=== PATIENT | female | born 1930 | race Caucasian/White ===

== ENCOUNTER → 2016-08-07 | Outpatient (CLI) | payer MEDICARE ==
[~2016-08-07] MED LIST: ACET-2267 PO; ACHD5005 PO; AMLO5TAB2 PO; ASCO500T20 PO; ASCO500T5 PO; ASP325TEC PO; ASPI-624 PO; ATEN50TA PO; CA C1TAB26 PO; CALC-80 PO; CALC-97 PO; CALC600T PO; CHOL10003 PO; CLOP75TA PO; CLOP75TA69 PO; CYCL10TA9 PO; DOCU100T7 PO; ERGO2000 PO; EST30C VG; EZET10TA5 PO; FENO48TA PO; FENO54TA PO; FISH OIL 1,2001 EAC1 PO; LD5PT TOP; LSNP20T PO; MULT1CAP27 PO; NEBI5TAB8 PO; OMEG1CAP51 PO; OMG1KC PO; PNT40TEC PO; RANEXA ER PO; RANEXA PO; ROSU10TA12 PO; Rivaroxaban PO; TRAM50TA2 PO; VITA C; [UNRECOGNIZED DRUG - OTHER]; [UNRECOGNIZED DRUG - OTHER] PO
--- NOTE | 2016-08-07 13:27 | Diagnostic Imaging Report ---
3 views of the lumbar spine. INDICATION: Back pain. Osteoporosis. FINDINGS: There is suggestion of osteopenia. There is evidence of a kyphoplasty at T12 and old compression fracture also at T11. There is suggestion of a mild depression of the superior endplate at L2 level which is not seen on 03/30/15. The alignment of the posterior spinal line is satisfactory. The SI joints appear unremarkable. IMPRESSION: Osteopenia and old compression fractures of the lower thoracic spine. There is a mild depression of superior endplate of L2 vertebral body with no significant vertebral body height loss seen. If this matches the area of pain, then further evaluation with MRI is recommended for better evaluation. Dictated by: Dictated on workstation # [id number]
--- NOTE | 2016-08-07 13:33 | Diagnostic Imaging Report ---
3 views of the thoracic spine. INDICATION: Back pain, osteoporosis. COMPARISON: 03/30/2015. FINDINGS: Old compression fractures of T12 and T11 are seen similar to 2015 exam. Post kyphoplasty changes at T12 are noted. There are prominent degenerative changes with multilevel anterior osteophytes seen. The alignment of the posterior spinal line appears satisfactory. Post CABG changes and cardiomegaly seen. IMPRESSION: Old compression fractures of the lower thoracic spine. Osteopenia. Cardiomegaly. Dictated by: Dictated on workstation # [id number]
== END ==
LOC: RAD 12:46
PROVIDERS: ATTEND Nurse Practitioner Family
DX: M85.89 Other specified disorders of bone density and structure, multiple sites (principal); M48.54XD Collapsed vertebra, not elsewhere classified, thoracic region, subsequent encounter for fracture with routine healing
CPT/HCPCS: 72072; 72100

== ENCOUNTER → 2016-08-16 | Outpatient (CLI) | payer MEDICARE ==
--- NOTE | 2016-08-16 11:49 | Diagnostic Imaging Report ---
PROCEDURE: MRI lumbar spine. TECHNIQUE: Multiplanar, multisequence MRI of the lumbar spine was performed without contrast. INDICATION: Back pain. Previous history of kyphoplasty. Comparison with 07/24/2012. FINDINGS: There is kyphoplasty cement at T12 vertebral body. Body height is well maintained. There is wedge type compression fracture of T11 vertebral body with 50% loss of body height. This is chronic in nature. There is edema in the vertebral body of L2 on today's study with superior endplate compression fracture present. There is mild loss of body height. Fracture edema does not extend into the posterior elements. The remaining lumbar vertebral bodies appear normal. No evidence of focal disc herniation. No spinal stenosis. There is mild posterior facet and ligamentous hypertrophy at L4-L5 which is causing mild encroachment upon the foramen bilaterally. IMPRESSION: 1. There is a new superior endplate compression fracture of L2 with mild loss of body height. 2. Old compression fracture of T11 and T12 with kyphoplasty cement within T12. 3. Mild degenerative facet and ligamentous disease L4-L5 causing mild encroachment upon the neural foramen bilaterally. Dictated by: Dictated on workstation # [id number]
== END ==
LOC: RAD 10:53
PROVIDERS: ATTEND Nurse Practitioner Family
DX: M48.56XA Collapsed vertebra, not elsewhere classified, lumbar region, initial encounter for fracture (principal); R29.890 Loss of height
CPT/HCPCS: 72148

== ENCOUNTER 2016-09-17 11:51 | Outpatient (CLI) | payer MEDICARE ==
[~2016-09-17] VITALS: Ht 152.4 cm; Wt 55.5 kg
[2016-09-17] MEDS ORDERED: RANO500T3 PO (14:54)
== END 2016-09-17 15:02 ==
LOC: PREOP 11:51
PROVIDERS: ATTEND Orthopaedic Surgery Orthopaedic Surgery of the Spine
DX: Z01.818 Encounter for other preprocedural examination (principal); M80.08XA Age-related osteoporosis with current pathological fracture, vertebra(e), initial encounter for fracture

== ENCOUNTER 2016-09-19 06:05 | Day surgery (SDC) | payer MEDICARE ==
[~2016-09-19] VITALS: Ht 152.4 cm; Wt 55.5 kg
[~2016-09-19 06:05] MED LIST changes: +RANO500T3 PO
[2016-09-19] MEDS ORDERED: LACTATED RINGERS 1,000 ML IV PRN (06:47)
[2016-09-19 06:50] VITALS: BP 153/64
[2016-09-19] MEDS ORDERED: SEVOFLURANE (ULTANE) 15 ML INHAL SOLN ONE (06:51)
[2016-09-19] MEDS ORDERED: proPOfol 200 MG/20 ML (DIPRIVAN) VIAL IV ONE (06:51)
[2016-09-19] MEDS ORDERED: ONDANSETRON 4 MG/2 ML (SDV) Z0FRAN ONE (06:51)
[2016-09-19] MEDS ORDERED: LIDOCAINE PF 2% 5 ML (XYLOCAINE) VIAL ONE (06:51)
[2016-09-19] MEDS ORDERED: LACTATED RINGERS 1,000 ML IV ONE (06:51)
[2016-09-19] MEDS ORDERED: ROCURONIUM 50 MG/5 ML (ZEMURON) VIAL IV ONE (06:51)
[2016-09-19] MEDS ORDERED: fentaNYL INJECTION 100 MCG/2 ML AMP ONE (06:51)
[2016-09-19] MEDS ORDERED: ceFAZolin 1 GM/NS 50 ML IVPB IV ONE ×2 (07:00)
[2016-09-19] MEDS ORDERED: BUP/EPI 0.25% 1:200,000 (MARCAINE) 30 ML VIAL ONE (07:36)
--- NOTE | 2016-09-19 07:46 | History & Physical-Surgical ---
HPO-Surgical History of Present Illness Chief Complaint: Back Pain Diagnosis/Surgical Indication: LUMBAR FX, osteoporosis Procedure: LUMBAR 1&2 KYPHOPLASTY Date of Surgery: Sep 19, 2016 Weight (Pounds): 122 Weight (Ounces): 6.0 Height (Feet): 5 Height (Inches): 0.00 Allergies and Home Medications Allergies Coded Allergies: niacin (Verified Allergy, Unknown, HIVES, 09/17/16) simvastatin (Verified Allergy, Unknown, HIVES, 09/17/16) Home Medications Acetaminophen 500 Mg Tablet, 500 MG PO HS, (Reported) Ascorbic Acid 500 Mg Tab.chew, 500 MG PO DAILY, (Reported) Aspirin 81 Mg Tablet, 81 MG PO DAILY, (Reported) Clopidogrel Bisulfate 75 Mg Tablet, 75 MG PO DAILY, (Reported) Docusate Sodium 100 Mg Tablet, 100 MG PO PRN PRN for CONSTIPATION, (Reported) Ergocalciferol (Vitamin D2) 2,000 Unit Tablet, 1,000 UNIT PO DAILY, (Reported) Nebivolol Hcl 5 Mg Tablet, 5 MG PO HS, (Reported) Pantoprazole Sodium 40 Mg Tablet.dr, 40 MG PO DAILY, (Reported) Ranolazine 500 Mg Tab.er.12h, 500 MG PO Q12H, (Reported) Rosuvastatin Calcium 10 Mg Tablet, 10 MG PO HS, (Reported) Tramadol HCl 50 Mg Tablet, 50 MG PO Q12H PRN for PAIN, #20 Prescribed by: YOUSIF SCOTT on 08/24/15 1611 Past Lduezxc-Vxzlrx-Lcpots Hx Patient Social History Alcohol Use: Denies Use Recreational Drug Use: No Smoking Status: Former Smoker Recent Foreign Travel: No Contact w/other who traveled: No Recent Hopitalizations: No Recent Infectious Disease Expo: No Immunizations Up To Date Date of Pneumonia Vaccine: Jan 18, 2010 Date of Influenza Vaccine: Jan 28, 2016 Seasonal Allergies Seasonal Allergies: Yes Surgeries HX Surgeries: Yes (CORONARY BYPASS GRAFT, LAP LIZETH, BACK SX, 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) Respiratory Hx Respiratory Disorders: No Cardiovascular Hx Cardiovascular Disorders: Yes (BYPASS SURGERY) Cardiac Disorders: Coronary Artery Disease, High Cholesterol, Hypertension Neurological Hx Neurological Disorders: Yes Neurological Disorders: TIA 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 System Hx 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 Disorders: No Sexually Transmitted Disease: No HIV/AIDS: No Genitourinary Hx Genitourinary Disorders: Yes (INCONT AT TIMES ) Gastrointestinal Hx Gastrointestinal Disorders: Yes (CONSTIPATION OCCASIONALLY) Gastrointestinal Disorders: Gastroesophageal Reflux, Diverticulosis Musculoskeletal Hx Musculoskeletal Disorders: Yes (FRACTURE LEFT ARM) Musculoskeletal Disorders: Degenerate Disk Disease, Osteoporosis, Fractures Endocrine Hx Endocrine Disorders: No HEENT HX ENT Disorders: Yes (HAD CATARACTS REMOVED BILAT, READING GLASSES) HEENT Disorders: Cataract Loss of Vision: Bilateral Hearing Impairment: Denies Cancer 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 Psychosocial Hx Psychiatric Problems: No Integumentary HX Skin/Integumentary Disorder: Yes (skin cancer on face/body) Blood Transfusions Hx Blood Disorders: No Adverse Reaction to a Blood Tr: No Family Medical History Family Hx: Abdominal aortic aneurysm G8 SISTER Congestive heart failure 19 FATHER Family history: Arthritis 19 MOTHER G8 SISTER Family history: Cardiovascular disease G8 SISTER Family history: Hypertension G8 SISTER Family history: Osteoporosis 19 MOTHER Heart disease 19 FATHER 19 MOTHER G8 SISTER Hypercholesterolemia G8 SISTER Kidney disease G8 SISTER Myocardial infarction 19 FATHER 19 MOTHER G8 SISTER Exam Vital Signs Vital Signs 09/19/16 06:50 Temp 98.1 Pulse 53 Resp 18 B/P (MAP) 153/64 Pulse Ox 97 Capillary Refill : Labs MRI shows acute L1 and L2 compression fractures General Appearance: Alert, Oriented X3, Cooperative HEENT: Atraumatic Respiratory: Normal Air Movement Cardiovascular: Regular Rate Abdominal: Soft, No Tenderness Extremities: No Clubbing Skin: No Rashes Neuro: Normal Gait, Normal Speech, Strength at 5/5 X4 Ext Psych/Mental Status: Mental Status NL Assessment/Plan Assessment and Plan L1 and L2 Osteoporotic Compression Fractures Plan L1 and L2 kyphoplasty Problems: DAKOTA REGAN MD Sep 19, 2016 7:46 am
--- NOTE | 2016-09-19 08:38 | Progress Note-Post Operative ---
Post-Operative Progess Note Surgeon (s)/Cider Maker (s) Surgeon DAKOTA REGAN MD Cider Maker: Heriberto Lozano Pre-Operative Diagnosis LUMBAR FX, osteoporosis Post-Operative Diagnosis Same, pathology pending Procedure & Operative Findings Date of Procedure 09/19/16 Procedure Performed/Findings L1, L2 and L3 kyphoplasty Anesthesia Type GETA Estimated Blood Loss Estimated blood loss (mL): minimal Specimens/Packing Specimens Removed L2 biopsy Packing: none DAKOTA REGAN MD Sep 19, 2016 8:38 am
[2016-09-19] MEDS ORDERED: ONDANSETRON 4 MG/2 ML (SDV) Z0FRAN IVP PRN (09:00)
[2016-09-19] MEDS: fentaNYL INJECTION 100 MCG/2 ML AMP IVP PRN ×2 (09:24→09:32)
[2016-09-19 10:05] VITALS: BP 185/71
[2016-09-19] MEDS ORDERED: ONDANSETRON 4 MG/2 ML (SDV) Z0FRAN IVP ONE ×2 (10:30→11:00)
[2016-09-19 10:35] VITALS: BP 203/83
[2016-09-19 11:05] VITALS: BP 178/71
[2016-09-19 11:30] VITALS: BP 178/71
[2016-09-19 12:45] VITALS: BP 178/71
--- NOTE | 2016-09-19 13:15 | OPERATIVE REPORT ---
DATE OF SERVICE: 09/19/2016 PREOPERATIVE DIAGNOSIS: L1 and L2 osteoporotic pathologic compression fractures. POSTOPERATIVE DIAGNOSES: L1 and L2 osteoporotic pathologic compression fractures as well as L3 osteoporotic pathologic compression fracture and pathology pending. PROCEDURES PERFORMED: 1. L1 kyphoplasty. 2. L2 kyphoplasty and biopsy with fluoroscopy. 3. L3 kyphoplasty with fluoroscopy. DATE AND TIME OF SURGERY: Please see anesthesia record. SURGEON: Michael Copeland MD LECTURER IN MARKETING: ALEX Zapata ROLE OF TIRE SORTER: Aid in bilateral balloon insufflation with methylmethacrylate insertion. ANESTHESIA: General endotracheal. ESTIMATED BLOOD LOSS: Minimal. INTRAVENOUS FLUIDS: Please see anesthesia record. ANTIBIOTICS: Ancef. COMPLICATIONS: None. INDICATION FOR PROCEDURE: The patient is an 86-year-old female with progressively intolerable back pain. MRI from about a month and half ago, which showed an acute L2 compression fracture due to nutcracker/pincer phenomenon, L1 was recommended to be treated as well. During imaging today during setup, it was noted that she had a new superior endplate compression deformity of the L3 as well. Therefore, all 3 levels were treated. DESCRIPTION OF PROCEDURE: The patient was taken to preoperative holding area and brought back to operative suite after adequate induction of general anesthetic. Preoperative antibiotics were given, turned prone on the Alex table, care with padding to all extremities, sterilely prepped and draped posterior thoracolumbar spine. Biplanar fluoroscopy was brought in with localization of the appropriate levels and then stab incision was made. Working cannula was placed. Vertebral body was biopsied of the L2. Cavity creation was performed with balloon tamp and then methylmethacrylate was inserted with great fill achieved. Great fill of L1-L2 with a small amount of extrusion of L3 which was inconsequential was noted. Cement was allowed to harden and cannula was removed. Wounds were closed in layers. The patient transferred to recovery room in stable condition having tolerated the procedure well. Job ID: [id number] DocumentID: [id number] Dictated Date: 09/19/2016 08:43:04 Moisture Machine Tender Date: 09/19/2016 12:35:59 Dictated By: MICHAEL COPELAND MD [facility]
--- NOTE | 2016-09-19 16:49 | Diagnostic Imaging Report ---
EXAM: Intraoperative views of the lumbar spine. INDICATION: Kyphoplasty of L1 to L3 levels performed by Dr. Copeland. One minute and 59 seconds of fluoroscopy time was utilized. IMPRESSION: Images demonstrate kyphoplasty changes involving the L1 through L3 levels. There is minimal cement extension posteriorly along the posterior spinal line at L3 seen. Dictated by: Dictated on workstation # [id number]
== END 2016-09-19 12:45 | disposition home or self-care (01) ==
LOC: SDC 06:05
PROVIDERS: ATTEND Orthopaedic Surgery Orthopaedic Surgery of the Spine
DX: M80.08XA Age-related osteoporosis with current pathological fracture, vertebra(e), initial encounter for fracture (principal); I25.10 Atherosclerotic heart disease of native coronary artery without angina pectoris; I10 Essential (primary) hypertension; E78.00 Pure hypercholesterolemia, unspecified; Z95.1 Presence of aortocoronary bypass graft; Z79.899 Other long term (current) drug therapy
CPT/HCPCS: 87081

== ENCOUNTER 2016-10-08 11:27 | Inpatient (IN) | payer MEDICARE ==
[~2016-10-08] VITALS: Ht 152.4 cm; Wt 50.3 kg
[~2016-10-08 11:27] MED LIST changes: +ASCO-262 PO; +CLOP75TA28 PO; +LISI-552 PO; +PANT40TA3 PO; +ROSU10TA24 PO
[2016-10-08 12:30] VITALS: BP 94/53
[2016-10-08] MEDS ORDERED: DOCUSATE SODIUM 100 MG (COLACE) CAP PO PRN (12:45)
--- NOTE | 2016-10-08 14:23 | Occupational Therapy Eval ---
OT Evaluation-General/PLF Medical Diagnosis Admission Date Oct 08, 2016 at 12:35 Medical Diagnosis: L5 compression fracture Onset Date: Oct 07, 2016 Therapy Diagnosis Therapy Diagnosis: decreased self care skills Height/Weight Height (Feet): 5 Height (Inches): 0.00 Weight (Pounds): 108 Weight (Ounces): 0.6 Precautions Precautions/Isolations: Fall Prevention, Standard Precautions Weight Bear Status Location Restriction: LE Bilateral Referral Physician: Brian Medical History Pertinent Medical History: CABG, CAD, GERD, HTN Additional Medical History vertebroplasty/kyphoplasty 09/19/16, high cholesterol, TIA, chronic constipation, diverticulosis, left arm fracture, compression fracture, DDD, osteoporosis, cataracts, skin cancer Current History Pt had L4-5 kyphoplasty Reviewed History: Yes Social History Home: Single Level Current Living Status: Alone Entry Into Home: Stairs With Railing Steps Into Home: 2 ADL-Prior Level of Function ADL PLOF Comments Pt states she is normally independent with self care and mobility. Pt has been experiencing some difficulty with ADLs recently secondary to pain. Has been using walker for last few weeks. Family lives nearby and often brings meals to pt. Pt states she can drive, but hasn't been recently. DME/Equipment: Bath Chair, Grab Bars, Shower, Tall Toilet OT Current Status Subjective Pt agreeable to therapy. Pt reports 5/10 back pain. Mental Status/Objective Patient Orientation: Person, Place, Situation Current Glasses/Contacts: Yes Hearing Aids: No Dentures/Partials: No Hand Dominance: Right Upper Extremity ROM Grossly WFL Upper Extremity Coordination Fair ADL-Treatment ADL-Current Pt supine to sit with minimal assistance and cues for technique. Sit to stand with minimal assistance. Gait to restroom with FWW. Pt transferred to toilet with minimal assistance. Pt requires assist for thorough hygiene after BM. Stood at sink to wash hands with supervision. Pt declined bathing today secondary to fatigue, states she would like to try tomorrow. Pt required assist to thread bilateral LE into pant legs. Stood with CGA for balance during pant hike. Pt requires occasional rest breaks during ADL tasks secondary to decreased activity tolerance. Pt requires max assist for socks. Meal tray arrives. Pt able to feed self after set up. Pt sitting in chair with needs met and son present after session. Functional [place] Measure 0=Not Assessed/NA 4=Minimal Assistance 1=Total Assistance 5=Supervision or Setup 2=Maximal Assistance 6=Modified [place] 3=Moderate Assistance 7=Complete IndependenceIRFPAI Quality Coding Scale 6 Independent with activity with or without an assistive device 5 Patient requires set up or clean up by helper. Patient completes activity by themselves 4 Supervision or touching assist (CGA). Prospect provide cues , steadying assist 3 The helper provides less than half the effort to complete the activity 2 The helper provides more than half the effort to complete the activity 1 Dependent. The helper does all the effort to complete an activity 7 Patient refused to complete or attempt activity 9 The patient did not perform the activity before the current illness or injury 88 Not attempted due to Medical conditions or safety concerns Eating (FIM): 5 (set up) Eating (QC): 5 Lower Body Dressing (FIM): 3 Lower Body Dressing (QC): 3 On/Off Footwear (QC): 2 Toileting (FIM): 3 Toileting Hygiene (QC): 3 Toilet/Commode Transfer (FIM): 4 Toilet Transfer (QC): 4 Education OT Patient Education: Rehab process Teaching Recipient: Patient Teaching Methods: Discussion Response to Teaching: Verbalize Understanding OT Short Term Goals Short Term Goals Time Frame: Oct 15, 2016 Bathing(FIM): 4 Lower Body Dressing(FIM): 5 Toilet/Commode Transfer(FIM): 5 Additional Short Term Goals: 1-Demonstrate ADL Tasks, 2-Verbalize Understanding , 3-ImproveStrength/Windy 1=Demonstrate adherence to instructed precautions during ADL tasks. 2=Patient will verbalize/demonstrate understanding of assistive devices/ modifications for ADL. 3=Patient will improve strength/tolerance for activity to enable patient to perform ADL's. OT Chcf Goals Chcf Goals Time Frame: Oct 29, 2016 Eating (FIM): 6 Eating (QC): 6 Groomin Oral Hygiene (QC): 6 Bathing(FIM): 5 Shower/Bathe Self (QC): 5 Upper Body Dressing(FIM): 6 Upper Body Dressing (QC): 6 Lower Body Dressing(FIM): 5 Lower Body Dressing (QC): 5 On/Off Footwear (QC): 6 Toileting(FIM): 6 Toileting Hygiene (QC): 6 Toilet/Commode Transfer(FIM): 6 Toilet/Commode Transfer (QC): 6 Shower Transfer(FIM): 5 Additional Goals: 1-Demonstrate ADL Tasks, 2-Verbalize Understanding, 3- ImproveStrength/Windy 1=Demonstrate adherence to instructed precautions during ADL tasks. 2=Patient will verbalize/demonstrate understanding of assistive devices/ modifications for ADL. 3=Patient will improve strength/tolerance for activity to enable patient to perform ADL's. goals established to promote increased functional performance and allow safe discharge plan. OT Education/Plan Problem List/Assessment Assessment: Decreased Activ Tolerance, Decreased UE Strength, Dependent Transfers, Impaired Funct Balance, Impaired I ADL's, Impaired Self-Care Skills Pt s/p kyphoplasty. Pt demonstrates decreased ADL performance, mobility, strength, and activity tolerance. Pt to benefit from skilled OT intervention for ADL training, transfers, strengthening, and home safety education to maximize level of function and allow safe discharge plan. Discharge Recommendations Plan/Recommendations: Continue POC Treatment Plan/Plan of Care Treatment,Training & Education: Yes Patient would benefit from OT for education, treatment and training to promote independence in ADL's, mobility, safety and/or upper extremity function for ADL' s. Plan of Care: ADL Retraining, Functional Mobility, Group Exercise/Act as Ind, UE Funct Exercise/Act Treatment Duration: Oct 29, 2016 # of days/week 5-6 Visits Per Week: 10-12 Minutes/Day (M-F): 60-90 Minutes/Day (Sat/Paredes): PRN Agreement: Yes Rehab Potential: Good Time/GCodes Start Time: 11:40 Stop Time: 12:35 Total Time Billed (hr/min): 55 Billed Treatment Time 1 visit, EVL(15minutes), ADLx3(40minutes) AUTUMN SILVA OT Oct 08, 2016 14:23
--- NOTE | 2016-10-08 14:27 | ST Cognitive Linguistic Eval ---
Speech Evaluation-General Medical Diagnosis L5 Osteoporotic Compression Fracture s/p L4/L5 Kyphoplasty Onset Date: Oct 06, 2016 Therapy Diagnosis Therapy Diagnosis: Mild Cognitive Impairment Precautions Precautions/Isolations: Fall Prevention, Standard Precautions Referral Referring Physician: Dr. Vitor Torres Reason for Referral: Evaluation/Treatment Cognitive Evaluation Medical History Pertinent Medical History: CAD, GERD, HTN TIA, Osteoporosis Reviewed History: Yes Social History Home: Single Level (Two steps to enter house.) Current Living Status: Alone Speech PLF-Current Status Prior Level of Function Per patient, she is able to communicate easily with family and friends, however, has noticed a slight decline in her memory functioning. The patient reports the decline has occurred for several months, however, "may" be increasing in the past month. Subjective The patient was recently admitted to [facility] following an L5 compression fracture repaired with a Kyphoplasty. The patient greeted the clinician appropriately and was agreeable to participation in the cognitive evaluation on this date. Language Eval: Auditory Comprehends Simple Yes/No Ques: Functional Indent/Objects Multiple Bernstein: Functional Ident/Pics in Multiple Bernstein: Functional Follows 1-Step Commands: Functional Follows Complex Directions: Mild (Intermittent repetition required for increased accuracy.) Follows General Conversations: Functional Language Eval: Verbal Language Completes Spontaneous Greeting: Functional Produces Auto, Serial Info: Functional Imitates Simple Words/Phrases: Functional Word Finding: Mild Requests Basic Needs: Functional States Basic Personal Info: Functional Cognitive Patient Orientation The patient is oriented to month, day of week, and year (independently). Objective Cognitive Domain Attention: WNL Memory: Mild Problem Solving: Functional Objective Impression The patient demonstrated a mild cognitive impairment in the area of functional memory. Communication/Social Cognition Comprehension: 4 Expression: 5 Social Interaction: 6 Problem Solvin Memory: 4 Speech Patient Assess Expression of Ideas/Wants: Exhibits (3) Understanding [place] Content: Usually Understands (3) Brief Interview-Mental Status: Yes Repetition of Three Words: Three (3) Temporal Orientation: Year: Correct (3) Temporal Orientation: Month: Accurate within 5 days(2) Temporal Orientation: Day: Correct (1) Recall : Wear to say "Sock": No, could not recall (0) Recall : Color: Yes, no cue required (2) Recall : Bed: Yes, no cue required (2) Speech Short Term Goals Short Term Goals Short Term Goals 1. The patient will recall and demonstrate two functional memory strategies for use at home, independently. 2. The patient will demonstrate 90% accuracy with safety problem solving, independently. 3. The patient will recall three to five items immediately and following a five minute delay with mild clinician verbal prompting. Time Frame-STG: Five Days Speech Penitentiary Goals Penitentiary Goals 1. The patient will demonstrate improved cognitive skills for increased function and safety with ADL's in the least restrictive setting. Time Frame: 10 days Comprehension: 5 Expression: 6 Social Interaction: 6 Problem Solvin Memory: 5 Speech-Plan Treatment Plan Speech Therapy Treatment Plan: Continue Plan of Care Continue skilled speech pathology to target functional memory strategies. Treatment Duration: Oct 17, 2016 # of days/week Five. Visits Per Week: Five. Minutes/Day (M-F): 30 Rehab Potential: Good Safety Risks/Education Teaching Recipient: Patient Teaching Methods: Discussion Response to Teaching: Verbalize Understanding Education Topics Provided: Results, Recommendations, Plan of Care Time Speech Therapy Time In: 14:04 Speech Therapy Time Out: 14:19 Total Billed Time: 15 Billed Treatment Time 1, LESTER MITCHELL Oct 08, 2016 14:27
--- NOTE | 2016-10-08 14:45 | Occupational Ther Daily Note ---
OT Current Status-Daily Note Subjective Pt sitting in chair, agrees to treatment. Mental Status/Objective Functional [place] Measure 0=Not Assessed/NA 4=Minimal Assistance 1=Total Assistance 5=Supervision or Setup 2=Maximal Assistance 6=Modified [place] 3=Moderate Assistance 7=Complete [place] Attachments: Telemetry ADL-Treatment Pt doffed hospital gown without assistance. Donned button up shirt with set up and increased time. Sit to stand with CGA. Gait to restroom with FWW and occasional cues for safe walker use. Pt stood at sink for grooming tasks. Pt brushed teeth, washed face, and combed hair with supervision for standing balance. Transfer back to chair with CGA. Pt instructed in use of adaptive equipment for LE dressing tasks. Pt doffed socks with SBA using dressing stick, verbal cues for task completion. Pt donned bilateral socks with minimal assistance using sock aid. Pt sitting in chair with needs met after session. Functional [place] Measure 0=Not Assessed/NA 4=Minimal Assistance 1=Total Assistance 5=Supervision or Setup 2=Maximal Assistance 6=Modified [place] 3=Moderate Assistance 7=Complete IndependenceIRFPAI Quality Coding Scale 6 Independent with activity with or without an assistive device 5 Patient requires set up or clean up by helper. Patient completes activity by themselves 4 Supervision or touching assist (CGA). [place] provide cues , steadying assist 3 The helper provides less than half the effort to complete the activity 2 The helper provides more than half the effort to complete the activity 1 Dependent. The helper does all the effort to complete an activity 7 Patient refused to complete or attempt activity 9 The patient did not perform the activity before the current illness or injury 88 Not attempted due to Medical conditions or safety concerns Grooming (FIM): 5 Oral Hygiene (QC): 4 (supervision) Upper Body (FIM): 5 Upper Body Dressing (QC): 5 Education OT Patient Education: Modified ADL techniques Teaching Recipient: Patient Teaching Methods: Demonstration, Discussion Response to Teaching: Verbalize Understanding, Reinforcement Needed OT Short Term Goals Short Term Goals Time Frame: Oct 15, 2016 Bathing(FIM): 4 Lower Body Dressing(FIM): 5 Toilet/Commode Transfer(FIM): 5 Additional Short Term Goals: 1-Demonstrate ADL Tasks, 2-Verbalize Understanding , 3-ImproveStrength/Windy 1=Demonstrate adherence to instructed precautions during ADL tasks. 2=Patient will verbalize/demonstrate understanding of assistive devices/ modifications for ADL. 3=Patient will improve strength/tolerance for activity to enable patient to perform ADL's. OT Nursing Home Goals Print Color Operator Goals Time Frame: Oct 29, 2016 Eating (FIM): 6 Eating (QC): 6 Groomin Oral Hygiene (QC): 6 Bathing(FIM): 5 Shower/Bathe Self (QC): 5 Upper Body Dressing(FIM): 6 Upper Body Dressing (QC): 6 Lower Body Dressing(FIM): 5 Lower Body Dressing (QC): 5 On/Off Footwear (QC): 6 Toileting(FIM): 6 Toileting Hygiene (QC): 6 Toilet/Commode Transfer(FIM): 6 Toilet/Commode Transfer (QC): 6 Shower Transfer(FIM): 5 Comprehension(FIM): 5 Expression (FIM): 6 Social Interaction(FIM): 6 Problem Solving(FIM): 5 Memory(FIM): 5 Additional Goals: 1-Demonstrate ADL Tasks, 2-Verbalize Understanding, 3- ImproveStrength/Windy 1=Demonstrate adherence to instructed precautions during ADL tasks. 2=Patient will verbalize/demonstrate understanding of assistive devices/ modifications for ADL. 3=Patient will improve strength/tolerance for activity to enable patient to perform ADL's. OT Education/Plan Problem List/Assessment Pt s/p kyphoplasty. Pt demonstrates decreased ADL performance, mobility, strength, and activity tolerance. Pt to benefit from skilled OT intervention for ADL training, transfers, strengthening, and home safety education to maximize level of function and allow safe discharge plan. Discharge Recommendations Plan/Recommendations: Continue POC Treatment Plan/Plan of Care Patient would benefit from OT for education, treatment and training to promote independence in ADL's, mobility, safety and/or upper extremity function for ADL' s. Plan of Care: ADL Retraining, Functional Mobility, Group Exercise/Act as Ind, UE Funct Exercise/Act Treatment Duration: Oct 29, 2016 Visits Per Week: 10-12 Minutes/Day (M-F): 60-90 Minutes/Day (Sat/Paredes): PRN Agreement: Yes Rehab Potential: Good Time/GCodes Start Time: 13:20 Stop Time: 13:55 Total Time Billed (hr/min): 35 Billed Treatment Time 1 visit, ADLx2(35minutes) AUTUMN SILVA OT Oct 08, 2016 14:45
--- NOTE | 2016-10-08 16:12 | Physical Therapy Evaluation ---
PT Evaluation-General Medical Diagnosis Admission Date Oct 08, 2016 at 12:35 Medical Diagnosis: L5 compression fracture Onset Date: Oct 07, 2016 Therapy Diagnosis Therapy Diagnosis: weakness and abnormal gait Height/Weight Height (Feet): 5 Height (Inches): 0.00 Weight (Pounds): 99 Weight (Ounces): 0.0 Precautions Precautions/Isolations: Fall Prevention, Standard Precautions Weight Bear Status Location Restriction: LE Bilateral Referral Physician: Brian Medical History Pertinent Medical History: CABG, CAD, GERD, HTN Additional Medical History vertebroplasty/kyphoplasty 09/19/16, high cholesterol, TIA, chronic constipation, diverticulosis, left arm fracture, compression fracture, DDD, osteoporosis, cataracts, skin cancer Current History Kyphoplasty L4-5 on 10/07/16. Reviewed History: Yes Social History Home: Single Level Current Living Status: Alone Entry Into Home: Stairs With Railing PT Steps Into Home: 2 Prior/Core FIM Prior Level of Function Functional [place] Measure 0=Not Assessed/NA 4=Minimal Assistance 1=Total Assistance 5=Supervision or Setup 2=Maximal Assistance 6=Modified [place] 3=Moderate Assistance 7=Complete [place] Bed Mobility: 7 Transfers (B,C,W/C) (FIM): 7 Gait: 7 (only occas use of FWW for ambulation. ) Prior to september 2016, pt was still driving, doing her own shopping. Has recently decreased doing these things due to recent back pain. PT Evaluation-Current Subjective Agreeable to PT. Reports she just doesnt feel strong enough to manage at home. Pain Numeric Pain Scale: 6 Location: Posterior Location Body Site: Back (lower and central) Pain Description: Ache Pt/Family Goals This patient reports her goal is to return home alone as before. Objective Patient Orientation: Person, Place, Time, Situation Problem Solving: Good Telemetry ROM/Strength ROM Lower Extremities WNL Strenght Lower Extremities Grossly 4-/5 throughout. Integumentary/Posture Integumentary Intact; refer to nursing documentation. Bowel Incontinence: No Bladder Incontinence: No Posture normal and symmetrical; slight thoracic kyphosis, normal for age. Neuromuscular (Tone, Coordination, Reflexes) Intact and functional Sensory Vision: Wears Glasses Hearing: Functional Hand Dominance: Right Sensation Right Lower Extremit: Intact Sensation Left Lower Extremity: Intact Transfers Functional [place] Measure 0=Not Assessed/NA 4=Minimal Assistance 1=Total Assistance 5=Supervision or Setup 2=Maximal Assistance 6=Modified [place] 3=Moderate Assistance 7=Complete IndependenceIRFPAI Quality Coding Scale 6 Independent with activity with or without an assistive device 5 Patient requires set up or clean up by helper. Patient completes activity by themselves 4 Supervision or touching assist (CGA). [place] provide cues , steadying assist 3 The helper provides less than half the effort to complete the activity 2 The helper provides more than half the effort to complete the activity 1 Dependent. The helper does all the effort to complete an activity 7 Patient refused to complete or attempt activity 9 The patient did not perform the activity before the current illness or injury 88 Not attempted due to Medical conditions or safety concerns Transfers (B, C, W/C) (FIM): 3 Roll Left to Right (QC): 4 (min assist) Supine to/from Sit: 3 (asssit with both legs into bed; mod assist to lift torso out of bed) Sit to/from Stand: 3 (lifting assist. ) Sit to Lying (QC): 3 Lying to Sitting/Side of Bed(Q: 3 Sit to Stand (QC): 3 Chair/Dre-lu-Arnin Xfer(QC): 4 Car Transfer (QC): 88 (unable and unsafe to attempt) Pt is slow with transfers and needs cuing. Worked on log roll technique with good ability to complete. Pt expressed less discomfort with transfer when doing the log roll. Gait Does the Patient Walk?: Yes Mode of Locomotion: Walk Anticipated Mode of Locomotion: Walk Gait (FIM): 2 Distance (FIM): 1=641-96 ft Walk 10 feet (QC): 4 Walk 50 ft with 2 Turns(QC): 4 (in and outside of room) Walk 150 ft (QC): 88 (unable to amb 150 ft) Walking 10ft/uneven surface-QC: 4 (very clsoe CGA) Gait Level of Assist: 4 Gait Assistive Device: FWW Comments/Gait Description CGA and skilled cues for safety. Wheelchair Training Does the Pt Use a Wheelchair?: No Stairs Stairs (FIM): 0 (unable /unsafe to attempt) 1 Step (curb) (QC): 4 4 Steps (QC): 88 12 Steps (QC): 88 Balance Sitting Static: Good Sitting Dynamic: Good Standing Static: Fair Standing Dynamic: Fair Picking up an Object (QC): 88 (should not perform with recent kyphoplasty) Treatment Functional bed mobility training/log roll tech; sit to stand transfer training; Education on ARU expectation and goals. Seated LE ther ex x 10 each to promote leg strength for sit to stand and bed mobility to include: AP, LAQ, hip flexion, hip abd/add x 10 each. Assessment/Needs Pt presents post kyphoplasty with LE weakness and decreased self care ability. She needs assist with transfers, gait and is unsteady with ambulation. She is an excellent candidate for skilleed PT intervention as she is unsafe to care for herself at home alone. Rehab Potential: Good PT Short Term Goals Short Term Goals Time Frame: Oct 16, 2016 Transfers (B,C,W/C) (FIM): 4 Gait (FIM): 4 PT Care Home Goals Feedmobile Driver Goals PT Care Home Goals Time Frame: Oct 30, 2016 Transfers (B,C,W/C) (FIM): 7 Sit to Lying (QC): 6 Lying-Sitting on Side/Bed(QC): 6 Sit to Stand (QC): 6 Roll Left to Right (QC): 6 Chair/Zwn-po-Wmwrd Xfer(QC): 6 Car Transfer (QC): 5 Does the Patient Walk: Yes Gait (FIM): 6 Gait distance (FIM): 3=150 ft Walk 10 feet (QC): 6 Walk 10ft-Uneven Surface(QC): 6 Walk 50ft with 2 Turns (QC): 6 Walk 150 ft (QC): 6 Gait Assistive Device: FWW Does the Pt use WC or Scooter?: No Stairs (FIM): 5 # of Steps: 8 1 Step (curb) (QC): 6 4 Steps (QC): 5 12 Steps (QC): 88 Picking up an Object (QC): 88 All goals are set to see that the patient is mod indep and able to mobilize without assist in her home. PT Plan Problem List Problem List: Activity Tolerance, Functional Strength, Safety, Balance, Gait, Transfer, Bed Mobility Treatment/Plan Treatment Plan: Continue Plan of Care Treatment Plan: Bed Mobility, Education, Functional Activity Windy, Functional Strength, Group Therapy, Gait, Safety, Therapeutic Exercise, Transfers Treatment Duration: Oct 30, 2016 # of days/week 5-6 Visits Per Week: 10-15 Minutes/Day (M-F): 60-90 Pt/Family Agrees w/Plan: Yes Safety Risks/Education Patient Education: Transfer Techniques, Safety Issues Teaching Recipient: Patient Teaching Methods: Demonstration, Discussion Response to Teaching: Verbalize Understanding, Reinforcement Needed Discharge Recommendations Therapy D/C Recommendations: Physical Therapy Home Care Time/GCodes Time In: 1240 (1500) Time Out: 1300 (1555) Total Billed Treatment Time: 75 Total Billed Treatment visit x 2 EVM 15 GT 15 FA 30 EX 15 MORENA PATTERSON PT Oct 08, 2016 16:11
[2016-10-08 18:40] VITALS: BP 98/60
[2016-10-08] MEDS: RANOLAZINE ER 500 MG TAB (RANEXA) PO SCH (20:27)
[2016-10-08] MEDS: NEBIVOLOL 5 MG TAB (BYSTOLIC) PO SCH (20:27)
[2016-10-08] MEDS: PANTOPRAZOLE 40 MG (PROTONIX) TAB PO SCH (20:27)
[2016-10-08] MEDS: ROSUVASTATIN 5 MG (CRESTOR) TABLET PO SCH (20:28)
[2016-10-09 05:15] VITALS: BP 103/63
[2016-10-09] MEDS: VITAMIN D3 1,000 UNITS (CHOLECALCIFEROL) TABLET PO SCH (08:30)
[2016-10-09] MEDS: lisINopril 20 MG (ZESTRIL) TAB PO SCH (08:30)
[2016-10-09] MEDS: RANOLAZINE ER 500 MG TAB (RANEXA) PO SCH ×2 (08:30→20:22)
[2016-10-09] MEDS: CLOPIDOGREL 75 MG (PLAVIX) TABLET PO SCH (08:30)
[2016-10-09] MEDS: ASCORBIC ACID (VIT C) 500 MG TABLET PO SCH (08:30)
--- NOTE | 2016-10-09 09:06 | PM&R Post Admission Assessment ---
Post Admission Physician Asses The preadmission screen agrees with the post admission assessment that the patient is a good candidate for inpatient rehabilitation. The patient will have a comprehensive program of inpatient rehabilitation with a goal of maximizing level of functional independence prior to discharge home with [facility]. The patient will have PT/OT ninety minutes per day, each discipline , five days a week for gait, strengthening, conditioning, balance, ADLs, any patient/family/caregiver training necessary. Speech therapy to do cognitive assessment and treat as indicted. Rehabilitation nursing to assist with bowel, bladder, skin, wound care, medication administration, pain management. Veneer Patcher to assist with discharge planning, community reentry. SCD's for DVT prophylaxis. She appears to be well motivated to participate in three hours of therapy a day. She should be able to tolerate three hours of therapy a day from a medical standpoint. She should benefit from the three hours of therapy a day. She has a reasonable discharge plan, reasonable discharge rehabilitation goals and a supportive family. She has various comorbidities that need to be closely monitored with medications and treatments adjusted on a daily basis as needed. These include: Gerd HTN Chronic back pain Barriers to discharge for this patient who had been independent prior to this are for her to be modified independent to supervision for ADLs and mobility skills prior to discharge home with [facility], so as to lessen the burden of the caregivers. Risks for this patient include: 1. Fall 2. Fracture 3. DVT 4. Pulmonary embolism 5. Wound infection 6. Skin breakdown 7. Contractures 8. Poorly controlled pain 9. Urinary retention 10. UTI 11. Respiratory infection 12. Aspiration 13. Recuurent Compression frx 14. Poorly controlled HTN Estimated Length of Stay: 14 days Prognosis: Rehab prognosis appears good for goal of discharge home with [facility] modified independent to supervision for ADLs and mobility skills. RIZWANA KISER MD Oct 09, 2016 09:06
--- NOTE | 2016-10-09 09:51 | Physical Therapy Daily Note ---
PT Daily Note-Current Subjective Patient in recliner pre tx, agrees to PT, has pain of 4-5/10 in her back. Appearance Patient in recliner post tx with nurse call, phone, tray, all needs met. Mental Status Patient Orientation: Person, Place, Situation Transfers Functional [place] Measure 0=Not Assessed/NA 4=Minimal Assistance 1=Total Assistance 5=Supervision or Setup 2=Maximal Assistance 6=Modified [place] 3=Moderate Assistance 7=Complete IndependenceIRFPAI Quality Coding Scale 6 Independent with activity with or without an assistive device 5 Patient requires set up or clean up by helper. Patient completes activity by themselves 4 Supervision or touching assist (CGA). [place] provide cues , steadying assist 3 The helper provides less than half the effort to complete the activity 2 The helper provides more than half the effort to complete the activity 1 Dependent. The helper does all the effort to complete an activity 7 Patient refused to complete or attempt activity 9 The patient did not perform the activity before the current illness or injury 88 Not attempted due to Medical conditions or safety concerns Transfers (B, C, W/C) (FIM): 4 Sit to/from Stand: 4 CGA to stand, cues for safety and hand placement Gait Training Gait (FIM): 2 Distance: 100'x2 Gait Level of Assist: 4 Gait Persons Needed: 1 Gait Assistive Device: FWW slow, uncoordinated walking Exercises Standing: Hip Abduction, Heel/toe raises, Mini squats Standing Reps: 15 LAQ alternating for 2 min NuStep Minutes: 10 NuStep Workload: 5 Treatments transfers, ambulation, functional strengthening Assessment Current Status: Fair Progress improving mobility but fatigues quickly and needs frequent rest breaks PT Plan Problem List Problem List: Activity Tolerance, Functional Strength, Safety, Balance, Gait, Transfer, Bed Mobility Treatment/Plan Treatment Plan: Continue Plan of Care Treatment Duration: Oct 30, 2016 # of days/week 5-6 Visits Per Week: 10-11 Minutes/Day (M-F): 60-90 Minutes/Day (Sat/Paredes): 15-30 Pt/Family Agrees w/Plan: Yes Safety Risks/Education Patient Education: Gait Training, Transfer Techniques, Safety Issues Teaching Recipient: Patient Teaching Methods: Demonstration, Discussion Response to Teaching: Reinforcement Needed Time/GCodes Time In: 900 Time Out: 945 Total Billed Treatment Time: 45 Total Billed Treatment 1 visit GT 20' EX 25' CHELY ANGELO PT Oct 09, 2016 09:51
--- NOTE | 2016-10-09 10:17 | Occupational Ther Daily Note ---
OT Current Status-Daily Note Subjective Pt alert, sitting in recliner finishing up breakfast. Pt agreed to therapy. No c/o pain. Mental Status/Objective Patient Orientation: Person, Place, Time, Situation Functional [place] Measure 0=Not Assessed/NA 4=Minimal Assistance 1=Total Assistance 5=Supervision or Setup 2=Maximal Assistance 6=Modified [place] 3=Moderate Assistance 7=Complete [place] Attachments: IV ADL-Treatment Functional [place] Measure 0=Not Assessed/NA 4=Minimal Assistance 1=Total Assistance 5=Supervision or Setup 2=Maximal Assistance 6=Modified [place] 3=Moderate Assistance 7=Complete IndependenceIRFPAI Quality Coding Scale 6 Independent with activity with or without an assistive device 5 Patient requires set up or clean up by helper. Patient completes activity by themselves 4 Supervision or touching assist (CGA). [place] provide cues , steadying assist 3 The helper provides less than half the effort to complete the activity 2 The helper provides more than half the effort to complete the activity 1 Dependent. The helper does all the effort to complete an activity 7 Patient refused to complete or attempt activity 9 The patient did not perform the activity before the current illness or injury 88 Not attempted due to Medical conditions or safety concerns Eating (FIM): 6 (Dentures. Pt completes own setup and uses utensils to cut and feed self.) Eating (QC): 6 ([place]. Pt completes own setup and uses utensils to cut and feed self.) Grooming (FIM): 5 (Supervision. Standing at sink ) Oral Hygiene (QC): 5 (Pt standing at sink is able to complete with supervision. ) Bathing (FIM): 5 (Using shower bench, grabbars, hand held shower and long handle sponge pt is able to complete all bathing by self with SBA for standing when cleansing maday area/buttocks.) Bathing Location: L Arm, R Arm, L Upper Leg, R Upper Leg, L Lower Leg ( including foot), R Lower Leg (including foot), Chest, Abdomen, Buttocks, Perineal Area Shower/Bathe Self (QC): 4 Upper Body (FIM): 5 (After set up, pt is able to complete on own.) Upper Body Dressing (QC): 5 Lower Body Dressing (FIM): 4 (After set up and education on AE for lower body dressing, pt was able to use AE to don/doff lower body clothing with SBA.) Lower Body Dressing (QC): 4 (After set up and education on AE for lower body dressing, pt was able to use AE to don/doff lower body clothing with SBA.) On/Off Footwear (QC): 5 (Pt uses slip on shoes without socks today.) Transfers (B, C, W/C) (FIM): 5 (Using FWW pt is able to complete with SBA.) Shower Transfer(FIM): 4 (Using FWW, grabbar and shower bench pt is able to complete with CGA.) OT Short Term Goals Short Term Goals Time Frame: Oct 15, 2016 Bathing(FIM): 4 Lower Body Dressing(FIM): 5 Transfers (B,C,W/C) (FIM): 4 Toilet/Commode Transfer(FIM): 5 Additional Short Term Goals: 1-Demonstrate ADL Tasks, 2-Verbalize Understanding , 3-ImproveStrength/Windy 1=Demonstrate adherence to instructed precautions during ADL tasks. 2=Patient will verbalize/demonstrate understanding of assistive devices/ modifications for ADL. 3=Patient will improve strength/tolerance for activity to enable patient to perform ADL's. OT Senior Living Goals Post Office Manager Goals Time Frame: Oct 29, 2016 Eating (FIM): 6 Eating (QC): 6 Groomin Oral Hygiene (QC): 6 Bathing(FIM): 5 Shower/Bathe Self (QC): 5 Upper Body Dressing(FIM): 6 Upper Body Dressing (QC): 6 Lower Body Dressing(FIM): 5 Lower Body Dressing (QC): 5 On/Off Footwear (QC): 6 Toileting(FIM): 6 Toileting Hygiene (QC): 6 Toilet/Commode Transfer(FIM): 6 Toilet/Commode Transfer (QC): 6 Shower Transfer(FIM): 5 Comprehension(FIM): 5 Expression (FIM): 6 Social Interaction(FIM): 6 Problem Solving(FIM): 5 Memory(FIM): 5 Additional Goals: 1-Demonstrate ADL Tasks, 2-Verbalize Understanding, 3- ImproveStrength/Windy 1=Demonstrate adherence to instructed precautions during ADL tasks. 2=Patient will verbalize/demonstrate understanding of assistive devices/ modifications for ADL. 3=Patient will improve strength/tolerance for activity to enable patient to perform ADL's. OT Education/Plan Problem List/Assessment Pt s/p kyphoplasty. Pt demonstrates decreased ADL performance, mobility, strength, and activity tolerance. Pt to benefit from skilled OT intervention for ADL training, transfers, strengthening, and home safety education to maximize level of function and allow safe discharge plan. Discharge Recommendations Plan/Recommendations: Continue POC Treatment Plan/Plan of Care Patient would benefit from OT for education, treatment and training to promote independence in ADL's, mobility, safety and/or upper extremity function for ADL' s. Plan of Care: ADL Retraining, Functional Mobility, Group Exercise/Act as Ind, UE Funct Exercise/Act Treatment Duration: Oct 29, 2016 Visits Per Week: 10-12 Minutes/Day (M-F): 60-90 Minutes/Day (Sat/Paredes): PRN Agreement: Yes Rehab Potential: Good Time/GCodes Start Time: 08:00 Stop Time: 09:00 Total Time Billed (hr/min): 60 Billed Treatment Time 1 visit-ADL 4 (60 min) MORENA VILLEGAS Oct 09, 2016 10:17
--- NOTE | 2016-10-09 10:34 | PM & R (SOAP) Progress Note ---
Subjective Time Seen by Provider: 08:05 Subjective/Events-last exam Patient was seen in her room this AM.Adjusting well to unit.Patient mod assist for transfers Objective Exam Last Set of Vital Signs Vital Signs Date Time Temp Pulse Resp B/P (MAP) Pulse Ox O2 Delivery O2 Flow Rate FiO2 10/09/16 09:00 Room Air 10/09/16 07:00 70 10/09/16 05:15 98.2 18 103/63 94 Capillary Refill : I&O Bad tableGeneral: Alert, Oriented X3, Cooperative, No Acute Distress HEENT: Atraumatic, PERRLA, EOMI, Mucous Memb Moist/[place] Neck: Supple, No JVD Lungs: Clear to Auscultation Heart: Regular Rate Abdomen: Normal Bowel Sounds, Soft, No Tenderness Extremities: No Edema Neuro: Other (generalized weakness) Other physical findings mild tenderness over Lumbar spine Assessment/Plan Assessment S/P L5 kyphoplasty for compression frx DR [place] Osteoporosis Prior Kyphoplasty/Vertebroplasty Lumbar spine HTN controlled Plan Continue PT/OT/Pain management F/U with RIZWANA Lau MD Oct 09, 2016 10:34
--- NOTE | 2016-10-09 13:58 | Physical Therapy Daily Note ---
PT Daily Note-Current Subjective Reports she feels stronger today compared to yesterday. Although, notes she is tired this afternoon after a busy morning. Mental Status Patient Orientation: Person, Place, Time, Situation Transfers Functional [place] Measure 0=Not Assessed/NA 4=Minimal Assistance 1=Total Assistance 5=Supervision or Setup 2=Maximal Assistance 6=Modified [place] 3=Moderate Assistance 7=Complete IndependenceIRFPAI Quality Coding Scale 6 Independent with activity with or without an assistive device 5 Patient requires set up or clean up by helper. Patient completes activity by themselves 4 Supervision or touching assist (CGA). [place] provide cues , steadying assist 3 The helper provides less than half the effort to complete the activity 2 The helper provides more than half the effort to complete the activity 1 Dependent. The helper does all the effort to complete an activity 7 Patient refused to complete or attempt activity 9 The patient did not perform the activity before the current illness or injury 88 Not attempted due to Medical conditions or safety concerns Transfers (B, C, W/C) (FIM): 4 Supine to/from Sit: 4 (skilled cues for log roll technique to decrease discomfort with transfer. ) Sit to/from Stand: 4 (CGA and skilled cues for hand placement 50% of the time) Gait Training Does the Patient Walk?: Yes Gait (FIM): 4 Distance (FIM): 3=150 ft Distance: 150 ft, 200 ft x 2 100 ft Gait Assistive Device: FWW Worked on posture and step length with gait training as well as stepping through with each step. Stair Training Stairs (FIM): 2 4 Steps (QC): 4 12 Steps (QC): 88 Stairs: Pattern: Step to Worked on up/down 4 steps using B handrail. CGa and skilled cues to sequence safely. Assessment Current Status: Good Progress Pt appears stronger today and progressing well. Unsteady with initial standing and a bit retropulsive but no noted LOB. PT Short Term Goals Short Term Goals Time Frame: Oct 16, 2016 Transfers (B,C,W/C) (FIM): 4 Gait (FIM): 4 PT Bow Making Machine Operator Goals Bow Making Machine Operator Goals PT Prison Goals Time Frame: Oct 30, 2016 Transfers (B,C,W/C) (FIM): 7 Sit to Lying (QC): 6 Lying-Sitting on Side/Bed(QC): 6 Sit to Stand (QC): 6 Roll Left to Right (QC): 6 Chair/Gwf-re-Lfhmw Xfer(QC): 6 Car Transfer (QC): 5 Does the Patient Walk: Yes Gait (FIM): 6 Gait distance (FIM): 3=150 ft Walk 10 feet (QC): 6 Walk 10ft-Uneven Surface(QC): 6 Walk 50ft with 2 Turns (QC): 6 Walk 150 ft (QC): 6 Gait Assistive Device: FWW Does the Pt use WC or Scooter?: No Stairs (FIM): 5 # of Steps: 8 1 Step (curb) (QC): 6 4 Steps (QC): 5 12 Steps (QC): 88 Picking up an Object (QC): 88 PT Plan Problem List Problem List: Activity Tolerance, Functional Strength, Safety, Balance, Gait, Transfer, Bed Mobility Treatment/Plan Treatment Plan: Continue Plan of Care Treatment Plan: Bed Mobility, Education, Functional Activity Windy, Functional Strength, Group Therapy, Gait, Safety, Therapeutic Exercise, Transfers Treatment Duration: Oct 30, 2016 Visits Per Week: 10-11 Minutes/Day (M-F): 60-90 Minutes/Day (Sat/Paredes): 15-30 Safety Risks/Education Patient Education: Transfer Techniques, Safety Issues Teaching Recipient: Patient Teaching Methods: Demonstration, Discussion Response to Teaching: Verbalize Understanding, Reinforcement Needed Time/GCodes Time In: 1300 Time Out: 1330 Total Billed Treatment Time: 30 Total Billed Treatment visit GT 30 MORENA PATTERSON PT Oct 09, 2016 13:58
--- NOTE | 2016-10-09 14:05 | Occupational Ther Daily Note ---
OT Current Status-Daily Note Subjective Pt alert, lying in bed. Pt finishing up lunch. Pt agreed to therapy. No c/o pain. Mental Status/Objective Functional [place] Measure 0=Not Assessed/NA 4=Minimal Assistance 1=Total Assistance 5=Supervision or Setup 2=Maximal Assistance 6=Modified [place] 3=Moderate Assistance 7=Complete [place] ADL-Treatment Functional [place] Measure 0=Not Assessed/NA 4=Minimal Assistance 1=Total Assistance 5=Supervision or Setup 2=Maximal Assistance 6=Modified [place] 3=Moderate Assistance 7=Complete IndependenceIRFPAI Quality Coding Scale 6 Independent with activity with or without an assistive device 5 Patient requires set up or clean up by helper. Patient completes activity by themselves 4 Supervision or touching assist (CGA). [place] provide cues , steadying assist 3 The helper provides less than half the effort to complete the activity 2 The helper provides more than half the effort to complete the activity 1 Dependent. The helper does all the effort to complete an activity 7 Patient refused to complete or attempt activity 9 The patient did not perform the activity before the current illness or injury 88 Not attempted due to Medical conditions or safety concerns Other Treatment JAMES discussed home safety with pt. Pt stated that she has a walk-in shower with approximately 2" lip to step over with grabbars and shower bench. Pt then stated that her family will bring food into her so she will not have to cook very much. JAMES recommended placing items on lower shelf of overhead cabinets or placing items on countertop. Use of paper plates to decrease amount of clean up or using a chair to sit in to reach lower cabinets. Pt verbalized understanding. After therapy, pt lying in bed with call light/phone in reach. All needs met in room. Education OT Patient Education: Other (home safety) Teaching Recipient: Patient Teaching Methods: Discussion Response to Teaching: Verbalize Understanding OT Short Term Goals Short Term Goals Time Frame: Oct 15, 2016 Bathing(FIM): 4 Lower Body Dressing(FIM): 5 Transfers (B,C,W/C) (FIM): 4 Toilet/Commode Transfer(FIM): 5 Additional Short Term Goals: 1-Demonstrate ADL Tasks, 2-Verbalize Understanding , 3-ImproveStrength/Windy 1=Demonstrate adherence to instructed precautions during ADL tasks. 2=Patient will verbalize/demonstrate understanding of assistive devices/ modifications for ADL. 3=Patient will improve strength/tolerance for activity to enable patient to perform ADL's. OT Bakery Demonstrator Goals Fdc Goals Time Frame: Oct 29, 2016 Eating (FIM): 6 Eating (QC): 6 Groomin Oral Hygiene (QC): 6 Bathing(FIM): 5 Shower/Bathe Self (QC): 5 Upper Body Dressing(FIM): 6 Upper Body Dressing (QC): 6 Lower Body Dressing(FIM): 5 Lower Body Dressing (QC): 5 On/Off Footwear (QC): 6 Toileting(FIM): 6 Toileting Hygiene (QC): 6 Toilet/Commode Transfer(FIM): 6 Toilet/Commode Transfer (QC): 6 Shower Transfer(FIM): 5 Comprehension(FIM): 5 Expression (FIM): 6 Social Interaction(FIM): 6 Problem Solving(FIM): 5 Memory(FIM): 5 Additional Goals: 1-Demonstrate ADL Tasks, 2-Verbalize Understanding, 3- ImproveStrength/Windy 1=Demonstrate adherence to instructed precautions during ADL tasks. 2=Patient will verbalize/demonstrate understanding of assistive devices/ modifications for ADL. 3=Patient will improve strength/tolerance for activity to enable patient to perform ADL's. OT Education/Plan Problem List/Assessment Pt s/p kyphoplasty. Pt demonstrates decreased ADL performance, mobility, strength, and activity tolerance. Pt to benefit from skilled OT intervention for ADL training, transfers, strengthening, and home safety education to maximize level of function and allow safe discharge plan. Discharge Recommendations Plan/Recommendations: Continue POC Treatment Plan/Plan of Care Patient would benefit from OT for education, treatment and training to promote independence in ADL's, mobility, safety and/or upper extremity function for ADL' s. Plan of Care: ADL Retraining, Functional Mobility, Group Exercise/Act as Ind, UE Funct Exercise/Act Treatment Duration: Oct 29, 2016 Visits Per Week: 10-12 Minutes/Day (M-F): 60-90 Minutes/Day (Sat/Paredes): PRN Agreement: Yes Rehab Potential: Good Time/GCodes Start Time: 11:45 Stop Time: 12:00 Total Time Billed (hr/min): 15 Billed Treatment Time 1 visit-FA 1 (15 min) MORENA VILLEGAS Oct 09, 2016 14:05
--- NOTE | 2016-10-09 15:14 | Speech Therapy Daily Note ---
Speech Daily Progress Note Subjective Date Seen by Provider: Oct 09, 2016 Time Seen by Provider: 10:00 The patient was seated upright in recliner upon entrance. The patient greeted the clinician appropriately and was agreeable to participation in the cognitive treatment session. The patient remained pleasant and cooperative throughout therapy. Objective The clinician required additional documentation to set additional treatment goals based on the patient's cognitive function, therefore, a standardized screening tool was provided. The patient completed the Ismael Cognitive Assessment (MoCA) with the below results. - Visuospatial/Executive Functioning: The patient was able to complete trail- making tasks and clock drawing without difficulty or verbal prompting. - Naming/Language: The patient was able to name three black and white photographs, as well as, repeat single phrases and provide similarities between two items. - Attention: The patient was able to repeat five digits forward, three digits in reverse, and identify a specific letter in a string of letters. The patient demonstrated one error with serial seven subtraction. - Memory: The patient was able to recall four of five single words immediately and two of five following a five minute delay. The patient could identify five of five providing a category cue by the clinician. - Orientation: The patient was oriented to month, year, place, and city. The patient was able to identify the day and date with a verbal prompt from the clinician. The patient displayed a result of +22/30 correlating to a mild cognitive impairment. Assessment Assessment Current Status: Good Progress Treatment Plan Continue Plan of Care Communication Comprehension: 5 Expression: 5 Social Cognition Social Interaction: 6 Problem Solvin Memory: 4 Speech Short Term Goals Short Term Goals Short Term Goals 1. The patient will recall and demonstrate two functional memory strategies for use at home, independently. 2. The patient will demonstrate 90% accuracy with safety problem solving, independently. 3. The patient will recall three to five items immediately and following a five minute delay with mild clinician verbal prompting. Time Frame-STG: Five Days Speech Disability Coordinator Goals [facility]ci Goals 1. The patient will demonstrate improved cognitive skills for increased function and safety with ADL's in the least restrictive setting. Time Frame: 10 days Comprehension: 5 Expression: 6 Social Interaction: 6 Problem Solvin Memory: 5 Speech-Plan Treatment Plan Speech Therapy Treatment Plan: Continue Plan of Care Continue skilled speech pathology to target functional memory strategies for use at home. Treatment Duration: Oct 17, 2016 # of days/week Five. Visits Per Week: Five. Minutes/Day (M-F): 30 Rehab Potential: Good Safety Risks/Education Teaching Recipient: Patient Teaching Methods: Discussion Response to Teaching: Verbalize Understanding Education Topics Provided: Memory Strategies, Plan of Care Time Speech Therapy Time In: 10:00 Speech Therapy Time Out: 10:30 Total Billed Time: 30 Billed Treatment Time [facility]TJ [facility] Oct 09, 2016 15:14
[2016-10-09 18:00] VITALS: BP 108/61
[2016-10-09] MEDS: NEBIVOLOL 5 MG TAB (BYSTOLIC) PO SCH (20:22)
[2016-10-09] MEDS: PANTOPRAZOLE 40 MG (PROTONIX) TAB PO SCH (20:22)
[2016-10-09] MEDS: ROSUVASTATIN 5 MG (CRESTOR) TABLET PO SCH (20:22)
[2016-10-10 05:05] VITALS: BP 114/63
[2016-10-10] MEDS: VITAMIN D3 1,000 UNITS (CHOLECALCIFEROL) TABLET PO SCH (06:20)
--- NOTE | 2016-10-10 08:21 | PM & R (SOAP) Progress Note ---
Subjective Time Seen by Provider: 08:19 Subjective/Events-last exam Patient was seen in her room this AM Pain decreasing Patient Min assist for transfers and Gait ST working with patient on compensatory techniques for memory loss Review of Systems Musculoskeletal: back pain Objective Exam Last Set of Vital Signs Vital Signs Date Time Temp Pulse Resp B/P (MAP) Pulse Ox O2 Delivery O2 Flow Rate FiO2 10/10/16 05:05 97.6 68 18 114/63 93 Room Air Capillary Refill : I&O Intake and Output 10/10/16 00:00 Intake Total 1050 ml Balance 1050 ml Intake Oral 1050 ml # Voids 7 General: Alert, Oriented X3, Cooperative, No Acute Distress HEENT: Atraumatic, PERRLA, EOMI, Mucous Memb Moist/[place] Neck: Supple, No JVD Lungs: Clear to Auscultation Heart: Regular Rate Abdomen: Normal Bowel Sounds, Soft, No Tenderness Extremities: No Edema Neuro: Other (generalized weakness) Assessment/Plan Assessment S/P L5 kyphoplasty for compression frx DR Copeland Osteoporosis Prior Kyphoplasty/Vertebroplasty Lumbar spine HTN controlled mild memory loss Plan Continue PT/OT/ ST/Pain management F/U with DR Mcdermott and Min PRN Team Conference next week RIZWANA KISER MD Oct 10, 2016 08:21
--- NOTE | 2016-10-10 08:38 | Individualized Plan of Care ---
Individualized Plan of Care Rehab Nursing IPOC Order Admission Date Oct 08, 2016 at 12:35 Current Orders Orders Patient Visit (10/08/16 ) Pt Eval Moderate Complexity (10/08/16 ) Gait Training, Ea 15 Min (10/08/16 ) Functional Activities, Ea 15 (10/08/16 ) Exercise Therap, Ea 15 Min (10/08/16 ) Patient Visit (10/08/16 ) Patient Visit (10/09/16 ) Treat. Speech/Lang/Voice (10/09/16 ) Patient Visit (10/09/16 ) Exercise Therap, Ea 15 Min (10/09/16 ) Gait Training, Ea 15 Min (10/09/16 ) Patient Visit (10/09/16 ) Gait Training, Ea 15 Min (10/09/16 ) Toilet every (bladder): (hrs): 2 hours while awake prn PT IPOC Problem List: Activity Tolerance, Functional Strength, Safety, Balance, Gait, Transfer, Bed Mobility Treatment Plan: Continue Plan of Care Bed Mobility, Education, Functional Activity Windy, Functional Strength, Group Therapy, Gait, Safety, Therapeutic Exercise, Transfers Treatment Duration: Oct 30, 2016 Visits Per Week: 10-11 Minutes/Day (M-F): 60-90 Minutes/Day (Sat/Paredes): 15-30 OT IPOC Problems: Decreased Activ Tolerance, Decreased UE Strength, Dependent Transfers , Impaired Funct Balance, Impaired I ADL's, Impaired Self-Care Skills OT Problems Pt s/p kyphoplasty. Pt demonstrates decreased ADL performance, mobility, strength, and activity tolerance. Pt to benefit from skilled OT intervention for ADL training, transfers, strengthening, and home safety education to maximize level of function and allow safe discharge plan. Plan of Care: ADL Retraining, Functional Mobility, Group Exercise/Act as Ind, UE Funct Exercise/Act Treatment Duration: Oct 29, 2016 Visits Per Week: 10-12 Minutes/Day (M-F): 60-90 Minutes/Day (Sat/Paredes): PRN ST IPOC Speech Therapy Treatment Plan: Continue Plan of Care Treatment Duration: Oct 17, 2016 Visits Per Week: Five. Minutes/Day (M-F): 30 Physician IPOC Medical Issues being managed closely and that require the 24 hour availability of a physician: pain management HTN osteoporosis Mild memory loss Medical Issues: Bowel/Bladder Function, DVT Prophylaxis, Falls Precautions, Fluid/Electrolyte/Nutrition Balance, Infection Protection, Pain Management, Other (List) (as per above) Brief Synthesis of Preadmission Screen, Post-Admission Evaluation, and Therapy Evaluations: 86 yo female who had been fairly independent prior to l5 compression frx Had Vertebroplasty with DR Copeland and then referred to IRU for ongoing care and pain management and therapies DR Mcdermott PCP Medical Prognosis: good Anticipated Length of Stay: 7-12-17 Rehab Goals Modified Independent to supervision for adls and mobility skills with decreased pain Anticipated discharge destinat: Home with family and [facility] RIZWANA KISER MD Oct 10, 2016 08:38
[2016-10-10] MEDS: ASCORBIC ACID (VIT C) 500 MG TABLET PO SCH (08:39)
[2016-10-10] MEDS: CLOPIDOGREL 75 MG (PLAVIX) TABLET PO SCH (08:39)
[2016-10-10] MEDS: RANOLAZINE ER 500 MG TAB (RANEXA) PO SCH ×2 (08:39→20:39)
[2016-10-10] MEDS: lisINopril 20 MG (ZESTRIL) TAB PO SCH (08:39)
--- NOTE | 2016-10-10 08:45 | Physical Therapy Daily Note ---
PT Daily Note-Current Subjective Patient in bed pre tx, agrees to PT, has pain of 3/10 in her back. Patient needs toileted and dressed. Appearance Patient in recliner post tx with nurse call, phone, tray, all needs met. Mental Status Patient Orientation: Normal For Age Transfers Functional [place] Measure 0=Not Assessed/NA 4=Minimal Assistance 1=Total Assistance 5=Supervision or Setup 2=Maximal Assistance 6=Modified [place] 3=Moderate Assistance 7=Complete IndependenceIRFPAI Quality Coding Scale 6 Independent with activity with or without an assistive device 5 Patient requires set up or clean up by helper. Patient completes activity by themselves 4 Supervision or touching assist (CGA). [place] provide cues , steadying assist 3 The helper provides less than half the effort to complete the activity 2 The helper provides more than half the effort to complete the activity 1 Dependent. The helper does all the effort to complete an activity 7 Patient refused to complete or attempt activity 9 The patient did not perform the activity before the current illness or injury 88 Not attempted due to Medical conditions or safety concerns Transfers (B, C, W/C) (FIM): 4 Scootin Rollin Supine to/from Sit: 6 Sit to/from Stand: 4 (CGA) Gait Training Gait (FIM): 4 Distance: 200', 100' Gait Level of Assist: 4 Gait Persons Needed: 1 Gait Assistive Device: FWW slow ambulation, but much more steady this morning Exercises NuStep Minutes: 15 (to strengthen lower extremities and improve functional mobility) NuStep Workload: 5 Treatments bed mobility and transfers, ambulation, functional strengthening, patient was dressed with min/modA and toileted with CGA Assessment Current Status: Fair Progress much more steady with ambulation today. PT Short Term Goals Short Term Goals Time Frame: Oct 16, 2016 Transfers (B,C,W/C) (FIM): 4 Gait (FIM): 4 PT Assisted Goals Salesforce Administrator Goals PT Assisted Goals Time Frame: Oct 30, 2016 Transfers (B,C,W/C) (FIM): 7 Sit to Lying (QC): 6 Lying-Sitting on Side/Bed(QC): 6 Sit to Stand (QC): 6 Roll Left to Right (QC): 6 Chair/Xvv-br-Ocwxg Xfer(QC): 6 Car Transfer (QC): 5 Does the Patient Walk: Yes Gait (FIM): 6 Gait distance (FIM): 3=150 ft Walk 10 feet (QC): 6 Walk 10ft-Uneven Surface(QC): 6 Walk 50ft with 2 Turns (QC): 6 Walk 150 ft (QC): 6 Gait Assistive Device: FWW Does the Pt use WC or Scooter?: No Stairs (FIM): 5 # of Steps: 8 1 Step (curb) (QC): 6 4 Steps (QC): 5 12 Steps (QC): 88 Picking up an Object (QC): 88 PT Plan Problem List Problem List: Activity Tolerance, Functional Strength, Safety, Balance, Gait, Transfer, Bed Mobility Treatment/Plan Treatment Plan: Continue Plan of Care Treatment Plan: Bed Mobility, Education, Functional Activity Windy, Functional Strength, Group Therapy, Gait, Safety, Therapeutic Exercise, Transfers Treatment Duration: Oct 30, 2016 Visits Per Week: 10-11 Minutes/Day (M-F): 60-90 Minutes/Day (Sat/Paredes): 15-30 Safety Risks/Education Patient Education: Gait Training, Transfer Techniques, Correct Positioning, Safety Issues Teaching Recipient: Patient Teaching Methods: Demonstration, Discussion Response to Teaching: Reinforcement Needed Time/GCodes Time In: 800 Time Out: 845 Total Billed Treatment Time: 45 Total Billed Treatment 1 visit GT 15' EX 15' FA 15' CHELY ANGELO PT Oct 10, 2016 08:45
--- NOTE | 2016-10-10 11:23 | Speech Therapy Daily Note ---
Speech Daily Progress Note Subjective Date Seen by Provider: Oct 10, 2016 Time Seen by Provider: 10:00 The patient was seated upright in recliner upon entrance. The patient greeted the clinician and was agreeable to participation in the cognitive treatment session. The patient remained pleasant and cooperative throughout the therapy. Objective External Memory Strategies: External memory strategies were discussed, reviewed , and demonstrated on this date. The patient reported she currently keeps a calendar next to her phone, which she passes by frequently throughout the day. Additionally, the patient uses a pill box which she fills weekly. The patient follows a daily routine, which helps her to recall meal times. The patient records appointments onto her calendar and keeps the appointment cards filed in a auto refinisher case she needs the phone number for rescheduling. The patient appears to have a good understanding and demonstrated adequate use of external memory strategies. Orientation: With the aid of the white board, the patient was able to state the month, day of week, date, and year. Assessment Assessment Current Status: Good Progress Treatment Plan Continue Plan of Care Communication Comprehension: 5 Expression: 5 Social Cognition Social Interaction: 6 Problem Solvin Memory: 4 Speech Short Term Goals Short Term Goals Short Term Goals 1. The patient will recall and demonstrate two functional memory strategies for use at home, independently. 2. The patient will demonstrate 90% accuracy with safety problem solving, independently. 3. The patient will recall three to five items immediately and following a five minute delay with mild clinician verbal prompting. Time Frame-STG: Five Days Speech Correction Goals Chainstitch Tunnel Elastic Operator Goals 1. The patient will demonstrate improved cognitive skills for increased function and safety with ADL's in the least restrictive setting. Time Frame: 10 days Comprehension: 5 Expression: 6 Social Interaction: 6 Problem Solvin Memory: 5 Speech-Plan Treatment Plan Speech Therapy Treatment Plan: Continue Plan of Care Continue skilled speech pathology to target functional memory strategies for use at home. Treatment Duration: Oct 17, 2016 # of days/week Five. Visits Per Week: Five. Minutes/Day (M-F): 30 Rehab Potential: Good Safety Risks/Education Teaching Recipient: Patient Teaching Methods: Demonstration, Handout, Discussion Response to Teaching: Verbalize Understanding, Return Demonstration Education Topics Provided: External Memory Strategies Time Speech Therapy Time In: 10:00 Speech Therapy Time Out: 10:30 Total Billed Time: 30 Billed Treatment Time TJ Moon [facility] Oct 10, 2016 11:23
--- NOTE | 2016-10-10 11:48 | Occupational Ther Daily Note ---
OT Current Status-Daily Note Subjective Pt sitting in chair, agrees to treatment. Reports 4/10 back pain. Mental Status/Objective Functional [place] Measure 0=Not Assessed/NA 4=Minimal Assistance 1=Total Assistance 5=Supervision or Setup 2=Maximal Assistance 6=Modified [place] 3=Moderate Assistance 7=Complete [place] ADL-Treatment Pt declined bathing today, states she would like to shower tomorrow. Pt has already dressed. Requests to brush teeth. Sit to stand with supervision. Gait to restroom with FWW. Grooming tasks completed standing at sink. Pt brushed teeth and combed hair with SBA. Functional [place] Measure 0=Not Assessed/NA 4=Minimal Assistance 1=Total Assistance 5=Supervision or Setup 2=Maximal Assistance 6=Modified [place] 3=Moderate Assistance 7=Complete IndependenceIRFPAI Quality Coding Scale 6 Independent with activity with or without an assistive device 5 Patient requires set up or clean up by helper. Patient completes activity by themselves 4 Supervision or touching assist (CGA). Martin provide cues , steadying assist 3 The helper provides less than half the effort to complete the activity 2 The helper provides more than half the effort to complete the activity 1 Dependent. The helper does all the effort to complete an activity 7 Patient refused to complete or attempt activity 9 The patient did not perform the activity before the current illness or injury 88 Not attempted due to Medical conditions or safety concerns Grooming (FIM): 5 Oral Hygiene (QC): 4 Other Treatment Gait to therapy gym with FWW, slow pace. Arm bike x10 minutes to increase overall strength and activity tolerance. Pt completed activity with minimal resistance and slow pace. No rest breaks needed. Pt performed bilateral UE exercises to increase ROM and strength. Pt performed shoulder flexion, forward press, biceps curls, and wrist flex/ext x10 reps with dowel dayne. Rest breaks between exercises. Graded clothespins activity with bilateral hands to increase book jacket cover machine operator/pinch strength. Sit to stand x5 reps to increase strength and safety for transfers. Pt performs sit to stand with supervision. Pt returned to room, sitting in chair with needs met after session. OT Short Term Goals Short Term Goals Time Frame: Oct 15, 2016 Bathing(FIM): 4 Lower Body Dressing(FIM): 5 Transfers (B,C,W/C) (FIM): 4 Toilet/Commode Transfer(FIM): 5 Additional Short Term Goals: 1-Demonstrate ADL Tasks, 2-Verbalize Understanding , 3-ImproveStrength/Windy 1=Demonstrate adherence to instructed precautions during ADL tasks. 2=Patient will verbalize/demonstrate understanding of assistive devices/ modifications for ADL. 3=Patient will improve strength/tolerance for activity to enable patient to perform ADL's. OT Broadcast Operations Director Goals Half-Way Goals Time Frame: Oct 29, 2016 Eating (FIM): 6 Eating (QC): 6 Groomin Oral Hygiene (QC): 6 Bathing(FIM): 5 Shower/Bathe Self (QC): 5 Upper Body Dressing(FIM): 6 Upper Body Dressing (QC): 6 Lower Body Dressing(FIM): 5 Lower Body Dressing (QC): 5 On/Off Footwear (QC): 6 Toileting(FIM): 6 Toileting Hygiene (QC): 6 Toilet/Commode Transfer(FIM): 6 Toilet/Commode Transfer (QC): 6 Shower Transfer(FIM): 5 Comprehension(FIM): 5 Expression (FIM): 6 Social Interaction(FIM): 6 Problem Solving(FIM): 5 Memory(FIM): 5 Additional Goals: 1-Demonstrate ADL Tasks, 2-Verbalize Understanding, 3- ImproveStrength/Windy 1=Demonstrate adherence to instructed precautions during ADL tasks. 2=Patient will verbalize/demonstrate understanding of assistive devices/ modifications for ADL. 3=Patient will improve strength/tolerance for activity to enable patient to perform ADL's. OT Education/Plan Problem List/Assessment Pt s/p kyphoplasty. Pt demonstrates decreased ADL performance, mobility, strength, and activity tolerance. Pt to benefit from skilled OT intervention for ADL training, transfers, strengthening, and home safety education to maximize level of function and allow safe discharge plan. Discharge Recommendations Plan/Recommendations: Continue POC Treatment Plan/Plan of Care Patient would benefit from OT for education, treatment and training to promote independence in ADL's, mobility, safety and/or upper extremity function for ADL' s. Plan of Care: ADL Retraining, Functional Mobility, Group Exercise/Act as Ind, UE Funct Exercise/Act Treatment Duration: Oct 29, 2016 Visits Per Week: 10-12 Minutes/Day (M-F): 60-90 Minutes/Day (Sat/Paredes): PRN Agreement: Yes Rehab Potential: Good Time/GCodes Start Time: 09:00 Stop Time: 10:00 Total Time Billed (hr/min): 60 Billed Treatment Time 1 visit, ADL(15minutes), FA(10minutes), EXx2(35minutes) AUTUMN SILVA OT Oct 10, 2016 11:48
--- NOTE | 2016-10-10 14:18 | Therapy Group Daily Note ---
Therapy Daily Group Note Patient Education Topic Home Safety Exercises LE Seated Exercise, UE Exercise Other/Notes Patient participated in group therapy in the common area of rehab. Each patient ambulated or was transported to the common area of rehab and patients sat in a qagan [place]. Each patient then had to introduce themselves, state where they were from and recall a specific memory from the past. Patient's had active participation in a discussion about home safety. Each patient participated and interjected ideas and answers. Interspersed throughout the discussion were upper and lower extremity exercises. Afterward, patients ambulated or were transported back to their rooms and placed in bed or chair with nurse call, phone, tray, all needs met. Start Time: 13:00 Stop Time: 14:00 Total Billed Treatment Time: 60 Total Billed Treatment 1 visit GRP 60CHELY MINER PT Oct 10, 2016 14:18
[2016-10-10 17:30] VITALS: BP 158/54
[2016-10-10] MEDS: PANTOPRAZOLE 40 MG (PROTONIX) TAB PO SCH (20:40)
[2016-10-10] MEDS: ROSUVASTATIN 5 MG (CRESTOR) TABLET PO SCH (20:40)
[2016-10-10] MEDS: NEBIVOLOL 5 MG TAB (BYSTOLIC) PO SCH (20:40)
[2016-10-11] MEDS: VITAMIN D3 1,000 UNITS (CHOLECALCIFEROL) TABLET PO SCH (06:04)
[2016-10-11 06:31] VITALS: BP 107/60
[2016-10-11] MEDS: ASCORBIC ACID (VIT C) 500 MG TABLET PO SCH (08:03)
--- NOTE | 2016-10-11 08:57 | Physical Therapy Daily Note ---
PT Daily Note-Current Subjective Pt says "It is certainly tender" when asked if she has any pain in her back. Pt agreeable. Mental Status Patient Orientation: Person, Place, Situation Transfers Functional [place] Measure 0=Not Assessed/NA 4=Minimal Assistance 1=Total Assistance 5=Supervision or Setup 2=Maximal Assistance 6=Modified [place] 3=Moderate Assistance 7=Complete IndependenceIRFPAI Quality Coding Scale 6 Independent with activity with or without an assistive device 5 Patient requires set up or clean up by helper. Patient completes activity by themselves 4 Supervision or touching assist (CGA). [place]alt provide cues , steadying assist 3 The helper provides less than half the effort to complete the activity 2 The helper provides more than half the effort to complete the activity 1 Dependent. The helper does all the effort to complete an activity 7 Patient refused to complete or attempt activity 9 The patient did not perform the activity before the current illness or injury 88 Not attempted due to Medical conditions or safety concerns Gait Training Gait Assistive Device: FWW Pt amb 2 x 100ft with CGA-SBA at steady speed. No unsteadiness. Stair Training Practiced steps of 4, up/down x 2 trails (8 steps) using one handrail to simulate home steps. CGA throughout. Exercises Seated Therapy Exercises: Ankle pumps, Long arc quads, Hip flexion Seated Reps: [address] Ex=Flex, Abd, Ext, Marching Standing Reps: 10 Treatments Practiced sit to stand from chair x 10 reps with vc's for "nose over toes". Pt SBA Assessment Current Status: Good Progress Pt progressing steadily. Some unsteadiness due to weakness in LE, otherwise good performance with rest breaks as needed. Pt in chair with call light and all needs met post therapy. PT Short Term Goals Short Term Goals Time Frame: Oct 16, 2016 Transfers (B,C,W/C) (FIM): 4 Gait (FIM): 4 PT Safety Equipment Testing Specialist Goals Half-Way Goals PT Safety Equipment Testing Specialist Goals Time Frame: Oct 30, 2016 Transfers (B,C,W/C) (FIM): 7 Sit to Lying (QC): 6 Lying-Sitting on Side/Bed(QC): 6 Sit to Stand (QC): 6 Rollin Roll Left to Right (QC): 6 Chair/[id number]-[id number] Xfer(QC): 6 Car Transfer (QC): 5 Does the Patient Walk: Yes Gait (FIM): 6 Gait distance (FIM): 3=150 ft Walk 10 feet (QC): 6 Walk 10ft-Uneven Surface(QC): 6 Walk 50ft with 2 Turns (QC): 6 Walk 150 ft (QC): 6 Gait Assistive Device: FWW Does the Pt use WC or Scooter?: No Stairs (FIM): 5 # of Steps: 8 1 Step (curb) (QC): 6 4 Steps (QC): 5 12 Steps (QC): 88 Picking up an Object (QC): 88 PT Plan Treatment/Plan Treatment Plan: Continue Plan of Care Treatment Plan: Bed Mobility, Education, Functional Activity Windy, Functional Strength, Group Therapy, Gait, Safety, Therapeutic Exercise, Transfers Treatment Duration: Oct 30, 2016 Visits Per Week: 10-11 Minutes/Day (M-F): 60-90 Minutes/Day (Sat/Paredes): 15-30 Time/GCodes Time In: 810 Time Out: 835 Total Billed Treatment Time: 25 Total Billed Treatment 1, ther ex 15min, gait 10min JOHN MARTINI CPTMaxi Oct 11, 2016 08:57
[2016-10-11] MEDS: lisINopril 20 MG (ZESTRIL) TAB PO SCH (10:00)
[2016-10-11] MEDS: RANOLAZINE ER 500 MG TAB (RANEXA) PO SCH ×2 (10:00→20:51)
[2016-10-11] MEDS: CLOPIDOGREL 75 MG (PLAVIX) TABLET PO SCH (10:00)
--- NOTE | 2016-10-11 11:16 | Consultation ---
History of Present Illness History of Present Illness Patient Consulted On(lc/time) 10/11/16 11:16 Date of Admission 10/10/16 Reason for Visit: COMPRESSION FRACTURE OF BACK History of Present Illness PT IS AN 86 Y/O FEMALE WHO IS KNOWN TO ME FROM CLINIC. SHE PRESENTED TO THE HOSPITAL WITH LUMBAR COMPRESSION FRACTURE. SHE UNDERWENT KYPHOPLASTY AND IS FEELING BETTER. SHE REPORTS THAT SHE IS FEELING SO MUCH BETTER TODAY, HER PAIN HAS IMPROVED SIGNIFICANTLY. Allergies and Home Medications Allergies Coded Allergies: niacin (Verified Allergy, Unknown, HIVES, 09/17/16) simvastatin (Verified Allergy, Unknown, HIVES, 09/17/16) Home Medications Ascorbate Calcium 500 Mg Tablet, 500 MG PO DAILY, (Reported) Clopidogrel Bisulfate 75 Mg Tablet, 75 MG PO DAILY, (Reported) Docusate Sodium 100 Mg Tablet, 100 MG PO DAILY PRN for CONSTIPATION-1ST LINE, ( Reported) Ergocalciferol (Vitamin D2) 2,000 Unit Tablet, 1,000 UNIT PO DAILY, (Reported) Lisinopril 20 Mg Tablet, 20 MG PO DAILY, (Reported) Nebivolol HCl 5 Mg Tablet, 5 MG PO HS, (Reported) Pantoprazole Sodium 40 Mg Tablet.dr, 40 MG PO HS, (Reported) Ranolazine 500 Mg Tab.er.12h, 500 MG PO Q12H, (Reported) Rosuvastatin Calcium 10 Mg Tablet, 10 MG PO HS, (Reported) Tramadol HCl 50 Mg Tablet, 50 MG PO QID PRN for PAIN-MODERATE, (Reported) Past Crfjmwa-[id number]-Dxdxaa Hx Patient Social History Alcohol Use: Occasionally Uses Recreational Drug Use: No Smoking Status: Former Smoker 2nd Hand Smoke Exposure: No Recent Foreign Travel: No Contact w/Someone Who Travel: No Recent Infectious Disease Expo: No Recent Hopitalizations: Yes Physical Abuse Screen: No Sexual Abuse: No Immunizations Up To Date Date of Pneumonia Vaccine: Jan 18, 2010 Date of Influenza Vaccine: Jan 28, 2016 Seasonal Allergies Seasonal Allergies: No Surgeries HX Surgeries: Yes Surgeries: Abdominal, Cardiac, CABG, Eye Surgery, Orthopedic Respiratory Hx Respiratory Disorders: No Respiratory Disorders: Sleep Apnea Cardiovascular Hx Cardiac Disorders: Yes (BYPASS SURGERY) Cardiac Disorders: Coronary Artery Disease, High Cholesterol, Hypertension Neurological Hx Neurological Disorders: Yes Neurological Disorders: TIA 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 System Hx 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 Disorders: No Sexually Transmitted Disease: No HIV/AIDS: No Female 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 Disorders: Denies Genitourinary Hx Genitourinary Disorders: Yes (INCONTINENCE AT TIMES ) Gastrointestinal Hx Gastrointestinal Disorders: Yes (CONSTIPATION OCCASIONALLY) Gastrointestinal Disorders: Gastroesophageal Reflux, Chronic Constipation Musculoskeletal Hx Musculoskeletal Disorders: Yes (FRACTURE LEFT ARM; COMPRESSION FRACTURES) Musculoskeletal Disorders: Degenerate Disk Disease, Osteoporosis, Arthritis, Fractures Endocrine Hx Endocrine Disorders: No HEENT HX ENT Disorders: Yes (HAD CATARACTS REMOVED BILAT, READING GLASSES) HEENT Disorders: Cataract Loss of Vision: Bilateral Hearing Impairment: Denies Cancer 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 Psychosocial Hx Psychiatric Problems: No Integumentary HX Skin/Integumentary Disorder: Yes (skin cancer on face/body) Blood Transfusions Hx Blood Disorders: No Adverse Reaction to a Blood Tr: No Reviewed Nursing Assessment Reviewed/Agree w Nursing PMH: Yes Family Medical History Significant Family History: Heart Disease, Hypertension Family Medial History: Abdominal aortic aneurysm G8 SISTER Congestive heart failure 19 FATHER Family history: Arthritis 19 MOTHER G8 SISTER Family history: Cardiovascular disease G8 SISTER Family history: Hypertension G8 SISTER Family history: Osteoporosis 19 MOTHER Heart disease 19 FATHER 19 MOTHER G8 SISTER Hypercholesterolemia G8 SISTER Kidney disease G8 SISTER Myocardial infarction 19 FATHER 19 MOTHER G8 SISTER Review of Systems-General Date Seen by Provider: Oct 11, 2016 Time Seen by Provider: 10:05 Constitutional: No chills, No diaphoresis, No fever, No malaise, No weakness EENTM: No hoarseness, No throat pain Respiratory: No cough, No dyspnea on exertion, No short of breath Cardiovascular: No edema, No palpitations Gastrointestinal: No abdominal pain, No constipation, No diarrhea, No nausea, No vomiting Genitourinary: No dysuria, No pain : No Musculoskeletal: back pain, muscle weakness Psychiatric/Neurological: Denies Anxiety, Denies Depressed All Other Systems Reviewed Negative Unless Noted: Yes Physical Exam-General Problems Physical Exam Vital Signs Vital Sign - Last 12Hours 10/08/16 12:30 Temp 98.6 Pulse 89 Resp 20 B/P (MAP) 94/53 Pulse Ox 96 O2 Delivery Room Air Capillary Refill : General Appearance: WD/WN, no apparent distress Eyes: Bilateral Eye EOMI, Bilateral Eye Normal Inspection, Bilateral Eye PERRL HEENT: PERRL/EOMI, pharynx normal Neck: non-tender, supple Respiratory: chest non-tender, lungs clear, normal breath sounds, no respiratory distress Cardiovascular: regular rate, rhythm Gastrointestinal: normal bowel sounds, non tender, soft, no organomegaly, no pulsatile mass Back: normal inspection Extremities: normal range of motion, non-tender, normal inspection, no pedal edema Neurologic/Psychiatric: maintenance of way supervisor II-XII nml as tested, no motor/sensory deficits, alert, normal mood/affect, oriented x 3 Skin: normal color, warm/dry Lymphatic: no adenopathy Assessment/Plan Assessment/Plan Admission Diagnosis/Plan LUMBAR COMPRESSION FRACTURE - STATUS POST KYPHOPLASTY HYPERTENSION HYPERLIPIDEMIA LUMBAR COMPRESSION FRACTURE - STATUS POST KYPHOPLASTY - PT IS IMPROVING SIGNIFICANTLY OVER THE PAST FEW DAYS. SHE REPORTS THAT HER PAIN HAS IMPROVED A LOT SINCE THE KYPHOPLASTY. HYPERTENSION - PT IS ON ANTIHYPERTENSIVE THERAPY - CONTINUE WITH CURRENT TREATMENT. HYPERLIPIDEMIA - CONTINUE STATIN. PT IS TO CONTINUE WITH PHYSICAL THERAPY, STRENGTHENING, OCCUPATIONAL THERAPY. Clinical Quality Measures DVT/VTE Risk/Contraindication: Risk Factor Score Per Nursin RFS Level Per Nursing on Admit: 4+=Very High ZARI VASQUEZ MD Oct 11, 2016 11:16
[2016-10-11 18:16] VITALS: BP 138/62
[2016-10-11 20:50] VITALS: BP 160/73
[2016-10-11] MEDS: NEBIVOLOL 5 MG TAB (BYSTOLIC) PO SCH (20:51)
[2016-10-11] MEDS: PANTOPRAZOLE 40 MG (PROTONIX) TAB PO SCH (20:52)
[2016-10-11] MEDS: ROSUVASTATIN 5 MG (CRESTOR) TABLET PO SCH (20:52)
[2016-10-11 22:11] VITALS: BP 146/68
[2016-10-12 05:00] VITALS: BP 135/70
[2016-10-12] MEDS: VITAMIN D3 1,000 UNITS (CHOLECALCIFEROL) TABLET PO SCH (06:32)
[2016-10-12] MEDS: RANOLAZINE ER 500 MG TAB (RANEXA) PO SCH ×2 (08:03→21:05)
[2016-10-12] MEDS: CLOPIDOGREL 75 MG (PLAVIX) TABLET PO SCH (08:03)
[2016-10-12] MEDS: lisINopril 20 MG (ZESTRIL) TAB PO SCH (08:04)
[2016-10-12] MEDS: ASCORBIC ACID (VIT C) 500 MG TABLET PO SCH (08:04)
--- NOTE | 2016-10-12 11:35 | Progress Note (SOAP) ---
Subjective Date Seen by Provider: Oct 12, 2016 Time Seen by Provider: 10:35 Subjective/Events-last exam PT REPORTS THAT SHE IS FEELING GOOD TODAY - HER BACK IS STILL HURTING, BUT SHE IS NOT FEELING QUITE BACK TO HER PREVIOUS LEVEL OF FUNCTIONING. Review of Systems General: Fatigue HEENT: No Head Aches Pulmonary: No Dyspnea Cardiovascular: No: Chest Pain, Palpitations Gastrointestinal: No: Abdominal Pain, Constipation, Nausea Genitourinary: No Dysuria Musculoskeletal: back pain Neurological: Weakness, No: Confusion Objective Exam Vital Signs Date Time Temp Pulse Resp B/P (MAP) Pulse Ox O2 Delivery O2 Flow Rate FiO2 10/12/16 09:00 96 Room Air 10/12/16 05:00 98.2 65 20 135/70 95 Room Air 10/11/16 22:11 68 146/68 10/11/16 20:50 72 160/73 95 10/11/16 18:16 99.0 72 20 138/62 95 Room Air I & O 10/12/16 07:00 Intake Total 1180 ml Balance 1180 ml Capillary Refill : General Appearance: No Apparent Distress, WD/WN HEENT: PERRL/EOMI Neck: Full Range of Motion, Supple Respiratory: Chest Non Tender, Lungs Clear, Normal Breath Sounds Cardiovascular: Regular Rate, Rhythm Gastrointestinal: normal bowel sounds, non tender, soft, no organomegaly, no pulsatile mass Neurologic/Psychiatric: Alert, Oriented x3, No Motor/Sensory Deficits, Normal Mood/Affect Lymphatic: No Adenopathy Assessment/Plan Assessment/Plan Assess & Plan/Chief Complaint LUMBAR COMPRESSION FRACTURE - STATUS POST KYPHOPLASTY HYPERTENSION HYPERLIPIDEMIA LUMBAR COMPRESSION FRACTURE - STATUS POST KYPHOPLASTY - PT IS IMPROVING SIGNIFICANTLY OVER THE PAST FEW DAYS. SHE REPORTS THAT HER PAIN HAS IMPROVED A LOT SINCE THE KYPHOPLASTY. HYPERTENSION - PT IS ON ANTIHYPERTENSIVE THERAPY - CONTINUE WITH CURRENT TREATMENT. HYPERLIPIDEMIA - CONTINUE STATIN. PT IS TO CONTINUE WITH PHYSICAL THERAPY, STRENGTHENING, OCCUPATIONAL THERAPY. Clinical Quality Measures DVT/VTE Risk/Contraindication: Risk Factor Score Per Nursin RFS Level Per Nursing on Admit: 4+=Very High ZARI VASQUEZ MD Oct 12, 2016 11:35
[2016-10-12 20:36] VITALS: BP 164/65
[2016-10-12] MEDS: ROSUVASTATIN 5 MG (CRESTOR) TABLET PO SCH (21:05)
[2016-10-12] MEDS: PANTOPRAZOLE 40 MG (PROTONIX) TAB PO SCH (21:05)
[2016-10-12] MEDS: NEBIVOLOL 5 MG TAB (BYSTOLIC) PO SCH (21:05)
[2016-10-13 05:01] VITALS: BP 158/71
[2016-10-13] MEDS: VITAMIN D3 1,000 UNITS (CHOLECALCIFEROL) TABLET PO SCH (06:25)
[2016-10-13] MEDS: CLOPIDOGREL 75 MG (PLAVIX) TABLET PO SCH (08:03)
[2016-10-13] MEDS: ASCORBIC ACID (VIT C) 500 MG TABLET PO SCH (08:03)
[2016-10-13] MEDS: RANOLAZINE ER 500 MG TAB (RANEXA) PO SCH ×2 (08:03→21:37)
[2016-10-13] MEDS: lisINopril 20 MG (ZESTRIL) TAB PO SCH (08:03)
--- OUTSIDE RECORDS SUMMARY | 2016-10-13 08:40 | XMS REPORT | Continuity of Care Document ---
Author Author [facility] Organization [facility] Address Unknown Phone Unavailable Allergies Active Description Code Type Severity Reaction Onset Reported/Identified Relationship to Patient Clinical Status Yes niacin [id number] Drug Allergy Unknown HIVES 09/17/2016 Yes simvastatin [id number] Drug Allergy Unknown HIVES 09/17/2016 Medications Problems Date Dx Coded Attending Type Code Diagnosis Diagnosed By 10/03/2013 ADONAY WARD MD Ot 272.4 HYPERLIPIDEMIA NEC/NOS 10/03/2013 ADONAY WARD MD Ot 276.1 HYPOSMOLALITY 10/03/2013 ADONAY WARD MD Ot 414.00 CORON ATHEROSCLER NOS TYPE VESSEL, NATIV 10/03/2013 ADONAY WARD MD Ot 435.9 TRANS CEREB ISCHEMIA NOS 10/03/2013 ADONAY WARD MD Ot V45.81 AORTOCORONARY BYPASS 02/28/2015 BLANQUITA LUCIOP Ot R09.89 02/28/2015 BLANQUITA LUCIOP Ot R09.89 03/21/2015 BLANQUITA LUCIOP Ot R09.89 03/22/2015 BLANQUITA LUCIOP Ot R09.89 03/30/2015 BLANQUITA LUCIO PRINCIPAL SECRETARY Ot R09.89 04/24/2015 BLANQUITA LUCIO PRINCIPAL SECRETARY Ot M54.9 04/25/2015 BLANQUITA LUCIOP Ot M54.9 06/01/2015 BLANQUITA LUCIO PRINCIPAL SECRETARY Ot I71.4 06/15/2015 BLANQUITA LUCIOP Ot I71.4 06/21/2015 BLANQUITA LUCIOP Ot I71.4 08/22/2015 TYLER AUSTIN, YOUSIF Moseley Ot L98.9 DISORDER OF THE SKIN AND SUBCUTANEOUS TI 08/22/2015 TYLER AUSTIN, YOUSIF Moseley Ot Z01.818 ENCOUNTER FOR OTHER PREPROCEDURAL EXAMIN 08/22/2015 YOUSIF SCOTT MD Ot Z11.2 ENCOUNTER FOR SCREENING FOR OTHER BACTER 08/23/2015 YOUSIF SCOTT MD Ot L98.9 DISORDER OF THE SKIN AND SUBCUTANEOUS TI 08/23/2015 YOUSIF SCOTT MD Ot Z01.818 ENCOUNTER FOR OTHER PREPROCEDURAL EXAMIN 08/23/2015 YOUSIF SCOTT MD Ot Z11.2 ENCOUNTER FOR SCREENING FOR OTHER BACTER 08/24/2015 BLANQUITA LUCIOP Ot R09.89 OTH SYMPTOMS AND SIGNS INVOLVING THE CIR 08/24/2015 BLANQUITA LUCIO Ot M54.9 DORSALGIA, UNSPECIFIED 08/24/2015 BLANQUITA LUCIOP Ot I71.4 ABDOMINAL AORTIC ANEURYSM, WITHOUT RUPTU 08/24/2015 YOUSIF SCOTT MD Ot 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 08/24/2015 YOUSIF SCOTT MD Ot 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 08/24/2015 YOUSIF SCOTT MD Ot 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 09/04/2015 YOUSIF SCOTT MD Ot 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 09/04/2015 YOUSIF SCOTT MD Ot 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 09/04/2015 YOUSIF SCOTT MD Ot 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 08/08/2016 RICHY CRENSHAW APRN Ot M48.54XD COLLAPSED VERT, NEC, THOR REGION, SUBS F 08/08/2016 RICHY CRENSHAW APRN Ot M85.89 OTH DISRD OF BONE DENSITY AND STRUCTURE , 08/18/2016 RICHY CRENSHAW APRN Ot 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, NEC, LUMBAR REGION , 08/18/2016 RICHY CRENSHAW APRN Ot R29.890 LOSS OF HEIGHT 08/19/2016 RICHY CRENSHAW APRN Ot 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, NEC, LUMBAR REGION , 08/19/2016 RICHY CRENSHAW APRN Ot R29.890 LOSS OF HEIGHT 08/19/2016 RICHY CRENSHAW APRN Ot 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, NEC, LUMBAR REGION , 08/19/2016 RICHY CRENSHAW STATOR CONNECTOR Ot R29.890 LOSS OF HEIGHT 09/01/2016 RICHY CRENSHAW APRN Ot M48.54XD COLLAPSED VERT, NEC, THOR REGION, SUBS F 09/01/2016 RICHY CRENSHAW STATOR CONNECTOR Ot M85.89 OTH DISRD OF BONE DENSITY AND STRUCTURE , 09/04/2016 RICHY CRENSHAW STATOR CONNECTOR Ot M48.54XD COLLAPSED VERT, NEC, THOR REGION, SUBS F 09/04/2016 RICHY CRENSHAW APRN Ot M85.89 OTH DISRD OF BONE DENSITY AND STRUCTURE , 09/09/2016 RICHY CRENSHAW APRN Ot 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, NEC, LUMBAR REGION , 09/09/2016 RICHY CRENSHAW STATOR CONNECTOR Ot R29.890 LOSS OF HEIGHT 09/16/2016 RICHY CRENSHAW STATOR CONNECTOR Ot 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, NEC, LUMBAR REGION , 09/16/2016 RICHY CRENSHAW STATOR CONNECTOR Ot R29.890 LOSS OF HEIGHT 09/19/2016 DAKOTA REGAN MD Ot E78.00 PURE HYPERCHOLESTEROLEMIA, UNSPECIFIED 09/19/2016 DAKOTA REGAN MD, Ot I10 ESSENTIAL (PRIMARY) HYPERTENSION 09/19/2016 DAKOTA REGAN MD, Ot I25.10 ATHSCL HEART DISEASE OF [place] CORONARY 09/19/2016 DAKOTA REGAN MD Ot 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 09/19/2016 DAKOTA REGAN MD, Ot Z79.899 OTHER [facility] (CURRENT) DRUG THERAPY 09/19/2016 DAKOTA REGAN MD Ot Z95.1 PRESENCE OF AORTOCORONARY BYPASS GRAFT 09/23/2016 DAKOTA REGAN MD, Ot E78.00 PURE HYPERCHOLESTEROLEMIA, UNSPECIFIED 09/23/2016 DAKOTA REGAN MD Ot I10 ESSENTIAL (PRIMARY) HYPERTENSION 09/23/2016 DAKOTA REGAN MD Ot I25.10 ATHSCL HEART DISEASE OF [place] CORONARY 09/23/2016 DAKOTA REGAN MD, Ot 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 09/23/2016 DAKOTA REGAN MD, Ot Z79.899 OTHER [facility] (CURRENT) DRUG THERAPY 09/23/2016 DAKOTA REGAN MD, Ot Z95.1 PRESENCE OF AORTOCORONARY BYPASS GRAFT 09/25/2016 DAKOTA REGAN MD, Ot E78.00 PURE HYPERCHOLESTEROLEMIA, UNSPECIFIED 09/25/2016 DAKOTA REGAN MD Ot I10 ESSENTIAL (PRIMARY) HYPERTENSION 09/25/2016 DAKOTA REGAN MD Ot I25.10 ATHSCL HEART DISEASE OF [place] CORONARY 09/25/2016 DAKOTA REGAN MD Ot 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 09/25/2016 DAKOTA REGAN MD, Ot Z79.899 OTHER DAY CARE HOME PROVIDER (CURRENT) DRUG THERAPY 09/25/2016 DAKOTA REGAN MD, Ot Z95.1 PRESENCE OF AORTOCORONARY BYPASS GRAFT 10/06/2016 BLANQUITA LUCIOP Ot I71.4 ABDOMINAL AORTIC ANEURYSM, WITHOUT RUPTU 10/06/2016 BLANQUITA LUCIOP Ot M81.0 AGE-RELATED OSTEOPOROSIS W/O CURRENT PAT 10/08/2016 DAKOTA REGAN MD, Ot E78.00 PURE HYPERCHOLESTEROLEMIA, UNSPECIFIED 10/08/2016 DAKOTA REGAN MD, Ot I10 ESSENTIAL (PRIMARY) HYPERTENSION 10/08/2016 DAKOTA REGAN MD, Ot I25.10 ATHSCL HEART DISEASE OF [place] CORONARY 10/08/2016 DAOKTA REGAN MD Ot K21.9 GASTRO-ESOPHAGEAL REFLUX DISEASE WITHOUT 10/08/2016 DAKOTA REGAN MD, Ot M85.89 OTH DISRD OF BONE DENSITY AND STRUCTURE, 10/08/2016 DAKOTA REGAN MD Ot S32.050A WEDGE COMPRESSION FRACTURE OF FIFTH LUMB 10/08/2016 DAKOTA REGAN MD, Ot X58.XXXA EXPOSURE TO OTHER SPECIFIED FACTORS, INI 10/08/2016 DAKOTA REGAN MD, Ot Y92.[address] [facility] NON-INSTITUT (PRIVATE 10/08/2016 DAKOTA REGAN MD, Ot Y99.8 OTHER EXTERNAL CAUSE STATUS 10/08/2016 DAKOTA REGAN MD Ot Z79.02 [facility] (CURRENT) USE OF 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 10/08/2016 DAKOTA REGAN MD, Ot Z79.899 OTHER [facility] (CURRENT) DRUG THERAPY 10/08/2016 DAKOTA REGAN MD Ot Z95.1 PRESENCE OF AORTOCORONARY BYPASS GRAFT 10/09/2016 DAKOTA REGAN MD, Ot E78.00 PURE HYPERCHOLESTEROLEMIA, UNSPECIFIED 10/09/2016 DAKOTA REGAN MD, Ot I10 ESSENTIAL (PRIMARY) HYPERTENSION 10/09/2016 DAKOTA REGAN MD, Ot I25.10 ATHSCL HEART DISEASE OF [place] CORONARY 10/09/2016 DAKOTA REGAN MD, Ot K21.9 GASTRO-ESOPHAGEAL REFLUX DISEASE WITHOUT 10/09/2016 DAKOTA REGAN MD, Ot M85.89 OTH DISRD OF BONE DENSITY AND STRUCTURE, 10/09/2016 DAKOTA REGAN MD, Ot S32.050A WEDGE COMPRESSION FRACTURE OF FIFTH LUMB 10/09/2016 DAKOTA REGAN MD, Ot X58.XXXA EXPOSURE TO OTHER SPECIFIED FACTORS, INI 10/09/2016 DAKOTA REGAN MD, Ot Y92.[address] IN [facility] NON-INSTITUT (PRIVATE 10/09/2016 DAKOTA REGAN MD, Ot Y99.8 OTHER EXTERNAL CAUSE STATUS 10/09/2016 DAKOTA REGAN MD, Ot Z79.02 [facility] (CURRENT) USE OF 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 10/09/2016 DAKOTA REGAN MD, Ot Z79.899 OTHER DAY CARE HOME PROVIDER (CURRENT) DRUG THERAPY 10/09/2016 DAKOTA REGAN MD, Ot Z95.1 PRESENCE OF AORTOCORONARY BYPASS GRAFT Procedures Results Test Result Range Methicillin resistant Staphylococcus aureus (MRSA) screening culture - 06:50 Methicillin resistant Staphylococcus aureus (MRSA) screening culture NEG NRG Complete blood count (CBC) with automated white blood cell (WBC) differential - 10/07/16 06:16 Blood leukocytes automated count (number/volume) 6.5 10*3/ uL 4.3-11.0 Blood erythrocytes automated count (number/volume) 3.41 10*6 /uL 4.35-5.85 Venous blood hemoglobin measurement (mass/volume) 11.2 g/dL 11.5-16.0 Blood hematocrit (volume fraction) 34 % 35-52 Automated erythrocyte mean corpuscular volume 99 [foz_us] 80-99 Automated erythrocyte mean corpuscular hemoglobin (mass per erythrocyte) 33 pg 25-34 Automated erythrocyte mean corpuscular hemoglobin concentration measurement ( mass/volume) 33 g/dL 32-36 Automated erythrocyte distribution width ratio 12.3 % 10.0-14.5 Automated blood platelet count (count/volume) 206 10*3/uL 130-400 Automated blood platelet mean volume measurement 8.5 [foz_us ] 7.4-10.4 Automated blood neutrophils/100 leukocytes 45 % 42-75 Automated blood lymphocytes/100 leukocytes 42 % 12-44 Blood monocytes/100 leukocytes 12 % 0-12 Automated blood eosinophils/100 leukocytes 1 % 0-10 Automated blood basophils/100 leukocytes 0 % 0-10 Blood neutrophils automated count (number/volume) 2.9 10*3 1.8-7.8 Blood lymphocytes automated count (number/volume) 2.7 10*3 1.0-4.0 Blood monocytes automated count (number/volume) 0.8 10*3 0.0-1.0 Automated eosinophil count 0.1 10*3/uL 0.0-0.3 Automated blood basophil count (count/volume) 0.0 10*3/uL 0.0-0.1 PT panel in platelet poor plasma by coagulation assay - 10/07/16 06:16 Prothrombin time (PT) in platelet poor plasma by coagulation assay 12.9 s 12.2-14.7 INR in platelet poor plasma or blood by coagulation assay 1.0 0.8-1.4 Comprehensive metabolic panel - 10/07/16 06:16 Serum or plasma sodium measurement (moles/volume) 137 mmol/ L 135-145 Serum or plasma potassium measurement (moles/volume) 4.3 mmol/L 3.6-5.0 Serum or plasma chloride measurement (moles/volume) 102 mmol /L 98-107 Carbon dioxide 25 mmol/L 21-32 Serum or plasma anion gap determination (moles/volume) 10 mmol/L 5-14 Serum or plasma urea nitrogen measurement (mass/volume) 19 mg/dL 7-18 Serum or plasma creatinine measurement (mass/volume) 0.96 mg /dL 0.60-1.30 Serum or plasma urea nitrogen/creatinine mass ratio 20 0-20 Serum or plasma creatinine measurement with calculation of estimated glomerular filtration rate 55 NRG Serum or plasma glucose measurement (mass/volume) 94 mg/dL 70-105 Serum or plasma calcium measurement (mass/volume) 9.7 mg/dL 8.5-10.1 Serum or plasma total bilirubin measurement (mass/volume) 0.5 mg/dL 0.1-1.0 Serum or plasma alkaline phosphatase measurement (enzymatic activity/volume) 104 U/L 40-136 Serum or plasma aspartate aminotransferase measurement (enzymatic activity/ volume) 24 U/L 5-34 Serum or plasma alanine aminotransferase measurement (enzymatic activity/volume ) 13 U/L 0-55 Serum or plasma protein measurement (mass/volume) 7.0 g/dL 6.4-8.2 Serum or plasma albumin measurement (mass/volume) 3.6 g/dL 3.2-4.5 Methicillin resistant Staphylococcus aureus (MRSA) screening culture - 13:50 Methicillin resistant Staphylococcus aureus (MRSA) screening culture NEG NRG Encounters ACCT No. Visit Date/Time Discharge Status Pt. Type Provider Facility Loc./Unit Complaint [id number] 10/06/2016 23:15:00 2016 12:00:00 DIS Outpatient DAKOTA REGAN MD [facility] ACUTE L5 COMPRESSION FRACTURE [id number] 09/19/2016 06:05:00 2016 12:45:00 DIS Outpatient DAKOTA REGAN MD [facility] FRACTURE [id number] 09/17/2016 11:51:00 2016 15:02:00 DIS Outpatient DAKOTA REGAN MD [facility] PREOP KYPHOPLASTY L-1,L-2 [id number] 08/24/2015 11:41:00 2015 18:46:00 DIS Outpatient YOUSIF SCOTT MD [facility] [id number] 08/22/2015 08:50:00 2015 09:26:00 DIS Outpatient YOUSIF SCOTT MD [facility] PREOP [id number] 02/26/2015 12:43:00 2014 23:59:59 CLS Outpatient BLANQUITA LUCIO [facility] RAD [id number] 10/01/2013 14:35:00 2013 15:55:00 DIS Inpatient ADONAY WARD MD [facility] 4TH [id number] 07/18/2013 08:21:00 2013 23:59:59 CLS Outpatient [id number] 08/13/2012 10:45:00 2012 23:59:59 CLS Outpatient [id number] 10/09/2016 09:00:00 PEN Preadmit BLANQUITA LUCIO [facility] RAD ABDOMINAL AORTIC ANEURYSM, OSTEOPOROSIS M81.0 [id number] 10/08/2016 12:35:00 ACT Inpatient RASHEL AUSTIN, RIZWANA Cheatham [facility] IRF L5 COMPRESSION FRACTURE [id number] 08/16/2016 10:53:00 ACT Outpatient RICHY CRENSHAW APRN [facility] RAD ONGOING BACK PAIN [id number] 08/07/2016 12:46:00 ACT Outpatient RICHY CRENSHAW APRN [facility] RAD BACK PAIN, OSTEOPOROSIS [id number] 05/22/2015 09:59:00 ACT Outpatient BLANQUITA LUCIO [facility] RAD [id number] 03/30/2015 10:13:00 ACT Outpatient BLANQUITA LUCIO [facility] RAD
--- NOTE | 2016-10-13 10:38 | Occupational Ther Daily Note ---
OT Current Status-Daily Note Subjective Pt sitting in chair, agrees to treatment. Pt reports 3/10 back pain. Mental Status/Objective Functional [place] Measure 0=Not Assessed/NA 4=Minimal Assistance 1=Total Assistance 5=Supervision or Setup 2=Maximal Assistance 6=Modified [place] 3=Moderate Assistance 7=Complete [place] ADL-Treatment Pt requests shower this morning. Sit to stand with supervision. Pt retrieved clothing from closet with FWW for balance. Gait to restroom with FWW. Shower transfer completed with SBA and skilled cues for safety. Bathing completed using hand held shower and long handled sponge. Upper body bathing completed with SBA. Pt stood with close supervision to wash buttocks and maday area. Used long handled sponge to wash lower legs and feet. Pt able to dry all areas. Don bra and pullover shirt with SBA. Reviewed use of adaptive equipment for LE dressing. Pt used fitting room operator to start underwear and pants over feet. Stood with supervision for pant hike. Pt donned slip on shoes with set up. Functional [place] Measure 0=Not Assessed/NA 4=Minimal Assistance 1=Total Assistance 5=Supervision or Setup 2=Maximal Assistance 6=Modified [place] 3=Moderate Assistance 7=Complete IndependenceIRFPAI Quality Coding Scale 6 Independent with activity with or without an assistive device 5 Patient requires set up or clean up by helper. Patient completes activity by themselves 4 Supervision or touching assist (CGA). [place] provide cues , steadying assist 3 The helper provides less than half the effort to complete the activity 2 The helper provides more than half the effort to complete the activity 1 Dependent. The helper does all the effort to complete an activity 7 Patient refused to complete or attempt activity 9 The patient did not perform the activity before the current illness or injury 88 Not attempted due to Medical conditions or safety concerns Bathing (FIM): 5 Lower Body Dressing (FIM): 5 Shower Transfer(FIM): 5 Other Treatment Pt performed gait to therapy gym with FWW. No LOB noted. Arm bike x10 minutes to increase overall strength and activity tolerance. Pt completed task with minimal resistance and slow pace. No rest breaks needed. Pt returned to room, sitting in chair with needs met after session. OT Short Term Goals Short Term Goals Time Frame: Oct 15, 2016 Bathing(FIM): 4 Lower Body Dressing(FIM): 5 Transfers (B,C,W/C) (FIM): 4 Toilet/Commode Transfer(FIM): 5 Additional Short Term Goals: 1-Demonstrate ADL Tasks, 2-Verbalize Understanding , 3-ImproveStrength/Windy 1=Demonstrate adherence to instructed precautions during ADL tasks. 2=Patient will verbalize/demonstrate understanding of assistive devices/ modifications for ADL. 3=Patient will improve strength/tolerance for activity to enable patient to perform ADL's. OT Group Home Goals Group Home Goals Time Frame: Oct 29, 2016 Eating (FIM): 6 Eating (QC): 6 Groomin Oral Hygiene (QC): 6 Bathing(FIM): 5 Shower/Bathe Self (QC): 5 Upper Body Dressing(FIM): 6 Upper Body Dressing (QC): 6 Lower Body Dressing(FIM): 5 Lower Body Dressing (QC): 5 On/Off Footwear (QC): 6 Toileting(FIM): 6 Toileting Hygiene (QC): 6 Toilet/Commode Transfer(FIM): 6 Toilet/Commode Transfer (QC): 6 Shower Transfer(FIM): 5 Comprehension(FIM): 5 Expression (FIM): 6 Social Interaction(FIM): 6 Problem Solving(FIM): 5 Memory(FIM): 5 Additional Goals: 1-Demonstrate ADL Tasks, 2-Verbalize Understanding, 3- ImproveStrength/Windy 1=Demonstrate adherence to instructed precautions during ADL tasks. 2=Patient will verbalize/demonstrate understanding of assistive devices/ modifications for ADL. 3=Patient will improve strength/tolerance for activity to enable patient to perform ADL's. OT Education/Plan Problem List/Assessment Pt s/p kyphoplasty. Pt demonstrates decreased ADL performance, mobility, strength, and activity tolerance. Pt to benefit from skilled OT intervention for ADL training, transfers, strengthening, and home safety education to maximize level of function and allow safe discharge plan. Discharge Recommendations Plan/Recommendations: Continue POC Treatment Plan/Plan of Care Patient would benefit from OT for education, treatment and training to promote independence in ADL's, mobility, safety and/or upper extremity function for ADL' s. Plan of Care: ADL Retraining, Functional Mobility, Group Exercise/Act as Ind, UE Funct Exercise/Act Treatment Duration: Oct 29, 2016 Visits Per Week: 10-12 Minutes/Day (M-F): 60-90 Minutes/Day (Sat/Paredes): PRN Agreement: Yes Rehab Potential: Good Time/GCodes Start Time: 09:15 Stop Time: 10:10 Total Time Billed (hr/min): 55 Billed Treatment Time 1 visit, ADLx3(40minutes), EX(15minutes) AUTUMN SILVA OT Oct 13, 2016 10:38
--- NOTE | 2016-10-13 11:24 | Physical Therapy Daily Note ---
PT Daily Note-Current Subjective Pt using restroom independently with staff. Pt agrees to PT. Pain Location: No Pain Reported Mental Status Patient Orientation: Person, Place, Situation Transfers Functional [place] Measure 0=Not Assessed/NA 4=Minimal Assistance 1=Total Assistance 5=Supervision or Setup 2=Maximal Assistance 6=Modified [place] 3=Moderate Assistance 7=Complete IndependenceIRFPAI Quality Coding Scale 6 Independent with activity with or without an assistive device 5 Patient requires set up or clean up by helper. Patient completes activity by themselves 4 Supervision or touching assist (CGA). [place] provide cues , steadying assist 3 The helper provides less than half the effort to complete the activity 2 The helper provides more than half the effort to complete the activity 1 Dependent. The helper does all the effort to complete an activity 7 Patient refused to complete or attempt activity 9 The patient did not perform the activity before the current illness or injury 88 Not attempted due to Medical conditions or safety concerns Scootin Sit to/from Stand: 6 Sit to Stand (QC): 6 Weight Bearing Weight Bearing Restriction: Full Weight Bearing Location Restriction: LE Bilateral Gait Training Does the Patient Walk?: Yes Distance (FIM): 3=150 ft Distance: 175' Walk 10 feet (QC): 6 Walk 50 ft with 2 Turns(QC): 6 Walk 150 ft (QC): 5 Gait Level of Assist: 5 Gait Persons Needed: 1 Gait Assistive Device: FWW Pt fatigues but is safe with ambulation and transfers. Pt walks with slow but steady jaydon, no LOB. Wheelchair Training Does the Pt Use a Wheelchair?: No Stair Training Stair Training: Handrails/: 2 handrails #of Steps: 4 1 Step (curb) (QC): 5 4 Steps (QC): 5 Stairs: Pattern: Reciprocal Exercises Seated Therapy Exercises: Ankle pumps, Long arc quads, Hip flexion, Kicking activity Seated Reps: 10 Standing: Hip Abduction, Heel/toe raises, Mini squats, Sit to Stand Standing Reps: 10 Treatments Pt was ambulating in restroom w/o staff upon arrival. Pt ambulated to Therapy Gym using FWW at Mod I. Pt completed 1 set of stairs followed by rest at chair. Pt completed Seated Ex followed by Standing Ex in //bars. Pt then ambulated back to room to rest. Pt brushed teeth before sitting in recliner to rest. Pt resting in recliner at end of tx with all needs met. Assessment Current Status: Good Progress Pt is making progress with independence and safety of tasks. Pt is getting stronger and has better activity tolerance & balance than previous visits. PT Short Term Goals Short Term Goals Time Frame: Oct 16, 2016 Transfers (B,C,W/C) (FIM): 4 Gait (FIM): 4 PT Custodial Goals Watch Parts Grinder Goals PT Watch Parts Grinder Goals Time Frame: Oct 30, 2016 Transfers (B,C,W/C) (FIM): 7 Sit to Lying (QC): 6 Lying-Sitting on Side/Bed(QC): 6 Sit to Stand (QC): 6 Rollin Roll Left to Right (QC): 6 Chair/Geq-am-Kvbnq Xfer(QC): 6 Car Transfer (QC): 5 Does the Patient Walk: Yes Gait (FIM): 6 Gait distance (FIM): 3=150 ft Walk 10 feet (QC): 6 Walk 10ft-Uneven Surface(QC): 6 Walk 50ft with 2 Turns (QC): 6 Walk 150 ft (QC): 6 Gait Assistive Device: FWW Does the Pt use WC or Scooter?: No Stairs (FIM): 5 # of Steps: 8 1 Step (curb) (QC): 6 4 Steps (QC): 5 12 Steps (QC): 88 Picking up an Object (QC): 88 PT Plan Problem List Problem List: Activity Tolerance, Functional Strength, Gait Treatment/Plan Treatment Plan: Continue Plan of Care Treatment Plan: Bed Mobility, Education, Functional Activity Windy, Functional Strength, Group Therapy, Gait, Safety, Therapeutic Exercise, Transfers Treatment Duration: Oct 30, 2016 Visits Per Week: 10-11 Minutes/Day (M-F): 60-90 Minutes/Day (Sat/Paredes): 15-30 Safety Risks/Education Patient Education: Gait Training, Transfer Techniques, Correct Positioning, Safety Issues Teaching Recipient: Patient Teaching Methods: Discussion Response to Teaching: Verbalize Understanding Time/GCodes Time In: 800 Time Out: 845 Total Billed Treatment Time: 45 Total Billed Treatment visit, GT (15m), EX (15m) & FA (15m) LEONILA SIMMONS PTA Oct 13, 2016 11:24
--- NOTE | 2016-10-13 13:38 | Speech Therapy Daily Note ---
Speech Daily Progress Note Subjective Date Seen by Provider: Oct 13, 2016 Time Seen by Provider: 10:15 The patient was seated upright in recliner upon entrance. The patient greeted the clinician appropriately and was agreeable to participation in the cognitive treatment session on this date. Objective - Internal Memory Strategies: Internal memory strategies were discussed, demonstrated and reviewed on this date. Internal memory strategies included visual imagery, repetition, mnemonics, and associations. The patient stated she frequently uses repetition to recall items such as a grocery list or someone 's name. External memory strategies were reviewed, as well. The patient was able to independently recall three external memory strategies for use at home. - Word List Retention: The patient demonstrated 90% accuracy with three word list retention and 70% accuracy with four word retention with mild clinician verbal cueing. Assessment Assessment Current Status: Excellent Progress Treatment Plan Discontinue ST, Goals Met Communication Comprehension: 5 Expression: 6 Social Cognition Social Interaction: 5 Problem Solvin Memory: 5 Speech Short Term Goals Short Term Goals Short Term Goals 1. The patient will recall and demonstrate two functional memory strategies for use at home, independently. 2. The patient will demonstrate 90% accuracy with safety problem solving, independently. 3. The patient will recall three to five items immediately and following a five minute delay with mild clinician verbal prompting. Time Frame-STG: Five Days Speech Senior Living Goals Senior Living Goals 1. The patient will demonstrate improved cognitive skills for increased function and safety with ADL's in the least restrictive setting. Time Frame: 10 days Comprehension: 5 (MET) Expression: 6 (MET) Social Interaction: 6 (MET) Problem Solvin (MET) Memory: 5 (MET) Speech-Plan Treatment Plan Speech Therapy Treatment Plan: Discontinue ST, Goals Met The patient has met speech pathology goals initially set by the clinician and will be discharged from skilled services at this time. Treatment Duration: Oct 17, 2016 # of days/week Five. Visits Per Week: Five. Minutes/Day (M-F): 30 Rehab Potential: Good Safety Risks/Education Teaching Recipient: Patient Teaching Methods: Discussion Response to Teaching: Verbalize Understanding Education Topics Provided: Plan of Care, Recommendations Time Speech Therapy Time In: 10:15 Speech Therapy Time Out: 10:45 Total Billed Time: 30 Billed Treatment Time 1TJLESTER ST Oct 13, 2016 13:38
--- NOTE | 2016-10-13 13:41 | Therapy Team Discharge Summary ---
Therapy Discharge Summary Discharge Recommendations Date of Discharge Therapy D/C Recommendations: Physical Therapy Home Care Speech-Language Pathology The patient was admitted to [facility] [facility] following a lumbar kyphoplasty. Upon admission, the patient demonstrated mild functional memory deficits. Skilled speech pathology focused on external and internal functional memory strategies. The patient was able to independently recall the memory strategies discussed and their appropriate use. At this time, the patient has met all speech pathology goals set and will be discharged from therapy. Further speech services are not warranted. PT Halfway Goals Halfway Goals PT Halfway Goals Time Frame: Oct 30, 2016 Transfers (B,C,W/C) (FIM): 7 Roll Left to Right (QC): 6 Sit to Lying (QC): 6 Lying-Sitting on Side/Bed(QC): 6 Sit to Stand (QC): 6 Chair/Wbm-su-Kshvf Xfer(QC): 6 Car Transfer (QC): 5 Does the Patient Walk: Yes Gait (FIM): 6 Gait distance (FIM): 3=150 ft Walk 10 feet (QC): 6 Walk 10ft-Uneven Surface(QC): 6 Walk 50ft with 2 Turns (QC): 6 Walk 150 ft (QC): 6 Gait Assistive Device: FWW Does the Pt use WC or Scooter?: No Stairs (FIM): 5 # of Steps: 8 1 Step (curb) (QC): 6 4 Steps (QC): 5 12 Steps (QC): 88 Picking up an Object (QC): 88 OT Halfway Goals Mine Car Dispatcher Goals Time Frame: Oct 29, 2016 Eating (FIM): 6 Eating (QC): 6 Oral Hygiene (QC): 6 Grooming(FIM): 6 Bathing(FIM): 5 Shower/Bathe Self (QC): 5 Upper Body Dressing(FIM): 6 Upper Body Dressing (QC): 6 Lower Body Dressing(FIM): 5 Lower Body Dressing (QC): 5 On/Off Footwear (QC): 6 Toileting(FIM): 6 Toileting Hygiene (QC): 6 Toilet/Commode Transfer(FIM): 6 Toilet/Commode Transfer (QC): 6 Shower Transfer(FIM): 5 Comprehension(FIM): 5 (MET) Expression (FIM): 6 (MET) Social Interaction(FIM): 6 (MET) Problem Solving(FIM): 5 (MET) Memory(FIM): 5 (MET) Additional Goals: 1-Demonstrate ADL Tasks, 2-Verbalize Understanding, 3- ImproveStrength/Windy 1=Demonstrate adherence to instructed precautions during ADL tasks. 2=Patient will verbalize/demonstrate understanding of assistive devices/ modifications for ADL. 3=Patient will improve strength/tolerance for activity to enable patient to perform ADL's. Speech Halfway Goals Mine Car Dispatcher Goals 1. The patient will demonstrate improved cognitive skills for increased function and safety with ADL's in the least restrictive setting. Time Frame: 10 days Comprehension: 5 (MET) Expression: 6 (MET) Social Interaction: 6 (MET) Problem Solvin (MET) Memory: 5 (MET) LESTER WINTER Oct 13, 2016 13:41
--- NOTE | 2016-10-13 14:56 | Therapy Group Daily Note ---
Therapy Daily Group Note Patient Education Topic Home Safety Exercises LE Seated Exercise, UE Exercise Other/Notes Pt ambulated to OT/PT group with SBA using FWW. OT/PT group consisted of introductions (name, place living, first $ earned), socialization, UE/LE seated exercises, home safety, adaptive equipment, and problem solving photos of unsafe situations around the home. Pt was able to introduce self appropriately. Pt contributed to each discussion and verbalized understanding of home safety and the use of adaptive equipment. Pt was able to participate fulling in UE/LE seated exercises. Pt ambulated with FWW back to room. After group, pt lying in bed with call light/phone in reach. All needs met in room. Start Time: 13:00 Stop Time: 14:15 Total Billed Treatment Time: 75 Total Billed Treatment 1-GRP MORENA VILLEGAS Oct 13, 2016 14:56
[2016-10-13 18:23] VITALS: BP 136/61
--- NOTE | 2016-10-13 20:16 | PM & R (SOAP) Progress Note ---
Subjective Time Seen by Provider: 19:30 Subjective/Events-last exam Patient was seen in her room this evening Progressing well with therapies Appreciate Dr Davenport note Patient Modified Independent for transfers and pain decreased. Objective Exam Last Set of Vital Signs Vital Signs Date Time Temp Pulse Resp B/P (MAP) Pulse Ox O2 Delivery O2 Flow Rate FiO2 10/13/16 18:23 98.7 58 16 136/61 97 Room Air Capillary Refill : I&O Intake and Output 10/13/16 00:00 Intake Total 750 ml Output Total 450 ml Balance 300 ml Intake Oral 750 ml Output Urine Total 450 ml # Voids 5 General: Alert, Oriented X3, Cooperative, No Acute Distress HEENT: Atraumatic, PERRLA, EOMI, Mucous Memb Moist/[place] Neck: Supple, No JVD Lungs: Clear to Auscultation Heart: Regular Rate Abdomen: Normal Bowel Sounds, Soft, No Tenderness Extremities: No Edema Neuro: Other (generalized weakness) Assessment/Plan Assessment S/P L5 kyphoplasty for compression frx DR Copeland Osteoporosis Prior Kyphoplasty/Vertebroplasty Lumbar spine HTN controlled mild memory loss Plan Continue PT/OT/ ST/Pain management F/U with DR Mcdermott and Min PRN Team Conference next week Patient indicates that her daughter from [place] will be coming to stay with her for a while upon discharge from RIZWANA GOMEZ MD Oct 13, 2016 20:16
[2016-10-13] MEDS: ROSUVASTATIN 5 MG (CRESTOR) TABLET PO SCH (21:37)
[2016-10-13] MEDS: PANTOPRAZOLE 40 MG (PROTONIX) TAB PO SCH (21:37)
[2016-10-13] MEDS: NEBIVOLOL 5 MG TAB (BYSTOLIC) PO SCH (21:37)
[2016-10-14 05:37] VITALS: BP 135/62
[2016-10-14] MEDS: VITAMIN D3 1,000 UNITS (CHOLECALCIFEROL) TABLET PO SCH (06:26)
[2016-10-14] MEDS: RANOLAZINE ER 500 MG TAB (RANEXA) PO SCH ×2 (08:50→20:09)
[2016-10-14] MEDS: lisINopril 20 MG (ZESTRIL) TAB PO SCH (08:50)
[2016-10-14] MEDS: CLOPIDOGREL 75 MG (PLAVIX) TABLET PO SCH (08:50)
[2016-10-14] MEDS: ASCORBIC ACID (VIT C) 500 MG TABLET PO SCH (08:50)
--- NOTE | 2016-10-14 09:52 | Occupational Ther Daily Note ---
OT Current Status-Daily Note Subjective Pt alert, sitting in recliner. Pt agreed to therapy. No c/o pain at this time. Discussed with NETWORK SYSTEMS INTEGRATOR, pt is allowed up ad claire in room. Mental Status/Objective Patient Orientation: Person, Place, Time, Situation Functional [place] Measure 0=Not Assessed/NA 4=Minimal Assistance 1=Total Assistance 5=Supervision or Setup 2=Maximal Assistance 6=Modified [place] 3=Moderate Assistance 7=Complete [place] ADL-Treatment Pt declined bathing and dressing today. Pt demonstrated ability to complete daily functional tasks in room by self using FWW. Pt able to make her own bed, using bed to stabilize self. Pt then ambulated to bathroom and transferred onto toilet using FWW and grabbars by self, completed toileting hygiene by self. Then ambulated using FWW to sink and stood at sink to complete oral care and grooming by self. Pt then ambulated to closet and was able to open door and drawers. No LOB during these tasks. Functional [place] Measure 0=Not Assessed/NA 4=Minimal Assistance 1=Total Assistance 5=Supervision or Setup 2=Maximal Assistance 6=Modified [place] 3=Moderate Assistance 7=Complete IndependenceIRFPAI Quality Coding Scale 6 Independent with activity with or without an assistive device 5 Patient requires set up or clean up by helper. Patient completes activity by themselves 4 Supervision or touching assist (CGA). [place] provide cues , steadying assist 3 The helper provides less than half the effort to complete the activity 2 The helper provides more than half the effort to complete the activity 1 Dependent. The helper does all the effort to complete an activity 7 Patient refused to complete or attempt activity 9 The patient did not perform the activity before the current illness or injury 88 Not attempted due to Medical conditions or safety concerns Toileting (FIM): 6 Toileting Hygiene (QC): 6 Transfers (B, C, W/C) (FIM): 6 Toilet/Commode Transfer (FIM): 6 Toilet Transfer (QC): 6 Other Treatment Pt ambulated with FWW to therapy gym. Pt completed arm bike 15 min duration at 15 vaughn resistance to increase strength and activity tolerance for daily functional tasks, no breaks required. Pt ambulated back to room. After therapy , pt sitting in recliner with call light/phone in reach. All needs met in room. Education OT Patient Education: Energy conservation, Safety issues Teaching Recipient: Patient Teaching Methods: Demonstration, Discussion Response to Teaching: Verbalize Understanding, Return Demonstration OT Short Term Goals Short Term Goals Time Frame: Oct 15, 2016 Bathing(FIM): 4 Lower Body Dressing(FIM): 5 Transfers (B,C,W/C) (FIM): 4 Toilet/Commode Transfer(FIM): 5 Additional Short Term Goals: 1-Demonstrate ADL Tasks, 2-Verbalize Understanding , 3-ImproveStrength/Windy 1=Demonstrate adherence to instructed precautions during ADL tasks. 2=Patient will verbalize/demonstrate understanding of assistive devices/ modifications for ADL. 3=Patient will improve strength/tolerance for activity to enable patient to perform ADL's. OT Automation Qa Lead Goals Automation Qa Lead Goals Time Frame: Oct 29, 2016 Eating (FIM): 6 Eating (QC): 6 Groomin Oral Hygiene (QC): 6 Bathing(FIM): 5 Shower/Bathe Self (QC): 5 Upper Body Dressing(FIM): 6 Upper Body Dressing (QC): 6 Lower Body Dressing(FIM): 5 Lower Body Dressing (QC): 5 On/Off Footwear (QC): 6 Toileting(FIM): 6 Toileting Hygiene (QC): 6 Toilet/Commode Transfer(FIM): 6 Toilet/Commode Transfer (QC): 6 Shower Transfer(FIM): 5 Comprehension(FIM): 5 (MET) Expression (FIM): 6 (MET) Social Interaction(FIM): 6 (MET) Problem Solving(FIM): 5 (MET) Memory(FIM): 5 (MET) Additional Goals: 1-Demonstrate ADL Tasks, 2-Verbalize Understanding, 3- ImproveStrength/Windy 1=Demonstrate adherence to instructed precautions during ADL tasks. 2=Patient will verbalize/demonstrate understanding of assistive devices/ modifications for ADL. 3=Patient will improve strength/tolerance for activity to enable patient to perform ADL's. OT Education/Plan Problem List/Assessment Pt s/p kyphoplasty. Pt demonstrates decreased ADL performance, mobility, strength, and activity tolerance. Pt to benefit from skilled OT intervention for ADL training, transfers, strengthening, and home safety education to maximize level of function and allow safe discharge plan. Discharge Recommendations Plan/Recommendations: Continue POC Treatment Plan/Plan of Care Patient would benefit from OT for education, treatment and training to promote independence in ADL's, mobility, safety and/or upper extremity function for ADL' s. Plan of Care: ADL Retraining, Functional Mobility, Group Exercise/Act as Ind, UE Funct Exercise/Act Treatment Duration: Oct 29, 2016 Visits Per Week: 10-12 Minutes/Day (M-F): 60-90 Minutes/Day (Sat/Paredes): PRN Agreement: Yes Rehab Potential: Good Time/GCodes Start Time: 09:00 Stop Time: 10:00 Total Time Billed (hr/min): 60 Billed Treatment Time 1 visit-FA 3 (45 min) EX 1 (15 min) MORENA VILLEGAS Oct 14, 2016 09:52
--- NOTE | 2016-10-14 10:21 | Physical Therapy Daily Note ---
PT Daily Note-Current Subjective Pt sitting in recliner upon arrival. Pt reports having showered and got dressed already. Pt agrees to PT. Pain Location: No Pain Reported Mental Status Patient Orientation: Person, Place, Time, Situation Transfers Functional [place] Measure 0=Not Assessed/NA 4=Minimal Assistance 1=Total Assistance 5=Supervision or Setup 2=Maximal Assistance 6=Modified [place] 3=Moderate Assistance 7=Complete IndependenceIRFPAI Quality Coding Scale 6 Independent with activity with or without an assistive device 5 Patient requires set up or clean up by helper. Patient completes activity by themselves 4 Supervision or touching assist (CGA). [place] provide cues , steadying assist 3 The helper provides less than half the effort to complete the activity 2 The helper provides more than half the effort to complete the activity 1 Dependent. The helper does all the effort to complete an activity 7 Patient refused to complete or attempt activity 9 The patient did not perform the activity before the current illness or injury 88 Not attempted due to Medical conditions or safety concerns Scootin Sit to/from Stand: 6 Sit to Stand (QC): 6 Weight Bearing Weight Bearing Restriction: Full Weight Bearing Location Restriction: LE Bilateral Gait Training Does the Patient Walk?: Yes Distance (FIM): 3=150 ft Distance: 200' Walk 10 feet (QC): 6 Walk 50 ft with 2 Turns(QC): 6 Walk 150 ft (QC): 6 Gait Level of Assist: 6 Gait Persons Needed: 1 Gait Assistive Device: FWW Pt walks with normalized gait pattern & no LOB. Wheelchair Training Does the Pt Use a Wheelchair?: No Stair Training Stair Training: Handrails/: 1 handrail #of Steps: 8 1 Step (curb) (QC): 5 4 Steps (QC): 5 Stairs: Pattern: Step to Level of Assist: 5 Pt able to ambulate 2 sets of stairs using only R hand rail ascending & L hand rail descending at close SBA. Pt is making improvements with independence of stairs. Exercises NuStep Minutes: 15 NuStep Workload: 3 Treatments Pt transfers from recliner to standing using FWW at Mod I. Pt ambulates in hallway using FWW at Mod I. Pt completes 2 sets of stairs at SBA. Pt uses NuStep to increase strength & activity tolerance which will increase balance and independence with upright activities. Pt ambulated and returned to room to rest at end of tx with all needs met. Assessment Current Status: Good Progress Pt is improving with strength, activity tolerance and balance as well as independence with tasks or activities. Pt will be tested during OT tx for making pt Ad claire in room. PT Short Term Goals Short Term Goals Time Frame: Oct 16, 2016 Transfers (B,C,W/C) (FIM): 4 Gait (FIM): 4 PT Alf Goals Alf Goals PT Strategic Solutions Consultant Goals Time Frame: Oct 30, 2016 Transfers (B,C,W/C) (FIM): 7 Sit to Lying (QC): 6 Lying-Sitting on Side/Bed(QC): 6 Sit to Stand (QC): 6 Rollin Roll Left to Right (QC): 6 Chair/Fwt-xj-Xytfq Xfer(QC): 6 Car Transfer (QC): 5 Does the Patient Walk: Yes Gait (FIM): 6 Gait distance (FIM): 3=150 ft Walk 10 feet (QC): 6 Walk 10ft-Uneven Surface(QC): 6 Walk 50ft with 2 Turns (QC): 6 Walk 150 ft (QC): 6 Gait Assistive Device: FWW Does the Pt use WC or Scooter?: No Stairs (FIM): 5 # of Steps: 8 1 Step (curb) (QC): 6 4 Steps (QC): 5 12 Steps (QC): 88 Picking up an Object (QC): 88 PT Plan Problem List Problem List: Activity Tolerance Treatment/Plan Treatment Plan: Continue Plan of Care Treatment Plan: Bed Mobility, Education, Functional Activity Windy, Functional Strength, Group Therapy, Gait, Safety, Therapeutic Exercise, Transfers Treatment Duration: Oct 30, 2016 Visits Per Week: 10-11 Minutes/Day (M-F): 60-90 Minutes/Day (Sat/Paredes): 15-30 Safety Risks/Education Patient Education: Gait Training, Transfer Techniques, Correct Positioning, Safety Issues Teaching Recipient: Patient Teaching Methods: Discussion Response to Teaching: Verbalize Understanding Time/GCodes Time In: 800 Time Out: 845 Total Billed Treatment Time: 45 Total Billed Treatment visit, GT (15m), EX (15m) & FA (15m) LEONILA SIMMONS PTA Oct 14, 2016 10:21
--- NOTE | 2016-10-14 15:42 | Occupational Ther Daily Note ---
OT Current Status-Daily Note Subjective Pt finishing up with PT. JAMES took over care of pt. No c/o pain. Mental Status/Objective Patient Orientation: Person, Place, Time, Situation Functional [place] Measure 0=Not Assessed/NA 4=Minimal Assistance 1=Total Assistance 5=Supervision or Setup 2=Maximal Assistance 6=Modified [place] 3=Moderate Assistance 7=Complete [place] ADL-Treatment Functional [place] Measure 0=Not Assessed/NA 4=Minimal Assistance 1=Total Assistance 5=Supervision or Setup 2=Maximal Assistance 6=Modified [place] 3=Moderate Assistance 7=Complete IndependenceIRFPAI Quality Coding Scale 6 Independent with activity with or without an assistive device 5 Patient requires set up or clean up by helper. Patient completes activity by themselves 4 Supervision or touching assist (CGA). [place] provide cues , steadying assist 3 The helper provides less than half the effort to complete the activity 2 The helper provides more than half the effort to complete the activity 1 Dependent. The helper does all the effort to complete an activity 7 Patient refused to complete or attempt activity 9 The patient did not perform the activity before the current illness or injury 88 Not attempted due to Medical conditions or safety concerns Other Treatment Pt demonstrated ability to use FWW in and around obstacles with no LOB, close SBA for safety. Pt was able to reach, grasp and retrieve while standing with SBA using FWW, no LOB noted. Pt demonstrates good understanding of safety with FWW and is mindful of obstacles in path. After therapy, pt lying in bed with call light/phone in reach. All needs met in room. OT Short Term Goals Short Term Goals Time Frame: Oct 15, 2016 Bathing(FIM): 4 Lower Body Dressing(FIM): 5 Transfers (B,C,W/C) (FIM): 4 Toilet/Commode Transfer(FIM): 5 Additional Short Term Goals: 1-Demonstrate ADL Tasks, 2-Verbalize Understanding , 3-ImproveStrength/Windy 1=Demonstrate adherence to instructed precautions during ADL tasks. 2=Patient will verbalize/demonstrate understanding of assistive devices/ modifications for ADL. 3=Patient will improve strength/tolerance for activity to enable patient to perform ADL's. OT Analytical Consultant Goals Analytical Consultant Goals Time Frame: Oct 29, 2016 Eating (FIM): 6 Eating (QC): 6 Groomin Oral Hygiene (QC): 6 Bathing(FIM): 5 Shower/Bathe Self (QC): 5 Upper Body Dressing(FIM): 6 Upper Body Dressing (QC): 6 Lower Body Dressing(FIM): 5 Lower Body Dressing (QC): 5 On/Off Footwear (QC): 6 Toileting(FIM): 6 Toileting Hygiene (QC): 6 Toilet/Commode Transfer(FIM): 6 Toilet/Commode Transfer (QC): 6 Shower Transfer(FIM): 5 Comprehension(FIM): 5 (MET) Expression (FIM): 6 (MET) Social Interaction(FIM): 6 (MET) Problem Solving(FIM): 5 (MET) Memory(FIM): 5 (MET) Additional Goals: 1-Demonstrate ADL Tasks, 2-Verbalize Understanding, 3- ImproveStrength/Windy 1=Demonstrate adherence to instructed precautions during ADL tasks. 2=Patient will verbalize/demonstrate understanding of assistive devices/ modifications for ADL. 3=Patient will improve strength/tolerance for activity to enable patient to perform ADL's. OT Education/Plan Problem List/Assessment Pt s/p kyphoplasty. Pt demonstrates decreased ADL performance, mobility, strength, and activity tolerance. Pt to benefit from skilled OT intervention for ADL training, transfers, strengthening, and home safety education to maximize level of function and allow safe discharge plan. Discharge Recommendations Plan/Recommendations: Continue POC Treatment Plan/Plan of Care Patient would benefit from OT for education, treatment and training to promote independence in ADL's, mobility, safety and/or upper extremity function for ADL' s. Plan of Care: ADL Retraining, Functional Mobility, Group Exercise/Act as Ind, UE Funct Exercise/Act Treatment Duration: Oct 29, 2016 Visits Per Week: 10-12 Minutes/Day (M-F): 60-90 Minutes/Day (Sat/Paredes): PRN Agreement: Yes Rehab Potential: Good Time/GCodes Start Time: 14:00 Stop Time: 14:30 Total Time Billed (hr/min): 30 Billed Treatment Time 1 visit-FA 2 (30 min) MORENA VILLEGAS Oct 14, 2016 15:42
--- NOTE | 2016-10-14 15:49 | Physical Therapy Daily Note ---
PT Daily Note-Current Subjective Pt is sitting in recliner upon arrival. OT made pt Ad claire in room after talking to PT & ST this morning. Pt agrees to PT this afternoon. Pain Location: No Pain Reported Mental Status Patient Orientation: Person, Place, Time, Situation Transfers Functional [place] Measure 0=Not Assessed/NA 4=Minimal Assistance 1=Total Assistance 5=Supervision or Setup 2=Maximal Assistance 6=Modified [place] 3=Moderate Assistance 7=Complete IndependenceIRFPAI Quality Coding Scale 6 Independent with activity with or without an assistive device 5 Patient requires set up or clean up by helper. Patient completes activity by themselves 4 Supervision or touching assist (CGA). [place] provide cues , steadying assist 3 The helper provides less than half the effort to complete the activity 2 The helper provides more than half the effort to complete the activity 1 Dependent. The helper does all the effort to complete an activity 7 Patient refused to complete or attempt activity 9 The patient did not perform the activity before the current illness or injury 88 Not attempted due to Medical conditions or safety concerns Scootin Sit to/from Stand: 6 Sit to Stand (QC): 6 Weight Bearing Weight Bearing Restriction: Full Weight Bearing Location Restriction: LE Bilateral Gait Training Does the Patient Walk?: Yes Distance (FIM): 3=150 ft Distance: 750' Walk 10 feet (QC): 6 Walk 50 ft with 2 Turns(QC): 6 Walk 150 ft (QC): 6 Gait Level of Assist: 6 Gait Persons Needed: 1 Gait Assistive Device: FWW Pt walks with normalized gait. Pt has better activity tolerance and is able to walk farther distance before fatiguing. Wheelchair Training Does the Pt Use a Wheelchair?: No Treatments Pt transfers from recliner to standing using FWW at [facility] [place]. Pt ambulates on Therapy Unit as well as to elevator and around [facility] on main floor of hospital. Pt returns to Therapy Unit and then Therapy Commons and rest before OT comes to scrap picker pt for OT tx. Pt is left with OT with all needs met. Assessment Current Status: Good Progress Pt has improved with strength, activity tolerance and balance since starting tx. Pt is now Ad claire in room. PT Short Term Goals Short Term Goals Time Frame: Oct 16, 2016 Transfers (B,C,W/C) (FIM): 4 Gait (FIM): 4 PT Light Out Examiner Goals Light Out Examiner Goals PT Intermediate Goals Time Frame: Oct 30, 2016 Transfers (B,C,W/C) (FIM): 7 Sit to Lying (QC): 6 Lying-Sitting on Side/Bed(QC): 6 Sit to Stand (QC): 6 Rollin Roll Left to Right (QC): 6 Chair/Fvx-dy-Scphi Xfer(QC): 6 Car Transfer (QC): 5 Does the Patient Walk: Yes Gait (FIM): 6 Gait distance (FIM): 3=150 ft Walk 10 feet (QC): 6 Walk 10ft-Uneven Surface(QC): 6 Walk 50ft with 2 Turns (QC): 6 Walk 150 ft (QC): 6 Gait Assistive Device: FWW Does the Pt use WC or Scooter?: No Stairs (FIM): 5 # of Steps: 8 1 Step (curb) (QC): 6 4 Steps (QC): 5 12 Steps (QC): 88 Picking up an Object (QC): 88 PT Plan Treatment/Plan Treatment Plan: Continue Plan of Care Treatment Plan: Bed Mobility, Education, Functional Activity Windy, Functional Strength, Group Therapy, Gait, Safety, Therapeutic Exercise, Transfers Treatment Duration: Oct 30, 2016 Visits Per Week: 10-11 Minutes/Day (M-F): 60-90 Minutes/Day (Sat/Paredes): 15-30 Safety Risks/Education Patient Education: Gait Training, Correct Positioning, Safety Issues Teaching Recipient: Patient Teaching Methods: Discussion Response to Teaching: Verbalize Understanding Time/GCodes Time In: 1330 Time Out: 1400 Total Billed Treatment Time: 30 Total Billed Treatment visit, GT x2 (30m) LEONILA SIMMONS PTA Oct 14, 2016 15:49
--- NOTE | 2016-10-14 19:29 | PM & R (SOAP) Progress Note ---
Subjective Time Seen by Provider: 07:55 Subjective/Events-last exam Patient was seen in her room this AM Progressing well with therapies. Patient Modified Independent for transfers,Patients D-I-L asking for excuse note for patient to miss Jury duty Will f/u tomorrow re this. Objective Exam Last Set of Vital Signs Vital Signs Date Time Temp Pulse Resp B/P (MAP) Pulse Ox O2 Delivery O2 Flow Rate FiO2 10/14/16 09:00 Room Air 10/14/16 05:37 98.3 67 20 135/62 93 Capillary Refill : I&O Intake and Output 10/14/16 00:00 Intake Total 1080 ml Balance 1080 ml Intake Oral 1080 ml # Voids 8 # Bowel Movements 1 General: Alert, Oriented X3, Cooperative, No Acute Distress HEENT: Atraumatic, PERRLA, EOMI, Mucous Memb Moist/[place] Neck: Supple, No JVD Lungs: Clear to Auscultation Heart: Regular Rate Abdomen: Normal Bowel Sounds, Soft, No Tenderness Extremities: No Edema Neuro: Other (generalized weakness) Assessment/Plan Assessment S/P L5 kyphoplasty for compression frx DR Copeland Osteoporosis Prior Kyphoplasty/Vertebroplasty Lumbar spine HTN controlled mild memory loss Plan Continue PT/OT/ ST/Pain management F/U with DR Mcdermott and Min PRN Team Conference tomorrow 10/15/16 Patient indicates that her daughter from [place] will be coming to stay with her for a while upon discharge from [facility] F/U in AM re Jury duty excuse note RIZWANA KISER MD Oct 14, 2016 19:29
[2016-10-14 19:44] VITALS: BP 120/56
[2016-10-14] MEDS: ROSUVASTATIN 5 MG (CRESTOR) TABLET PO SCH (20:09)
[2016-10-14] MEDS: PANTOPRAZOLE 40 MG (PROTONIX) TAB PO SCH (20:09)
[2016-10-14] MEDS: NEBIVOLOL 5 MG TAB (BYSTOLIC) PO SCH (20:09)
[2016-10-15] MEDS: VITAMIN D3 1,000 UNITS (CHOLECALCIFEROL) TABLET PO SCH (06:32)
[2016-10-15] MEDS: ASCORBIC ACID (VIT C) 500 MG TABLET PO SCH (08:25)
[2016-10-15] MEDS: CLOPIDOGREL 75 MG (PLAVIX) TABLET PO SCH (08:25)
[2016-10-15] MEDS: lisINopril 20 MG (ZESTRIL) TAB PO SCH (08:25)
[2016-10-15] MEDS: RANOLAZINE ER 500 MG TAB (RANEXA) PO SCH ×2 (08:25→20:36)
--- NOTE | 2016-10-15 08:28 | PM & R (SOAP) Progress Note ---
Subjective Time Seen by Provider: 07:50 Subjective/Events-last exam Patient was seen in her room this AM Progressing well with therapies Pain much decreased Patient request excuse note to miss jury duty-will f/u Objective Exam Last Set of Vital Signs Vital Signs Date Time Temp Pulse Resp B/P (MAP) Pulse Ox O2 Delivery O2 Flow Rate FiO2 10/14/16 19:44 99.0 59 16 120/56 99 Room Air Capillary Refill : I&O Intake and Output 10/15/16 00:00 Intake Total 1170 ml Balance 1170 ml Intake Oral 1170 ml # Voids 6 # Bowel Movements 1 General: Alert, Oriented X3, Cooperative, No Acute Distress HEENT: Atraumatic, PERRLA, EOMI, Mucous Memb Moist/[place] Neck: Supple, No JVD Lungs: Clear to Auscultation Heart: Regular Rate Abdomen: Normal Bowel Sounds, Soft, No Tenderness Extremities: No Edema Neuro: Other (generalized weakness) Assessment/Plan Assessment S/P L5 kyphoplasty for compression frx DR Copeland Osteoporosis Prior Kyphoplasty/Vertebroplasty Lumbar spine HTN controlled mild memory loss Plan Continue PT/OT/ ST/Pain management F/U with DR Mcdermott and Min PRN Patient indicates that her daughter from [place] will be coming to stay with her for a while upon discharge from IRU F/U re Jury duty excuse note Team Conference to be held later today See report for full functional update and POC and RIZWANA GOODRICH MD Oct 15, 2016 08:28
--- NOTE | 2016-10-15 08:56 | Physical Therapy Daily Note ---
PT Daily Note-Current Subjective Pt sitting in recliner talking to son on phone upon arrival. Pt agrees to PT. Pain Location: No Pain Reported Mental Status Patient Orientation: Person, Place, Time, Situation Transfers Functional [place] Measure 0=Not Assessed/NA 4=Minimal Assistance 1=Total Assistance 5=Supervision or Setup 2=Maximal Assistance 6=Modified [place] 3=Moderate Assistance 7=Complete IndependenceIRFPAI Quality Coding Scale 6 Independent with activity with or without an assistive device 5 Patient requires set up or clean up by helper. Patient completes activity by themselves 4 Supervision or touching assist (CGA). [place] provide cues , steadying assist 3 The helper provides less than half the effort to complete the activity 2 The helper provides more than half the effort to complete the activity 1 Dependent. The helper does all the effort to complete an activity 7 Patient refused to complete or attempt activity 9 The patient did not perform the activity before the current illness or injury 88 Not attempted due to Medical conditions or safety concerns Scootin Sit to/from Stand: 6 Sit to Stand (QC): 6 Weight Bearing Weight Bearing Restriction: Full Weight Bearing Location Restriction: LE Bilateral Gait Training Does the Patient Walk?: Yes Distance (FIM): 3=150 ft Distance: 175' Walk 10 feet (QC): 6 Walk 50 ft with 2 Turns(QC): 6 Walk 150 ft (QC): 6 Gait Level of Assist: 6 Gait Persons Needed: 1 Gait Assistive Device: FWW Pt walks with normalized gait and is steady, no LOB. Pt is still a little nervous of falling if not using FWW although PT reassured pt that she is ambulating well but will continue to use FWW. Wheelchair Training Does the Pt Use a Wheelchair?: No Exercises Seated Therapy Exercises: Ankle pumps, Long arc quads, Hip flexion, Kicking activity Seated Reps: 15 Standing: Hip Abduction, Heel/toe raises, Mini squats Standing Reps: 15 Pt's balance has improved with upright activity. Pt also stretched tight hamstrings from seated position. Treatments Pt transferred from sitting in recliner to standing using FWW at [facility]. Pt used restroom before leaving room for PT. Pt ambulated in hallway using FWW at [facility]. Pt completed both Seated & Standing Ex in //bars to increase strength and balance. Pt ambulated back to room to rest in recliner at end of tx with all needs met. Assessment Current Status: Good Progress Pt continues to make progress with increase in strength, activity tolerance and balance as well as more independence with activities. PT Short Term Goals Short Term Goals Time Frame: Oct 16, 2016 Transfers (B,C,W/C) (FIM): 4 Gait (FIM): 4 PT Manager Book Goals Manager Book Goals PT Manager Book Goals Time Frame: Oct 30, 2016 Transfers (B,C,W/C) (FIM): 7 Sit to Lying (QC): 6 Lying-Sitting on Side/Bed(QC): 6 Sit to Stand (QC): 6 Rollin Roll Left to Right (QC): 6 Chair/Hgp-hj-Urobv Xfer(QC): 6 Car Transfer (QC): 5 Does the Patient Walk: Yes Gait (FIM): 6 Gait distance (FIM): 3=150 ft Walk 10 feet (QC): 6 Walk 10ft-Uneven Surface(QC): 6 Walk 50ft with 2 Turns (QC): 6 Walk 150 ft (QC): 6 Gait Assistive Device: FWW Does the Pt use WC or Scooter?: No Stairs (FIM): 5 # of Steps: 8 1 Step (curb) (QC): 6 4 Steps (QC): 5 12 Steps (QC): 88 Picking up an Object (QC): 88 PT Plan Problem List Problem List: Activity Tolerance Treatment/Plan Treatment Plan: Continue Plan of Care Treatment Plan: Bed Mobility, Education, Functional Activity Windy, Functional Strength, Group Therapy, Gait, Safety, Therapeutic Exercise, Transfers Treatment Duration: Oct 30, 2016 Visits Per Week: 10-11 Minutes/Day (M-F): 60-90 Minutes/Day (Sat/Paredes): 15-30 Safety Risks/Education Patient Education: Gait Training, Transfer Techniques, Correct Positioning, Safety Issues Teaching Recipient: Patient Teaching Methods: Discussion Response to Teaching: Verbalize Understanding Time/GCodes Time In: 815 Time Out: 900 Total Billed Treatment Time: 45 Total Billed Treatment visit, GT (15m) & Ex X2 (30m) LEONILA SIMMONS STRIKE OFF MACHINE OPERATOR Oct 15, 2016 08:56
--- NOTE | 2016-10-15 10:12 | Occupational Ther Daily Note ---
OT Current Status-Daily Note Subjective Pt sitting in chair, agrees to treatment. Pt reports 2/10 back pain. Mental Status/Objective Functional [place] Measure 0=Not Assessed/NA 4=Minimal Assistance 1=Total Assistance 5=Supervision or Setup 2=Maximal Assistance 6=Modified [place] 3=Moderate Assistance 7=Complete [place] ADL-Treatment Sit to stand from chair with modified independence. Pt retrieved clothing from closet with FWW for balance. Gait to restroom with FWW, no LOB noted. Transfer to walk in shower with modified independence. Doff clothing without assistance. Pt completed bathing with hand held shower and long handled sponge. Pt able to wash/dry all areas with modified independence. Don bra and pullover shirt with modified independence. Pt used fertilizer processing supervisor to start underwear and pants over feet, skilled cues for technique. Stood with good balance for pant hike. Pt donned slip on shoes with modified independence, states she will not be wearing socks much at home. Stood at sink to comb hair with modified independence. Functional [place] Measure 0=Not Assessed/NA 4=Minimal Assistance 1=Total Assistance 5=Supervision or Setup 2=Maximal Assistance 6=Modified [place] 3=Moderate Assistance 7=Complete IndependenceIRFPAI Quality Coding Scale 6 Independent with activity with or without an assistive device 5 Patient requires set up or clean up by helper. Patient completes activity by themselves 4 Supervision or touching assist (CGA). [place] provide cues , steadying assist 3 The helper provides less than half the effort to complete the activity 2 The helper provides more than half the effort to complete the activity 1 Dependent. The helper does all the effort to complete an activity 7 Patient refused to complete or attempt activity 9 The patient did not perform the activity before the current illness or injury 88 Not attempted due to Medical conditions or safety concerns Bathing (FIM): 6 Shower/Bathe Self (QC): 6 Upper Body (FIM): 6 Upper Body Dressing (QC): 6 Lower Body Dressing (FIM): 5 Lower Body Dressing (QC): 5 On/Off Footwear (QC): 6 Shower Transfer(FIM): 6 Other Treatment Gait to therapy gym with FWW, no LOB noted. Arm bike x12 minutes to increase overall strength and activity tolerance needed for functional tasks. Pt completed task with minimal resistance and slow pace, no rest breaks needed. Graded clothespin activity with bilateral hands to increase river boat captain/pinch strength. Pt returned to room, sitting in chair with needs met after session. OT Short Term Goals Short Term Goals Time Frame: Oct 15, 2016 Bathing(FIM): 4 Lower Body Dressing(FIM): 5 Transfers (B,C,W/C) (FIM): 4 Toilet/Commode Transfer(FIM): 5 Additional Short Term Goals: 1-Demonstrate ADL Tasks, 2-Verbalize Understanding , 3-ImproveStrength/Windy 1=Demonstrate adherence to instructed precautions during ADL tasks. 2=Patient will verbalize/demonstrate understanding of assistive devices/ modifications for ADL. 3=Patient will improve strength/tolerance for activity to enable patient to perform ADL's. OT On Awake Counselor Goals Senior Living Goals Time Frame: Oct 29, 2016 Eating (FIM): 6 Eating (QC): 6 Groomin Oral Hygiene (QC): 6 Bathing(FIM): 5 Shower/Bathe Self (QC): 5 Upper Body Dressing(FIM): 6 Upper Body Dressing (QC): 6 Lower Body Dressing(FIM): 5 Lower Body Dressing (QC): 5 On/Off Footwear (QC): 6 Toileting(FIM): 6 Toileting Hygiene (QC): 6 Toilet/Commode Transfer(FIM): 6 Toilet/Commode Transfer (QC): 6 Shower Transfer(FIM): 5 Comprehension(FIM): 5 (MET) Expression (FIM): 6 (MET) Social Interaction(FIM): 6 (MET) Problem Solving(FIM): 5 (MET) Memory(FIM): 5 (MET) Additional Goals: 1-Demonstrate ADL Tasks, 2-Verbalize Understanding, 3- ImproveStrength/Windy 1=Demonstrate adherence to instructed precautions during ADL tasks. 2=Patient will verbalize/demonstrate understanding of assistive devices/ modifications for ADL. 3=Patient will improve strength/tolerance for activity to enable patient to perform ADL's. OT Education/Plan Problem List/Assessment Pt s/p kyphoplasty. Pt demonstrates decreased ADL performance, mobility, strength, and activity tolerance. Pt to benefit from skilled OT intervention for ADL training, transfers, strengthening, and home safety education to maximize level of function and allow safe discharge plan. Discharge Recommendations Plan/Recommendations: Continue POC Treatment Plan/Plan of Care Patient would benefit from OT for education, treatment and training to promote independence in ADL's, mobility, safety and/or upper extremity function for ADL' s. Plan of Care: ADL Retraining, Functional Mobility, Group Exercise/Act as Ind, UE Funct Exercise/Act Treatment Duration: Oct 29, 2016 Visits Per Week: 10-12 Minutes/Day (M-F): 60-90 Minutes/Day (Sat/Paredes): PRN Agreement: Yes Rehab Potential: Good Time/GCodes Start Time: 09:00 Stop Time: 10:00 Total Time Billed (hr/min): 60 Billed Treatment Time 1 visit, ADLx2(35minutes), EXx2(25minutes) AUTUMN SILVA OT Oct 15, 2016 10:12
--- NOTE | 2016-10-15 15:00 | Therapy Group Daily Note ---
Therapy Daily Group Note Patient Education Topic Other List Below (Memory Strategies) Exercises LE Seated Exercise, UE Exercise Other/Notes Pt transferred to Standing from Sitting in recliner using FWWand walked to Group. Pt participated in PT/OT Group held in Therapy [facility]. Group consisted of Introductions (Name, Where you are from and Favorite Summertime Activity), What ARU is and how it works as well as Memory Strategies and which one they use individually, UE/LE Exercises and Memory Activity. Pt actively participated in Group by completing UE/LE Exercises sometimes with assistance and giving an Individual Memory Strategy the pt uses day to day as well as using Memory Strategies to complete Memory Activity at the end of Group. Pt returned to room by walking using FWW and transferred back to recliner to rest. Pt rests in recliner with all needs met at end of Group. Start Time: 13:00 Stop Time: 14:15 Total Billed Treatment Time: 75 Total Billed Treatment 1, GRP JAIDENLEONILA ALANIZ ADVERTISING STATISTICAL CLERK Oct 15, 2016 15:00
[2016-10-15 18:00] VITALS: BP 155/72
[2016-10-15] MEDS: ROSUVASTATIN 5 MG (CRESTOR) TABLET PO SCH (20:35)
[2016-10-15] MEDS: PANTOPRAZOLE 40 MG (PROTONIX) TAB PO SCH (20:36)
[2016-10-15] MEDS: NEBIVOLOL 5 MG TAB (BYSTOLIC) PO SCH (20:36)
[2016-10-16 06:13] VITALS: BP 155/71
[2016-10-16] MEDS: VITAMIN D3 1,000 UNITS (CHOLECALCIFEROL) TABLET PO SCH (06:17)
--- NOTE | 2016-10-16 07:53 | Occupational Ther Daily Note ---
OT Current Status-Daily Note Subjective Pt alert, lying in bed. Pt agreed to therapy. No c/o pain. Mental Status/Objective Patient Orientation: Person, Place, Time, Situation Functional [place] Measure 0=Not Assessed/NA 4=Minimal Assistance 1=Total Assistance 5=Supervision or Setup 2=Maximal Assistance 6=Modified [place] 3=Moderate Assistance 7=Complete [place] ADL-Treatment Functional [place] Measure 0=Not Assessed/NA 4=Minimal Assistance 1=Total Assistance 5=Supervision or Setup 2=Maximal Assistance 6=Modified [place] 3=Moderate Assistance 7=Complete IndependenceIRFPAI Quality Coding Scale 6 Independent with activity with or without an assistive device 5 Patient requires set up or clean up by helper. Patient completes activity by themselves 4 Supervision or touching assist (CGA). [place] provide cues , steadying assist 3 The helper provides less than half the effort to complete the activity 2 The helper provides more than half the effort to complete the activity 1 Dependent. The helper does all the effort to complete an activity 7 Patient refused to complete or attempt activity 9 The patient did not perform the activity before the current illness or injury 88 Not attempted due to Medical conditions or safety concerns Eating (FIM): 6 (Dentures. Pt able to set self up, open packages/containers and use utensils to cut food and feed self.) Eating (QC): 6 ([place]. Pt able to set self up, open packages/containers and use utensils to cut food and feed self.) Grooming (FIM): 6 (Using FWW, pt standing at sink to complete grooming.) Oral Hygiene (QC): 6 (Using FWW, pt standing at sink to complete oral hygiene.) Bathing (FIM): 6 (Using grabbar, shower bench, long handle sponge and hand held shower pt is able to complete by self.) Bathing Location: L Arm, R Arm, L Upper Leg, R Upper Leg, L Lower Leg ( including foot), R Lower Leg (including foot), Chest, Abdomen, Buttocks, Perineal Area Shower/Bathe Self (QC): 6 (Using grabbar, shower bench, long handle sponge and hand held shower pt is able to complete by self.) Upper Body (FIM): 6 (Using FWW, pt retrieves clothing from closet then is able to don/doff by self.) Upper Body Dressing (QC): 6 (Using FWW, pt retrieves clothing from closet then is able to don/doff by self.) Lower Body Dressing (FIM): 6 (Using FWW, pt retrieves clothing from closet then is able to don/doff by self. Does not wear socks only slip on shoes. Pt has demonstrated on previous therapy session understanding and proficiency in using sock aide if necessary.) Lower Body Dressing (QC): 6 (Using FWW, pt retrieves clothing from closet then is able to don/doff by self. Does not wear socks only slip on shoes. Pt has demonstrated on previous therapy session understanding and proficiency in using sock aide if necessary.) On/Off Footwear (QC): 6 (Pt able to retrieve and don/doff shoes. Does not wear socks. Does know how to use and has demonstrated ability to don socks with sock aide.) Toileting (FIM): 6 (Using grabbars and FWW, pt is able to manipulate clothing and cleanse self.) Toileting Hygiene (QC): 6 (Using grabbars and FWW, pt is able to manipulate clothing and cleanse self.) Transfers (B, C, W/C) (FIM): 6 (Using FWW, pt is able to complete transfers.) Toilet/Commode Transfer (FIM): 6 (Using FWW and grabbars, pt is able to complete transfers.) Toilet Transfer (QC): 6 (Using FWW and grabbars, pt is able to complete transfers.) Shower Transfer(FIM): 6 (Using FWW, grabbars and shower bench pt is able to complete transfers.) Other Treatment After therapy, pt sitting in recliner with call light/phone in reach. All needs met in room. OT Short Term Goals Short Term Goals Time Frame: Oct 15, 2016 Bathing(FIM): 4 Lower Body Dressing(FIM): 5 Transfers (B,C,W/C) (FIM): 4 Toilet/Commode Transfer(FIM): 5 Additional Short Term Goals: 1-Demonstrate ADL Tasks, 2-Verbalize Understanding , 3-ImproveStrength/Windy 1=Demonstrate adherence to instructed precautions during ADL tasks. 2=Patient will verbalize/demonstrate understanding of assistive devices/ modifications for ADL. 3=Patient will improve strength/tolerance for activity to enable patient to perform ADL's. OT Fdc Goals Licensed Loan Officer Goals Time Frame: Oct 29, 2016 Eating (FIM): 6 (met-10/16/2016) Eating (QC): 6 (met-10/16/2016) Groomin (met-10/16/2016) Oral Hygiene (QC): 6 (met-10/16/2016) Bathing(FIM): 5 (met-10/16/2016) Shower/Bathe Self (QC): 5 (met-10/16/2016) Upper Body Dressing(FIM): 6 (met-10/16/2016) Upper Body Dressing (QC): 6 (met-10/16/2016) Lower Body D[facility](F[facility]): 5 ([facility] Lower Body Dressing (QC): 5 ([facility]-10/16/2016) On/Off Footwear (QC): 6 (met-10/16/2016) Toileting(FIM): 6 (met-10/16/2016) Toileting Hygiene (QC): 6 (met-10/16/2016) Toilet/Commode Transfer(FIM): 6 (met-10/16/2016met-10/16/2016) Toilet/Commode Transfer (QC): 6 (met-10/16/2016) Shower Transfer(FIM): 5 (met-10/16/2016) Comprehension(FIM): 5 (MET) Expression (FIM): 6 (MET) Social Interaction(FIM): 6 (MET) Problem Solving(FIM): 5 (MET) Memory(FIM): 5 (MET) Additional Goals: 1-Demonstrate ADL Tasks, 2-Verbalize Understanding, 3- ImproveStrength/Windy 1=Demonstrate adherence to instructed precautions during ADL tasks. 2=Patient will verbalize/demonstrate understanding of assistive devices/ modifications for ADL. 3=Patient will improve strength/tolerance for activity to enable patient to perform ADL's. OT Education/Plan Problem List/Assessment Pt s/p kyphoplasty. Pt demonstrates decreased ADL performance, mobility, strength, and activity tolerance. Pt to benefit from skilled OT intervention for ADL training, transfers, strengthening, and home safety education to maximize level of function and allow safe discharge plan. Discharge Recommendations Plan/Recommendations: Continue POC Treatment Plan/Plan of Care Patient would benefit from OT for education, treatment and training to promote independence in ADL's, mobility, safety and/or upper extremity function for ADL' s. Plan of Care: ADL Retraining, Functional Mobility, Group Exercise/Act as Ind, UE Funct Exercise/Act Treatment Duration: Oct 29, 2016 Visits Per Week: 10-12 Minutes/Day (M-F): 60-90 Minutes/Day (Sat/Paredes): PRN Agreement: Yes Rehab Potential: Good Time/GCodes Start Time: 07:00 Stop Time: 08:00 Total Time Billed (hr/min): 60 Billed Treatment Time 1 visit-ADL 4 (60 min) MORENA VILLEGAS Oct 16, 2016 07:52
--- NOTE | 2016-10-16 08:33 | PM & R (SOAP) Progress Note ---
Subjective Time Seen by Provider: 07:55 Subjective/Events-last exam Patient was seen in her room this AM Patient Modified Independent for transfers and gait Pain much decreased Objective Exam Last Set of Vital Signs Vital Signs Date Time Temp Pulse Resp B/P (MAP) Pulse Ox O2 Delivery O2 Flow Rate FiO2 10/16/16 06:13 99.1 56 18 155/71 96 Room Air Capillary Refill : I&O Intake and Output 10/16/16 00:00 Intake Total 1110 ml Balance 1110 ml Intake Oral 1110 ml # Voids 7 General: Alert, Oriented X3, Cooperative, No Acute Distress HEENT: Atraumatic, PERRLA, EOMI, Mucous Memb Moist/[place] Neck: Supple, No JVD Lungs: Clear to Auscultation Heart: Regular Rate Abdomen: Normal Bowel Sounds, Soft, No Tenderness Extremities: No Edema Neuro: Other (generalized weakness) Assessment/Plan Assessment S/P L5 kyphoplasty for compression frx DR Copeland Osteoporosis Prior Kyphoplasty/Vertebroplasty Lumbar spine HTN controlled mild memory loss Plan Continue PT/OT/ ST/Pain management F/U with DR Mcdermott and Min PRN Patient indicates that her daughter from [place] will be coming to stay with her for a while upon discharge from IRU F/U re Jury duty excuse note-done provided Team Conference held yesterday See report for full functional update and POC and ELOS Discharge remains set for tomorrow to home with [facility] RIZWANA KISER MD Oct 16, 2016 08:33
[2016-10-16] MEDS ORDERED: TRAM50TA2 PO (08:37)
[2016-10-16] MEDS: CLOPIDOGREL 75 MG (PLAVIX) TABLET PO SCH (08:40)
[2016-10-16] MEDS: lisINopril 20 MG (ZESTRIL) TAB PO SCH (08:40)
[2016-10-16] MEDS: RANOLAZINE ER 500 MG TAB (RANEXA) PO SCH ×2 (08:40→21:37)
[2016-10-16] MEDS: ASCORBIC ACID (VIT C) 500 MG TABLET PO SCH (08:40)
--- NOTE | 2016-10-16 08:52 | Physical Therapy Daily Note ---
PT Daily Note-Current Subjective Patient in recliner pre tx, agrees to PT, has pain of 2/10. Appearance Patient in recliner post tx with nurse call, phone, tray, all needs met. Mental Status Patient Orientation: Normal For Age Transfers Functional [place] Measure 0=Not Assessed/NA 4=Minimal Assistance 1=Total Assistance 5=Supervision or Setup 2=Maximal Assistance 6=Modified [place] 3=Moderate Assistance 7=Complete IndependenceIRFPAI Quality Coding Scale 6 Independent with activity with or without an assistive device 5 Patient requires set up or clean up by helper. Patient completes activity by themselves 4 Supervision or touching assist (CGA). [place] provide cues , steadying assist 3 The helper provides less than half the effort to complete the activity 2 The helper provides more than half the effort to complete the activity 1 Dependent. The helper does all the effort to complete an activity 7 Patient refused to complete or attempt activity 9 The patient did not perform the activity before the current illness or injury 88 Not attempted due to Medical conditions or safety concerns Transfers (B, C, W/C) (FIM): 6 Scootin Rollin Roll Left to Right (QC): 6 Supine to/from Sit: 6 Sit to/from Stand: 6 Sit to Lying (QC): 6 Sit to Stand (QC): 6 Patient performs bed mobility and transfers with mod I. Gait Training Gait (FIM): 5 Distance: 200', 150' Walk 10 feet (QC): 4 Walk 50 ft with 2 Turns(QC): 4 Walk 150 ft (QC): 4 Walking 10ft/uneven surface-QC: 4 Gait Level of Assist: 5 Gait Persons Needed: 1 Gait Assistive Device: FWW Patient has some unsteadiness with ambulation, will occasionally jerk slightly her walker up or sideways, slightly uncoordinated. Patient can ambulate 200' with a rolling walker with SBA (including 50' with at least 2 turns of 90 degrees and 10' over an uneven surface). Wheelchair Training Does the Pt Use a Wheelchair?: No Stair Training Stair Training: Handrails/: 1 handrail Stairs (FIM): 5 #of Steps: 12 1 Step (curb) (QC): 4 4 Steps (QC): 4 12 Steps (QC): 4 Stairs: Pattern: Step to Level of Assist: 5 cues for step placement. Patient can go up and down 12 steps using 1 handrail with SBA. Exercises Supine Ex: Ankle pumps, Quad Set, Glut sets, Heel Slides, Straight leg raise, Hip abd/add Supine Reps: 20 LAQ left side with 2# ankle weight for 5 min, sit to stand 3 sets of 5 NuStep Minutes: 15 NuStep Workload: 4 Treatments bed mobility and transfers, ambulation, stair training, functional strengthening Assessment Current Status: Fair Progress improving mobility and endurance PT Short Term Goals Short Term Goals Time Frame: Oct 16, 2016 Transfers (B,C,W/C) (FIM): 4 Gait (FIM): 4 PT Cavalry Officer Goals Cavalry Officer Goals PT Skilled Nursing Goals Time Frame: Oct 30, 2016 Transfers (B,C,W/C) (FIM): 7 Sit to Lying (QC): 6 Lying-Sitting on Side/Bed(QC): 6 Sit to Stand (QC): 6 Rollin Roll Left to Right (QC): 6 Chair/Dkq-uy-Lznoi Xfer(QC): 6 Car Transfer (QC): 5 Does the Patient Walk: Yes Gait (FIM): 6 Gait distance (FIM): 3=150 ft Walk 10 feet (QC): 6 Walk 10ft-Uneven Surface(QC): 6 Walk 50ft with 2 Turns (QC): 6 Walk 150 ft (QC): 6 Gait Assistive Device: FWW Does the Pt use WC or Scooter?: No Stairs (FIM): 5 # of Steps: 8 1 Step (curb) (QC): 6 4 Steps (QC): 5 12 Steps (QC): 88 Picking up an Object (QC): 88 PT Plan Problem List Problem List: Activity Tolerance, Functional Strength, Safety, Balance, Gait, Transfer Treatment/Plan Treatment Plan: Continue Plan of Care Treatment Plan: Bed Mobility, Education, Functional Activity Windy, Functional Strength, Group Therapy, Gait, Safety, Therapeutic Exercise, Transfers Treatment Duration: Oct 30, 2016 Visits Per Week: 10-11 Minutes/Day (M-F): 60-90 Minutes/Day (Sat/Paredes): 15-30 Safety Risks/Education Patient Education: Gait Training, Transfer Techniques, Steps, Correct Positioning, Safety Issues Teaching Recipient: Patient Teaching Methods: Demonstration, Discussion Response to Teaching: Reinforcement Needed Time/GCodes Time In: 800 Time Out: 900 Total Billed Treatment Time: 60 Total Billed Treatment 1 visit EX 30' GT 30' CHELY ANGELO PT Oct 16, 2016 08:52
[2016-10-16 09:09] VITALS: BP 120/57
--- NOTE | 2016-10-16 14:29 | Physical Therapy Daily Note ---
PT Daily Note-Current Subjective Patient in recliner pre tx, agrees to PT, she states she has little to no pain. Appearance Patient in chair in common area post tx visiting with family. Mental Status Patient Orientation: Normal For Age Transfers Functional [place] Measure 0=Not Assessed/NA 4=Minimal Assistance 1=Total Assistance 5=Supervision or Setup 2=Maximal Assistance 6=Modified [place] 3=Moderate Assistance 7=Complete IndependenceIRFPAI Quality Coding Scale 6 Independent with activity with or without an assistive device 5 Patient requires set up or clean up by helper. Patient completes activity by themselves 4 Supervision or touching assist (CGA). [place] provide cues , steadying assist 3 The helper provides less than half the effort to complete the activity 2 The helper provides more than half the effort to complete the activity 1 Dependent. The helper does all the effort to complete an activity 7 Patient refused to complete or attempt activity 9 The patient did not perform the activity before the current illness or injury 88 Not attempted due to Medical conditions or safety concerns Transfers (B, C, W/C) (FIM): 5 Sit to/from Stand: 5 Gait Training Gait (FIM): 5 Distance: 1000', 150' Gait Level of Assist: 5 Gait Persons Needed: 1 Gait Assistive Device: FWW No LOB, more steady this afternoon. Treatments transfers, ambulation Assessment Current Status: Fair Progress improved endurance and ambulation PT Short Term Goals Short Term Goals Time Frame: Oct 16, 2016 Transfers (B,C,W/C) (FIM): 4 Gait (FIM): 4 PT Adjunct History Instructor Goals Prison Goals PT Prison Goals Time Frame: Oct 30, 2016 Transfers (B,C,W/C) (FIM): 7 Sit to Lying (QC): 6 Lying-Sitting on Side/Bed(QC): 6 Sit to Stand (QC): 6 Rollin Roll Left to Right (QC): 6 Chair/Xyu-al-Emcsr Xfer(QC): 6 Car Transfer (QC): 5 Does the Patient Walk: Yes Gait (FIM): 6 Gait distance (FIM): 3=150 ft Walk 10 feet (QC): 6 Walk 10ft-Uneven Surface(QC): 6 Walk 50ft with 2 Turns (QC): 6 Walk 150 ft (QC): 6 Gait Assistive Device: FWW Does the Pt use WC or Scooter?: No Stairs (FIM): 5 # of Steps: 8 1 Step (curb) (QC): 6 4 Steps (QC): 5 12 Steps (QC): 88 Picking up an Object (QC): 88 PT Plan Problem List Problem List: Activity Tolerance, Functional Strength, Safety, Balance, Gait, Transfer Treatment/Plan Treatment Plan: Continue Plan of Care Treatment Plan: Bed Mobility, Education, Functional Activity Windy, Functional Strength, Group Therapy, Gait, Safety, Therapeutic Exercise, Transfers Treatment Duration: Oct 30, 2016 Visits Per Week: 10-11 Minutes/Day (M-F): 60-90 Minutes/Day (Sat/Paredes): 15-30 Safety Risks/Education Patient Education: Gait Training, Transfer Techniques, Correct Positioning, Safety Issues Teaching Recipient: Patient Teaching Methods: Demonstration, Discussion Response to Teaching: Reinforcement Needed Time/GCodes Time In: 1400 Time Out: 1430 Total Billed Treatment Time: 30 Total Billed Treatment 1 visit GT 30' CHELY ANGELO PT Oct 16, 2016 14:29
--- NOTE | 2016-10-16 15:23 | Occupational Ther Daily Note ---
OT Current Status-Daily Note Subjective Pt seen in room, up in recliner, agreeable to OT. No pain mentioned Appearance Alert, cooperative Mental Status/Objective Functional [place] Measure 0=Not Assessed/NA 4=Minimal Assistance 1=Total Assistance 5=Supervision or Setup 2=Maximal Assistance 6=Modified [place] 3=Moderate Assistance 7=Complete [place] ADL-Treatment Pt is planning on discharging to home tomorrow. Demonstrated and discussed types of walker trays and walker bags, with patient verbalized understanding. She also had questions regarding FWW and this was passed on to geriatric social worker. Functional [place] Measure 0=Not Assessed/NA 4=Minimal Assistance 1=Total Assistance 5=Supervision or Setup 2=Maximal Assistance 6=Modified [place] 3=Moderate Assistance 7=Complete IndependenceIRFPAI Quality Coding Scale 6 Independent with activity with or without an assistive device 5 Patient requires set up or clean up by helper. Patient completes activity by themselves 4 Supervision or touching assist (CGA). [place] provide cues , steadying assist 3 The helper provides less than half the effort to complete the activity 2 The helper provides more than half the effort to complete the activity 1 Dependent. The helper does all the effort to complete an activity 7 Patient refused to complete or attempt activity 9 The patient did not perform the activity before the current illness or injury 88 Not attempted due to Medical conditions or safety concerns Toileting (FIM): 6 (Mod I, tall toilet, grab bar, FWW. manages clothing and hygiene) Toileting Hygiene (QC): 6 Toilet/Commode Transfer (FIM): 6 (Mod I. Tall toilet, grab bar, FWW) Toilet Transfer (QC): 6 Other Treatment Pt walked to gym with FWW and no assistance (about 60 feet). In gym, pt did 10 min bilat UE exercise on arm bike set at 20W resistance, to strengthen arms to get up and down from surfaces without arm rests. Pt worked at steady pace and did not take any breaks. Pt walked back to her room with FWW and has all needs met. Education OT Patient Education: Modified ADL techniques, Purpose of tx/functional activities, Use of adapted equipment Teaching Recipient: Patient Teaching Methods: Discussion Response to Teaching: Verbalize Understanding OT Short Term Goals Short Term Goals Time Frame: Oct 15, 2016 Bathing(FIM): 4 Lower Body Dressing(FIM): 5 Transfers (B,C,W/C) (FIM): 4 Toilet/Commode Transfer(FIM): 5 Additional Short Term Goals: 1-Demonstrate ADL Tasks, 2-Verbalize Understanding , 3-ImproveStrength/Windy 1=Demonstrate adherence to instructed precautions during ADL tasks. 2=Patient will verbalize/demonstrate understanding of assistive devices/ modifications for ADL. 3=Patient will improve strength/tolerance for activity to enable patient to perform ADL's. OT Putty Mixer Goals Putty Mixer Goals Time Frame: Oct 29, 2016 Eating (FIM): 6 Eating (QC): 6 Groomin Oral Hygiene (QC): 6 Bathing(FIM): 5 Shower/Bathe Self (QC): 5 Upper Body Dressing(FIM): 6 Upper Body Dressing (QC): 6 Lower Body Dressing(FIM): 5 Lower Body Dressing (QC): 5 On/Off Footwear (QC): 6 Toileting(FIM): 6 Toileting Hygiene (QC): 6 Toilet/Commode Transfer(FIM): 6 Toilet/Commode Transfer (QC): 6 Shower Transfer(FIM): 5 Comprehension(FIM): 5 (MET) Expression (FIM): 6 (MET) Social Interaction(FIM): 6 (MET) Problem Solving(FIM): 5 (MET) Memory(FIM): 5 (MET) Additional Goals: 1-Demonstrate ADL Tasks, 2-Verbalize Understanding, 3- ImproveStrength/Windy 1=Demonstrate adherence to instructed precautions during ADL tasks. 2=Patient will verbalize/demonstrate understanding of assistive devices/ modifications for ADL. 3=Patient will improve strength/tolerance for activity to enable patient to perform ADL's. OT Education/Plan Problem List/Assessment Pt s/p kyphoplasty. Pt demonstrates decreased ADL performance, mobility, strength, and activity tolerance. Pt to benefit from skilled OT intervention for ADL training, transfers, strengthening, and home safety education to maximize level of function and allow safe discharge plan. Discharge Recommendations Plan/Recommendations: Continue POC Treatment Plan/Plan of Care Patient would benefit from OT for education, treatment and training to promote independence in ADL's, mobility, safety and/or upper extremity function for ADL' s. Plan of Care: ADL Retraining, Functional Mobility, Group Exercise/Act as Ind, UE Funct Exercise/Act Treatment Duration: Oct 29, 2016 Visits Per Week: 10-12 Minutes/Day (M-F): 60-90 Minutes/Day (Sat/Paredes): PRN Agreement: Yes Rehab Potential: Good Time/GCodes Start Time: 14:30 Stop Time: 15:00 Total Time Billed (hr/min): 30 Billed Treatment Time visit, 15 minutes ADL, 15 minutes exercise SERG WONG OT Oct 16, 2016 15:23
[2016-10-16 16:18] VITALS: BP 147/66
[2016-10-16] MEDS: NEBIVOLOL 5 MG TAB (BYSTOLIC) PO SCH (21:36)
[2016-10-16] MEDS: PANTOPRAZOLE 40 MG (PROTONIX) TAB PO SCH (21:36)
[2016-10-16] MEDS: ROSUVASTATIN 5 MG (CRESTOR) TABLET PO SCH (21:37)
[2016-10-17 05:04] VITALS: BP 161/71
[2016-10-17] MEDS: VITAMIN D3 1,000 UNITS (CHOLECALCIFEROL) TABLET PO SCH (06:21)
[2016-10-17 07:59] VITALS: BP 111/51
--- NOTE | 2016-10-17 08:00 | PM & R (SOAP) Progress Note ---
Subjective Time Seen by Provider: 07:45 Subjective/Events-last exam Patient was seen in her room this AM Has progressed well Patients daughter and D-I-L to care for patient upon discharge as needed Objective Exam Last Set of Vital Signs Vital Signs Date Time Temp Pulse Resp B/P (MAP) Pulse Ox O2 Delivery O2 Flow Rate FiO2 10/17/16 05:04 97.8 63 18 161/71 97 Room Air Capillary Refill : I&O Intake and Output 10/17/16 00:00 Intake Total 920 ml Balance 920 ml Intake Oral 920 ml # Voids 6 General: Alert, Oriented X3, Cooperative, No Acute Distress HEENT: Atraumatic, PERRLA, EOMI, Mucous Memb Moist/[place]: Supple, No JVD Lungs: Clear to Auscultation Heart: Regular Rate Abdomen: Normal Bowel Sounds, Soft, No Tenderness Extremities: No Edema Neuro: Other (generalized weakness) Assessment/Plan Assessment S/P L5 kyphoplasty for compression frx DR Copeland Osteoporosis Prior Kyphoplasty/Vertebroplasty Lumbar spine HTN controlled mild memory loss Plan Discharge today to home with family and HHC F/U with DR Mcdermott See orders RX for Tramodol provided RIZWANA KISER MD Oct 17, 2016 08:00
[2016-10-17] MEDS: lisINopril 20 MG (ZESTRIL) TAB PO SCH (08:04)
[2016-10-17] MEDS: RANOLAZINE ER 500 MG TAB (RANEXA) PO SCH (08:04)
[2016-10-17] MEDS: CLOPIDOGREL 75 MG (PLAVIX) TABLET PO SCH (08:05)
[2016-10-17] MEDS: ASCORBIC ACID (VIT C) 500 MG TABLET PO SCH (08:05)
[2016-10-17 10:45] VITALS: BP 111/51
--- NOTE | 2016-10-17 11:50 | Therapy Team Discharge Summary ---
Therapy Discharge Summary Discharge Recommendations Date of Discharge Therapy D/C Recommendations: Physical Therapy Home Care Physical Therapy Patient came to rehab following an L5 compression fracture. Upon evaluation patient performed bed mobility and transfers with min/mod assist, ambulated 50' with a rolling walker with CGA, and was not able to attempt stairs. Patient has been performing bed mobility and transfer training, balance and endurance training, functional strengthening, stair training, and gait training. Patient has made good progress and has met all of her alf goals except for her ambulation goal. Now, patient performs bed mobility and transfers with mod I, ambulates 200' with a rolling walker with SBA (including 50' with at least 2 turns of 90 degrees and 10' over an uneven surface), and can go up and down 12 steps using 1 handrail with SBA. Patient is discharging from this facility today and will discharge from PT at this time. PT Correction Goals Correction Goals PT Correction Goals Time Frame: Oct 30, 2016 Transfers (B,C,W/C) (FIM): 7 Roll Left to Right (QC): 6 Sit to Lying (QC): 6 Lying-Sitting on Side/Bed(QC): 6 Sit to Stand (QC): 6 Chair/Pio-wj-[place] Xfer(QC): 6 Car Transfer (QC): 5 Does the Patient Walk: Yes Gait (FIM): 6 Gait distance (FIM): 3=150 ft Walk 10 feet (QC): 6 Walk 10ft-Uneven Surface(QC): 6 Walk 50ft with 2 Turns (QC): 6 Walk 150 ft (QC): 6 Gait Assistive Device: FWW Does the Pt use WC or Scooter?: No Stairs (FIM): 5 # of Steps: 8 1 Step (curb) (QC): 6 4 Steps (QC): 5 12 Steps (QC): 88 Picking up an Object (QC): 88 OT [employer] Specialist Goals Correction Goals Time Frame: Oct 29, 2016 Eating (FIM): 6 (met-10/16/2016) Eating (QC): 6 (met-10/16/2016) Oral Hygiene (QC): 6 (met-10/16/2016) Grooming(FIM): 6 (met-10/16/2016) Bathing(FIM): 5 (met-10/16/2016) Shower/Bathe Self (QC): 5 (met-10/16/2016) Upper Body Dressing(FIM): 6 (met-10/16/2016) Upper Body Dressing (QC): 6 (met-10/16/2016) Lower Body Dressing(FIM): 5 (-10/16/2016) Lower Body Dressing (QC): 5 (met-10/16/2016) On/Off Footwear (QC): 6 (met-10/16/2016) Toileting(FIM): 6 (met-10/16/2016) Toileting Hygiene (QC): 6 (met-10/16/2016) Toilet/Commode Transfer(FIM): 6 (met-10/16/2016met-10/16/2016) Toilet/Commode Transfer (QC): 6 ([facility]-10/16/2016) Shower Transfer(FIM): 5 (met-10/16/2016) Comprehension(FIM): 5 (MET) Expression (FIM): 6 (MET) Social Interaction(FIM): 6 (MET) Problem Solving(FIM): 5 (MET) Memory(FIM): 5 (MET) Additional Goals: 1-Demonstrate ADL Tasks, 2-Verbalize Understanding, 3- ImproveStrength/Windy 1=Demonstrate adherence to instructed precautions during ADL tasks. 2=Patient will verbalize/demonstrate understanding of assistive devices/ modifications for ADL. 3=Patient will improve strength/tolerance for activity to enable patient to perform ADL's. Speech Correction Goals Correction Goals 1. The patient will demonstrate improved cognitive skills for increased function and safety with ADL's in the least restrictive setting. Time Frame: 10 days Comprehension: 5 (MET) Expression: 6 (MET) Social Interaction: 6 (MET) Problem Solvin (MET) Memory: 5 (MET) CHELY ANGELO PT Oct 17, 2016 11:50
--- NOTE | 2016-10-17 12:03 | Therapy Team Discharge Summary ---
Therapy Discharge Summary Discharge Recommendations Date of Discharge Therapy D/C Recommendations: Physical Therapy Home Care Occupational Therapy Pt admitted to ARU secondary to L5 compression fracture. On admission pt required moderate assistance with LE dressing and toileting and minimal assistance with toilet transfers. Skilled OT intervention focused on ADL training, transfers, strengthening, home safety education, and adaptive equipment training. Pt made good progress with therapy and by discharge is completing basic ADLs and transfers with modified independence. Pt is discharging home this date with family support. D/C ARU OT at this time. PT Nursing Home Goals Nursing Home Goals PT Nursing Home Goals Time Frame: Oct 30, 2016 Transfers (B,C,W/C) (FIM): 7 Roll Left to Right (QC): 6 Sit to Lying (QC): 6 Lying-Sitting on Side/Bed(QC): 6 Sit to Stand (QC): 6 Chair/Mbo-fr-Qrtzv Xfer(QC): 6 Car Transfer (QC): 5 Does the Patient Walk: Yes Gait (FIM): 6 Gait distance (FIM): 3=150 ft Walk 10 feet (QC): 6 Walk 10ft-Uneven Surface(QC): 6 Walk 50ft with 2 Turns (QC): 6 Walk 150 ft (QC): 6 Gait Assistive Device: FWW Does the Pt use WC or Scooter?: No Stairs (FIM): 5 # of Steps: 8 1 Step (curb) (QC): 6 4 Steps (QC): 5 12 Steps (QC): 88 Picking up an Object (QC): 88 OT Nursing Home Goals School Transportation Supervisor Goals Time Frame: Oct 29, 2016 Eating (FIM): 6 (met-10/16/2016) Eating (QC): 6 (met-10/16/2016) Oral Hygiene (QC): 6 (met-10/16/2016) Grooming(FIM): 6 (met-10/16/2016) Bathing(FIM): 5 (met-10/16/2016) Shower/Bathe Self (QC): 5 (met-10/16/2016) Upper Body Dressing(FIM): 6 (met-10/16/2016) Upper Body Dressing (QC): 6 (met-10/16/2016) Lower Body Dressing(FIM): 5 (met-10/16/2016) Lower Body Dressing (QC): 5 (met-10/16/2016) On/Off Footwear (QC): 6 (met-10/16/2016) Toileting(FIM): 6 (met-10/16/2016) Toileting Hygiene (QC): 6 (met-10/16/2016) Toilet/Commode Transfer(FIM): 6 (met-10/16/2016met-10/16/2016) Toilet/Commode Transfer (QC): 6 (met-10/16/2016) Shower Transfer(FIM): 5 (met-10/16/2016) Comprehension(FIM): 5 (MET) Expression (FIM): 6 (MET) Social Interaction(FIM): 6 (MET) Problem Solving(FIM): 5 (MET) Memory(FIM): 5 (MET) Additional Goals: 1-Demonstrate ADL Tasks, 2-Verbalize Understanding, 3- ImproveStrength/Windy 1=Demonstrate adherence to instructed precautions during ADL tasks. 2=Patient will verbalize/demonstrate understanding of assistive devices/ modifications for ADL. 3=Patient will improve strength/tolerance for activity to enable patient to perform ADL's. Speech Nursing Home Goals Nursing Home Goals 1. The patient will demonstrate improved cognitive skills for increased function and safety with ADL's in the least restrictive setting. Time Frame: 10 days Comprehension: 5 (MET) Expression: 6 (MET) Social Interaction: 6 (MET) Problem Solvin (MET) Memory: 5 (MET) AUTUMN SILVA OT Oct 17, 2016 12:03
== END 2016-10-17 10:45 | disposition home health service (06) | DRG 561 ==
LOC: ENPENDDIS 10-17 12:00
PROVIDERS: ADMIT Physical Medicine & Rehabilitation; ATTEND Physical Medicine & Rehabilitation
DX: M80.08XD Age-related osteoporosis with current pathological fracture, vertebra(e), subsequent encounter for fracture with routine healing (principal); I10 Essential (primary) hypertension; K21.9 Gastro-esophageal reflux disease without esophagitis; F06.8 Other specified mental disorders due to known physiological condition; I25.10 Atherosclerotic heart disease of native coronary artery without angina pectoris; E78.5 Hyperlipidemia, unspecified; Z95.1 Presence of aortocoronary bypass graft

== ENCOUNTER → 2016-10-22 | Outpatient (CLI) | payer MEDICARE ==
[~2016-10-22] VITALS: Ht 152.4 cm; Wt 50.3 kg
[~2016-10-22] MED LIST changes: +DENOSUMAB 60 MG/1 ML (PROLIA) SQ ONE
[2016-10-22 13:51] VITALS: BP 139/61
== END ==
LOC: SDC 13:10
PROVIDERS: ATTEND Nurse Practitioner Family
DX: M81.0 Age-related osteoporosis without current pathological fracture (principal)
CPT/HCPCS: 96372

== ENCOUNTER → 2016-10-23 | Outpatient (CLI) | payer MEDICARE ==
[~2016-10-23] MED LIST changes: -DENOSUMAB 60 MG/1 ML (PROLIA) SQ ONE
--- NOTE | 2016-10-23 19:53 | Diagnostic Imaging Report ---
EXAMINATION: DEXA scan. INDICATION: Osteopenia. TECHNIQUE: Bone mineral density estimated based on dual energy radiography over the lumbar spine and femoral necks, was performed. FINDINGS: The lumbar spine T-score is not performed due to cement in the lumbar spine due to kyphoplasty. T-score over the left femoral neck is -2.8 and on the right side is -3.3 for a mean of -3.1. This is 16% decreased density measurement compared to 2013 exam. IMPRESSION: Osteoporosis. Dictated by: Dictated on workstation # [id number]
== END ==
LOC: RAD 09:24
PROVIDERS: ATTEND Nurse Practitioner Family
DX: M81.0 Age-related osteoporosis without current pathological fracture (principal); I71.4 Abdominal aortic aneurysm, without rupture
CPT/HCPCS: 77080

== ENCOUNTER → 2016-10-24 | Outpatient (CLI) | payer MEDICARE ==
--- NOTE | 2016-10-24 11:08 | Diagnostic Imaging Report ---
INDICATION: Followup of abdominal aortic ectasia. COMPARISON: 05/22/2015. DISCUSSION: Transabdominal sonographic evaluation of the abdominal aorta was performed. Images were assessed for grayscale appearance, color and spectral Doppler blood flow. Borderline focal ectasia of the distal aorta measuring up to 2.6 cm is unchanged. The mid aorta measures 1.8 cm. The proximal area is obscured by bowel gas. The iliac arteries are normal in caliber measuring 1.0 cm. Mild atherosclerotic plaque is noted. IMPRESSION: 1. 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 Dictated by: Dictated on workstation # [id number]
== END ==
LOC: RAD 09:19
PROVIDERS: ATTEND Nurse Practitioner Family
DX: I77.811 Abdominal aortic ectasia (principal); M81.0 Age-related osteoporosis without current pathological fracture
CPT/HCPCS: 76775

== ENCOUNTER 2017-01-15 10:30 | Outpatient (RCR) | payer MEDICARE | END 2017-01-15 13:51 | disposition home or self-care (01) | PROVIDERS: ATTEND Nurse Practitioner Family | DX: M54.9 Dorsalgia, unspecified (principal); R53.1 Weakness ==

== ENCOUNTER → 2017-05-15 | Outpatient (CLI) | payer MEDICARE ==
[~2017-05-15] VITALS: Ht 152.4 cm; Wt 50.3 kg
[~2017-05-15] MED LIST changes: +DENOSUMAB 60 MG/1 ML (PROLIA) SQ SCH; -ROSU10TA24 PO; +ROSU10TA26 PO
[2017-05-15 11:42] VITALS: BP 170/70
== END ==
LOC: SDC 10:57
PROVIDERS: ATTEND Family Medicine
DX: M81.0 Age-related osteoporosis without current pathological fracture (principal)
CPT/HCPCS: 96372

== ENCOUNTER 2017-07-05 14:59 | Inpatient (IN) | payer MEDICARE ==
[~2017-07-05] VITALS: Ht 152.4 cm; Wt 50.0 kg
[~2017-07-05 14:59] MED LIST changes: -DENOSUMAB 60 MG/1 ML (PROLIA) SQ SCH
--- OUTSIDE RECORDS SUMMARY | 2017-07-05 15:07 | XMS REPORT | CCD ---
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 Name Role Phone PP Unavailable CCM Unavailable Summary Purpose Interface Exchange Insurance Providers Payer name Policy type / Coverage type Covered green party ID Effective Begin Date Effective End Date WPS Medicare Part B Medicare Part B [id number] Unknown Unknown [facility] Medicare Part B [id number] Unknown Unknown Family history Mother Diagnosis Age At Onset Heart Attack Unknown Social History Social History Element Codes Description Effective Dates Marital status Unknown 09/15/2014 Number of children Unknown 3 09/15/2014 Employment Unknown Retired 09/15/[address]: 9691829 Former smoker quit 1981 09/15/[address]: 054751480 Never drinks alcohol 09/15/2014 Allergies, Adverse Reactions, Alerts Allergies, Adverse Reactions, Alerts data not found Past Medical History Illness Codes Condition Status Onset Date Resolved Date Age-related osteoporosis without current pathological fracture ICD-9: 733.00 ICD-10: M81.0 Active 05/13/2017 Unknown Dysuria ICD-9: 788.1 ICD-10: R30.0 Active 05/13/2017 Unknown Essential (primary) hypertension ICD-9: 401.9 ICD-10: I10 Active 09/14/2014 Unknown Encounter for immunization ICD-9: V04.81 ICD-10: Z23 Active 02/25/2015 Unknown Other osteoporosis with current pathological fracture, vertebra(e), subsequent encounter for fracture with routine healing ICD-9: V54.27 ICD-10: M80.88XD Active 10/29/2016 Unknown Other seasonal allergic rhinitis ICD-9: 477.9 ICD-10: J30.2 Active 01/06/2017 Unknown Muscle spasm of back ICD-9: 724.8 ICD-10: M62.830 Active 11/18/2016 Unknown Encounter for screening for osteoporosis ICD-9: V82.81 ICD-10: Z13.820 Active 09/18/2016 Unknown Low back pain ICD-9: 724.2 ICD-10: M54.5 Active 08/07/2016 Unknown Mixed hyperlipidemia ICD-9: 272.4 ICD-10: E78.2 Active 09/14/2014 Unknown Pneumonia due to other specified infectious organisms ICD-9: 483.8 ICD-10: J16.8 Active 04/16/2016 Unknown 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 ICD-10: K59.1 Active 11/26/2015 Unknown Gastro-esophageal reflux disease without esophagitis ICD-9: 530.81 ICD-10: K21.9 Active 11/26/2015 Unknown Actinic keratosis ICD- 9: 702.0 ICD-10: L57.0 Active 09/14/2014 Unknown Unspecified malignant 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 ICD-9: 173.40 ICD-10: C44.40 Active 08/06/2015 Unknown Abdominal aortic aneurysm, without rupture ICD-9: 441.4 ICD-10: I71.4 Active 05/06/2015 Unknown Constipation, unspecified ICD-9: 564.00 ICD-10: K59.00 Active 04/01/2015 Unknown Mixed incontinence ICD -9: 788.33 ICD-10: N39.46 Active 04/01/2015 Unknown Hypo-osmolality and hyponatremia ICD-9: 276.1 ICD-10: E87.1 Active 02/25/2015 Unknown Myalgia ICD-9: 729.1 ICD-10: M79.1 Active 02/25/2015 Unknown Pain in leg, unspecified ICD-9: 729.5 ICD-10: M79.606 Active 02/25/2015 Unknown ESSENTIAL HYPERTENSION ICD-9: 401.9 Active 09/14/2014 Unknown Community acquired pneumonia ICD-9: 486 Active 10/18/2014 Unknown Hyperlipidemia Unknown Active 09/15/2014 Unknown Hypertension Unknown Active 09/15/2014 Unknown Actinic keratosis ICD- 9: 702.0 Active 09/14/2014 Unknown Hyperlipidemia ICD-9: 272.4 Active 09/14/2014 Unknown Tick bite ICD-9: 919.4 Active 09/14/2014 Unknown Problems Condition Codes Effective Dates Condition Status Age-related osteoporosis without current pathological fracture ICD-9: 733.00 ICD-10: M81.0 05/13/2017 Active Dysuria ICD-9: 788.1 ICD-10: R30.0 05/13/2017 Active Essential (primary) hypertension ICD-9: 401.9 ICD-10: I10 09/14/2014 Active Encounter for immunization ICD-9: V04.81 ICD-10: Z23 02/25/2015 Active Other osteoporosis with current pathological fracture, vertebra(e), subsequent encounter for fracture with routine healing ICD-9: V54.27 ICD-10: M80.88XD 10/29/2016 Active Other seasonal allergic rhinitis ICD-9: 477.9 ICD-10: J30.2 01/06/2017 Active Muscle spasm of back ICD-9: 724.8 ICD-10: M62.830 11/18/2016 Active Encounter for screening for osteoporosis ICD-9: V82.81 ICD-10: Z13.820 09/18/2016 Active Low back pain ICD-9: 724.2 ICD-10: M54.5 08/07/2016 Active Mixed hyperlipidemia ICD-9: 272.4 ICD-10: E78.2 09/14/2014 Active Pneumonia due to other specified infectious organisms ICD-9: 483.8 ICD-10: J16.8 04/16/2016 Active 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 ICD-10: K59.1 11/26/2015 Active Gastro-esophageal reflux disease without esophagitis ICD-9: 530.81 ICD-10: K21.9 11/26/2015 Active Actinic keratosis ICD- 9: 702.0 ICD-10: L57.0 09/14/2014 Active Unspecified malignant 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 ICD-9: 173.40 ICD-10: C44.40 08/06/2015 Active Abdominal aortic aneurysm, without rupture ICD-9: 441.4 ICD-10: I71.4 05/06/2015 Active Constipation, unspecified ICD-9: 564.00 ICD-10: K59.00 04/01/2015 Active Mixed incontinence ICD -9: 788.33 ICD-10: N39.46 04/01/2015 Active Hypo-osmolality and hyponatremia ICD-9: 276.1 ICD-10: E87.1 02/25/2015 Active Myalgia ICD-9: 729.1 ICD-10: M79.1 02/25/2015 Active Pain in leg, unspecified ICD-9: 729.5 ICD-10: M79.606 02/25/2015 Active ESSENTIAL HYPERTENSION ICD-9: 401.9 09/14/2014 Active Community acquired pneumonia ICD-9: 486 10/18/2014 Active Hyperlipidemia Unknown 09/15/2014 Active Hypertension Unknown 09/15/2014 Active Actinic keratosis ICD- 9: 702.0 09/14/2014 Active Hyperlipidemia ICD-9: 272.4 09/14/2014 Active Tick bite ICD-9: 919.4 09/14/2014 Active Medications Medication Codes Instructions Start Date Stop Date Status Fill Instructions Bystolic 5 mg tablet RxNorm: 853142 1 Tablet(s) PO daily 201612/31/2017 Active Plavix 75 mg tablet RxNorm: 311025 1 Tablet(s) PO daily 201612/31/2017 Active pantoprazole 40 mg tablet,delayed release RxNorm: 735683 1 Tablet(s) PO daily 01/06/2017 12/31/2017 Active Ranexa 500 mg tablet,extended release RxNorm: 084537 1 Tablet(s) PO BID 01/06/2017 12/31/2017 Active lisinopril 20 mg tablet RxNorm: 582538 1 Tablet(s) PO daily 12/31/2017 Active rosuvastatin 10 mg tablet RxNorm: 392120 1 Tablet(s) PO QHS 12/31/2017 Active Valium 2 mg tablet RxNorm: 544296 /4 to 1/2 Tablet(s) PO BID as needed muscle spasms 11/18/2016 11/18/2016 Inactive calcitonin (salmon) 200 unit/actuation nasal spray RxNorm: 142805 1 [place] NASAL One spray in 1 nostril once daily 08/20/2016 01/05/2017 Inactive lisinopril 20 mg tablet RxNorm: 004686 TAKE ONE TABLET BY MOUTH DAILY 08/14/2016 01/05/2017 Inactive tramadol 50 mg tablet RxNorm: 195264 1/2-1 Tablet(s) PO Q6 as needed if tylenol doesn't work 08/13/2016 08/26/2016 Inactive tramadol 50 mg tablet RxNorm: 036625 1/2 Tablet(s) PO BID as needed for pain not controlled by tylenol 08/07/2016 No Stop Date Active tramadol 50 mg tablet RxNorm: 921605 1/2-1 Tablet(s) PO Q6 as needed if tylenol doesn't work 08/07/2016 08/12/2016 Inactive cyclobenzaprine 5 mg tablet RxNorm: 874952 1/2 Tablet(s) PO QHS as needed muscle spasms 08/07/2016 08/08/2016 Inactive Zithromax Z-Mark 250 mg tablet RxNorm: 697902 1 Tablet(s) PO UD 04/17/2016 08/13/2016 Inactive cefdinir 300 mg capsule RxNorm: 510432 1 Capsule(s) PO BID 04/25/2016 Inactive cefdinir 300 mg capsule RxNorm: 173233 1 Capsule(s) PO BID 04/15/2016 Inactive lisinopril 20 mg tablet RxNorm: 994336 TAKE ONE TABLET BY MOUTH DAILY 01/09/2016 08/13/2016 Inactive Premarin 0.625 mg/gram vaginal cream RxNorm: 049120 1 Gram(s) VAG BIW 04/02/2015 08/06/2015 Inactive Crestor 10 mg tablet RxNorm: 078820 1/2 Tablet(s) PO daily 12/201405/06/2015 Inactive lisinopril 20 mg tablet RxNorm: 003264 1 Tablet(s) PO daily 12/09/2015 Inactive lisinopril 20 mg tablet RxNorm: 535226 1 Tablet(s) PO daily 10/201412/14/2014 Inactive prednisone 20 mg tablet RxNorm: 693320 1 Tablet(s) PO BID 10/2310/27/2014 Inactive doxycycline hyclate 100 mg tablet RxNorm: 747684 1 Tablet(s) PO BID 10/19/2014 10/28/2014 Inactive PATIENT ALREADY HAS 9 DOXYCYCLINE PILLS AT HOME. FINISH THE BOTTLE AT HOME BEFORE STARTING THIS BOTTLE. THEN START THIS BOTTLE AND CONTINUE TO TAKE TWO TIMES PER DAY UNTIL GONE doxycycline hyclate 100 mg tablet RxNorm: 106049 1 Tablet(s) PO BID 09/25/2014 09/24/2014 Inactive doxycycline hyclate 100 mg tablet RxNorm: 923192 1 Tablet(s) PO BID 09/25/2014 10/01/2014 Inactive Protonix 40 mg tablet,delayed release RxNorm: 548974 Tablet(s) PO daily 09/15/2014 10/14/2014 Inactive Stool Softener 100 mg tablet RxNorm: 0860553 Tablet(s) PO as needed No Start Date Active Baby Aspirin 81 mg chewable tablet RxNorm: 812945 1 Tablet(s) PO daily No Start Date Active Vitamin C 500 mg chewable tablet RxNorm: 540444 1 Tablet(s) PO daily No Start Date Active Tylenol Extra Strength 500 mg capsule RxNorm: 002344 1 Capsule(s) PO QHS No Start Date Active Vitamin D2 1,000 unit capsule RxNorm: 532794 2 Capsule(s) PO daily No Start Date Active Crestor 10 mg tablet RxNorm: 527762 1 Tablet(s) PO daily No Start Date 02/25/2015 Inactive Plavix 75 mg tablet RxNorm: 982243 1 Tablet(s) PO daily No Start Date 01/05/2017 Inactive Ranexa 500 mg tablet,extended release RxNorm: 437369 Tablet(s) PO BID No Start Date 01/05/2017 Inactive calcitonin (salmon) 200 unit/actuation nasal spray RxNorm: 616715 1 [place] NASAL One spray in 1 nostril once daily No Start Date 08/19/2016 Inactive Bystolic 5 mg tablet RxNorm: 304104 1 Tablet(s) PO daily No Start Date 01/05/2017 Inactive tramadol 50 mg tablet RxNorm: 526472 1/2-1 Tablet(s) PO Q6 as needed No Start Date 05/06/2015 Inactive pantoprazole 40 mg tablet,delayed release RxNorm: 407537 1 Tablet(s) PO daily No Start Date 01/05/2017 Inactive rosuvastatin 10 mg tablet RxNorm: 188306 1 Tablet(s) PO QHS No Start Date 01/05/2017 Inactive lisinopril 20 mg tablet RxNorm: 362803 1 Tablet(s) PO daily No Start Date 11/23/2014 Inactive calcitonin (salmon) 200 unit/actuation nasal spray RxNorm: 446560 1 [place] NASAL daily No Start Date 01/05/2017 Inactive Fish Oil 1,000 mg capsule RxNorm: 2 Capsule(s) PO daily No Start Date 2016 Inactive Medication Administered No Medication Administered data Immunizations Vaccine Codes Date Status Influenza CVX: 141 01/06/2017 completed Pneumococcal (Adult) CVX: 133 01/06/2017 completed Influenza CVX: 141 03/28/2016 completed Zoster CVX: 121 03/28/2016 completed Influenza CVX: 141 02/26/2015 completed PPD Unknown 10/24/2014 completed Diphtheria, Tetanus, Pertussis CVX: 20 completed Assessments Condition Codes Effective Dates Dysuria ICD-10: R30.0 ICD-9: 788.1 05/13/2017 Age-related osteoporosis without current pathological fracture ICD-10: M81.0 ICD-9: 733.00 05/13/2017 Essential (primary) hypertension ICD-10: I10 ICD-9: 401.9 05/13/2017 Other osteoporosis with current pathological fracture, vertebra(e), subsequent encounter for fracture with routine healing ICD-10: M80.88XD ICD-9: V54.27 01/06/2017 Other seasonal allergic rhinitis ICD-10: J30.2 ICD-9: 477.9 01/06/2017 Encounter for immunization ICD-10: Z23 ICD-9: V04.81 01/06/2017 Muscle spasm of back ICD-10: M62.830 ICD-9: 724.8 12/02/2016 Mixed hyperlipidemia ICD-10: E78.2 ICD-9: 272.4 09/18/2016 Low back pain ICD-10: M54.5 ICD-9: 724.2 09/18/2016 Encounter for screening for osteoporosis ICD-10: Z13.820 ICD-9: V82.81 09/18/2016 Pneumonia due to other specified infectious organisms ICD-10 : J16.8 ICD-9: 483.8 04/18/2016 Functional diarrhea ICD-10: K59.1 ICD-9: 564.5 11/27/2015 Gastro-esophageal reflux disease without esophagitis ICD-10 : K21.9 ICD-9: 530.81 11/27/2015 Unspecified malignant 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 ICD -10: C44.40 ICD-9: 173.40 08/07/2015 Actinic keratosis ICD-10: L57.0 ICD-9: 702.0 08/07/2015 Abdominal aortic aneurysm, without rupture ICD-10: I71.4 ICD-9: 441.4 05/07/2015 Mixed incontinence ICD-10: N39.46 ICD-9: 788.33 04/02/2015 Constipation, unspecified ICD-10: K59.00 ICD-9: 564.00 04/02/2015 Myalgia ICD-10: M79.1 ICD-9: 729.1 02/26/2015 Hypo-osmolality and hyponatremia ICD-10: E87.1 ICD-9: 276.1 02/26/2015 Pain in leg, unspecified ICD-10: M79.606 ICD-9: 729.5 02/26/2015 ESSENTIAL HYPERTENSION ICD-9: 401.9 11/06 Community acquired pneumonia ICD-9: 486 10/24/2014 Actinic keratosis ICD-9: 702.0 2014 Hyperlipidemia ICD-9: 272.4 09/15/2014 Tick bite ICD-9: 919.4 09/15/2014 Reason For Visit Reason For Visit Effective Dates Notes hypertension 05/13/2017 back pain 01/06/2017 back pain 12/02/2016 improving back pain 11/18/2016 Hospital Follow Up 10/29/2016 improving back pain 09/18/2016 back pain 08/11/2016 back pain 08/07/2016 sinus congestion 04/17/2016 urinary incontinence 03/26/2016 urinary incontinence 11/27/2015 back pain 08/07/2015 back pain 05/07/2015 back pain 04/02/2015 myalgias 02/26/2015 myalgias 02/15/2015 cough 11/06/2014 cough 10/24/2014 --Improved fatigue 10/19/2014 earache 09/15/2014 rt Results Observation Observation Code Item Item Code Result Date Lipid Ord30 CHOL 147 mg/dL 01/30/2016 Lipid Ord30 HDL 51.0 mg/dl 01/30/2016 Lipid Ord30 TRIG 142 mg/dL 01/30/2016 Lipid Ord30 LDL 68 mg/dL 01/30/2016 Lipid Ord30 C/HDL 2.9 Ratio 01/30/2016 Comp Metabolic Ivl489 NA 139 mEq/L 01/30/2016 Comp Metabolic Lwc745 K 4.1 mEq/L 01/30/2016 Comp Metabolic Rbf857 CL 103 mEq/L 01/30/2016 Comp Metabolic Tte606 CO2 30.0 mEq/L 01/30/2016 Comp Metabolic Oxl020 ANION GAP 10 01/30/2016 Comp Metabolic Kpw234 GLUCOSE 92 mg/dL 01/30/2016 Comp Metabolic Sdy035 Creat 0.7 mg/dL 01/30/2016 Comp Metabolic Zuw456 eGFR 86 ml/min/1.73m2 01/30/2016 Comp Metabolic Ouc477 BUN 12 mg/dL 01/30/2016 Comp Metabolic Ero635 B/C Ratio 17.4 Ratio 01/30/2016 Comp Metabolic Lkr549 CALCIUM 8.9 mg/dL 01/30/2016 Comp Metabolic Hnd257 ALK PHOS 58 U/L 01/30/2016 Comp Metabolic Svh997 AST(SGOT) 22 U/L 01/30/2016 Comp Metabolic Ixn593 ALT(SGPT) 17 U/L 01/30/2016 Comp Metabolic Uch522 BILI T 0.5 mg/dL 01/30/2016 Comp Metabolic Kbx353 ALBUMIN 3.9 g/dL 01/30/2016 Comp Metabolic Cna067 TPRO 6.5 g/dL 01/30/2016 Comp Metabolic Zve185 GLOB 2.6 g/dL 01/30/2016 Comp Metabolic Fad999 A/G Ratio 1.5 Ratio 01/30/2016 Comp Metabolic Wde678 Osmo 277 mOsmo 01/30/2016 Manual Differential Ord52 D-Neutr 25 % 03/27/2015 Manual Differential Ord52 D-Lymph 73 % 03/27/2015 Manual Differential Ord52 D-Eos 2 % 03/27/2015 Manual Differential Ord52 D-1 RBC, PLT NORMAL 03/27/2015 Manual Differential Ord52 D-2 FEW BASKET CELLS PRESENT 2014 Cbc With Differential Ord2 WBC 4.7 K/uL 03/27/2015 Cbc With Differential Ord2 LYM 2.8 K/uL 03/27/2015 Cbc With Differential Ord2 LYM% 59.4 % 03/27/2015 Cbc With Differential Ord2 NEUT/GRAN 1.5 K/uL 03/27/2015 Cbc With Differential Ord2 NEUT/GRAN % 32.8 % 03/27/2015 Cbc With Differential Ord2 MID 0.4 K/uL 03/27/2015 Cbc With Differential Ord2 MID% 7.8 % 03/27/2015 Cbc With Differential Ord2 RBC 3.58 M/uL 03/27/2015 Cbc With Differential Ord2 HGB 11.8 g/dL 03/27/2015 Cbc With Differential Ord2 HCT 36.6 % 03/27/2015 Cbc With Differential Ord2 MCV 102 fL 03/27/2015 Cbc With Differential Ord2 MCH 33 pg 03/27/2015 Cbc With Differential Ord2 MCHC 32 g/dL 03/27/2015 Cbc With Differential Ord2 PLT 224 K/uL 03/27/2015 Cbc With Differential Ord2 RDW 13.0 % 03/27/2015 Comp Metabolic Vio306 NA 133 mEq/L 02/26/2015 Comp Metabolic Bkh924 K 4.7 mEq/L 02/26/2015 Comp Metabolic Iqk981 CL 98 mEq/L 02/26/2015 Comp Metabolic Igv460 CO2 29.0 mEq/L 02/26/2015 Comp Metabolic Wtu878 ANION GAP 11 02/26/2015 Comp Metabolic Hhz673 GLUCOSE 91 mg/dL 02/26/2015 Comp Metabolic Ezk350 Creat 0.7 mg/dL 02/26/2015 Comp Metabolic Mes651 eGFR 83 ml/min/1.73m2 02/26/2015 Comp Metabolic Fna250 BUN 14 mg/dL 02/26/2015 Comp Metabolic Nnd301 B/C Ratio 19.7 Ratio 02/26/2015 Comp Metabolic Ngd396 CALCIUM 9.8 mg/dL 02/26/2015 Comp Metabolic Wba025 ALK PHOS 52 U/L 02/26/2015 Comp Metabolic Kst263 AST(SGOT) 24 U/L 02/26/2015 Comp Metabolic Mlf602 ALT(SGPT) 23 U/L 02/26/2015 Comp Metabolic Xog811 BILI T 0.4 mg/dL 02/26/2015 Comp Metabolic Uvs345 ALBUMIN 4.4 g/dL 02/26/2015 Comp Metabolic Psn000 TPRO 6.9 g/dL 02/26/2015 Comp Metabolic Ivy685 GLOB 2.5 g/dL 02/26/2015 Comp Metabolic Mls261 A/G Ratio 1.8 Ratio 02/26/2015 Comp Metabolic Hqp968 Osmo 266 mOsmo 02/26/2015 Vitamin D 25 Oh Ekd9342 VITAMIN D, 25 HYDROXY 56.96 ng/mL Tsh Ord6 hTSH II 2.37 uIU/mL 02/26/2015 Cbc With Differential Ord2 WBC 5.1 K/uL 02/26/2015 Cbc With Differential Ord2 LYM 2.9 K/uL 02/26/2015 Cbc With Differential Ord2 LYM% 56.5 % 02/26/2015 Cbc With Differential Ord2 NEUT/GRAN 1.9 K/uL 02/26/2015 Cbc With Differential Ord2 NEUT/GRAN % 36.3 % 02/26/2015 Cbc With Differential Ord2 MID 0.4 K/uL 02/26/2015 Cbc With Differential Ord2 MID% 7.2 % 02/26/2015 Cbc With Differential Ord2 RBC 3.93 M/uL 02/26/2015 Cbc With Differential Ord2 HGB 13.1 g/dL 02/26/2015 Cbc With Differential Ord2 HCT 40.0 % 02/26/2015 Cbc With Differential Ord2 MCV 102 fL 02/26/2015 Cbc With Differential Ord2 MCH 33 pg 02/26/2015 Cbc With Differential Ord2 MCHC 33 g/dL 02/26/2015 Cbc With Differential Ord2 PLT 230 K/uL 02/26/2015 Cbc With Differential Ord2 RDW 13.7 % 02/26/2015 Lipid Ord30 CHOL 190 mg/dL 01/08/2015 Lipid Ord30 HDL 55.0 mg/dl 01/08/2015 Lipid Ord30 TRIG 206 mg/dL 01/08/2015 Lipid Ord30 LDL 94 mg/dL 01/08/2015 Lipid Ord30 C/HDL 3.5 Ratio 01/08/2015 Comp Metabolic Wmg049 NA 136 mEq/L 01/08/2015 Comp Metabolic Ajz139 K 4.4 mEq/L 01/08/2015 Comp Metabolic Enk163 CL 101 mEq/L 01/08/2015 Comp Metabolic Ked271 CO2 31.0 mEq/L 01/08/2015 Comp Metabolic Rpk580 ANION GAP 8 01/08/2015 Comp Metabolic Duq938 GLUCOSE 108 mg/dL 01/08/2015 Comp Metabolic Qfz591 Creat 0.7 mg/dL 01/08/2015 Comp Metabolic Jxd994 eGFR 86 ml/min/1.73m2 01/08/2015 Comp Metabolic Ccq695 BUN 11 mg/dL 01/08/2015 Comp Metabolic Ssu330 B/C Ratio 15.9 Ratio 01/08/2015 Comp Metabolic Kbf729 CALCIUM 9.6 mg/dL 01/08/2015 Comp Metabolic Qhj443 ALK PHOS 54 U/L 01/08/2015 Comp Metabolic Myw618 AST(SGOT) 21 U/L 01/08/2015 Comp Metabolic Nne059 ALT(SGPT) 20 U/L 01/08/2015 Comp Metabolic Ess190 BILI T 0.5 mg/dL 01/08/2015 Comp Metabolic Qwq421 ALBUMIN 4.3 g/dL 01/08/2015 Comp Metabolic Vna743 TPRO 6.8 g/dL 01/08/2015 Comp Metabolic Znf579 GLOB 2.5 g/dL 01/08/2015 Comp Metabolic Tgi329 A/G Ratio 1.7 Ratio 01/08/2015 Comp Metabolic Nwd299 Osmo 272 mOsmo 01/08/2015 Review of Systems System Result Effective Dates Constitutional No recent illness 2017 Constitutional No anorexia 05/13/2017 Constitutional No night sweats 2017 Constitutional No chills 05/13/2017 Constitutional No diaphoresis 05/13/2017 Constitutional fatigue 05/13/2017 Constitutional No fever 05/13/2017 Constitutional No insomnia 05/13/2017 Constitutional No malaise 05/13/2017 Eyes No eye discharge 05/13/2017 Eyes No eye erythema 05/13/2017 Ears/Nose/Throat/Neck No dizziness 2017 Ears/Nose/Throat/Neck No headache 2017 Cardiovascular No chest pain/pressure Cardiovascular No dyspnea 05/13/2017 Cardiovascular No edema 05/13/2017 Respiratory No cough 05/13/2017 Gastrointestinal No abdominal pain 2017 Genitourinary/Nephrology No dysuria 05/13 Genitourinary/Nephrology urinary urgency 05/13/2017 Genitourinary/Nephrology urinary incontinence 05/13/2017 Musculoskeletal back pain 05/13/2017 Musculoskeletal myalgias 05/13/2017 Dermatologic No rash 05/13/2017 Neurologic No alteration of consciousness 05/13/2017 Psychiatric No anxiety 05/13/2017 Psychiatric No depression 05/13/2017 Psychiatric disturbances of memory 2017 Constitutional No recent illness 2016 Constitutional No anorexia 01/06/2017 Constitutional No night sweats 2016 Constitutional No chills 01/06/2017 Constitutional No diaphoresis 01/06/2017 Constitutional fatigue 01/06/2017 Constitutional No fever 01/06/2017 Constitutional No insomnia 01/06/2017 Constitutional No malaise 01/06/2017 Eyes No eye discharge 01/06/2017 Eyes No eye erythema 01/06/2017 Ears/Nose/Throat/Neck No dizziness 2016 Ears/Nose/Throat/Neck No headache 2016 Cardiovascular No chest pain/pressure Cardiovascular No dyspnea 01/06/2017 Cardiovascular No edema 01/06/2017 Respiratory No cough 01/06/2017 Gastrointestinal No abdominal pain 2016 Genitourinary/Nephrology No dysuria 01/06 Genitourinary/Nephrology urinary urgency 01/06/2017 Genitourinary/Nephrology urinary incontinence 01/06/2017 Musculoskeletal back pain 01/06/2017 Musculoskeletal myalgias 01/06/2017 Dermatologic No rash 01/06/2017 Neurologic No alteration of consciousness 01/06/2017 Psychiatric No anxiety 01/06/2017 Psychiatric No depression 01/06/2017 Constitutional No recent illness 2016 Constitutional No anorexia 12/02/2016 Constitutional No night sweats 2016 Constitutional No chills 12/02/2016 Constitutional No diaphoresis 12/02/2016 Constitutional fatigue 12/02/2016 Constitutional No fever 12/02/2016 Constitutional No insomnia 12/02/2016 Constitutional No malaise 12/02/2016 Eyes No eye discharge 12/02/2016 Eyes No eye erythema 12/02/2016 Ears/Nose/Throat/Neck No dizziness 2016 Ears/Nose/Throat/Neck No headache 2016 Cardiovascular No chest pain/pressure Cardiovascular No dyspnea 12/02/2016 Cardiovascular No edema 12/02/2016 Respiratory No cough 12/02/2016 Gastrointestinal No abdominal pain 2016 Genitourinary/Nephrology No dysuria 12/02 Genitourinary/Nephrology urinary urgency 12/02/2016 Genitourinary/Nephrology urinary incontinence 12/02/2016 Musculoskeletal back pain 12/02/2016 Musculoskeletal myalgias 12/02/2016 Dermatologic No rash 12/02/2016 Neurologic No alteration of consciousness 12/02/2016 Psychiatric No anxiety 12/02/2016 Psychiatric No depression 12/02/2016 Constitutional No recent illness 2016 Constitutional No anorexia 11/18/2016 Constitutional No night sweats 2016 Constitutional No chills 11/18/2016 Constitutional No diaphoresis 11/18/2016 Constitutional fatigue 11/18/2016 Constitutional No fever 11/18/2016 Constitutional No insomnia 11/18/2016 Constitutional No malaise 11/18/2016 Eyes No eye discharge 11/18/2016 Eyes No eye erythema 11/18/2016 Ears/Nose/Throat/Neck No dizziness 2016 Ears/Nose/Throat/Neck No headache 2016 Cardiovascular No chest pain/pressure 04/2016 Cardiovascular No dyspnea 11/18/2016 Cardiovascular No edema 11/18/2016 Respiratory No cough 11/18/2016 Gastrointestinal No abdominal pain 2016 Genitourinary/Nephrology No dysuria 11/18 Genitourinary/Nephrology urinary urgency 11/18/2016 Genitourinary/Nephrology urinary incontinence 11/18/2016 Musculoskeletal back pain 11/18/2016 Musculoskeletal myalgias 11/18/2016 Dermatologic No rash 11/18/2016 Neurologic No alteration of consciousness 11/18/2016 Psychiatric No anxiety 11/18/2016 Psychiatric No depression 11/18/2016 Constitutional No recent illness 2016 Constitutional No anorexia 10/29/2016 Constitutional No night sweats 2016 Constitutional No chills 10/29/2016 Constitutional No diaphoresis 10/29/2016 Constitutional fatigue 10/29/2016 Constitutional No fever 10/29/2016 Constitutional No insomnia 10/29/2016 Constitutional No malaise 10/29/2016 Eyes No eye discharge 10/29/2016 Eyes No eye erythema 10/29/2016 Ears/Nose/Throat/Neck No dizziness 2016 Ears/Nose/Throat/Neck No headache 2016 Cardiovascular No chest pain/pressure 03/2017 Cardiovascular No dyspnea 10/29/2016 Cardiovascular No edema 10/29/2016 Respiratory No cough 10/29/2016 Gastrointestinal No abdominal pain 2016 Genitourinary/Nephrology No dysuria 10/29 Genitourinary/Nephrology urinary urgency 10/29/2016 Genitourinary/Nephrology urinary incontinence 10/29/2016 Musculoskeletal back pain 10/29/2016 Musculoskeletal myalgias 10/29/2016 Dermatologic No rash 10/29/2016 Neurologic No alteration of consciousness 10/29/2016 Psychiatric No anxiety 10/29/2016 Psychiatric No depression 10/29/2016 Constitutional No recent illness 2016 Constitutional No anorexia 09/18/2016 Constitutional No night sweats 2016 Constitutional No chills 09/18/2016 Constitutional No diaphoresis 09/18/2016 Constitutional fatigue 09/18/2016 Constitutional No fever 09/18/2016 Constitutional No insomnia 09/18/2016 Constitutional No malaise 09/18/2016 Eyes No eye discharge 09/18/2016 Eyes No eye erythema 09/18/2016 Ears/Nose/Throat/Neck No dizziness 2016 Ears/Nose/Throat/Neck No headache 2016 Cardiovascular No chest pain/pressure 04/2016 Cardiovascular No dyspnea 09/18/2016 Cardiovascular No edema 09/18/2016 Respiratory No cough 09/18/2016 Gastrointestinal No abdominal pain 2016 Gastrointestinal diarrhea 09/18/2016 Genitourinary/Nephrology No dysuria 09/18 Genitourinary/Nephrology urinary urgency 09/18/2016 Genitourinary/Nephrology urinary incontinence 09/18/2016 Musculoskeletal back pain 09/18/2016 Musculoskeletal myalgias 09/18/2016 Dermatologic No rash 09/18/2016 Neurologic No alteration of consciousness 09/18/2016 Psychiatric No anxiety 09/18/2016 Psychiatric No depression 09/18/2016 Constitutional No recent illness 2016 Constitutional No chills 08/11/2016 Constitutional No fever 08/11/2016 Eyes No eye erythema 08/11/2016 Ears/Nose/Throat/Neck No nasal discharge 08/11/2016 Cardiovascular No chest pain/pressure Cardiovascular No dyspnea 08/11/2016 Respiratory No cough 08/11/2016 Respiratory No dyspnea 08/11/2016 Musculoskeletal back pain 08/11/2016 Neurologic No alteration of consciousness 08/11/2016 Neurologic No mental status change 2016 Constitutional No recent illness 2016 Constitutional No chills 08/07/2016 Constitutional No fever 08/07/2016 Eyes No eye erythema 08/07/2016 Ears/Nose/Throat/Neck No nasal discharge 08/07/2016 Cardiovascular No chest pain/pressure Cardiovascular No dyspnea 08/07/2016 Respiratory No cough 08/07/2016 Respiratory No dyspnea 08/07/2016 Neurologic No alteration of consciousness 08/07/2016 Neurologic No mental status change 2016 Musculoskeletal back pain 08/07/2016 Constitutional recent illness 04/17/2016 Constitutional chills 04/17/2016 Constitutional fever 04/17/2016 Cardiovascular No chest pain/pressure Cardiovascular No dyspnea 04/17/2016 Respiratory productive sputum 04/17/2016 Respiratory cough 04/17/2016 Gastrointestinal No vomiting 04/17/2016 Musculoskeletal No joint complaint 2015 Dermatologic No rash 04/17/2016 Dermatologic No sores 04/17/2016 Constitutional No diaphoresis 04/17/2016 Constitutional malaise 04/17/2016 Eyes No eye erythema 04/17/2016 Ears/Nose/Throat/Neck nasal allergies Ears/Nose/Throat/Neck nasal discharge Ears/Nose/Throat/Neck postnasal drip Ears/Nose/Throat/Neck sinus congestion Ears/Nose/Throat/Neck sore throat 2015 Respiratory chest congestion 04/17/2016 Respiratory No dyspnea 04/17/2016 Gastrointestinal No abdominal pain 2015 Neurologic No alteration of consciousness 04/17/2016 Neurologic No mental status change 2015 Constitutional No recent illness 2015 Constitutional No anorexia 03/26/2016 Constitutional No night sweats 2015 Constitutional No chills 03/26/2016 Constitutional No diaphoresis 03/26/2016 Constitutional fatigue 03/26/2016 Constitutional No fever 03/26/2016 Constitutional No insomnia 03/26/2016 Constitutional No malaise 03/26/2016 Eyes No eye discharge 03/26/2016 Eyes No eye erythema 03/26/2016 Ears/Nose/Throat/Neck No dizziness 2015 Ears/Nose/Throat/Neck No headache 2015 Cardiovascular No chest pain/pressure 10/2015 Cardiovascular No dyspnea 03/26/2016 Cardiovascular No edema 03/26/2016 Respiratory No cough 03/26/2016 Gastrointestinal No abdominal pain 2015 Gastrointestinal diarrhea 03/26/2016 Genitourinary/Nephrology No dysuria 03/26 Genitourinary/Nephrology urinary urgency 03/26/2016 Genitourinary/Nephrology urinary incontinence 03/26/2016 Musculoskeletal back pain 03/26/2016 Musculoskeletal myalgias 03/26/2016 Dermatologic No rash 03/26/2016 Neurologic No alteration of consciousness 03/26/2016 Psychiatric No anxiety 03/26/2016 Psychiatric No depression 03/26/2016 Constitutional No recent illness 2015 Constitutional No anorexia 11/27/2015 Constitutional No night sweats 2015 Constitutional No chills 11/27/2015 Constitutional No diaphoresis 11/27/2015 Constitutional fatigue 11/27/2015 Constitutional No fever 11/27/2015 Constitutional No insomnia 11/27/2015 Constitutional No malaise 11/27/2015 Eyes No eye discharge 11/27/2015 Eyes No eye erythema 11/27/2015 Ears/Nose/Throat/Neck No dizziness 2015 Ears/Nose/Throat/Neck No headache 2015 Cardiovascular No chest pain/pressure 12/2015 Cardiovascular No dyspnea 11/27/2015 Cardiovascular No edema 11/27/2015 Respiratory No cough 11/27/2015 Gastrointestinal No abdominal pain 2015 Gastrointestinal diarrhea 11/27/2015 Genitourinary/Nephrology No dysuria 11/26 Genitourinary/Nephrology urinary urgency 11/27/2015 Genitourinary/Nephrology urinary incontinence 11/27/2015 Musculoskeletal back pain 11/27/2015 Musculoskeletal myalgias 11/27/2015 Dermatologic No rash 11/27/2015 Neurologic No alteration of consciousness 11/27/2015 Psychiatric No anxiety 11/27/2015 Psychiatric No depression 11/27/2015 Constitutional No recent illness 2015 Constitutional No anorexia 08/07/2015 Constitutional No night sweats 2015 Constitutional No chills 08/07/2015 Constitutional No diaphoresis 08/07/2015 Constitutional fatigue 08/07/2015 Constitutional No fever 08/07/2015 Constitutional No insomnia 08/07/2015 Constitutional No malaise 08/07/2015 Eyes No eye discharge 08/07/2015 Eyes No eye erythema 08/07/2015 Ears/Nose/Throat/Neck No dizziness 2015 Ears/Nose/Throat/Neck No headache 2015 Cardiovascular No chest pain/pressure Cardiovascular No dyspnea 08/07/2015 Cardiovascular No edema 08/07/2015 Respiratory No cough 08/07/2015 Gastrointestinal No abdominal pain 2015 Gastrointestinal constipation 08/07/2015 Gastrointestinal No diarrhea 08/07/2015 Genitourinary/Nephrology No dysuria 08/06 Genitourinary/Nephrology urinary urgency 08/07/2015 Genitourinary/Nephrology urinary incontinence 08/07/2015 Musculoskeletal back pain 08/07/2015 Musculoskeletal myalgias 08/07/2015 Dermatologic No rash 08/07/2015 Neurologic No alteration of consciousness 08/07/2015 Psychiatric No anxiety 08/07/2015 Psychiatric No depression 08/07/2015 Endocrine No dry or coarse skin 2015 Constitutional No recent illness 2015 Constitutional No anorexia 05/07/2015 Constitutional No night sweats 2015 Constitutional No chills 05/07/2015 Constitutional No diaphoresis 05/07/2015 Constitutional fatigue 05/07/2015 Constitutional No fever 05/07/2015 Constitutional No insomnia 05/07/2015 Constitutional No malaise 05/07/2015 Eyes No eye discharge 05/07/2015 Eyes No eye erythema 05/07/2015 Ears/Nose/Throat/Neck No dizziness 2015 Ears/Nose/Throat/Neck No headache 2015 Cardiovascular No chest pain/pressure Cardiovascular No dyspnea 05/07/2015 Cardiovascular No edema 05/07/2015 Respiratory No cough 05/07/2015 Gastrointestinal No abdominal pain 2015 Gastrointestinal constipation 05/07/2015 Gastrointestinal No diarrhea 05/07/2015 Genitourinary/Nephrology No dysuria 05/07 Genitourinary/Nephrology urinary urgency 05/07/2015 Genitourinary/Nephrology urinary incontinence 05/07/2015 Musculoskeletal back pain 05/07/2015 Musculoskeletal myalgias 05/07/2015 Dermatologic No rash 05/07/2015 Neurologic No alteration of consciousness 05/07/2015 Psychiatric No anxiety 05/07/2015 Psychiatric No depression 05/07/2015 Endocrine No dry or coarse skin 2015 Hematologic/Lymphatic No abnormal bleeding and bruising 05/07/2015 Constitutional No recent illness 2014 Constitutional No anorexia 04/02/2015 Constitutional No night sweats 2014 Constitutional No chills 04/02/2015 Constitutional No diaphoresis 04/02/2015 Constitutional fatigue 04/02/2015 Constitutional No fever 04/02/2015 Constitutional No insomnia 04/02/2015 Constitutional No malaise 04/02/2015 Eyes No eye discharge 04/02/2015 Eyes No eye erythema 04/02/2015 Ears/Nose/Throat/Neck No dizziness 2014 Ears/Nose/Throat/Neck No headache 2014 Cardiovascular No chest pain/pressure Cardiovascular No dyspnea 04/02/2015 Cardiovascular No edema 04/02/2015 Respiratory No cough 04/02/2015 Gastrointestinal No abdominal pain 2014 Gastrointestinal constipation 04/02/2015 Gastrointestinal No diarrhea 04/02/2015 Genitourinary/Nephrology No dysuria 04/02 Genitourinary/Nephrology urinary incontinence 04/02/2015 Musculoskeletal myalgias 04/02/2015 Dermatologic No rash 04/02/2015 Neurologic No alteration of consciousness 04/02/2015 Psychiatric No anxiety 04/02/2015 Psychiatric No depression 04/02/2015 Endocrine No dry or coarse skin 2014 Hematologic/Lymphatic No abnormal bleeding and bruising 04/02/2015 Genitourinary/Nephrology urinary urgency 04/02/2015 Musculoskeletal back pain 04/02/2015 Constitutional No recent illness 2014 Constitutional No anorexia 02/26/2015 Constitutional No night sweats 2014 Constitutional No chills 02/26/2015 Constitutional No diaphoresis 02/26/2015 Constitutional No fever 02/26/2015 Constitutional No insomnia 02/26/2015 Eyes No eye discharge 02/26/2015 Eyes No eye erythema 02/26/2015 Ears/Nose/Throat/Neck No dizziness 2014 Ears/Nose/Throat/Neck No headache 2014 Cardiovascular No chest pain/pressure 12/2014 Cardiovascular No dyspnea 02/26/2015 Cardiovascular No edema 02/26/2015 Respiratory No cough 02/26/2015 Gastrointestinal No abdominal pain 2014 Gastrointestinal constipation 02/26/2015 Gastrointestinal No diarrhea 02/26/2015 Genitourinary/Nephrology No dysuria 02/26 Musculoskeletal myalgias 02/26/2015 Dermatologic No rash 02/26/2015 Neurologic No alteration of consciousness 02/26/2015 Psychiatric No anxiety 02/26/2015 Psychiatric No depression 02/26/2015 Endocrine No dry or coarse skin 2014 Hematologic/Lymphatic No abnormal bleeding and bruising 02/26/2015 Constitutional No malaise 02/26/2015 Constitutional fatigue 02/26/2015 Constitutional No weight loss 02/26/2015 Constitutional No weight gain 02/26/2015 Genitourinary/Nephrology urinary incontinence 02/26/2015 Constitutional No recent illness 2014 Constitutional No anorexia 02/15/2015 Constitutional No night sweats 2014 Constitutional No chills 02/15/2015 Constitutional No diaphoresis 02/15/2015 Constitutional No fever 02/15/2015 Constitutional No insomnia 02/15/2015 Eyes No eye discharge 02/15/2015 Eyes No eye erythema 02/15/2015 Ears/Nose/Throat/Neck No dizziness 2014 Ears/Nose/Throat/Neck No headache 2014 Cardiovascular No chest pain/pressure Cardiovascular No dyspnea 02/15/2015 Cardiovascular No edema 02/15/2015 Respiratory No cough 02/15/2015 Gastrointestinal No abdominal pain 2014 Gastrointestinal No constipation 2014 Gastrointestinal No diarrhea 02/15/2015 Genitourinary/Nephrology No dysuria 02/15 Dermatologic No rash 02/15/2015 Neurologic No alteration of consciousness 02/15/2015 Psychiatric No anxiety 02/15/2015 Psychiatric No depression 02/15/2015 Endocrine No dry or coarse skin 2014 Hematologic/Lymphatic No abnormal bleeding and bruising 02/15/2015 Musculoskeletal myalgias 02/15/2015 Constitutional No recent illness 2014 Constitutional No night sweats 2014 Constitutional No anorexia 11/06/2014 Constitutional No chills 11/06/2014 Constitutional No diaphoresis 11/06/2014 Constitutional No fatigue 11/06/2014 Constitutional No fever 11/06/2014 Constitutional No insomnia 11/06/2014 Constitutional No malaise 11/06/2014 Constitutional No weight loss 11/06/2014 Constitutional No weight gain 11/06/2014 Eyes No eye discharge 11/06/2014 Eyes No eye erythema 11/06/2014 Ears/Nose/Throat/Neck No dizziness 2014 Ears/Nose/Throat/Neck No headache 2014 Cardiovascular No chest pain/pressure Cardiovascular No edema 11/06/2014 Cardiovascular No dyspnea 11/06/2014 Respiratory No cough 11/06/2014 Gastrointestinal No abdominal pain 2014 Gastrointestinal No constipation 2014 Gastrointestinal No diarrhea 11/06/2014 Genitourinary/Nephrology No dysuria 11/06 Musculoskeletal No joint complaint 2014 Dermatologic No rash 11/06/2014 Neurologic No alteration of consciousness 11/06/2014 Psychiatric No anxiety 11/06/2014 Psychiatric No depression 11/06/2014 Endocrine No dry or coarse skin 2014 Hematologic/Lymphatic No abnormal bleeding and bruising 11/06/2014 Constitutional recent illness 10/24/2014 Constitutional No fever 10/24/2014 Ears/Nose/Throat/Neck No dizziness 2014 Ears/Nose/Throat/Neck No hearing loss 10/2014 Respiratory productive sputum 10/24/2014 Respiratory No chest congestion 2014 Respiratory No cigarette smoking 2014 Respiratory cough 10/24/2014 Gastrointestinal constipation 10/24/2014 Gastrointestinal diarrhea 10/24/2014 Gastrointestinal No nausea 10/24/2014 Gastrointestinal No vomiting 10/24/2014 Genitourinary/Nephrology No dysuria 10/24 Genitourinary/Nephrology No hematuria 10/2014 Musculoskeletal No stiffness 10/24/2014 Musculoskeletal No swelling 10/24/2014 Musculoskeletal No back pain 10/24/2014 Musculoskeletal No joint complaint 2014 Dermatologic No rash 10/24/2014 Dermatologic No sores 10/24/2014 Constitutional No anorexia 10/24/2014 Constitutional No night sweats 2014 Constitutional No chills 10/24/2014 Constitutional No diaphoresis 10/24/2014 Constitutional No fatigue 10/24/2014 Cardiovascular No chest pain/pressure 10/2014 Cardiovascular No dyspnea 10/24/2014 Cardiovascular No edema 10/24/2014 Neurologic No dizziness 10/24/2014 Neurologic No headache 10/24/2014 Neurologic No memory loss 10/24/2014 Constitutional fever 10/19/2014 Constitutional recent illness 10/19/2014 Ears/Nose/Throat/Neck No dizziness 2014 Ears/Nose/Throat/Neck No hearing loss 05/2014 Respiratory No chest congestion 2014 Respiratory No cigarette smoking 2014 Respiratory cough 10/19/2014 Respiratory productive sputum 10/19/2014 Gastrointestinal constipation 10/19/2014 Gastrointestinal diarrhea 10/19/2014 Gastrointestinal No nausea 10/19/2014 Gastrointestinal No vomiting 10/19/2014 Genitourinary/Nephrology No dysuria 10/19 Genitourinary/Nephrology No hematuria 05/2014 Dermatologic No rash 10/19/2014 Dermatologic No sores 10/19/2014 Musculoskeletal No joint complaint 2014 Musculoskeletal No back pain 10/19/2014 Musculoskeletal No swelling 10/19/2014 Musculoskeletal No stiffness 10/19/2014 Constitutional No chills 09/15/2014 Constitutional No fatigue 09/15/2014 Constitutional No fever 09/15/2014 Constitutional No recent illness 2014 Ears/Nose/Throat/Neck No dizziness 2014 Ears/Nose/Throat/Neck No headache 2014 Cardiovascular No chest pain/pressure Cardiovascular No near-syncope/dizziness 09/15/2014 Cardiovascular No palpitations 2014 Respiratory No chest congestion 2014 Respiratory No cough 09/15/2014 Gastrointestinal No abdominal pain 2014 Gastrointestinal No constipation 2014 Gastrointestinal No diarrhea 09/15/2014 Gastrointestinal No nausea 09/15/2014 Gastrointestinal No vomiting 09/15/2014 Genitourinary/Nephrology No dysuria 09/15 Neurologic No alteration of consciousness 09/15/2014 Physical Exam Exam Name System Name Item Name Status Result Effective Dates Notes Full Exam - General 1994 Constitutional general appearance Development: well developed 05/13/2017 None Full Exam - General 1994 Constitutional general appearance Development: appears stated age 0105/13/2017 None Full Exam - General 1994 Constitutional general appearance Hygiene/Attention to Grooming: good hygiene 05/13/2017 None Full Exam - General 1994 Eyes conjunctiva /eyelids Overall: conjunctiva clear 05/13/2017 None Full Exam - General 1994 Eyes conjunctiva /eyelids Overall: cornea clear 05/13/2017 None Full Exam - General 1994 Eyes conjunctiva /eyelids Overall: eyelids normal 05/13/2017 None Full Exam - General 1994 Eyes pupils and irises Overall: pupils equal, round, reactive to light and accomodation 05/13/2017 None Full Exam - General 1994 Ears/Nose/Throat oral cavity/pharynx/larynx Overall: oral mucosa clear 05/13/2017 None Full Exam - General 1994 Ears/Nose/Throat oral cavity/pharynx/larynx Overall: oropharyngeal mucosa clear 05/13/2017 None Full Exam - General 1994 Ears/Nose/Throat oral cavity/pharynx/larynx Overall: hypopharynx benign 05/13/2017 None Full Exam - General 1994 Ears/Nose/Throat oral cavity/pharynx/larynx Overall: no masses 05/13/2017 None Full Exam - General 1994 Respiratory auscultation Overall: breath sounds clear bilaterally 05/13/2017 None Full Exam - General 1994 Respiratory respiratory effort/rhythm Overall: no retractions 05/13/2017 None Full Exam - General 1994 Respiratory respiratory effort/rhythm Overall: normal rate 05/13/2017 None Full Exam - General 1994 Cardiovascular extremities Overall: no clubbing 05/13/2017 None Full Exam - General 1994 Cardiovascular auscultation of heart Overall: regular rate 05/13/2017 None Full Exam - General 1994 Cardiovascular auscultation of heart Overall: normal heart sounds 05/13/2017 None Full Exam - General 1994 Abdomen abdominal exam Overall: no tenderness 05/13/2017 None Full Exam - General 1994 Abdomen abdominal exam Overall: normal bowel sounds 05/13/2017 None Full Exam - General 1994 Lymphatic neck nodes Overall: anterior cervical chain benign 05/13/2017 None Full Exam - General 1994 Lymphatic neck nodes Overall: posterior cervical chain benign 05/13/2017 None Full Exam - General 1994 Neurologic cranial nerves Overall: crainial nerves 2 - 12 grossly intact 05/13/2017 None Full Exam - General 1994 Psychiatric orientation/consciousness Overall: oriented to person, place and time 05/13/2017 None Full Exam - General 1994 Psychiatric mood and affect Overall: normal mood and affect 05/13/2017 None Full Exam - General 1994 Constitutional general appearance Development: well developed 01/06/2017 None Full Exam - General 1994 Constitutional general appearance Development: appears stated age 0901/06/2017 None Full Exam - General 1994 Constitutional general appearance Hygiene/Attention to Grooming: good hygiene 01/06/2017 None Full Exam - General 1994 Eyes conjunctiva /eyelids Overall: conjunctiva clear 01/06/2017 None Full Exam - General 1994 Eyes conjunctiva /eyelids Overall: cornea clear 01/06/2017 None Full Exam - General 1994 Eyes conjunctiva /eyelids Overall: eyelids normal 01/06/2017 None Full Exam - General 1994 Eyes pupils and irises Overall: pupils equal, round, reactive to light and accomodation 01/06/2017 None Full Exam - General 1994 Ears/Nose/Throat oral cavity/pharynx/larynx Overall: oral mucosa clear 01/06/2017 None Full Exam - General 1994 Ears/Nose/Throat oral cavity/pharynx/larynx Overall: oropharyngeal mucosa clear 01/06/2017 None Full Exam - General 1994 Ears/Nose/Throat oral cavity/pharynx/larynx Overall: hypopharynx benign 01/06/2017 None Full Exam - General 1994 Ears/Nose/Throat oral cavity/pharynx/larynx Overall: no masses 01/06/2017 None Full Exam - General 1994 Respiratory auscultation Overall: breath sounds clear bilaterally 01/06/2017 None Full Exam - General 1994 Respiratory respiratory effort/rhythm Overall: no retractions 01/06/2017 None Full Exam - General 1994 Respiratory respiratory effort/rhythm Overall: normal rate 01/06/2017 None Full Exam - General 1994 Cardiovascular extremities Overall: no clubbing 01/06/2017 None Full Exam - General 1994 Cardiovascular auscultation of heart Overall: regular rate 01/06/2017 None Full Exam - General 1994 Cardiovascular auscultation of heart Overall: normal heart sounds 01/06/2017 None Full Exam - General 1994 Abdomen abdominal exam Overall: no tenderness 01/06/2017 None Full Exam - General 1994 Abdomen abdominal exam Overall: normal bowel sounds 01/06/2017 None Full Exam - General 1994 Lymphatic neck nodes Overall: anterior cervical chain benign 01/06/2017 None Full Exam - General 1994 Lymphatic neck nodes Overall: posterior cervical chain benign 01/06/2017 None Full Exam - General 1994 Neurologic cranial nerves Overall: crainial nerves 2 - 12 grossly intact 01/06/2017 None Full Exam - General 1994 Psychiatric orientation/consciousness Overall: oriented to person, place and time 01/06/2017 None Full Exam - General 1994 Psychiatric mood and affect Overall: normal mood and affect 01/06/2017 None Full Exam - General 1994 Constitutional general appearance Development: well developed 12/02/2016 None Full Exam - General 1994 Constitutional general appearance Development: appears stated age 0812/02/2016 None Full Exam - General 1994 Constitutional general appearance Hygiene/Attention to Grooming: good hygiene 12/02/2016 None Full Exam - General 1994 Eyes conjunctiva /eyelids Overall: conjunctiva clear 12/02/2016 None Full Exam - General 1994 Eyes conjunctiva /eyelids Overall: cornea clear 12/02/2016 None Full Exam - General 1994 Eyes conjunctiva /eyelids Overall: eyelids normal 12/02/2016 None Full Exam - General 1994 Eyes pupils and irises Overall: pupils equal, round, reactive to light and accomodation 12/02/2016 None Full Exam - General 1994 Ears/Nose/Throat oral cavity/pharynx/larynx Overall: oral mucosa clear 12/02/2016 None Full Exam - General 1994 Ears/Nose/Throat oral cavity/pharynx/larynx Overall: oropharyngeal mucosa clear 12/02/2016 None Full Exam - General 1994 Ears/Nose/Throat oral cavity/pharynx/larynx Overall: hypopharynx benign 12/02/2016 None Full Exam - General 1994 Ears/Nose/Throat oral cavity/pharynx/larynx Overall: no masses 12/02/2016 None Full Exam - General 1994 Respiratory auscultation Overall: breath sounds clear bilaterally 12/02/2016 None Full Exam - General 1994 Respiratory respiratory effort/rhythm Overall: no retractions 12/02/2016 None Full Exam - General 1994 Respiratory respiratory effort/rhythm Overall: normal rate 12/02/2016 None Full Exam - General 1994 Cardiovascular extremities Overall: no clubbing 12/02/2016 None Full Exam - General 1994 Cardiovascular auscultation of heart Overall: regular rate 12/02/2016 None Full Exam - General 1994 Cardiovascular auscultation of heart Overall: normal heart sounds 12/02/2016 None Full Exam - General 1994 Abdomen abdominal exam Overall: no tenderness 12/02/2016 None Full Exam - General 1994 Abdomen abdominal exam Overall: normal bowel sounds 12/02/2016 None Full Exam - General 1994 Lymphatic neck nodes Overall: anterior cervical chain benign 12/02/2016 None Full Exam - General 1994 Lymphatic neck nodes Overall: posterior cervical chain benign 12/02/2016 None Full Exam - General 1994 Neurologic cranial nerves Overall: crainial nerves 2 - 12 grossly intact 12/02/2016 None Full Exam - General 1994 Psychiatric orientation/consciousness Overall: oriented to person, place and time 12/02/2016 None Full Exam - General 1994 Psychiatric mood and affect Overall: normal mood and affect 12/02/2016 None Full Exam - General 1994 Musculoskeletal spine, ribs and pelvis Posture: lordosis 12/02/2016 None Full Exam - General 1994 Constitutional general appearance Development: well developed 11/18/2016 None Full Exam - General 1994 Constitutional general appearance Development: appears stated age 0811/18/2016 None Full Exam - General 1994 Constitutional general appearance Hygiene/Attention to Grooming: good hygiene 11/18/2016 None Full Exam - General 1994 Eyes conjunctiva /eyelids Overall: conjunctiva clear 11/18/2016 None Full Exam - General 1994 Eyes conjunctiva /eyelids Overall: cornea clear 11/18/2016 None Full Exam - General 1994 Eyes conjunctiva /eyelids Overall: eyelids normal 11/18/2016 None Full Exam - General 1994 Eyes pupils and irises Overall: pupils equal, round, reactive to light and accomodation 11/18/2016 None Full Exam - General 1995 Ears/Nose/Throat oral cavity/pharynx/larynx Overall: oral mucosa clear 11/18/2016 None Full Exam - General 1995 Ears/Nose/Throat oral cavity/pharynx/larynx Overall: oropharyngeal mucosa clear 11/18/2016 None Full Exam - General 1994 Ears/Nose/Throat oral cavity/pharynx/larynx Overall: hypopharynx benign 11/18/2016 None Full Exam - General 1994 Ears/Nose/Throat oral cavity/pharynx/larynx Overall: no masses 11/18/2016 None Full Exam - General 1994 Respiratory auscultation Overall: breath sounds clear bilaterally 11/18/2016 None Full Exam - General 1994 Respiratory respiratory effort/rhythm Overall: no retractions 11/18/2016 None Full Exam - General 1994 Respiratory respiratory effort/rhythm Overall: normal rate 11/18/2016 None Full Exam - General 1994 Cardiovascular extremities Overall: no clubbing 11/18/2016 None Full Exam - General 1994 Cardiovascular auscultation of heart Overall: regular rate 11/18/2016 None Full Exam - General 1994 Cardiovascular auscultation of heart Overall: normal heart sounds 11/18/2016 None Full Exam - General 1994 Abdomen abdominal exam Overall: no tenderness 11/18/2016 None Full Exam - General 1994 Abdomen abdominal exam Overall: normal bowel sounds 11/18/2016 None Full Exam - General 1994 Lymphatic neck nodes Overall: anterior cervical chain benign 11/18/2016 None Full Exam - General 1994 Lymphatic neck nodes Overall: posterior cervical chain benign 11/18/2016 None Full Exam - General 1994 Neurologic cranial nerves Overall: crainial nerves 2 - 12 grossly intact 11/18/2016 None Full Exam - General 1994 Psychiatric orientation/consciousness Overall: oriented to person, place and time 11/18/2016 None Full Exam - General 1994 Psychiatric mood and affect Overall: normal mood and affect 11/18/2016 None Full Exam - General 1994 Constitutional general appearance Development: well developed 10/29/2016 None Full Exam - General 1994 Constitutional general appearance Development: appears stated age 0710/29/2016 None Full Exam - General 1994 Constitutional general appearance Hygiene/Attention to Grooming: good hygiene 10/29/2016 None Full Exam - General 1994 Eyes conjunctiva /eyelids Overall: conjunctiva clear 10/29/2016 None Full Exam - General 1994 Eyes conjunctiva /eyelids Overall: cornea clear 10/29/2016 None Full Exam - General 1994 Eyes conjunctiva /eyelids Overall: eyelids normal 10/29/2016 None Full Exam - General 1994 Eyes pupils and irises Overall: pupils equal, round, reactive to light and accomodation 10/29/2016 None Full Exam - General 1994 Ears/Nose/Throat oral cavity/pharynx/larynx Overall: oral mucosa clear 10/29/2016 None Full Exam - General 1994 Ears/Nose/Throat oral cavity/pharynx/larynx Overall: oropharyngeal mucosa clear 10/29/2016 None Full Exam - General 1994 Ears/Nose/Throat oral cavity/pharynx/larynx Overall: hypopharynx benign 10/29/2016 None Full Exam - General 1994 Ears/Nose/Throat oral cavity/pharynx/larynx Overall: no masses 10/29/2016 None Full Exam - General 1994 Respiratory respiratory effort/rhythm Overall: no retractions 10/29/2016 None Full Exam - General 1994 Respiratory respiratory effort/rhythm Overall: normal rate 10/29/2016 None Full Exam - General 1994 Cardiovascular extremities Overall: no clubbing 10/29/2016 None Full Exam - General 1994 Cardiovascular auscultation of heart Overall: regular rate 10/29/2016 None Full Exam - General 1994 Cardiovascular auscultation of heart Overall: normal heart sounds 10/29/2016 None Full Exam - General 1994 Abdomen abdominal exam Overall: no tenderness 10/29/2016 None Full Exam - General 1994 Abdomen abdominal exam Overall: normal bowel sounds 10/29/2016 None Full Exam - General 1994 Lymphatic neck nodes Overall: anterior cervical chain benign 10/29/2016 None Full Exam - General 1994 Lymphatic neck nodes Overall: posterior cervical chain benign 10/29/2016 None Full Exam - General 1994 Neurologic cranial nerves Overall: crainial nerves 2 - 12 grossly intact 10/29/2016 None Full Exam - General 1994 Psychiatric orientation/consciousness Overall: oriented to person, place and time 10/29/2016 None Full Exam - General 1994 Psychiatric mood and affect Overall: normal mood and affect 10/29/2016 None Full Exam - General 1994 Respiratory auscultation Overall: breath sounds clear bilaterally 10/29/2016 None Full Exam - General 1994 Constitutional general appearance Development: well developed 09/18/2016 None Full Exam - General 1994 Constitutional general appearance Development: appears stated age 0609/18/2016 None Full Exam - General 1994 Constitutional general appearance Hygiene/Attention to Grooming: good hygiene 09/18/2016 None Full Exam - General 1994 Eyes conjunctiva /eyelids Overall: conjunctiva clear 09/18/2016 None Full Exam - General 1994 Eyes conjunctiva /eyelids Overall: cornea clear 09/18/2016 None Full Exam - General 1994 Eyes conjunctiva /eyelids Overall: eyelids normal 09/18/2016 None Full Exam - General 1994 Eyes pupils and irises Overall: pupils equal, round, reactive to light and accomodation 09/18/2016 None Full Exam - General 1994 Ears/Nose/Throat oral cavity/pharynx/larynx Overall: oral mucosa clear 09/18/2016 None Full Exam - General 1994 Ears/Nose/Throat oral cavity/pharynx/larynx Overall: oropharyngeal mucosa clear 09/18/2016 None Full Exam - General 1994 Ears/Nose/Throat oral cavity/pharynx/larynx Overall: hypopharynx benign 09/18/2016 None Full Exam - General 1994 Ears/Nose/Throat oral cavity/pharynx/larynx Overall: no masses 09/18/2016 None Full Exam - General 1994 Respiratory auscultation Lower lung field: crackles 09/18/2016 None Full Exam - General 1994 Respiratory respiratory effort/rhythm Overall: no retractions 09/18/2016 None Full Exam - General 1994 Respiratory respiratory effort/rhythm Overall: normal rate 09/18/2016 None Full Exam - General 1994 Cardiovascular extremities Overall: no clubbing 09/18/2016 None Full Exam - General 1994 Cardiovascular auscultation of heart Overall: regular rate 09/18/2016 None Full Exam - General 1994 Cardiovascular auscultation of heart Overall: normal heart sounds 09/18/2016 None Full Exam - General 1994 Abdomen abdominal exam Overall: no tenderness 09/18/2016 None Full Exam - General 1994 Abdomen abdominal exam Overall: normal bowel sounds 09/18/2016 None Full Exam - General 1994 Lymphatic neck nodes Overall: anterior cervical chain benign 09/18/2016 None Full Exam - General 1994 Lymphatic neck nodes Overall: posterior cervical chain benign 09/18/2016 None Full Exam - General 1994 Neurologic cranial nerves Overall: crainial nerves 2 - 12 grossly intact 09/18/2016 None Full Exam - General 1994 Psychiatric orientation/consciousness Overall: oriented to person, place and time 09/18/2016 None Full Exam - General 1994 Psychiatric mood and affect Overall: normal mood and affect 09/18/2016 None Full Exam - Orthopedics Constitutional general appearance Overall: well nourished 08/11/2016 None Full Exam - Orthopedics Constitutional general appearance Overall: well developed 08/11/2016 None Full Exam - Orthopedics Constitutional general appearance Overall: in no acute distress 08/11/2016 None Full Exam - Orthopedics Eyes conjunctiva/ eyelids Overall: conjunctiva clear 08/11/2016 None Full Exam - Orthopedics Eyes conjunctiva/ eyelids Overall: eyelids normal 08/11/2016 None Full Exam - Orthopedics Ears/Nose/Throat lips/teeth/gingiva Overall: benign lips 08/11/2016 None Full Exam - Orthopedics Ears/Nose/Throat oral cavity/pharynx/larynx Overall: oral mucosa clear 08/11/2016 None Full Exam - Orthopedics Respiratory respiratory effort/rhythm Overall: no retractions 08/11/2016 None Full Exam - Orthopedics Respiratory respiratory effort/rhythm Overall: normal rate 08/11/2016 None Full Exam - Orthopedics MS: spine/rib/pelvis insp & palp - S/R/P Lumbar spine palpation: tender lumbar spinous processes 08/11/2016 None Full Exam - Orthopedics MS: spine/rib/pelvis insp & palp - S/R/P Lumbar spine palpation: tender facet joints 08/11/2016 None Full Exam - Orthopedics MS: spine/rib/pelvis range of motion - S/R/P Lumbar flexion: pain radiating to the sacral region 08/11/2016 None Full Exam - Orthopedics Psychiatric orientation/consciousness Overall: oriented to person, place and time 08/11/2016 None Full Exam - Orthopedics Psychiatric mood and affect Overall: normal mood and affect 08/11/2016 None Full Exam - Orthopedics Psychiatric appearance Overall: well-groomed, good eye contact 08/11/2016 None Full Exam - Orthopedics Constitutional general appearance Overall: well nourished 08/07/2016 None Full Exam - Orthopedics Constitutional general appearance Overall: well developed 08/07/2016 None Full Exam - Orthopedics Constitutional general appearance Overall: in no acute distress 08/07/2016 None Full Exam - Orthopedics Eyes conjunctiva/ eyelids Overall: conjunctiva clear 08/07/2016 None Full Exam - Orthopedics Eyes conjunctiva/ eyelids Overall: eyelids normal 08/07/2016 None Full Exam - Orthopedics Ears/Nose/Throat lips/teeth/gingiva Overall: benign lips 08/07/2016 None Full Exam - Orthopedics Ears/Nose/Throat oral cavity/pharynx/larynx Overall: oral mucosa clear 08/07/2016 None Full Exam - Orthopedics Respiratory respiratory effort/rhythm Overall: no retractions 08/07/2016 None Full Exam - Orthopedics Respiratory respiratory effort/rhythm Overall: normal rate 08/07/2016 None Full Exam - Orthopedics Psychiatric orientation/consciousness Overall: oriented to person, place and time 08/07/2016 None Full Exam - Orthopedics Psychiatric mood and affect Overall: normal mood and affect 08/07/2016 None Full Exam - Orthopedics Psychiatric appearance Overall: well-groomed, good eye contact 08/07/2016 None Full Exam - Orthopedics MS: spine/rib/pelvis insp & palp - S/R/P Lumbar spine palpation: tender lumbar spinous processes 08/07/2016 None Full Exam - Orthopedics MS: spine/rib/pelvis insp & palp - S/R/P Lumbar spine palpation: tender facet joints 08/07/2016 None Full Exam - Orthopedics MS: spine/rib/pelvis range of motion - S/R/P Lumbar flexion: pain radiating to the sacral region 08/07/2016 None Full Exam - General 1994 Constitutional general appearance Overall: in no acute distress 04/17/2016 None Full Exam - General 1994 Constitutional general appearance Hygiene/Attention to Grooming: good hygiene 04/17/2016 None Full Exam - General 1994 Eyes conjunctiva /eyelids Overall: conjunctiva clear 04/17/2016 None Full Exam - General 1994 Eyes conjunctiva /eyelids Overall: eyelids normal 04/17/2016 None Full Exam - General 1994 Eyes pupils and irises Overall: pupils equal, round, reactive to light and accomodation 04/17/2016 None Full Exam - General 1994 Ears/Nose/Throat otoscopic exam Overall: external auditory canals clear 04/17/2016 None Full Exam - General 1994 Ears/Nose/Throat otoscopic exam Tympanic membrane: air- fluid level 04/17/2016 None Full Exam - General 1994 Ears/Nose/Throat lips/teeth/gingiva Overall: benign lips 04/17/2016 None Full Exam - General 1994 Ears/Nose/Throat oral cavity/pharynx/larynx Overall: oral mucosa clear 04/17/2016 None Full Exam - General 1994 Respiratory respiratory effort/rhythm Overall: no retractions 04/17/2016 None Full Exam - General 1994 Respiratory respiratory effort/rhythm Overall: normal rate 04/17/2016 None Full Exam - General 1994 Cardiovascular extremities Overall: no clubbing 04/17/2016 None Full Exam - General 1994 Cardiovascular auscultation of heart Overall: regular rate 04/17/2016 None Full Exam - General 1994 Cardiovascular auscultation of heart Overall: normal heart sounds 04/17/2016 None Full Exam - General 1994 Abdomen abdominal exam Overall: normal bowel sounds 04/17/2016 None Full Exam - General 1994 Lymphatic neck nodes Overall: anterior cervical chain benign 04/17/2016 None Full Exam - General 1994 Lymphatic neck nodes Overall: posterior cervical chain benign 04/17/2016 None Full Exam - General 1994 Neurologic cranial nerves Overall: crainial nerves 2 - 12 grossly intact 04/17/2016 None Full Exam - General 1994 Psychiatric orientation/consciousness Overall: oriented to person, place and time 04/17/2016 None Full Exam - General 1994 Psychiatric mood and affect Overall: normal mood and affect 04/17/2016 None Full Exam - General 1994 Constitutional general appearance Overall: well developed 04/17/2016 None Full Exam - General 1994 Constitutional general appearance Overall: well nourished 04/17/2016 None Full Exam - General 1994 Ears/Nose/Throat oral cavity/pharynx/larynx Posterior Pharynx: clear post nasal drainage 04/17/2016 None Full Exam - General 1994 Respiratory auscultation Lower lung field: crackles 04/17/2016 None Full Exam - General 1994 Respiratory auscultation Lower lung field: diminished 04/17/2016 None Full Exam - General 1994 Respiratory auscultation Upper lung field: Breath sounds clear 04/17/2016 None Full Exam - General 1994 Psychiatric appearance Overall: well-groomed, good eye contact 04/17/2016 None Full Exam - General 1994 Constitutional general appearance Development: well developed 03/26/2016 None Full Exam - General 1994 Constitutional general appearance Development: appears stated age 1203/26/2016 None Full Exam - General 1994 Constitutional general appearance Hygiene/Attention to Grooming: good hygiene 03/26/2016 None Full Exam - General 1994 Eyes conjunctiva /eyelids Overall: conjunctiva clear 03/26/2016 None Full Exam - General 1994 Eyes conjunctiva /eyelids Overall: cornea clear 03/26/2016 None Full Exam - General 1994 Eyes conjunctiva /eyelids Overall: eyelids normal 03/26/2016 None Full Exam - General 1994 Eyes pupils and irises Overall: pupils equal, round, reactive to light and accomodation 03/26/2016 None Full Exam - General 1994 Ears/Nose/Throat oral cavity/pharynx/larynx Overall: oral mucosa clear 03/26/2016 None Full Exam - General 1994 Ears/Nose/Throat oral cavity/pharynx/larynx Overall: oropharyngeal mucosa clear 03/26/2016 None Full Exam - General 1994 Ears/Nose/Throat oral cavity/pharynx/larynx Overall: hypopharynx benign 03/26/2016 None Full Exam - General 1994 Ears/Nose/Throat oral cavity/pharynx/larynx Overall: no masses 03/26/2016 None Full Exam - General 1994 Respiratory auscultation Lower lung field: crackles 03/26/2016 None Full Exam - General 1994 Respiratory respiratory effort/rhythm Overall: no retractions 03/26/2016 None Full Exam - General 1994 Respiratory respiratory effort/rhythm Overall: normal rate 03/26/2016 None Full Exam - General 1994 Cardiovascular extremities Overall: no clubbing 03/26/2016 None Full Exam - General 1994 Cardiovascular auscultation of heart Overall: regular rate 03/26/2016 None Full Exam - General 1994 Cardiovascular auscultation of heart Overall: normal heart sounds 03/26/2016 None Full Exam - General 1994 Abdomen abdominal exam Overall: no tenderness 03/26/2016 None Full Exam - General 1994 Abdomen abdominal exam Overall: normal bowel sounds 03/26/2016 None Full Exam - General 1994 Lymphatic neck nodes Overall: anterior cervical chain benign 03/26/2016 None Full Exam - General 1994 Lymphatic neck nodes Overall: posterior cervical chain benign 03/26/2016 None Full Exam - General 1994 Neurologic cranial nerves Overall: crainial nerves 2 - 12 grossly intact 03/26/2016 None Full Exam - General 1994 Psychiatric orientation/consciousness Overall: oriented to person, place and time 03/26/2016 None Full Exam - General 1994 Psychiatric mood and affect Overall: normal mood and affect 03/26/2016 None Full Exam - General 1994 Constitutional general appearance Development: well developed 11/27/2015 None Full Exam - General 1994 Constitutional general appearance Development: appears stated age 0811/27/2015 None Full Exam - General 1994 Constitutional general appearance Hygiene/Attention to Grooming: good hygiene 11/27/2015 None Full Exam - General 1994 Eyes conjunctiva /eyelids Overall: conjunctiva clear 11/27/2015 None Full Exam - General 1994 Eyes conjunctiva /eyelids Overall: cornea clear 11/27/2015 None Full Exam - General 1994 Eyes conjunctiva /eyelids Overall: eyelids normal 11/27/2015 None Full Exam - General 1994 Eyes pupils and irises Overall: pupils equal, round, reactive to light and accomodation 11/27/2015 None Full Exam - General 1994 Ears/Nose/Throat oral cavity/pharynx/larynx Overall: oral mucosa clear 11/27/2015 None Full Exam - General 1994 Ears/Nose/Throat oral cavity/pharynx/larynx Overall: oropharyngeal mucosa clear 11/27/2015 None Full Exam - General 1994 Ears/Nose/Throat oral cavity/pharynx/larynx Overall: hypopharynx benign 11/27/2015 None Full Exam - General 1994 Ears/Nose/Throat oral cavity/pharynx/larynx Overall: no masses 11/27/2015 None Full Exam - General 1994 Respiratory auscultation Lower lung field: crackles 11/27/2015 None Full Exam - General 1994 Respiratory respiratory effort/rhythm Overall: no retractions 11/27/2015 None Full Exam - General 1994 Respiratory respiratory effort/rhythm Overall: normal rate 11/27/2015 None Full Exam - General 1994 Cardiovascular extremities Overall: no clubbing 11/27/2015 None Full Exam - General 1994 Cardiovascular auscultation of heart Overall: regular rate 11/27/2015 None Full Exam - General 1994 Cardiovascular auscultation of heart Overall: normal heart sounds 11/27/2015 None Full Exam - General 1994 Abdomen abdominal exam Overall: no tenderness 11/27/2015 None Full Exam - General 1994 Abdomen abdominal exam Overall: normal bowel sounds 11/27/2015 None Full Exam - General 1994 Lymphatic neck nodes Overall: anterior cervical chain benign 11/27/2015 None Full Exam - General 1994 Lymphatic neck nodes Overall: posterior cervical chain benign 11/27/2015 None Full Exam - General 1994 Neurologic cranial nerves Overall: crainial nerves 2 - 12 grossly intact 11/27/2015 None Full Exam - General 1994 Psychiatric orientation/consciousness Overall: oriented to person, place and time 11/27/2015 None Full Exam - General 1994 Psychiatric mood and affect Overall: normal mood and affect 11/27/2015 None Full Exam - General 1994 Constitutional general appearance Development: well developed 08/07/2015 None Full Exam - General 1994 Constitutional general appearance Development: appears stated age 0408/07/2015 None Full Exam - General 1994 Constitutional general appearance Hygiene/Attention to Grooming: good hygiene 08/07/2015 None Full Exam - General 1994 Eyes conjunctiva /eyelids Overall: conjunctiva clear 08/07/2015 None Full Exam - General 1994 Eyes conjunctiva /eyelids Overall: cornea clear 08/07/2015 None Full Exam - General 1994 Eyes conjunctiva /eyelids Overall: eyelids normal 08/07/2015 None Full Exam - General 1994 Eyes pupils and irises Overall: pupils equal, round, reactive to light and accomodation 08/07/2015 None Full Exam - General 1994 Ears/Nose/Throat oral cavity/pharynx/larynx Overall: oral mucosa clear 08/07/2015 None Full Exam - General 1994 Ears/Nose/Throat oral cavity/pharynx/larynx Overall: oropharyngeal mucosa clear 08/07/2015 None Full Exam - General 1994 Ears/Nose/Throat oral cavity/pharynx/larynx Overall: hypopharynx benign 08/07/2015 None Full Exam - General 1994 Ears/Nose/Throat oral cavity/pharynx/larynx Overall: no masses 08/07/2015 None Full Exam - General 1994 Respiratory auscultation Lower lung field: crackles 08/07/2015 None Full Exam - General 1994 Respiratory respiratory effort/rhythm Overall: no retractions 08/07/2015 None Full Exam - General 1994 Respiratory respiratory effort/rhythm Overall: normal rate 08/07/2015 None Full Exam - General 1994 Cardiovascular extremities Overall: no clubbing 08/07/2015 None Full Exam - General 1994 Cardiovascular auscultation of heart Overall: regular rate 08/07/2015 None Full Exam - General 1994 Cardiovascular auscultation of heart Overall: normal heart sounds 08/07/2015 None Full Exam - General 1994 Abdomen abdominal exam Overall: no tenderness 08/07/2015 None Full Exam - General 1994 Abdomen abdominal exam Overall: normal bowel sounds 08/07/2015 None Full Exam - General 1994 Lymphatic neck nodes Overall: anterior cervical chain benign 08/07/2015 None Full Exam - General 1994 Lymphatic neck nodes Overall: posterior cervical chain benign 08/07/2015 None Full Exam - General 1994 Neurologic cranial nerves Overall: crainial nerves 2 - 12 grossly intact 08/07/2015 None Full Exam - General 1994 Psychiatric orientation/consciousness Overall: oriented to person, place and time 08/07/2015 None Full Exam - General 1994 Psychiatric mood and affect Overall: normal mood and affect 08/07/2015 None Full Exam - General 1994 Integument inspection of skin Location: face 08/07/2015 on forehead, by ear on right - - irritated, nodule on forehead, discolored lesion face near ear Full Exam - General 1994 Constitutional general appearance Development: well developed 05/07/2015 None Full Exam - General 1994 Constitutional general appearance Development: appears stated age 0105/07/2015 None Full Exam - General 1994 Constitutional general appearance Hygiene/Attention to Grooming: good hygiene 05/07/2015 None Full Exam - General 1994 Eyes conjunctiva /eyelids Overall: conjunctiva clear 05/07/2015 None Full Exam - General 1994 Eyes conjunctiva /eyelids Overall: cornea clear 05/07/2015 None Full Exam - General 1994 Eyes conjunctiva /eyelids Overall: eyelids normal 05/07/2015 None Full Exam - General 1994 Eyes pupils and irises Overall: pupils equal, round, reactive to light and accomodation 05/07/2015 None Full Exam - General 1994 Ears/Nose/Throat oral cavity/pharynx/larynx Overall: oral mucosa clear 05/07/2015 None Full Exam - General 1994 Ears/Nose/Throat oral cavity/pharynx/larynx Overall: oropharyngeal mucosa clear 05/07/2015 None Full Exam - General 1994 Ears/Nose/Throat oral cavity/pharynx/larynx Overall: hypopharynx benign 05/07/2015 None Full Exam - General 1994 Ears/Nose/Throat oral cavity/pharynx/larynx Overall: no masses 05/07/2015 None Full Exam - General 1994 Respiratory auscultation Lower lung field: crackles 05/07/2015 None Full Exam - General 1994 Respiratory respiratory effort/rhythm Overall: no retractions 05/07/2015 None Full Exam - General 1994 Respiratory respiratory effort/rhythm Overall: normal rate 05/07/2015 None Full Exam - General 1994 Cardiovascular extremities Overall: no clubbing 05/07/2015 None Full Exam - General 1994 Cardiovascular auscultation of heart Overall: regular rate 05/07/2015 None Full Exam - General 1994 Cardiovascular auscultation of heart Overall: normal heart sounds 05/07/2015 None Full Exam - General 1994 Abdomen abdominal exam Overall: no tenderness 05/07/2015 None Full Exam - General 1994 Abdomen abdominal exam Overall: normal bowel sounds 05/07/2015 None Full Exam - General 1994 Lymphatic neck nodes Overall: anterior cervical chain benign 05/07/2015 None Full Exam - General 1994 Lymphatic neck nodes Overall: posterior cervical chain benign 05/07/2015 None Full Exam - General 1994 Neurologic cranial nerves Overall: crainial nerves 2 - 12 grossly intact 05/07/2015 None Full Exam - General 1994 Psychiatric orientation/consciousness Overall: oriented to person, place and time 05/07/2015 None Full Exam - General 1994 Psychiatric mood and affect Overall: normal mood and affect 05/07/2015 None Full Exam - General 1994 Constitutional general appearance Development: well developed 04/02/2015 None Full Exam - General 1994 Constitutional general appearance Development: appears stated age 1204/02/2015 None Full Exam - General 1994 Constitutional general appearance Hygiene/Attention to Grooming: good hygiene 04/02/2015 None Full Exam - General 1994 Eyes conjunctiva /eyelids Overall: conjunctiva clear 04/02/2015 None Full Exam - General 1994 Eyes conjunctiva /eyelids Overall: cornea clear 04/02/2015 None Full Exam - General 1994 Eyes conjunctiva /eyelids Overall: eyelids normal 04/02/2015 None Full Exam - General 1994 Eyes pupils and irises Overall: pupils equal, round, reactive to light and accomodation 04/02/2015 None Full Exam - General 1994 Ears/Nose/Throat oral cavity/pharynx/larynx Overall: oral mucosa clear 04/02/2015 None Full Exam - General 1994 Ears/Nose/Throat oral cavity/pharynx/larynx Overall: oropharyngeal mucosa clear 04/02/2015 None Full Exam - General 1994 Ears/Nose/Throat oral cavity/pharynx/larynx Overall: hypopharynx benign 04/02/2015 None Full Exam - General 1994 Ears/Nose/Throat oral cavity/pharynx/larynx Overall: no masses 04/02/2015 None Full Exam - General 1994 Respiratory auscultation Lower lung field: crackles 04/02/2015 None Full Exam - General 1994 Respiratory respiratory effort/rhythm Overall: no retractions 04/02/2015 None Full Exam - General 1994 Respiratory respiratory effort/rhythm Overall: normal rate 04/02/2015 None Full Exam - General 1994 Cardiovascular extremities Overall: no clubbing 04/02/2015 None Full Exam - General 1994 Cardiovascular auscultation of heart Overall: regular rate 04/02/2015 None Full Exam - General 1994 Cardiovascular auscultation of heart Overall: normal heart sounds 04/02/2015 None Full Exam - General 1994 Abdomen abdominal exam Overall: no tenderness 04/02/2015 None Full Exam - General 1994 Abdomen abdominal exam Overall: normal bowel sounds 04/02/2015 None Full Exam - General 1994 Lymphatic neck nodes Overall: anterior cervical chain benign 04/02/2015 None Full Exam - General 1994 Lymphatic neck nodes Overall: posterior cervical chain benign 04/02/2015 None Full Exam - General 1994 Neurologic cranial nerves Overall: crainial nerves 2 - 12 grossly intact 04/02/2015 None Full Exam - General 1994 Psychiatric orientation/consciousness Overall: oriented to person, place and time 04/02/2015 None Full Exam - General 1994 Psychiatric mood and affect Overall: normal mood and affect 04/02/2015 None Full Exam - General 1994 Constitutional general appearance Development: well developed 02/26/2015 None Full Exam - General 1994 Constitutional general appearance Development: appears stated age 1102/26/2015 None Full Exam - General 1994 Constitutional general appearance Hygiene/Attention to Grooming: good hygiene 02/26/2015 None Full Exam - General 1994 Eyes conjunctiva /eyelids Overall: conjunctiva clear 02/26/2015 None Full Exam - General 1994 Eyes conjunctiva /eyelids Overall: cornea clear 02/26/2015 None Full Exam - General 1994 Eyes conjunctiva /eyelids Overall: eyelids normal 02/26/2015 None Full Exam - General 1994 Eyes pupils and irises Overall: pupils equal, round, reactive to light and accomodation 02/26/2015 None Full Exam - General 1994 Ears/Nose/Throat oral cavity/pharynx/larynx Overall: oral mucosa clear 02/26/2015 None Full Exam - General 1994 Ears/Nose/Throat oral cavity/pharynx/larynx Overall: oropharyngeal mucosa clear 02/26/2015 None Full Exam - General 1994 Ears/Nose/Throat oral cavity/pharynx/larynx Overall: hypopharynx benign 02/26/2015 None Full Exam - General 1994 Ears/Nose/Throat oral cavity/pharynx/larynx Overall: no masses 02/26/2015 None Full Exam - General 1994 Respiratory respiratory effort/rhythm Overall: no retractions 02/26/2015 None Full Exam - General 1994 Respiratory respiratory effort/rhythm Overall: normal rate 02/26/2015 None Full Exam - General 1994 Cardiovascular extremities Overall: no clubbing 02/26/2015 None Full Exam - General 1994 Cardiovascular auscultation of heart Overall: regular rate 02/26/2015 None Full Exam - General 1994 Cardiovascular auscultation of heart Overall: normal heart sounds 02/26/2015 None Full Exam - General 1994 Abdomen abdominal exam Overall: no tenderness 02/26/2015 None Full Exam - General 1994 Abdomen abdominal exam Overall: normal bowel sounds 02/26/2015 None Full Exam - General 1994 Lymphatic neck nodes Overall: anterior cervical chain benign 02/26/2015 None Full Exam - General 1994 Lymphatic neck nodes Overall: posterior cervical chain benign 02/26/2015 None Full Exam - General 1994 Neurologic cranial nerves Overall: crainial nerves 2 - 12 grossly intact 02/26/2015 None Full Exam - General 1994 Psychiatric orientation/consciousness Overall: oriented to person, place and time 02/26/2015 None Full Exam - General 1994 Psychiatric mood and affect Overall: normal mood and affect 02/26/2015 None Full Exam - General 1994 Respiratory auscultation Lower lung field: crackles 02/26/2015 None Full Exam - General 1994 Constitutional general appearance Development: well developed 02/15/2015 None Full Exam - General 1994 Constitutional general appearance Development: appears stated age 1002/15/2015 None Full Exam - General 1994 Constitutional general appearance Hygiene/Attention to Grooming: good hygiene 02/15/2015 None Full Exam - General 1994 Eyes conjunctiva /eyelids Overall: conjunctiva clear 02/15/2015 None Full Exam - General 1994 Eyes conjunctiva /eyelids Overall: cornea clear 02/15/2015 None Full Exam - General 1994 Eyes conjunctiva /eyelids Overall: eyelids normal 02/15/2015 None Full Exam - General 1994 Eyes pupils and irises Overall: pupils equal, round, reactive to light and accomodation 02/15/2015 None Full Exam - General 1994 Ears/Nose/Throat oral cavity/pharynx/larynx Overall: oral mucosa clear 02/15/2015 None Full Exam - General 1994 Ears/Nose/Throat oral cavity/pharynx/larynx Overall: oropharyngeal mucosa clear 02/15/2015 None Full Exam - General 1994 Ears/Nose/Throat oral cavity/pharynx/larynx Overall: hypopharynx benign 02/15/2015 None Full Exam - General 1994 Ears/Nose/Throat oral cavity/pharynx/larynx Overall: no masses 02/15/2015 None Full Exam - General 1994 Respiratory auscultation Overall: breath sounds clear bilaterally 02/15/2015 None Full Exam - General 1994 Respiratory respiratory effort/rhythm Overall: no retractions 02/15/2015 None Full Exam - General 1994 Respiratory respiratory effort/rhythm Overall: normal rate 02/15/2015 None Full Exam - General 1994 Cardiovascular extremities Overall: no clubbing 02/15/2015 None Full Exam - General 1994 Cardiovascular auscultation of heart Overall: regular rate 02/15/2015 None Full Exam - General 1994 Cardiovascular auscultation of heart Overall: normal heart sounds 02/15/2015 None Full Exam - General 1994 Abdomen abdominal exam Overall: no tenderness 02/15/2015 None Full Exam - General 1994 Abdomen abdominal exam Overall: normal bowel sounds 02/15/2015 None Full Exam - General 1994 Lymphatic neck nodes Overall: anterior cervical chain benign 02/15/2015 None Full Exam - General 1994 Lymphatic neck nodes Overall: posterior cervical chain benign 02/15/2015 None Full Exam - General 1994 Neurologic cranial nerves Overall: crainial nerves 2 - 12 grossly intact 02/15/2015 None Full Exam - General 1994 Psychiatric orientation/consciousness Overall: oriented to person, place and time 02/15/2015 None Full Exam - General 1994 Psychiatric mood and affect Overall: normal mood and affect 02/15/2015 None Full Exam - General 1994 Ears/Nose/Throat otoscopic exam Overall: external auditory canals clear 02/15/2015 None Full Exam - General 1994 Ears/Nose/Throat otoscopic exam Overall: tympanic membranes clear 02/15/2015 None Full Exam - General 1994 Musculoskeletal lower extremity Overall: knee benign 02/15/2015 None Full Exam - General 1994 Musculoskeletal lower extremity Overall: ankle benign 02/15/2015 None Full Exam - General 1994 Musculoskeletal lower extremity Overall: foot benign 02/15/2015 None Full Exam - General 1994 Musculoskeletal lower extremity Inspection - lower leg: normal appearance 02/15/2015 None Full Exam - General 1994 Musculoskeletal lower extremity Palpation - lower leg: normal on palpation 02/15/2015 None Full Exam - General 1994 Musculoskeletal gait and station Overall: normal gait 02/15/2015 None Full Exam - General 1994 Musculoskeletal gait and station Overall: normal station 02/15/2015 None Full Exam - General 1994 Musculoskeletal lower extremity Inspection - thigh: normal appearance 02/15/2015 None Full Exam - General 1994 Musculoskeletal lower extremity Palpation - thigh: normal on palpation 02/15/2015 None Full Exam - General 1994 Constitutional general appearance Development: well developed 11/06/2014 None Full Exam - General 1994 Constitutional general appearance Development: appears stated age 0711/06/2014 None Full Exam - General 1994 Constitutional general appearance Hygiene/Attention to Grooming: good hygiene 11/06/2014 None Full Exam - General 1994 Eyes conjunctiva /eyelids Overall: conjunctiva clear 11/06/2014 None Full Exam - General 1994 Eyes conjunctiva /eyelids Overall: cornea clear 11/06/2014 None Full Exam - General 1994 Eyes conjunctiva /eyelids Overall: eyelids normal 11/06/2014 None Full Exam - General 1994 Eyes pupils and irises Overall: pupils equal, round, reactive to light and accomodation 11/06/2014 None Full Exam - General 1994 Ears/Nose/Throat oral cavity/pharynx/larynx Overall: oral mucosa clear 11/06/2014 None Full Exam - General 1994 Ears/Nose/Throat oral cavity/pharynx/larynx Overall: oropharyngeal mucosa clear 11/06/2014 None Full Exam - General 1994 Ears/Nose/Throat oral cavity/pharynx/larynx Overall: hypopharynx benign 11/06/2014 None Full Exam - General 1994 Ears/Nose/Throat oral cavity/pharynx/larynx Overall: no masses 11/06/2014 None Full Exam - General 1994 Respiratory auscultation Overall: breath sounds clear bilaterally 11/06/2014 None Full Exam - General 1994 Respiratory respiratory effort/rhythm Overall: no retractions 11/06/2014 None Full Exam - General 1994 Respiratory respiratory effort/rhythm Overall: normal rate 11/06/2014 None Full Exam - General 1994 Cardiovascular extremities Overall: no clubbing 11/06/2014 None Full Exam - General 1994 Cardiovascular auscultation of heart Overall: regular rate 11/06/2014 None Full Exam - General 1994 Cardiovascular auscultation of heart Overall: normal heart sounds 11/06/2014 None Full Exam - General 1994 Psychiatric orientation/consciousness Overall: oriented to person, place and time 11/06/2014 None Full Exam - General 1994 Psychiatric mood and affect Overall: normal mood and affect 11/06/2014 None Full Exam - General 1994 Neurologic cranial nerves Overall: crainial nerves 2 - 12 grossly intact 11/06/2014 None Full Exam - General 1994 Lymphatic neck nodes Overall: anterior cervical chain benign 11/06/2014 None Full Exam - General 1994 Lymphatic neck nodes Overall: posterior cervical chain benign 11/06/2014 None Full Exam - General 1994 Abdomen abdominal exam Overall: no tenderness 11/06/2014 None Full Exam - General 1994 Abdomen abdominal exam Overall: normal bowel sounds 11/06/2014 None Full Exam - General 1994 Constitutional general appearance Development: well developed 10/24/2014 None Full Exam - General 1994 Constitutional general appearance Development: appears stated age 0710/24/2014 None Full Exam - General 1994 Constitutional general appearance Overall: in no acute distress 10/24/2014 None Full Exam - General 1994 Constitutional general appearance Hygiene/Attention to Grooming: good hygiene 10/24/2014 None Full Exam - General 1994 Eyes conjunctiva /eyelids Overall: conjunctiva clear 10/24/2014 None Full Exam - General 1994 Eyes conjunctiva /eyelids Overall: cornea clear 10/24/2014 None Full Exam - General 1994 Eyes conjunctiva /eyelids Overall: eyelids normal 10/24/2014 None Full Exam - General 1994 Eyes pupils and irises Overall: pupils equal, round, reactive to light and accomodation 10/24/2014 None Full Exam - General 1994 Ears/Nose/Throat otoscopic exam Overall: external auditory canals clear 10/24/2014 None Full Exam - General 1994 Ears/Nose/Throat otoscopic exam Tympanic membrane: air- fluid level 10/24/2014 None Full Exam - General 1994 Ears/Nose/Throat lips/teeth/gingiva Overall: benign lips 10/24/2014 None Full Exam - General 1994 Ears/Nose/Throat lips/teeth/gingiva Overall: normal dentition 10/24/2014 None Full Exam - General 1994 Ears/Nose/Throat oral cavity/pharynx/larynx Overall: oral mucosa clear 10/24/2014 None Full Exam - General 1994 Ears/Nose/Throat oral cavity/pharynx/larynx Overall: oropharyngeal mucosa clear 10/24/2014 None Full Exam - General 1994 Ears/Nose/Throat oral cavity/pharynx/larynx Overall: hypopharynx benign 10/24/2014 None Full Exam - General 1994 Ears/Nose/Throat oral cavity/pharynx/larynx Overall: no masses 10/24/2014 None Full Exam - General 1994 Neck inspection of neck Overall: normal size 10/24/2014 None Full Exam - General 1994 Neck inspection of neck Overall: normal appearance 10/24/2014 None Full Exam - General 1994 Respiratory respiratory effort/rhythm Overall: no retractions 10/24/2014 None Full Exam - General 1994 Respiratory respiratory effort/rhythm Overall: normal rate 10/24/2014 None Full Exam - General 1994 Cardiovascular extremities Overall: no clubbing 10/24/2014 None Full Exam - General 1994 Cardiovascular auscultation of heart Overall: regular rate 10/24/2014 None Full Exam - General 1994 Cardiovascular auscultation of heart Overall: normal heart sounds 10/24/2014 None Full Exam - General 1994 Abdomen abdominal exam Overall: no tenderness 10/24/2014 None Full Exam - General 1994 Abdomen abdominal exam Overall: normal bowel sounds 10/24/2014 None Full Exam - General 1994 Lymphatic neck nodes Overall: anterior cervical chain benign 10/24/2014 None Full Exam - General 1994 Lymphatic neck nodes Overall: posterior cervical chain benign 10/24/2014 None Full Exam - General 1994 Integument inspection of skin Overall: few scattered moles, no gross abnormalities 10/24/2014 None Full Exam - General 1994 Neurologic deep tendon reflexes Overall: deep tendon reflexes intact 10/24/2014 None Full Exam - General 1994 Neurologic cranial nerves Overall: crainial nerves 2 - 12 grossly intact 10/24/2014 None Full Exam - General 1994 Psychiatric orientation/consciousness Overall: oriented to person, place and time 10/24/2014 None Full Exam - General 1994 Psychiatric mood and affect Overall: normal mood and affect 10/24/2014 None Full Exam - General 1994 Respiratory auscultation Overall: breath sounds clear bilaterally 10/24/2014 None Full Exam - General 1994 Constitutional general appearance Development: well developed 10/19/2014 None Full Exam - General 1994 Constitutional general appearance Development: appears stated age 0710/19/2014 None Full Exam - General 1994 Constitutional general appearance Hygiene/Attention to Grooming: good hygiene 10/19/2014 None Full Exam - General 1994 Eyes conjunctiva /eyelids Overall: conjunctiva clear 10/19/2014 None Full Exam - General 1994 Eyes conjunctiva /eyelids Overall: cornea clear 10/19/2014 None Full Exam - General 1994 Eyes conjunctiva /eyelids Overall: eyelids normal 10/19/2014 None Full Exam - General 1994 Eyes pupils and irises Overall: pupils equal, round, reactive to light and accomodation 10/19/2014 None Full Exam - General 1994 Ears/Nose/Throat lips/teeth/gingiva Overall: benign lips 10/19/2014 None Full Exam - General 1994 Ears/Nose/Throat lips/teeth/gingiva Overall: normal dentition 10/19/2014 None Full Exam - General 1994 Ears/Nose/Throat oral cavity/pharynx/larynx Overall: oral mucosa clear 10/19/2014 None Full Exam - General 1994 Ears/Nose/Throat oral cavity/pharynx/larynx Overall: oropharyngeal mucosa clear 10/19/2014 None Full Exam - General 1994 Ears/Nose/Throat oral cavity/pharynx/larynx Overall: hypopharynx benign 10/19/2014 None Full Exam - General 1994 Ears/Nose/Throat oral cavity/pharynx/larynx Overall: no masses 10/19/2014 None Full Exam - General 1994 Respiratory respiratory effort/rhythm Overall: no retractions 10/19/2014 None Full Exam - General 1994 Respiratory respiratory effort/rhythm Overall: normal rate 10/19/2014 None Full Exam - General 1994 Cardiovascular extremities Overall: no clubbing 10/19/2014 None Full Exam - General 1994 Cardiovascular auscultation of heart Overall: regular rate 10/19/2014 None Full Exam - General 1994 Cardiovascular auscultation of heart Overall: normal heart sounds 10/19/2014 None Full Exam - General 1994 Abdomen abdominal exam Overall: no tenderness 10/19/2014 None Full Exam - General 1994 Abdomen abdominal exam Overall: normal bowel sounds 10/19/2014 None Full Exam - General 1994 Neurologic deep tendon reflexes Overall: deep tendon reflexes intact 10/19/2014 None Full Exam - General 1994 Neurologic cranial nerves Overall: crainial nerves 2 - 12 grossly intact 10/19/2014 None Full Exam - General 1994 Psychiatric orientation/consciousness Overall: oriented to person, place and time 10/19/2014 None Full Exam - General 1994 Psychiatric mood and affect Overall: normal mood and affect 10/19/2014 None Full Exam - General 1994 Integument inspection of skin Overall: few scattered moles, no gross abnormalities 10/19/2014 None Full Exam - General 1994 Lymphatic neck nodes Overall: anterior cervical chain benign 10/19/2014 None Full Exam - General 1994 Lymphatic neck nodes Overall: posterior cervical chain benign 10/19/2014 None Full Exam - General 1994 Neck inspection of neck Overall: normal size 10/19/2014 None Full Exam - General 1994 Neck inspection of neck Overall: normal appearance 10/19/2014 None Full Exam - General 1994 Respiratory auscultation Diffuse: crackles 10/19/2014 None Full Exam - General 1994 Respiratory auscultation Basilar: diminished 10/19/2014 None Full Exam - General 1994 Ears/Nose/Throat otoscopic exam Overall: external auditory canals clear 10/19/2014 None Full Exam - General 1994 Ears/Nose/Throat otoscopic exam Tympanic membrane: air- fluid level 10/19/2014 None Full Exam - General 1994 Constitutional general appearance Overall: in no acute distress 10/19/2014 None Full Exam - General 1994 Constitutional general appearance Development: appears stated age 0509/15/2014 None Full Exam - General 1994 Constitutional general appearance Development: well developed 09/15/2014 None Full Exam - General 1994 Constitutional general appearance Hygiene/Attention to Grooming: good hygiene 09/15/2014 None Full Exam - General 1994 Eyes conjunctiva /eyelids Overall: conjunctiva clear 09/15/2014 None Full Exam - General 1994 Eyes conjunctiva /eyelids Overall: cornea clear 09/15/2014 None Full Exam - General 1994 Eyes conjunctiva /eyelids Overall: eyelids normal 09/15/2014 None Full Exam - General 1994 Eyes pupils and irises Overall: pupils equal, round, reactive to light and accomodation 09/15/2014 None Full Exam - General 1994 Ears/Nose/Throat otoscopic exam Overall: external auditory canals clear 09/15/2014 None Full Exam - General 1994 Ears/Nose/Throat otoscopic exam Overall: tympanic membranes clear 09/15/2014 None Full Exam - General 1994 Ears/Nose/Throat lips/teeth/gingiva Overall: benign lips 09/15/2014 None Full Exam - General 1994 Ears/Nose/Throat lips/teeth/gingiva Overall: normal dentition 09/15/2014 None Full Exam - General 1994 Ears/Nose/Throat oral cavity/pharynx/larynx Overall: hypopharynx benign 09/15/2014 None Full Exam - General 1994 Ears/Nose/Throat oral cavity/pharynx/larynx Overall: no masses 09/15/2014 None Full Exam - General 1994 Ears/Nose/Throat oral cavity/pharynx/larynx Overall: oral mucosa clear 09/15/2014 None Full Exam - General 1994 Ears/Nose/Throat oral cavity/pharynx/larynx Overall: oropharyngeal mucosa clear 09/15/2014 None Full Exam - General 1994 Respiratory auscultation Overall: breath sounds clear bilaterally 09/15/2014 None Full Exam - General 1994 Respiratory respiratory effort/rhythm Overall: no retractions 09/15/2014 None Full Exam - General 1994 Respiratory respiratory effort/rhythm Overall: normal rate 09/15/2014 None Full Exam - General 1994 Cardiovascular extremities Overall: no clubbing 09/15/2014 None Full Exam - General 1994 Cardiovascular auscultation of heart Overall: normal heart sounds 09/15/2014 None Full Exam - General 1994 Cardiovascular auscultation of heart Overall: regular rate 09/15/2014 None Full Exam - General 1994 Abdomen abdominal exam Overall: no tenderness 09/15/2014 None Full Exam - General 1994 Abdomen abdominal exam Overall: normal bowel sounds 09/15/2014 None Full Exam - General 1994 Neurologic deep tendon reflexes Overall: deep tendon reflexes intact 09/15/2014 None Full Exam - General 1994 Neurologic cranial nerves Overall: crainial nerves 2 - 12 grossly intact 09/15/2014 None Full Exam - General 1994 Psychiatric orientation/consciousness Overall: oriented to person, place and time 09/15/2014 None Full Exam - General 1994 Psychiatric mood and affect Overall: normal mood and affect 09/15/2014 None Full Exam - General 1994 Integument inspection of skin Pigmentation: erythematous 09/15/2014 on face, around forehead, side of face, nonhealing tick bite on abdomen below breast - Procedures Procedure Codes Date ADMIN INFLUENZA VIRUS VAC CPT-4: G0008 01/06/2017 FLU VACC PRSV FREE INC ANTIG CPT-4: 72914 01/06/2017 ADMIN PNEUMOCOCCAL VACCINE SNOMED CT: 05303597 CPT-4: G0009 01/06/2017 PNEUMOCOCCAL VACC [address]: 33527422 CPT-4: 49203 01/06/2017 IIV4 FLU VACC NO PRESERV ID Formatting Model/CDA Sections, Assigned to/Abigail Balderas SNOMED CT: 48845796 CPT-4: 11498Khbfxhy 02/26/2015 IMMUNIZATION ADMIN CPT -4: 29085 02/26/2015 Vital Signs Date Vital 05/13/2017 Blood Pressure 1: 160/78 Code : 8480-6 BMI: 21.3 Code : 57473-2 Heart Rate 1 : 66 bpm Height: 5' SpO2: 99% Weight: 109 lbs 01/06/2017 Blood Pressure 1: 158/74 Code : 8480-6 Blood Pressure 1: 136/70 Code: 8480-6 BMI: 22.5 Code: 55839-2 Heart Rate 1: 56 bpm Height: 5' SpO2: 98% Weight: 115 lbs 12/02/2016 Blood Pressure 1: 124/66 Code : 8480-6 BMI: 22.5 Code : 30545-7 Heart Rate 1 : 75 bpm Height: 5' SpO2: 97% Weight: 115 lbs 11/18/2016 Blood Pressure 1: 134/80 Code : 8480-6 BMI: 21.7 Code : 22006-9 Heart Rate 1 : 70 bpm Height: 5' SpO2: 95% Weight: 111 lbs 10/29/2016 Blood Pressure 1: 128/80 Code : 8480-6 BMI: 22.1 Code : 54765-7 Heart Rate 1 : 66 bpm Height: 5' SpO2: 93% Weight: 113 lbs 09/18/2016 Blood Pressure 1: 110/50 Code : 8480-6 BMI: 22.3 Code : 18569-1 Heart Rate 1 : 67 bpm Height: 5' SpO2: 97% Weight: 114 lbs 08/11/2016 Blood Pressure 1: 148/76 Code : 8480-6 BMI: 23.8 Code : 40834-2 Heart Rate 1 : 71 bpm Height: 5' SpO2: 94% Weight: 122 lbs 08/07/2016 Blood Pressure 1: 138/86 Code : 8480-6 BMI: 23.8 Code : 72322-4 Heart Rate 1 : 70 bpm Height: 5' SpO2: 95% Weight: 122 lbs 04/17/2016 Blood Pressure 1: 132/74 Code : 8480-6 BMI: 23.8 Code : 36220-2 Heart Rate 1 : 64 bpm Height: 5' SpO2: 94% Weight: 122 lbs 03/26/2016 Blood Pressure 1: 126/62 Code : 8480-6 BMI: 23.8 Code : 85901-9 Heart Rate 1 : 64 bpm Height: 5' SpO2: 97% Weight: 122 lbs 11/27/2015 Blood Pressure 1: 148/68 Code : 8480-6 BMI: 23.3 Code : 44028-2 Heart Rate 1 : 62 bpm Height: 5' SpO2: 97% Weight: 119 lbs 8 oz 08/07/2015 Blood Pressure 1: 132/66 Code : 8480-6 BMI: 24.2 Code : 65367-3 Heart Rate 1 : 53 bpm Height: 5' SpO2: 98% Weight: 124 lbs 05/07/2015 Blood Pressure 1: 130/70 Code : 8480-6 Blood Pressure 1: 134/70 Code: 8480-6 BMI: 23.6 Code: 47103-2 Heart Rate 1: 63 bpm Height: 5' SpO2: 98% Weight: 121 lbs 04/02/2015 Blood Pressure 1: 132/72 Code : 8480-6 BMI: 23.8 Code : 84787-3 Heart Rate 1 : 67 bpm Height: 5' SpO2: 94% Weight: 122 lbs 02/26/2015 Blood Pressure 1: 136/60 Code : 8480-6 BMI: 24.0 Code : 00163-9 Heart Rate 1 : 57 bpm Height: 5' SpO2: 96% Weight: 123 lbs 02/15/2015 Blood Pressure 1: 155/80 Code : 8480-6 BMI: 23.8 Code : 44573-0 Heart Rate 1 : 59 bpm Height: 5' SpO2: 94% Weight: 122 lbs 11/06/2014 Blood Pressure 1: 136/80 Code : 8480-6 BMI: 23.8 Code : 63810-7 Heart Rate 1 : 86 bpm Height: 5' SpO2: 95% Weight: 122 lbs 10/24/2014 Blood Pressure 1: 136/60 Code : 8480-6 BMI: 24.0 Code : 72354-2 Heart Rate 1 : 66 bpm Height: 5' SpO2: 96% Weight: 123 lbs 10/19/2014 Blood Pressure 1: 136/70 Code : 8480-6 BMI: 24.0 Code : 63351-7 Heart Rate 1 : 55 bpm Height: 5' SpO2: 95% Weight: 123 lbs 09/15/2014 Blood Pressure 1: 122/70 Code : 8480-6 BMI: 23.6 Code : 05689-3 Heart Rate 1 : 63 bpm Height: 5' SpO2: 96% Weight: 121 lbs Functional Status No Functional Status data History of Present Illness Symptom Name Status Result Effective Date Notes hypertension Quality primary hypertension 05/13/2017 None hypertension Onset and Resolution ongoing 05/13/2017 None hypertension Onset of Symptom during adulthood 05/13/2017 None hypertension Alleviating Factors medication 05/13/2017 None hypertension Blood Pressure Values not checking blood pressure at home 05/13/2017 None hypertension Pertinent Findings dizziness 05/13/2017 occasionally hypertension Pertinent Findings Denies dyspnea 05/13/2017 None hypertension Pertinent Findings edema 05/13/2017 None back pain Location lumbar-sacral spine 01/06/2017 None back pain Onset and Resolution ongoing 01/06/2017 None back pain Frequency of Episodes daily 01/06/2017 None back pain Quality intermittent 01/06/2017 None back pain Timing of Episodes in the morning 01/06/2017 None back pain Timing of Episodes in the evening 01/06/2017 None back pain Alleviating Factors medication 01/06/2017 -extra strength tylenol back pain Initial treatment physical therapy 01/06/2017 None edema Onset and Resolution ongoing 01/06/2017 None edema Location on both legs 01/06/2017 None edema Quality intermittent 01/06/2017 None edema Timing of Episodes in the evening 01/06/2017 None back pain Location lumbar-sacral spine 12/02/2016 None back pain Quality aching 12/02/2016 None back pain Quality constant 12/02/2016 None back pain Quality stabbing 12/02/2016 None back pain Onset and Resolution ongoing 12/02/2016 None back pain Onset of Symptom 2 weeks ago 12/02/2016 None back pain Frequency of Episodes daily 12/02/2016 None back pain Location thoracic spine 11/18/2016 None back pain Quality intermittent 11/18/2016 None back pain Onset and Resolution gradual in onset 11/18/2016 None back pain Onset of Symptom 5 days ago 11/18/2016 began after Thur am PT back pain Frequency of Episodes daily 11/18/2016 None back pain Pertinent Findings Denies extremity numbness 11/18/2016 None back pain Pertinent Findings Denies extremity weakness 11/18/2016 None back pain Pertinent Findings weakness 11/18/2016 None Hospital Follow Up _ Other: _ 10/29/2016 None back pain Location lumbar-sacral spine 10/29/2016 None back pain Quality aching 10/29/2016 None back pain Quality constant 10/29/2016 None back pain Quality stabbing 10/29/2016 None back pain Onset and Resolution ongoing 10/29/2016 None back pain Onset of Symptom 2 weeks ago 10/29/2016 None back pain Frequency of Episodes daily 10/29/2016 None back pain Location lumbar-sacral spine 09/18/2016 None back pain Quality aching 09/18/2016 None back pain Quality constant 09/18/2016 None back pain Quality stabbing 09/18/2016 None back pain Onset of Symptom 2 weeks ago 09/18/2016 None back pain Frequency of Episodes daily 09/18/2016 None back pain Onset and Resolution ongoing 09/18/2016 None back pain Location lumbar-sacral spine 08/11/2016 None back pain Quality aching 08/11/2016 None back pain Quality constant 08/11/2016 None back pain Quality stabbing 08/11/2016 None back pain Onset and Resolution sudden in onset 08/11/2016 None back pain Onset of Symptom 2 weeks ago 08/11/2016 None back pain Frequency of Episodes daily 08/11/2016 None back pain Location lumbar-sacral spine 08/07/2016 None back pain Quality aching 08/07/2016 None back pain Quality constant 08/07/2016 None back pain Quality stabbing 08/07/2016 None back pain Onset and Resolution sudden in onset 08/07/2016 None back pain Onset of Symptom 2 weeks ago 08/07/2016 None back pain Frequency of Episodes daily 08/07/2016 None sinus congestion Location on both sides 04/17/2016 None sinus congestion Quality pain 04/17/2016 None sinus congestion Quality pressure 04/17/2016 None sinus congestion Quality fullness 04/17/2016 None sinus congestion Quality constant 04/17/2016 None sinus congestion Onset and Resolution sudden in onset 04/17/2016 None sinus congestion Onset of Symptom 4 days ago 04/17/2016 None sinus congestion Frequency of Episodes daily 04/17/2016 None sore throat Location on both sides 04/17/2016 None sore throat Quality constant 04/17/2016 None sore throat Quality dull 04/17/2016 None sore throat Quality scratchy 04/17/2016 None sore throat Onset and Resolution sudden in onset 04/17/2016 None sore throat Onset of Symptom 4 days ago 04/17/2016 None sore throat Frequency of Episodes daily 04/17/2016 None sore throat Pertinent Findings cough 04/17/2016 None sore throat Pertinent Findings fever 04/17/2016 None sore throat Pertinent Findings hoarseness 04/17/2016 None chest congestion Quality constant 04/17/2016 None chest congestion Quality painful 04/17/2016 None chest congestion Quality thick secretions 04/17/2016 None chest congestion Onset and Resolution sudden in onset 04/17/2016 None chest congestion Onset of Symptom 4 days ago 04/17/2016 None chest congestion Frequency of Episodes daily 04/17/2016 None chest congestion Length of Episodes 4 days 04/17/2016 None urinary incontinence Quality urge incontinence 03/26/2016 None urinary incontinence Onset and Resolution ongoing 03/26/2016 None urinary incontinence Limitation on Activities moderately limits activities 03/26/2016 None urinary incontinence Exacerbating Factors medication 03/26/2016 - she takes vitamin C, fish oil, vitamin D urinary incontinence Pertinent Findings back pain 03/26/2016 Denies burning or itching. Has dark urine hypertension Quality intermittent 03/26/2016 None hypertension Onset and Resolution ongoing 03/26/2016 None hypertension Onset of Symptom during adulthood 03/26/2016 None hypertension Blood Pressure Values not checking blood pressure at home 03/26/2016 None hypertension Alleviating Factors medication 03/26/2016 None hypertension Exacerbating Factors stress 03/26/2016 None hypertension Pertinent Findings dizziness 03/26/2016 (occasional) hypertension Pertinent Findings dyspnea 03/26/2016 (with exertion) hypertension Pertinent Findings edema 03/26/2016 (occasional) urinary incontinence Quality urge incontinence 11/27/2015 None urinary incontinence Onset and Resolution ongoing 11/27/2015 None urinary incontinence Limitation on Activities moderately limits activities 11/27/2015 None urinary incontinence Exacerbating Factors medication 11/27/2015 - she takes vitamin C, fish oil, vitamin D urinary incontinence Pertinent Findings back pain 11/27/2015 Denies burning or itching. Has dark urine hypertension Onset and Resolution ongoing 11/27/2015 None hypertension Onset of Symptom during adulthood 11/27/2015 None hypertension Blood Pressure Values not checking blood pressure at home 11/27/2015 None hypertension Alleviating Factors medication 11/27/2015 None hypertension Pertinent Findings dizziness 11/27/2015 (occasional) hypertension Pertinent Findings dyspnea 11/27/2015 (with exertion) hypertension Pertinent Findings edema 11/27/2015 (occasional) hypertension Quality intermittent 11/27/2015 None hypertension Exacerbating Factors stress 11/27/2015 None diarrhea Quality intermittent 11/27/2015 None diarrhea Onset of Symptom 2 weeks ago 11/27/2015 None pruritus Location-Major on the head 11/27/2015 None pruritus Location-Head/Neck on the scalp 11/27/2015 None pruritus Location-Head/Neck on the left preauricular area 11/27/2015 None pruritus Location-Head/Neck on the right preauricular area 11/27/2015 None back pain Quality improving 08/07/2015 None back pain Triggers no known associated factors 08/07/2015 None back pain Alleviating Factors medication 08/07/2015 extra strength tylenol at night. urinary incontinence Quality urge incontinence 08/07/2015 None urinary incontinence Limitation on Activities moderately limits activities 08/07/2015 None urinary incontinence Exacerbating Factors medication 08/07/2015 - she takes vitamin C, fish oil, vitamin D urinary incontinence Pertinent Findings back pain 08/07/2015 Denies burning or itching. Has dark urine hypertension Onset and Resolution ongoing 08/07/2015 None hypertension Onset of Symptom during adulthood 08/07/2015 None back pain Location in the right middle back area 08/07/2015 None back pain Location in the left middle back area 08/07/2015 None back pain Quality stable 08/07/2015 None back pain Quality intermittent 08/07/2015 None back pain Onset and Resolution ongoing 08/07/2015 None urinary incontinence Onset and Resolution ongoing 08/07/2015 None mole check Location-Major on the neck 08/07/2015 None mole check Location-Major on the head 08/07/2015 None mole check Location-Head/Neck on the anterior neck 08/07/2015 None joint complaint Location diffusely 08/07/2015 None joint complaint Onset and Resolution ongoing 08/07/2015 None joint complaint Onset and Resolution gradual in onset 08/07/2015 None joint complaint Quality intermittent 08/07/2015 None hypertension Blood Pressure Values not checking blood pressure at home 08/07/2015 None hypertension Alleviating Factors medication 08/07/2015 None back pain Location diffusely 05/07/2015 None back pain Quality acute 05/07/2015 None back pain Onset and Resolution sudden in onset 05/07/2015 None back pain Triggers no known associated factors 05/07/2015 None urinary incontinence Quality acute 05/07/2015 None urinary incontinence Quality urge incontinence 05/07/2015 - she states that since she had more pain in her back she has had more incontinence - she thinks that she has been having dark urine since before she was seen in october - urinary incontinence Onset and Resolution sudden in onset 05/07/2015 None urinary incontinence Limitation on Activities moderately limits activities 05/07/2015 - she has been to see Dr. Wright about the incontinence - he wanted to have her use premarin vaginal cream and do the kegel exercises - she did both, but she stopped she cannot really remember when she stopped the treatments - urinary incontinence Exacerbating Factors medication 05/07/2015 - she takes vitamin C, fish oil, vitamin D urinary incontinence Pertinent Findings back pain 05/07/2015 Denies burning or itching. Has dark urine back pain Quality improving 05/07/2015 None back pain Alleviating Factors medication 05/07/2015 extra strength tylenol at night. back pain Location in the right upper back area 05/07/2015 None back pain Location in the left upper back area 05/07/2015 None back pain Onset of Symptom 1 months ago 05/07/2015 None back pain Limitation on Activities moderately limits activities 05/07/2015 None back pain Location diffusely 04/02/2015 None back pain Quality acute 04/02/2015 - pt states that she has been having spasms off and on for the past week and she has the pain going down her left side - and she has been taking extra strength tyelnol a few times a day as well as the pain pill. back pain Onset and Resolution sudden in onset 04/02/2015 None back pain Onset of Symptom 1 weeks ago 04/02/2015 None back pain Triggers no known associated factors 04/02/2015 None urinary incontinence Quality acute 04/02/2015 None urinary incontinence Onset and Resolution sudden in onset 04/02/2015 None urinary incontinence Pertinent Findings back pain 04/02/2015 Denies burning or itching. Has dark urine urinary incontinence Quality urge incontinence 04/02/2015 - she states that since she had more pain in her back she has had more incontinence - she thinks that she has been having dark urine since before she was seen in october - urinary incontinence Exacerbating Factors medication 04/02/2015 - she takes vitamin C, fish oil, vitamin D urinary incontinence Limitation on Activities moderately limits activities 04/02/2015 - she has been to see Dr. Wright about the incontinence - he wanted to have her use premarin vaginal cream and do the kegel exercises - she did both, but she stopped she cannot really remember when she stopped the treatments - blood pressure followup Quality chronic 02/26/2015 None blood pressure followup Onset and Resolution ongoing 02/26/2015 None blood pressure followup Onset of Symptom during adulthood 02/26/2015 None blood pressure followup Blood Pressure Values not checking blood pressure at home 02/26/2015 None blood pressure followup Severity mild 02/26/2015 None blood pressure followup Frequency of Episodes unchanged 02/26/2015 None blood pressure followup Significant Family History heart disease 02/26/2015 None blood pressure followup Triggers no known associated factors 02/26/2015 None blood pressure followup Alleviating Factors medication 02/26/2015 None blood pressure followup Pertinent Findings Denies dizziness 02/26/2015 None blood pressure followup Pertinent Findings Denies dyspnea 02/26/2015 None blood pressure followup Pertinent Findings Denies edema 02/26/2015 None myalgias Quality cramping 02/26/2015 None myalgias Quality aching 02/26/2015 None myalgias Onset and Resolution ongoing 02/26/2015 None myalgias Limitation on Activities moderately limits activities 02/26/2015 None myalgias Frequency of Episodes increasing 02/26/2015 None myalgias Onset of Symptom _ months ago 02/26/2015 None myalgias Triggers no known associated factors 02/26/2015 None myalgias Pertinent Findings Denies cough 02/26/2015 None myalgias Pertinent Findings Denies fever 02/26/2015 None myalgias Pertinent Findings Denies nausea 02/26/2015 None myalgias Pertinent Findings Denies weakness 02/26/2015 None myalgias Location on both legs 02/15/2015 None myalgias Quality cramping 02/15/2015 None myalgias Quality aching 02/15/2015 None myalgias Onset and Resolution gradual in onset 02/15/2015 None myalgias Quality intermittent 02/15/2015 None myalgias Pertinent Findings Denies fever 02/15/2015 None myalgias Pertinent Findings Denies cough 02/15/2015 None myalgias Pertinent Findings Denies muscle strain 02/15/2015 None myalgias Pertinent Findings Denies muscle redness 02/15/2015 None myalgias Pertinent Findings Denies muscle swelling 02/15/2015 None myalgias Pertinent Findings Denies warmth 02/15/2015 None cough Onset and Resolution resolved 02/15/2015 None cough Limitation on Activities does not limit activities 02/15/2015 None blood pressure followup Quality chronic 02/15/2015 None blood pressure followup Onset and Resolution ongoing 02/15/2015 None blood pressure followup Onset of Symptom during adulthood 02/15/2015 None blood pressure followup Blood Pressure Values not checking blood pressure at home 02/15/2015 None blood pressure followup Severity mild 02/15/2015 None blood pressure followup Frequency of Episodes unchanged 02/15/2015 None blood pressure followup Significant Family History heart disease 02/15/2015 None blood pressure followup Triggers no known associated factors 02/15/2015 None blood pressure followup Alleviating Factors medication 02/15/2015 None blood pressure followup Pertinent Findings Denies dizziness 02/15/2015 None blood pressure followup Pertinent Findings Denies dyspnea 02/15/2015 None blood pressure followup Pertinent Findings Denies edema 02/15/2015 None cough Onset and Resolution resolved 11/06/2014 None cough Limitation on Activities does not limit activities 11/06/2014 None blood pressure followup Quality chronic 11/06/2014 None blood pressure followup Onset and Resolution ongoing 11/06/2014 None blood pressure followup Onset of Symptom during adulthood 11/06/2014 None blood pressure followup Blood Pressure Values not checking blood pressure at home 11/06/2014 None blood pressure followup Severity mild 11/06/2014 None blood pressure followup Frequency of Episodes unchanged 11/06/2014 None blood pressure followup Significant Family History heart disease 11/06/2014 None blood pressure followup Triggers no known associated factors 11/06/2014 None blood pressure followup Alleviating Factors medication 11/06/2014 None blood pressure followup Pertinent Findings Denies dizziness 11/06/2014 None blood pressure followup Pertinent Findings Denies dyspnea 11/06/2014 None blood pressure followup Pertinent Findings Denies edema 11/06/2014 None cough Location in the lung 10/24/2014 None cough Quality acute --Improved cough Onset and Resolution sudden in onset 10/24/2014 None cough Limitation on Activities moderately limits activities 10/24/2014 -- Improved sinus congestion Severity moderate 10/24/2014 --Improved sinus congestion Timing of Episodes all day long 10/24/2014 None cough Quality productive 10/24/2014 --Improved cough Frequency of Episodes decreasing 10/24/2014 None sinus congestion Frequency of Episodes decreasing 10/24/2014 None sinus congestion Pertinent Findings cough 10/24/2014 None sinus congestion Pertinent Findings Denies fever 10/24/2014 None fatigue Limitation on Activities moderately limits activities 10/19/2014 None fatigue Frequency of Episodes daily 10/19/2014 None fatigue Triggers exertion 10/19/2014 None fatigue Alleviating Factors rest 10/19/2014 None cough Location in the lung 10/19/2014 None sinus congestion Onset of Symptom 2 weeks ago 10/19/2014 None sinus congestion Severity moderate 10/19/2014 None sinus congestion Frequency of Episodes increasing 10/19/2014 None sinus congestion Timing of Episodes all day long 10/19/2014 None cough Quality acute None cough Quality constant 10/19/2014 None cough Quality hacking 10/19/2014 None cough Onset and Resolution sudden in onset 10/19/2014 None cough Quality productive 10/19/2014 None cough Limitation on Activities moderately limits activities 10/19/2014 None cough Frequency of Episodes increasing 10/19/2014 None earache Location right ear 09/15/2014 None earache Onset of Symptom _ months ago 09/15/2014 1 year ago. 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 Reports lots of itching to forehead and head diarrhea Onset of Symptom _ hours ago 09/15/2014 started this morning- reports this happens to her intermittently diarrhea Pertinent Findings cramping 09/15/2014 this morning blood pressure followup Alleviating Factors diet changes 09/15/2014 None blood pressure followup Alleviating Factors exercise 09/15/2014 None blood pressure followup Alleviating Factors medication 09/15/2014 None blood pressure followup Frequency of Episodes unchanged 09/15/2014 None blood pressure followup Onset and Resolution ongoing 09/15/2014 None blood pressure followup Onset of Symptom during childhood 09/15/2014 None blood pressure followup Quality chronic 09/15/2014 None blood pressure followup Triggers stress 09/15/2014 None Advance Directives No Advance Directive data Encounters Encounter Performer Location Codes Date ([id number]) [id number] EST. 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 PATIENT, LEVEL IV Diagnosis: Essential (primary) hypertension[ICD10: I10] Diagnosis: Other osteoporosis with current pathological fracture, vertebra(e), subsequent encounter for fracture with routine healing[ICD10: M80.88XD] Diagnosis: Encounter for immunization[ICD10: Z23] Diagnosis: Other seasonal allergic rhinitis[ICD10: J30.2] Sole Mcdermott MD [facility] CPT-4: 65190 01/06/2017 ([id number]) 91452 EST. PATIENT, LEVEL III Diagnosis: Muscle spasm of back[ICD10: M62.830] Sole Mcdermott MD [facility] CPT-4: 49394 12/02/2016 ([id number]) 31067 EST. PATIENT, LEVEL III Diagnosis: Muscle spasm of back[ICD10: M62.830] Sole Mcdermott MD [facility] CPT-4: 79426 11/18/2016 ([id number]) 29979 EST. PATIENT, LEVEL IV Diagnosis: Essential (primary) hypertension[ICD10: I10] Diagnosis: Other osteoporosis with current pathological fracture, vertebra(e), subsequent encounter for fracture with routine healing[ICD10: M80.88XD] Sole Mcdermott MD [facility] CPT-4: 48195 10/29/2016 ([id number]) 05995 EST. PATIENT, LEVEL IV Diagnosis: Essential (primary) hypertension[ICD10: I10] Diagnosis: Mixed hyperlipidemia[ICD10: E78.2] Diagnosis: Low back pain[ICD10: M54.5] Diagnosis: Encounter for screening for osteoporosis[ICD10: Z13.820] Sole Mcdermott MD [facility] CPT-4: 97871 09/18/2016 [id number] EST. PATIENT, LEVEL III Diagnosis: Low back pain[ICD10: M54.5] Renetta Mcdermott MD [facility] CPT-4 : 50575 08/11/2016 [id number] EST. PATIENT, LEVEL III Diagnosis: Low back pain[ICD10: M54.5] Renetta Mcdermott MD, [facility] CPT-4 : 83064 08/07/2016 ([id number]) Miscellaneous no charge Diagnosis: Pneumonia due to other specified infectious organisms[ICD10: J16.8] [facility] CPT-4: 43774 04/18/2016 01395 EST. PATIENT, LEVEL IV Diagnosis: Pneumonia due to other specified infectious organisms[ICD10: J16.8] Renetta Mcdermott MD, [facility] CPT-4: 25428 04/17/2016 ([id number]) 11854 EST. PATIENT, LEVEL III Diagnosis: Essential (primary) hypertension[ICD10: I10] Sole Mcdermott MD [facility] CPT-4: 94368 03/26/2016 ([id number]) 02279 EST. 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 PATIENT, LEVEL IV Diagnosis: Essential (primary) hypertension[ICD10: I10] Diagnosis: Abdominal aortic aneurysm, without rupture[ICD10: I71.4] Sole Mcdermott MD, [facility] CPT-4: 53887 05/07/2015 ([id number]) 03443 EST. PATIENT, LEVEL IV Diagnosis: Essential (primary) hypertension[ICD10: I10] Diagnosis: Mixed hyperlipidemia[ICD10: E78.2] Diagnosis: Constipation, unspecified[ICD10: K59.00] Diagnosis: Mixed incontinence[ICD10: N39.46] Sole Mcdermott MD, [facility] CPT-4: 14249 04/02/2015 ([id number]) 05890 EST. PATIENT, LEVEL IV Diagnosis: Essential (primary) hypertension[ICD10: I10] Diagnosis: Myalgia[ICD10: M79.1] Diagnosis: Hypo-osmolality and hyponatremia[ICD10: E87.1] Diagnosis: Pain in leg, unspecified[ICD10: M79.606] Oriana Mcdermott MD, [facility] CPT-4: 77204 02/26/2015 [id number] EST. PATIENT, LEVEL III Diagnosis: Myalgia[ICD10: M79.1] Renetta Mcdermott MD, [facility] CPT-4: 30021 02/15/2015 ([id number]) 52945 EST. PATIENT, LEVEL III Diagnosis: ESSENTIAL HYPERTENSION[ICD9: 401.9] Sole Mcdermott MD, [facility] CPT-4: 65233 11/06/2014 ([id number]) Miscellaneous no charge Diagnosis: Community acquired pneumonia[ICD9: 486] [facility] CPT-4: 61083 10/24/2014 ([id number]) 04436 EST. PATIENT, LEVEL III Diagnosis: Community acquired pneumonia[ICD9: 486] Laverne Mcdermott MD, [facility] CPT-4: 58324 10/19/2014 ([id number]) OFFICE/OUTPATIENT VISIT NEW Diagnosis: ESSENTIAL HYPERTENSION[ICD9: 401.9] Diagnosis: Tick bite[ICD9: 919.4] Diagnosis: Actinic keratosis[ICD9: 702.0] Diagnosis: Hyperlipidemia[ICD9: 272.4] Sole Mcdermott MD, [facility] CPT- 4: 92826 09/15/2014 Plan of Care Planned Activity Notes Codes Status Date Patient Education: Patient Medication Summary Completed 05/13/2017 Appointment: Sole Mcdermott WPtel: [address] [place], [place] [id number] [place] (15 min) Moderate 01/06/2017 Patient Education: Patient Medication Summary Completed 01/06/2017 Patient Education: Hypertension Completed 01/06/2017 Appointment: Sole Mcdermott WPtel: [address] [place], [place] [id number] [place] (15 min) Moderate 12/30/2016 Appointment: Sole Mcdermott WPtel: [address] [place] [id number] [place] (15 min) Moderate 12/02/2016 Patient Education: Patient Medication Summary Completed 12/02/2016 Appointment: [facility] [phone] [facility] [place] (15 min) Moderate 11/18/2016 Referral: [facility] W[facility]: Referral Completed 11/18/2016 Patient Education: Patient Medication Summary Completed 11/18/2016 Appointment: Sole Mcdermott [facility]Ptel: [facility] [facility] (15 min) Moderate 10/29/2016 Patient Education: Patient Medication Summary Completed 10/29/2016 Patient Education: Hypertension Completed 10/29/2016 Care Plan: Referral Order SNOMED-CT : [id number] Pending 10/29/2016 Appointment: Sole Mcdermott WPtel: [facility] [facility] [facility] [place] (15 min) Moderate 09/24/2016 Appointment: Sole Mcdermott WPtel: [facility] [facility] [facility] [place] (15 min) Moderate 09/18/2016 Patient Education: Patient Medication Summary Completed 09/18/2016 Patient Education: Hypertension Completed 09/18/2016 Care Plan: DXA BONE DENSITY AXIAL LOINC : 50625-0 Pending 09/18/2016 Referral: [facility]el: [phone] [id number] Referral Completed 08/25/2016 Care Plan: Referral Order SNOMED-CT : [id number] Pending 08/15/2016 App[facility]ment[id number] [place] ([facility] min) Complex 08/11/2016 Patient Education: Patient Medication Summary Completed 08/11/2016 Appointment: Renetta Mc WPtel: [address] [place], [place] [id number] [place] (30 min) Complex 08/07/2016 Patient Education: Patient Medication Summary Completed 08/07/2016 Appointment: Renetta Mc [id number] [place] (30 min) Complex 05/01/2016 Appointment: Nurse Visit 04/18/2016 Patient Education: Patient Medication Summary Completed 04/18/2016 App[facility]ment: [facility] Mc [facility] [phone] [id number] [place] (15 min) Moderate 04/17/2016 Patient Education: Patient Medication Summary Completed 04/17/2016 Appointment: [facility]dermott [facility] [phone] [facility] [place] (15 min) Moderate 03/26/2016 Patient Education: Patient Medication Summary Completed 03/26/2016 Patient Education: Hypertension Completed 03/26/2016 Appointment: [facility]dermott [facility] [phone] [facility] [place] (15 min) Moderate 11/27/2015 Patient Education: Patient Medication Summary Completed 11/27/2015 Patient Education: Hypertension Completed 11/27/2015 Appointment: Sole Mcdermott WPtel: [phone] [facility] [place] (15 min) Moderate 11/06/2015 Referral: Carson Mae Referral Completed 08/13/2015 Appointment: [facility] Mcdermott [facility]el[facility] [phone] [facility] [place] (15 min) Moderate 08/07/2015 Patient Education: Patient Medication Summary Completed 08/07/2015 Care Plan: Referral Order SNOMED-CT : [id number] Pending 08/07/2015 Appointment: Sole Mcdermott [facility]Ptel[facility] [phone] [facility] [place] (15 min) Moderate 05/07/2015 Patient Education: Patient Medication Summary Completed 05/07/2015 Patient Education: Hypertension Completed 05/07/2015 Appointment: Sole Mcdermott [facility]Ptel[facility] [phone] [facility] [place] (15 min) Moderate 04/02/2015 Patient Education: Patient Medication Summary Completed 04/02/2015 Patient Education: Hypertension Completed 04/02/2015 Appointment: (15 min) Moderate 02/26/2015 Patient Education: Patient Medication Summary Completed 02/26/2015 Patient Education: Hypertension Completed 02/26/2015 Appointment: (15 min) Moderate 02/15/2015 Patient Education: Patient Medication Summary Completed 02/15/2015 Appointment: Oriana Anderson WPtel: [phone] (15 min) Moderate 11/06/2014 Patient Education: Patient Medication Summary Completed 11/06/2014 Patient Education: Hypertension Completed 11/06/2014 Appointment: (15 min) Moderate 10/24/2014 Patient Education: Patient Medication Summary Completed 10/24/2014 Appointment: (30 min) Complex 10/19/2014 Patient Education: Patient Medication Summary Completed 10/19/2014 App[facility]ment: [facility] Anderson [facility]el[phone] [place] New Patient 09/15/2014 Patient Education: Patient Medication Summary Completed 09/15/2014 Patient Education: Hypertension Completed 09/15/2014 Referral: [facility] WPtel: [address] [id number] Referral Completed Referral: Carson Mae Referral Appointment Requested Referral: [facility] WPtel: Referral Appointment Requested Instructions No Instructions
--- OUTSIDE RECORDS SUMMARY | 2017-07-05 15:10 | XMS REPORT | CCD ---
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 Role Phone PP Unavailable CCM Unavailable Summary Purpose Interface Exchange Insurance Providers Payer name Policy type / Coverage type Covered constitution party ID Effective Begin Date Effective End Date WPS Medicare Part B Medicare Part B [id number] Unknown Unknown [facility] Medicare Part B [id number] Unknown Unknown Family history Mother Diagnosis Age At Onset Heart Attack Unknown Social History Social History Element Codes Description Effective Dates Marital status Unknown 09/15/2014 Number of children Unknown 3 09/15/2014 Employment Unknown Retired 09/15/[address]: 1097126 Former smoker quit 1981 09/15/[address]: 469295242 Never drinks alcohol 09/15/2014 Allergies, Adverse Reactions, [...] Fill Instructions Bystolic 5 mg tablet RxNorm: 915141 1 Tablet(s) PO daily 201612/31/2017 Active Plavix 75 mg tablet RxNorm: 977960 1 Tablet(s) PO daily 201612/31/2017 Active pantoprazole 40 mg tablet,delayed release RxNorm: 212603 1 Tablet(s) PO daily 01/06/2017 12/31/2017 Active Ranexa 500 mg tablet,extended release RxNorm: 257095 1 Tablet(s) PO BID 01/06/2017 12/31/2017 Active lisinopril 20 mg tablet RxNorm: 798434 1 Tablet(s) PO daily 12/31/2017 Active rosuvastatin 10 mg tablet RxNorm: 865360 1 Tablet(s) PO QHS 12/31/2017 Active Valium 2 mg tablet RxNorm: 713446 /4 to 1/2 Tablet(s) PO BID as needed muscle spasms 11/18/2016 11/18/2016 Inactive calcitonin (salmon) 200 unit/actuation nasal spray RxNorm: 136170 1 [place] NASAL One spray in 1 nostril once daily 08/20/2016 01/05/2017 Inactive lisinopril 20 mg tablet RxNorm: 334184 TAKE ONE TABLET BY MOUTH DAILY 08/14/2016 01/05/2017 Inactive tramadol 50 mg tablet RxNorm: 965425 1/2-1 Tablet(s) PO Q6 as needed if tylenol doesn't work 08/13/2016 08/26/2016 Inactive tramadol 50 mg tablet RxNorm: 251925 1/2 Tablet(s) PO BID as needed for pain not controlled by tylenol 08/07/2016 No Stop Date Active tramadol 50 mg tablet RxNorm: 408997 1/2-1 Tablet(s) PO Q6 as needed if tylenol doesn't work 08/07/2016 08/12/2016 Inactive cyclobenzaprine 5 mg tablet RxNorm: 728458 1/2 Tablet(s) PO QHS as needed muscle spasms 08/07/2016 08/08/2016 Inactive Zithromax Z-Mark 250 mg tablet RxNorm: 740907 1 Tablet(s) PO UD 04/17/2016 08/13/2016 Inactive cefdinir 300 mg capsule RxNorm: 317814 1 Capsule(s) PO BID 04/25/2016 Inactive cefdinir 300 mg capsule RxNorm: 491828 1 Capsule(s) PO BID 04/15/2016 Inactive lisinopril 20 mg tablet RxNorm: 743153 TAKE ONE TABLET BY MOUTH DAILY 01/09/2016 08/13/2016 Inactive Premarin 0.625 mg/gram vaginal cream RxNorm: 134611 1 Gram(s) VAG BIW 04/02/2015 08/06/2015 Inactive Crestor 10 mg tablet RxNorm: 554122 1/2 Tablet(s) PO daily 12/201405/06/2015 Inactive lisinopril 20 mg tablet RxNorm: 135054 1 Tablet(s) PO daily 12/09/2015 Inactive lisinopril 20 mg tablet RxNorm: 649625 1 Tablet(s) PO daily 10/201412/14/2014 Inactive prednisone 20 mg tablet RxNorm: 564621 1 Tablet(s) PO BID 10/2310/27/2014 Inactive doxycycline hyclate 100 mg tablet RxNorm: 116439 1 Tablet(s) PO BID 10/19/2014 10/28/2014 Inactive PATIENT ALREADY HAS 9 DOXYCYCLINE PILLS AT HOME. FINISH THE BOTTLE AT HOME BEFORE STARTING THIS BOTTLE. THEN START THIS BOTTLE AND CONTINUE TO TAKE TWO TIMES PER DAY UNTIL GONE doxycycline hyclate 100 mg tablet RxNorm: 980433 1 Tablet(s) PO BID 09/25/2014 09/24/2014 Inactive doxycycline hyclate 100 mg tablet RxNorm: 155802 1 Tablet(s) PO BID 09/25/2014 10/01/2014 Inactive Protonix 40 mg tablet,delayed release RxNorm: 945116 Tablet(s) PO daily 09/15/2014 10/14/2014 Inactive Stool Softener 100 mg tablet RxNorm: 3106008 Tablet(s) PO as needed No Start Date Active Baby Aspirin 81 mg chewable tablet RxNorm: 169137 1 Tablet(s) PO daily No Start Date Active Vitamin C 500 mg chewable tablet RxNorm: 515461 1 Tablet(s) PO daily No Start Date Active Tylenol Extra Strength 500 mg capsule RxNorm: 188100 1 Capsule(s) PO QHS No Start Date Active Vitamin D2 1,000 unit capsule RxNorm: 763881 2 Capsule(s) PO daily No Start Date Active Crestor 10 mg tablet RxNorm: 587099 1 Tablet(s) PO daily No Start Date 02/25/2015 Inactive Plavix 75 mg tablet RxNorm: 951174 1 Tablet(s) PO daily No Start Date 01/05/2017 Inactive Ranexa 500 mg tablet,extended release RxNorm: 749898 Tablet(s) PO BID No Start Date 01/05/2017 Inactive calcitonin (salmon) 200 unit/actuation nasal spray RxNorm: 377526 1 [place] NASAL One spray in 1 nostril once daily No Start Date 08/19/2016 Inactive Bystolic 5 mg tablet RxNorm: 948571 1 Tablet(s) PO daily No Start Date 01/05/2017 Inactive tramadol 50 mg tablet RxNorm: 768477 1/2-1 Tablet(s) PO Q6 as needed No Start Date 05/06/2015 Inactive pantoprazole 40 mg tablet,delayed release RxNorm: 797552 1 Tablet(s) PO daily No Start Date 01/05/2017 Inactive rosuvastatin 10 mg tablet RxNorm: 147506 1 Tablet(s) PO QHS No Start Date 01/05/2017 Inactive lisinopril 20 mg tablet RxNorm: 262711 1 Tablet(s) PO daily No Start Date 11/23/2014 Inactive calcitonin (salmon) 200 unit/actuation nasal spray RxNorm: 956235 1 [place] NASAL daily No Start Date 01/05/2017 Inactive [...] Observation Code Item Item Code Result Date Cbc With Differential Ord2 WBC 5.47 K/ul 05/14/2017 Cbc With Differential Ord2 RBC 3.55 M/ul 05/14/2017 Cbc With Differential Ord2 HGB 12.7 g/dl 05/14/2017 Cbc With Differential Ord2 Neut% 31.4 % 05/14/2017 Cbc With Differential Ord2 HCT 36.3 % 05/14/2017 Cbc With Differential Ord2 Lymph% 58.9 % 05/14/2017 Cbc With Differential Ord2 MCV 102.3 fl 05/14/2017 Cbc With Differential Ord2 MCH 35.8 pg 05/14/2017 Cbc With Differential Ord2 Motley% 8.6 % 05/14/2017 Cbc With Differential Ord2 MCHC 35.0 pg 05/14/2017 Cbc With Differential Ord2 Eos% 0.9 % 05/14/2017 Cbc With Differential Ord2 PLT 210 K/ul 05/14/2017 Cbc With Differential Ord2 Baso% 0.2 % 05/14/2017 Cbc With Differential Ord2 Neut ABS# 1.72 K/ul 05/14/2017 Cbc With Differential Ord2 RDW 12.6 % 05/14/2017 Cbc With Differential Ord2 Lymph ABS# 3.22 K/ul 05/14/2017 Cbc With Differential Ord2 Motley ABS# 0.5 K/ul 05/14/2017 Cbc With Differential Ord2 Eos ABS# 0.1 K/ul 05/14/2017 Cbc With Differential Ord2 Baso ABS# 0.0 K/ul 05/14/2017 Lipid Ord30 CHOL 147 mg/dL 01/30/2016 Lipid Ord30 HDL 51.0 mg/dl 01/30/2016 Lipid Ord30 TRIG 142 mg/dL 01/30/2016 Lipid Ord30 LDL 68 mg/dL 01/30/2016 Lipid Ord30 C/HDL 2.9 Ratio 01/30/2016 Comp Metabolic Nlk101 NA 139 mEq/L 01/30/2016 Comp Metabolic Fss209 K 4.1 mEq/L 01/30/2016 Comp Metabolic Yco937 CL 103 mEq/L 01/30/2016 Comp Metabolic Oth987 CO2 30.0 mEq/L 01/30/2016 Comp Metabolic Njs685 ANION GAP 10 01/30/2016 Comp Metabolic Grm851 GLUCOSE 92 mg/dL 01/30/2016 Comp Metabolic Fzw235 Creat 0.7 mg/dL 01/30/2016 Comp Metabolic Nvt229 eGFR 86 ml/min/1.73m2 01/30/2016 Comp Metabolic Clt695 BUN 12 mg/dL 01/30/2016 Comp Metabolic Gjx973 B/C Ratio 17.4 Ratio 01/30/2016 Comp Metabolic Kyv132 CALCIUM 8.9 mg/dL 01/30/2016 Comp Metabolic Xkk250 ALK PHOS 58 U/L 01/30/2016 Comp Metabolic Uzx749 AST(SGOT) 22 U/L 01/30/2016 Comp Metabolic Gxs295 ALT(SGPT) 17 U/L 01/30/2016 Comp Metabolic Skb893 BILI T 0.5 mg/dL 01/30/2016 Comp Metabolic Laa827 ALBUMIN 3.9 g/dL 01/30/2016 Comp Metabolic Djb482 TPRO 6.5 g/dL 01/30/2016 Comp Metabolic Ahj109 GLOB 2.6 g/dL 01/30/2016 Comp Metabolic Rtj717 A/G Ratio 1.5 Ratio 01/30/2016 Comp Metabolic Npx643 Osmo 277 mOsmo 01/30/2016 Manual Differential Ord52 [...] Ord2 RDW 13.0 % 03/27/2015 Comp Metabolic Yhe367 NA 133 mEq/L 02/26/2015 Comp Metabolic Sle683 K 4.7 mEq/L 02/26/2015 Comp Metabolic Mir730 CL 98 mEq/L 02/26/2015 Comp Metabolic Tfc323 CO2 29.0 mEq/L 02/26/2015 Comp Metabolic Sgi218 ANION GAP 11 02/26/2015 Comp Metabolic Bgk436 GLUCOSE 91 mg/dL 02/26/2015 Comp Metabolic Oqq891 Creat 0.7 mg/dL 02/26/2015 Comp Metabolic Yqq298 eGFR 83 ml/min/1.73m2 02/26/2015 Comp Metabolic Jen207 BUN 14 mg/dL 02/26/2015 Comp Metabolic Ztg067 B/C Ratio 19.7 Ratio 02/26/2015 Comp Metabolic Atq755 CALCIUM 9.8 mg/dL 02/26/2015 Comp Metabolic Amo445 ALK PHOS 52 U/L 02/26/2015 Comp Metabolic Zbc193 AST(SGOT) 24 U/L 02/26/2015 Comp Metabolic Sue521 ALT(SGPT) 23 U/L 02/26/2015 Comp Metabolic Qmd346 BILI T 0.4 mg/dL 02/26/2015 Comp Metabolic Her860 ALBUMIN 4.4 g/dL 02/26/2015 Comp Metabolic Hzi694 TPRO 6.9 g/dL 02/26/2015 Comp Metabolic Ihs761 GLOB 2.5 g/dL 02/26/2015 Comp Metabolic Uze224 A/G Ratio 1.8 Ratio 02/26/2015 Comp Metabolic Nxz233 Osmo 266 mOsmo 02/26/2015 Vitamin D 25 Oh Nph5015 VITAMIN D, 25 HYDROXY 56.96 ng/mL Tsh [...] Ord30 C/HDL 3.5 Ratio 01/08/2015 Comp Metabolic Bdi971 NA 136 mEq/L 01/08/2015 Comp Metabolic Yua581 K 4.4 mEq/L 01/08/2015 Comp Metabolic Dfp450 CL 101 mEq/L 01/08/2015 Comp Metabolic Pco842 CO2 31.0 mEq/L 01/08/2015 Comp Metabolic Etz207 ANION GAP 8 01/08/2015 Comp Metabolic Yuo841 GLUCOSE 108 mg/dL 01/08/2015 Comp Metabolic Oyn934 Creat 0.7 mg/dL 01/08/2015 Comp Metabolic Wkd900 eGFR 86 ml/min/1.73m2 01/08/2015 Comp Metabolic Vqc399 BUN 11 mg/dL 01/08/2015 Comp Metabolic Shh535 B/C Ratio 15.9 Ratio 01/08/2015 Comp Metabolic Sli768 CALCIUM 9.6 mg/dL 01/08/2015 Comp Metabolic Uez614 ALK PHOS 54 U/L 01/08/2015 Comp Metabolic Trj847 AST(SGOT) 21 U/L 01/08/2015 Comp Metabolic Ddr110 ALT(SGPT) 20 U/L 01/08/2015 Comp Metabolic Dba672 BILI T 0.5 mg/dL 01/08/2015 Comp Metabolic Tqs097 ALBUMIN 4.3 g/dL 01/08/2015 Comp Metabolic Ism646 TPRO 6.8 g/dL 01/08/2015 Comp Metabolic Qcf933 GLOB 2.5 g/dL 01/08/2015 Comp Metabolic Nis989 A/G Ratio 1.7 Ratio 01/08/2015 Comp Metabolic Pqu981 Osmo 272 mOsmo 01/08/2015 Review of Systems [...] accomodation 11/18/2016 None Full Exam - General 1994 Ears/Nose/Throat oral cavity/pharynx/larynx Overall: oral mucosa clear 11/18/2016 None Full Exam - General 1994 Ears/Nose/Throat oral cavity/pharynx/larynx Overall: oropharyngeal mucosa clear 11/18/2016 None Full Exam - General 1995 Ears/Nose/Throat oral cavity/pharynx/larynx Overall: hypopharynx benign 11/18/2016 [...] FLU VACC PRSV FREE INC ANTIG CPT-4: 26539 01/06/2017 ADMIN PNEUMOCOCCAL VACCINE SNOMED CT: 52833774 CPT-4: G0009 01/06/2017 PNEUMOCOCCAL VACC [address]: 00772405 CPT-4: 07898 01/06/2017 IIV4 FLU VACC NO PRESERV ID Formatting Model/CDA Sections, Assigned to/Abigail Balderas SNOMED CT: 79999138 CPT-4: 11865Muavuls 02/26/2015 IMMUNIZATION ADMIN CPT -4: 38780 02/26/2015 Vital Signs Date Vital 05/13/2017 Blood Pressure 1: 160/78 Code : 8480-6 BMI: 21.3 Code : 80489-9 Heart Rate 1 : 66 bpm Height: 5' SpO2: 99% Weight: 109 lbs 01/06/2017 Blood Pressure 1: 158/74 Code : 8480-6 Blood Pressure 1: 136/70 Code: 8480-6 BMI: 22.5 Code: 79374-5 Heart Rate 1: 56 bpm Height: 5' SpO2: 98% Weight: 115 lbs 12/02/2016 Blood Pressure 1: 124/66 Code : 8480-6 BMI: 22.5 Code : 41518-7 Heart Rate 1 : 75 bpm Height: 5' SpO2: 97% Weight: 115 lbs 11/18/2016 Blood Pressure 1: 134/80 Code : 8480-6 BMI: 21.7 Code : 92179-0 Heart Rate 1 : 70 bpm Height: 5' SpO2: 95% Weight: 111 lbs 10/29/2016 Blood Pressure 1: 128/80 Code : 8480-6 BMI: 22.1 Code : 86950-0 Heart Rate 1 : 66 bpm Height: 5' SpO2: 93% Weight: 113 lbs 09/18/2016 Blood Pressure 1: 110/50 Code : 8480-6 BMI: 22.3 Code : 85150-2 Heart Rate 1 : 67 bpm Height: 5' SpO2: 97% Weight: 114 lbs 08/11/2016 Blood Pressure 1: 148/76 Code : 8480-6 BMI: 23.8 Code : 62789-7 Heart Rate 1 : 71 bpm Height: 5' SpO2: 94% Weight: 122 lbs 08/07/2016 Blood Pressure 1: 138/86 Code : 8480-6 BMI: 23.8 Code : 03522-7 Heart Rate 1 : 70 bpm Height: 5' SpO2: 95% Weight: 122 lbs 04/17/2016 Blood Pressure 1: 132/74 Code : 8480-6 BMI: 23.8 Code : 65798-3 Heart Rate 1 : 64 bpm Height: 5' SpO2: 94% Weight: 122 lbs 03/26/2016 Blood Pressure 1: 126/62 Code : 8480-6 BMI: 23.8 Code : 57137-5 Heart Rate 1 : 64 bpm Height: 5' SpO2: 97% Weight: 122 lbs 11/27/2015 Blood Pressure 1: 148/68 Code : 8480-6 BMI: 23.3 Code : 45282-8 Heart Rate 1 : 62 bpm Height: 5' SpO2: 97% Weight: 119 lbs 8 oz 08/07/2015 Blood Pressure 1: 132/66 Code : 8480-6 BMI: 24.2 Code : 80644-2 Heart Rate 1 : 53 bpm Height: 5' SpO2: 98% Weight: 124 lbs 05/07/2015 Blood Pressure 1: 130/70 Code : 8480-6 Blood Pressure 1: 134/70 Code: 8480-6 BMI: 23.6 Code: 25745-1 Heart Rate 1: 63 bpm Height: 5' SpO2: 98% Weight: 121 lbs 04/02/2015 Blood Pressure 1: 132/72 Code : 8480-6 BMI: 23.8 Code : 51729-6 Heart Rate 1 : 67 bpm Height: 5' SpO2: 94% Weight: 122 lbs 02/26/2015 Blood Pressure 1: 136/60 Code : 8480-6 BMI: 24.0 Code : 86107-9 Heart Rate 1 : 57 bpm Height: 5' SpO2: 96% Weight: 123 lbs 02/15/2015 Blood Pressure 1: 155/80 Code : 8480-6 BMI: 23.8 Code : 42342-9 Heart Rate 1 : 59 bpm Height: 5' SpO2: 94% Weight: 122 lbs 11/06/2014 Blood Pressure 1: 136/80 Code : 8480-6 BMI: 23.8 Code : 50038-8 Heart Rate 1 : 86 bpm Height: 5' SpO2: 95% Weight: 122 lbs 10/24/2014 Blood Pressure 1: 136/60 Code : 8480-6 BMI: 24.0 Code : 08830-9 Heart Rate 1 : 66 bpm Height: 5' SpO2: 96% Weight: 123 lbs 10/19/2014 Blood Pressure 1: 136/70 Code : 8480-6 BMI: 24.0 Code : 07425-3 Heart Rate 1 : 55 bpm Height: 5' SpO2: 95% Weight: 123 lbs 09/15/2014 Blood Pressure 1: 122/70 Code : 8480-6 BMI: 23.6 Code : 28009-6 Heart Rate 1 : 63 bpm Height: [...] data Encounters Encounter Performer Location Codes Date ([id number]) [id number] EST. PATIENT, LEVEL IV Diagnosis: Essential (primary) hypertension[ICD10: I10] Diagnosis: Age-related osteoporosis without current pathological fracture[ICD10 : M81.0] Diagnosis: Dysuria[ICD10: R30.0] Sole Mcdermott MD, [facility] CPT-4: 70273 05/13/2017 [id number]) 31607 EST. PATIENT, LEVEL IV Diagnosis: Essential (primary) hypertension[ICD10: I10] Diagnosis: Other osteoporosis with current pathological fracture, vertebra(e), subsequent encounter for fracture with routine healing[ICD10: M80.88XD] Diagnosis: Encounter for immunization[ICD10: Z23] Diagnosis: Other seasonal allergic rhinitis[ICD10: J30.2] Sole Mcdermott MD, [facility] CPT-4: 90812 01/06/2017 ([id number]) 36955 EST. PATIENT, LEVEL III Diagnosis: Muscle spasm of back[ICD10: M62.830] [facility] CPT-4: 72374 12/02/2016 ([id number]) 97387 EST. PATIENT, LEVEL III Diagnosis: Muscle spasm of back[ICD10: M62.830] Sole Mcdermott MD, [facility] CPT-4: 39200 11/18/2016 ([id number]) 59888 EST. PATIENT, LEVEL IV Diagnosis: Essential (primary) hypertension[ICD10: I10] Diagnosis: Other osteoporosis with current pathological fracture, vertebra(e), subsequent encounter for fracture with routine healing[ICD10: M80.88XD] Sole Mcdermott MD [facility] CPT-4: 73454 10/29/2016 ([id number]) 01252 EST. PATIENT, LEVEL IV Diagnosis: Essential (primary) hypertension[ICD10: I10] Diagnosis: Mixed hyperlipidemia[ICD10: E78.2] Diagnosis: Low back pain[ICD10: M54.5] Diagnosis: Encounter for screening for osteoporosis[ICD10: Z13.820] Sole Mcdermott MD [facility] CPT-4: 27714 09/18/2016 [id number] EST. PATIENT, LEVEL III Diagnosis: Low back pain[ICD10: M54.5] Renetta Mcdermott MD [facility] CPT-4 : 88594 08/11/2016 35852 EST. PATIENT, LEVEL III Diagnosis: Low back pain[ICD10: M54.5] Renetta Mcdermott MD [facility] CPT-4 : 78067 08/07/2016 ([id number]) Miscellaneous no charge Diagnosis: Pneumonia due to other specified infectious organisms[ICD10: J16.8] Renetta Mcdermott MD [facility] CPT-4: 22252 04/18/2016 [id number] EST. PATIENT, LEVEL IV Diagnosis: Pneumonia due to other specified infectious organisms[ICD10: J16.8] Renetta Mcdermott MD [facility] CPT-4: 04250 04/17/2016 ([id number]) 01654 EST. PATIENT, LEVEL III Diagnosis: Essential (primary) hypertension[ICD10: I10] Sole Mcdermott MD [facility] CPT-4: 11007 03/26/2016 ([id number]) 77626 EST. 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 PATIENT, LEVEL IV Diagnosis: Essential (primary) hypertension[ICD10: I10] Diagnosis: Abdominal aortic aneurysm, without rupture[ICD10: I71.4] Sole Mcdermott MD, [facility] CPT-4: 24890 05/07/2015 ([id number]) 22034 EST. PATIENT, LEVEL IV Diagnosis: Essential (primary) hypertension[ICD10: I10] Diagnosis: Mixed hyperlipidemia[ICD10: E78.2] Diagnosis: Constipation, unspecified[ICD10: K59.00] Diagnosis: Mixed incontinence[ICD10: N39.46] Sole Mcdermott MD, [facility] CPT-4: 58013 04/02/2015 ([id number]) 22517 EST. PATIENT, LEVEL IV Diagnosis: Essential (primary) hypertension[ICD10: I10] Diagnosis: Myalgia[ICD10: M79.1] Diagnosis: Hypo-osmolality and hyponatremia[ICD10: E87.1] Diagnosis: Pain in leg, unspecified[ICD10: M79.606] Oriana Mcdermott MD, [facility] CPT-4: 40967 02/26/2015 03095 EST. PATIENT, LEVEL III Diagnosis: Myalgia[ICD10: M79.1] Renetta Mcdermott MD, [facility] CPT-4: 84120 02/15/2015 ([id number]) 75724 EST. PATIENT, LEVEL III Diagnosis: ESSENTIAL HYPERTENSION[ICD9: 401.9] Sole Mcdermott MD, [facility] CPT-4: 57702 11/06/2014 ([id number]) Miscellaneous no charge Diagnosis: Community acquired pneumonia[ICD9: 486] [facility] CPT-4: 91411 10/24/2014 ([id number]) 60507 EST. PATIENT, LEVEL III Diagnosis: Community acquired pneumonia[ICD9: 486] Laverne Sanchez [facility] CPT-4: 96291 10/19/2014 ([id number]) OFFICE/OUTPATIENT VISIT NEW Diagnosis: ESSENTIAL HYPERTENSION[ICD9: 401.9] Diagnosis: Tick bite[ICD9: 919.4] Diagnosis: Actinic keratosis[ICD9: 702.0] Diagnosis: Hyperlipidemia[ICD9: 272.4] [facility] CPT- 4: 91984 09/15/2014 Plan of Care Planned Activity Notes Codes Status Date Appointment: Sole Mcdermott WPtel: [phone] [facility] [place] (15 min) Moderate 05/13/2017 Patient Education: Patient Medication Summary Completed 05/13/2017 Appointment: Sole Mcdermott WPtel: [phone] [facility] [place] (15 min) Moderate 01/06/2017 Patient Education: Patient Medication Summary Completed 01/06/2017 Patient Education: Hypertension Completed 01/06/2017 [phone] [facility] [place] ([place]) Moderate 12/30/2016 Appointment: Sole Mcdermott WPtel: [phone] [facility] [place] (15 min) Moderate 12/02/2016 Patient Education: Patient Medication Summary Completed 12/02/2016 [phone] [facility] [place] ([place] min) Moderate 11/18/2016 Referral: [facility] WPtel: Referral Completed 11/18/2016 Patient Education: Patient Medication Summary Completed 11/18/2016 App[facility]ment: [facility] [phone] [facility] [place] ([place] min) Moderate 10/29/2016 Patient Education: Patient Medication Summary Completed 10/29/2016 Patient Education: Hypertension Completed 10/29/2016 Care Plan: Referral Order SNOMED-CT : 889455453 Pending 10/29/2016 App[facility]ment: [facility] [phone] [facility] [place] ([place] min) Moderate 09/24/2016 Appointment: [facility] [phone] [facility] [place] (15 min) Moderate 09/18/2016 Patient Education: Patient Medication Summary Completed 09/18/2016 Patient Education: Hypertension Completed 09/18/2016 Care Plan: DXA BONE DENSITY AXIAL LOINC : 91769-8 Pending 09/18/2016 Referral: [facility], [facility] WPtel: [phone] [id number] [place] Referral Completed 08/25/2016 Care Plan: Referral Order SNOMED-CT : [id number] Pending 08/15/2016 Appointment: Ren[facility] Mc [facility] [place] (30 min) Complex 08/11/2016 Patient Education: Patient Medication Summary Completed 08/11/2016 Appointment: Renetta Mc [facility] [place] (30 min) Complex 08/07/2016 Patient Education: Patient Medication Summary Completed 08/07/2016 Appointment: Ren[facility] Mc [facility] [place] (30 min) Complex 05/01/2016 Appointment: Nurse Visit 04/18/2016 Patient Education: Patient Medication Summary Completed 04/18/2016 Appointment: Ren[facility] Mc [facility] [place] (15 min) Moderate 04/17/2016 Patient Education: Patient Medication Summary Completed 04/17/2016 App[facility]ment: [facility] [phone] [facility] [place] (15 min) Moderate 03/26/2016 Patient Education: Patient Medication Summary Completed 03/26/2016 Patient Education: Hypertension Completed 03/26/2016 Appointment: [facility] [phone] [facility] (15 min) Moderate 11/27/2015 Patient Education: Patient Medication Summary Completed 11/27/2015 Patient Education: Hypertension Completed 11/27/2015 Appointment: Sole Mcdermott WPtel: [phone] [facility] (15 min) Moderate 11/06/2015 Referral: Carson Mae Referral Completed 08/13/2015 Appointment: Sole Mcdermott WPtel: [phone] [facility] [place] (15 min) Moderate 08/07/2015 Patient Education: Patient Medication Summary Completed 08/07/2015 Care Plan: Referral Order SNOMED-CT : [id number] Pending 08/07/2015 Appointment: Sole Mcdermott WPtel: [facility] (15 min) Moderate 05/07/2015 Patient Education: Patient Medication Summary Completed 05/07/2015 Patient Education: Hypertension Completed 05/07/2015 Appointment: S[facility] Mcdermott [facility] ([place] min) Moderate 04/02/2015 Patient Education: Patient Medication Summary Completed 04/02/2015 Patient Education: Hypertension Completed 04/02/2015 Appointment: (15 min) Moderate 02/26/2015 Patient Education: Patient Medication Summary Completed 02/26/2015 Patient Education: Hypertension Completed 02/26/2015 Appointment: (15 min) Moderate 02/15/2015 Patient Education: Patient Medication Summary Completed 02/15/2015 Appointment: Ori[facility] Anderson [facility] [phone] [phone] [place] (15 min) Moderate 11/06/2014 Patient Education: Patient Medication Summary Completed 11/06/2014 Patient Education: Hypertension Completed 11/06/2014 Appointment: (15 min) Moderate 10/24/2014 Patient Education: Patient Medication Summary Completed 10/24/2014 Appointment: (30 min) Complex 10/19/2014 Patient Education: Patient Medication Summary Completed 10/19/2014 Appointment: Ori[facility] Anderson [phone] [place] ([place] New Patient 09/15/2014 Patient Education: Patient Medication Summary Completed 09/15/2014 Patient Education: Hypertension Completed 09/15/2014 Referral: Callie, [facility] WPtel: [address] [id number] Referral Completed Referral: Carson Mae Referral Appointment Requested Referral: [facility] WPtel: Referral Appointment Requested Instructions No Instructions
--- OUTSIDE RECORDS SUMMARY | 2017-07-05 15:12 | XMS REPORT | CCD ---
Author Author [facility] Mcdermott Organization [facility] Address [address] [place] [address] Phone Care Team Providers Care R D Internship Name Role Phone PP Unavailable CCM Unavailable Summary Purpose Interface Exchange Insurance Providers Payer name Policy type / Coverage type Covered constitution party ID Effective Begin Date Effective End Date WPS Medicare Part B Medicare Part B [id number] Unknown Unknown [facility] Medicare Part B [id number] Unknown Unknown Family history Mother Diagnosis Age At Onset Heart Attack Unknown Social History Social History Element Codes Description Effective Dates Marital status Unknown 09/15/2014 Number of children Unknown 3 09/15/2014 Employment Unknown Retired 09/15/[address]: 7654770 Former smoker quit 1981 09/15/[address]: 119857387 Never drinks alcohol 09/15/2014 Allergies, Adverse Reactions, Alerts Allergies, Adverse Reactions, Alerts data not found Past Medical History Illness Codes Condition Status Onset Date Resolved Date Dysuria ICD-9: 788.1 ICD-10: R30.0 Active 05/13/2017 Unknown Age-related osteoporosis without current pathological fracture ICD-9: 733.00 ICD-10: M81.0 Active 05/13/2017 Unknown Essential (primary) hypertension ICD-9: [...] Problems Condition Codes Effective Dates Condition Status Dysuria ICD-9: 788.1 ICD-10: R30.0 05/13/2017 Active Age-related osteoporosis without current pathological fracture ICD-9: 733.00 ICD-10: M81.0 05/13/2017 Active Essential (primary) hypertension ICD-9: 401.9 [...] Fill Instructions Bystolic 5 mg tablet RxNorm: 110296 1 Tablet(s) PO daily 201612/31/2017 Active Plavix 75 mg tablet RxNorm: 201744 1 Tablet(s) PO daily 201612/31/2017 Active pantoprazole 40 mg tablet,delayed release RxNorm: 856307 1 Tablet(s) PO daily 01/06/2017 12/31/2017 Active Ranexa 500 mg tablet,extended release RxNorm: 926085 1 Tablet(s) PO BID 01/06/2017 12/31/2017 Active lisinopril 20 mg tablet RxNorm: 901550 1 Tablet(s) PO daily 12/31/2017 Active rosuvastatin 10 mg tablet RxNorm: 461055 1 Tablet(s) PO QHS 12/31/2017 Active Valium 2 mg tablet RxNorm: 998636 /4 to 1/2 Tablet(s) PO BID as needed muscle spasms 11/18/2016 11/18/2016 Inactive calcitonin (salmon) 200 unit/actuation nasal spray RxNorm: 078268 1 [place] NASAL One spray in 1 nostril once daily 08/20/2016 01/05/2017 Inactive lisinopril 20 mg tablet RxNorm: 966881 TAKE ONE TABLET BY MOUTH DAILY 08/14/2016 01/05/2017 Inactive tramadol 50 mg tablet RxNorm: 869103 1/2-1 Tablet(s) PO Q6 as needed if tylenol doesn't work 08/13/2016 08/26/2016 Inactive tramadol 50 mg tablet RxNorm: 409672 1/2 Tablet(s) PO BID as needed for pain not controlled by tylenol 08/07/2016 No Stop Date Active tramadol 50 mg tablet RxNorm: 171694 1/2-1 Tablet(s) PO Q6 as needed if tylenol doesn't work 08/07/2016 08/12/2016 Inactive cyclobenzaprine 5 mg tablet RxNorm: 902258 1/2 Tablet(s) PO QHS as needed muscle spasms 08/07/2016 08/08/2016 Inactive Zithromax Z-Mark 250 mg tablet RxNorm: 345951 1 Tablet(s) PO UD 04/17/2016 08/13/2016 Inactive cefdinir 300 mg capsule RxNorm: 309819 1 Capsule(s) PO BID 04/25/2016 Inactive cefdinir 300 mg capsule RxNorm: 738773 1 Capsule(s) PO BID 04/15/2016 Inactive lisinopril 20 mg tablet RxNorm: 002569 TAKE ONE TABLET BY MOUTH DAILY 01/09/2016 08/13/2016 Inactive Premarin 0.625 mg/gram vaginal cream RxNorm: 035920 1 Gram(s) VAG BIW 04/02/2015 08/06/2015 Inactive Crestor 10 mg tablet RxNorm: 424861 1/2 Tablet(s) PO daily 12/201405/06/2015 Inactive lisinopril 20 mg tablet RxNorm: 066477 1 Tablet(s) PO daily 12/09/2015 Inactive lisinopril 20 mg tablet RxNorm: 025693 1 Tablet(s) PO daily 10/201412/14/2014 Inactive prednisone 20 mg tablet RxNorm: 366647 1 Tablet(s) PO BID 10/2310/27/2014 Inactive doxycycline hyclate 100 mg tablet RxNorm: 820881 1 Tablet(s) PO BID 10/19/2014 10/28/2014 Inactive PATIENT ALREADY HAS 9 DOXYCYCLINE PILLS AT HOME. FINISH THE BOTTLE AT HOME BEFORE STARTING THIS BOTTLE. THEN START THIS BOTTLE AND CONTINUE TO TAKE TWO TIMES PER DAY UNTIL GONE doxycycline hyclate 100 mg tablet RxNorm: 410887 1 Tablet(s) PO BID 09/25/2014 09/24/2014 Inactive doxycycline hyclate 100 mg tablet RxNorm: 809528 1 Tablet(s) PO BID 09/25/2014 10/01/2014 Inactive Protonix 40 mg tablet,delayed release RxNorm: 639982 Tablet(s) PO daily 09/15/2014 10/14/2014 Inactive Stool Softener 100 mg tablet RxNorm: 5583146 Tablet(s) PO as needed No Start Date Active Baby Aspirin 81 mg chewable tablet RxNorm: 303450 1 Tablet(s) PO daily No Start Date Active Vitamin C 500 mg chewable tablet RxNorm: 348211 1 Tablet(s) PO daily No Start Date Active Tylenol Extra Strength 500 mg capsule RxNorm: 465549 1 Capsule(s) PO QHS No Start Date Active Vitamin D2 1,000 unit capsule RxNorm: 239129 2 Capsule(s) PO daily No Start Date Active Crestor 10 mg tablet RxNorm: 111363 1 Tablet(s) PO daily No Start Date 02/25/2015 Inactive Plavix 75 mg tablet RxNorm: 808100 1 Tablet(s) PO daily No Start Date 01/05/2017 Inactive Ranexa 500 mg tablet,extended release RxNorm: 291028 Tablet(s) PO BID No Start Date 01/05/2017 Inactive calcitonin (salmon) 200 unit/actuation nasal spray RxNorm: 912626 1 [place] NASAL One spray in 1 nostril once daily No Start Date 08/19/2016 Inactive Bystolic 5 mg tablet RxNorm: 284220 1 Tablet(s) PO daily No Start Date 01/05/2017 Inactive tramadol 50 mg tablet RxNorm: 412696 1/2-1 Tablet(s) PO Q6 as needed No Start Date 05/06/2015 Inactive pantoprazole 40 mg tablet,delayed release RxNorm: 072157 1 Tablet(s) PO daily No Start Date 01/05/2017 Inactive rosuvastatin 10 mg tablet RxNorm: 674600 1 Tablet(s) PO QHS No Start Date 01/05/2017 Inactive lisinopril 20 mg tablet RxNorm: 658878 1 Tablet(s) PO daily No Start Date 11/23/2014 Inactive calcitonin (salmon) 200 unit/actuation nasal spray RxNorm: 420863 1 [place] NASAL daily No Start Date 01/05/2017 Inactive [...] Effective Dates Dysuria ICD-10: R30.0 ICD-9: 788.1 05/14/2017 Age-related osteoporosis without current pathological fracture ICD-10: [...] Observation Code Item Item Code Result Date Comp Metabolic Fcy583 NA 138 mEq/L 05/14/2017 Comp Metabolic Akp946 K 4.0 mEq/L 05/14/2017 Comp Metabolic Wax916 CL 100 mEq/L 05/14/2017 Comp Metabolic Ifz006 CO2 28.0 mEq/L 05/14/2017 Comp Metabolic Jpj975 ANION GAP 14 05/14/2017 Comp Metabolic Hwo878 GLUCOSE 97 mg/dL 05/14/2017 Comp Metabolic Tnq483 Creat 0.9 mg/dL 05/14/2017 Comp Metabolic Haa269 eGFR 64 ml/min/1.73m2 05/14/2017 Comp Metabolic Xtj077 BUN 14 mg/dL 05/14/2017 Comp Metabolic Irz223 B/C Ratio 15.7 Ratio 05/14/2017 Comp Metabolic Aod488 CALCIUM 9.3 mg/dL 05/14/2017 Comp Metabolic Rad067 ALK PHOS 38 U/L 05/14/2017 Comp Metabolic Wwb984 AST(SGOT) 19 U/L 05/14/2017 Comp Metabolic Mhk220 ALT(SGPT) 9 U/L 05/14/2017 Comp Metabolic Qwb821 BILI T 0.4 mg/dL 05/14/2017 Comp Metabolic Xps006 ALBUMIN 4.1 g/dL 05/14/2017 Comp Metabolic Uxs746 TPRO 7.1 g/dL 05/14/2017 Comp Metabolic Tvq983 GLOB 3.0 g/dL 05/14/2017 Comp Metabolic Ups830 A/G Ratio 1.4 Ratio 05/14/2017 Comp Metabolic Usk138 Osmo 276 mOsmo 05/14/2017 Cbc With Differential Ord2 WBC 5.47 K/ul [...] 35.8 pg 05/14/2017 Cbc With Differential Ord2 [place]% 8.6 % 05/14/2017 Cbc With Differential Ord2 [...] 3.22 K/ul 05/14/2017 Cbc With Differential Ord2 [place] ABS# 0.5 K/ul 05/14/2017 Cbc With Differential Ord2 Eos ABS# 0.1 K/ul 05/14/2017 Cbc With Differential Ord2 Baso ABS# 0.0 K/ul 05/14/2017 Tsh Ord6 TSH (3rd IS) 2.30 uIU/mL 05/14/2017 Lipid Ord30 CHOL 173 mg/dL 05/14/2017 Lipid Ord30 HDL 55.0 mg/dl 05/14/2017 Lipid Ord30 TRIG 199 mg/dL 05/14/2017 Lipid Ord30 LDL 78 mg/dL 05/14/2017 Lipid Ord30 C/HDL 3.1 Ratio 05/14/2017 Vitamin D 25 Oh [id number] VITAMIN D, 25 HYDROXY 49.30 ng/mL Lipid Ord30 CHOL 147 mg/dL 01/30/2016 Lipid Ord30 HDL 51.0 mg/dl 01/30/2016 Lipid Ord30 TRIG 142 mg/dL 01/30/2016 Lipid Ord30 LDL 68 mg/dL 01/30/2016 Lipid Ord30 C/HDL 2.9 Ratio 01/30/2016 Comp Metabolic Ctk304 NA 139 mEq/L 01/30/2016 Comp Metabolic Tpp343 K 4.1 mEq/L 01/30/2016 Comp Metabolic Dvv417 CL 103 mEq/L 01/30/2016 Comp Metabolic Yba048 CO2 30.0 mEq/L 01/30/2016 Comp Metabolic Mbc311 ANION GAP 10 01/30/2016 Comp Metabolic Fxu134 GLUCOSE 92 mg/dL 01/30/2016 Comp Metabolic Kaf227 Creat 0.7 mg/dL 01/30/2016 Comp Metabolic Nwu409 eGFR 86 ml/min/1.73m2 01/30/2016 Comp Metabolic Mdy439 BUN 12 mg/dL 01/30/2016 Comp Metabolic Szn112 B/C Ratio 17.4 Ratio 01/30/2016 Comp Metabolic Brv648 CALCIUM 8.9 mg/dL 01/30/2016 Comp Metabolic Jjv166 ALK PHOS 58 U/L 01/30/2016 Comp Metabolic Zmk971 AST(SGOT) 22 U/L 01/30/2016 Comp Metabolic Jjk338 ALT(SGPT) 17 U/L 01/30/2016 Comp Metabolic Rgx190 BILI T 0.5 mg/dL 01/30/2016 Comp Metabolic Ppo054 ALBUMIN 3.9 g/dL 01/30/2016 Comp Metabolic Fir536 TPRO 6.5 g/dL 01/30/2016 Comp Metabolic Ksh694 GLOB 2.6 g/dL 01/30/2016 Comp Metabolic Igr516 A/G Ratio 1.5 Ratio 01/30/2016 Comp Metabolic Tfp094 Osmo 277 mOsmo 01/30/2016 Manual Differential Ord52 [...] Ord2 RDW 13.0 % 03/27/2015 Comp Metabolic Cnv292 NA 133 mEq/L 02/26/2015 Comp Metabolic Lrj107 K 4.7 mEq/L 02/26/2015 Comp Metabolic Jtn514 CL 98 mEq/L 02/26/2015 Comp Metabolic Enk776 CO2 29.0 mEq/L 02/26/2015 Comp Metabolic Imm606 ANION GAP 11 02/26/2015 Comp Metabolic Tcy157 GLUCOSE 91 mg/dL 02/26/2015 Comp Metabolic Viu572 Creat 0.7 mg/dL 02/26/2015 Comp Metabolic Muv060 eGFR 83 ml/min/1.73m2 02/26/2015 Comp Metabolic Ckv247 BUN 14 mg/dL 02/26/2015 Comp Metabolic Otv424 B/C Ratio 19.7 Ratio 02/26/2015 Comp Metabolic Fyj654 CALCIUM 9.8 mg/dL 02/26/2015 Comp Metabolic Nki605 ALK PHOS 52 U/L 02/26/2015 Comp Metabolic Wtj085 AST(SGOT) 24 U/L 02/26/2015 Comp Metabolic Kgf593 ALT(SGPT) 23 U/L 02/26/2015 Comp Metabolic Sys373 BILI T 0.4 mg/dL 02/26/2015 Comp Metabolic Ink403 ALBUMIN 4.4 g/dL 02/26/2015 Comp Metabolic Tnw191 TPRO 6.9 g/dL 02/26/2015 Comp Metabolic Bei045 GLOB 2.5 g/dL 02/26/2015 Comp Metabolic Ssa822 A/G Ratio 1.8 Ratio 02/26/2015 Comp Metabolic Bll995 Osmo 266 mOsmo 02/26/2015 Vitamin D 25 Oh Fhg2752 VITAMIN D, 25 HYDROXY 56.96 ng/mL Tsh [...] Ord30 C/HDL 3.5 Ratio 01/08/2015 Comp Metabolic Qku517 NA 136 mEq/L 01/08/2015 Comp Metabolic Txn235 K 4.4 mEq/L 01/08/2015 Comp Metabolic Qbi236 CL 101 mEq/L 01/08/2015 Comp Metabolic Ehh082 CO2 31.0 mEq/L 01/08/2015 Comp Metabolic Zdu002 ANION GAP 8 01/08/2015 Comp Metabolic Rxa048 GLUCOSE 108 mg/dL 01/08/2015 Comp Metabolic Dtr643 Creat 0.7 mg/dL 01/08/2015 Comp Metabolic Qhn619 eGFR 86 ml/min/1.73m2 01/08/2015 Comp Metabolic Iwg791 BUN 11 mg/dL 01/08/2015 Comp Metabolic Zmj793 B/C Ratio 15.9 Ratio 01/08/2015 Comp Metabolic Jqi231 CALCIUM 9.6 mg/dL 01/08/2015 Comp Metabolic Fax313 ALK PHOS 54 U/L 01/08/2015 Comp Metabolic Oot409 AST(SGOT) 21 U/L 01/08/2015 Comp Metabolic Eqp416 ALT(SGPT) 20 U/L 01/08/2015 Comp Metabolic Ojn555 BILI T 0.5 mg/dL 01/08/2015 Comp Metabolic Fbm920 ALBUMIN 4.3 g/dL 01/08/2015 Comp Metabolic Hje395 TPRO 6.8 g/dL 01/08/2015 Comp Metabolic Lze796 GLOB 2.5 g/dL 01/08/2015 Comp Metabolic Api801 A/G Ratio 1.7 Ratio 01/08/2015 Comp Metabolic Nza825 Osmo 272 mOsmo 01/08/2015 Review of Systems [...] below breast - Procedures Procedure Codes Date URINALYSIS NONAUTO W/O SCOPE CPT-4: 79197 05/14/2017 ADMIN INFLUENZA VIRUS VAC CPT-4: G0008 01/06/2017 FLU VACC PRSV FREE INC ANTIG CPT-4: 43390 01/06/2017 ADMIN PNEUMOCOCCAL VACCINE SNOMED CT: 99647831 CPT-4: G0009 01/06/2017 PNEUMOCOCCAL VACC [address]: 93425136 CPT-4: 81508 01/06/2017 IIV4 FLU VACC NO PRESERV ID Formatting Model/CDA Sections, Assigned to/Abigail Balderas SNOMED CT: 67100017 CPT-4: 98466Czvfyze 02/26/2015 IMMUNIZATION ADMIN CPT -4: 13298 02/26/2015 Vital Signs Date Vital 05/13/2017 Blood Pressure 1: 160/78 Code : 8480-6 BMI: 21.3 Code : 84585-4 Heart Rate 1 : 66 bpm Height: 5' SpO2: 99% Weight: 109 lbs 01/06/2017 Blood Pressure 1: 158/74 Code : 8480-6 Blood Pressure 1: 136/70 Code: 8480-6 BMI: 22.5 Code: 79665-7 Heart Rate 1: 56 bpm Height: 5' SpO2: 98% Weight: 115 lbs 12/02/2016 Blood Pressure 1: 124/66 Code : 8480-6 BMI: 22.5 Code : 34139-0 Heart Rate 1 : 75 bpm Height: 5' SpO2: 97% Weight: 115 lbs 11/18/2016 Blood Pressure 1: 134/80 Code : 8480-6 BMI: 21.7 Code : 13241-6 Heart Rate 1 : 70 bpm Height: 5' SpO2: 95% Weight: 111 lbs 10/29/2016 Blood Pressure 1: 128/80 Code : 8480-6 BMI: 22.1 Code : 11995-0 Heart Rate 1 : 66 bpm Height: 5' SpO2: 93% Weight: 113 lbs 09/18/2016 Blood Pressure 1: 110/50 Code : 8480-6 BMI: 22.3 Code : 57849-8 Heart Rate 1 : 67 bpm Height: 5' SpO2: 97% Weight: 114 lbs 08/11/2016 Blood Pressure 1: 148/76 Code : 8480-6 BMI: 23.8 Code : 23245-5 Heart Rate 1 : 71 bpm Height: 5' SpO2: 94% Weight: 122 lbs 08/07/2016 Blood Pressure 1: 138/86 Code : 8480-6 BMI: 23.8 Code : 16599-9 Heart Rate 1 : 70 bpm Height: 5' SpO2: 95% Weight: 122 lbs 04/17/2016 Blood Pressure 1: 132/74 Code : 8480-6 BMI: 23.8 Code : 97214-5 Heart Rate 1 : 64 bpm Height: 5' SpO2: 94% Weight: 122 lbs 03/26/2016 Blood Pressure 1: 126/62 Code : 8480-6 BMI: 23.8 Code : 87031-1 Heart Rate 1 : 64 bpm Height: 5' SpO2: 97% Weight: 122 lbs 11/27/2015 Blood Pressure 1: 148/68 Code : 8480-6 BMI: 23.3 Code : 53507-0 Heart Rate 1 : 62 bpm Height: 5' SpO2: 97% Weight: 119 lbs 8 oz 08/07/2015 Blood Pressure 1: 132/66 Code : 8480-6 BMI: 24.2 Code : 94862-7 Heart Rate 1 : 53 bpm Height: 5' SpO2: 98% Weight: 124 lbs 05/07/2015 Blood Pressure 1: 130/70 Code : 8480-6 Blood Pressure 1: 134/70 Code: 8480-6 BMI: 23.6 Code: 03488-7 Heart Rate 1: 63 bpm Height: 5' SpO2: 98% Weight: 121 lbs 04/02/2015 Blood Pressure 1: 132/72 Code : 8480-6 BMI: 23.8 Code : 29913-0 Heart Rate 1 : 67 bpm Height: 5' SpO2: 94% Weight: 122 lbs 02/26/2015 Blood Pressure 1: 136/60 Code : 8480-6 BMI: 24.0 Code : 09914-3 Heart Rate 1 : 57 bpm Height: 5' SpO2: 96% Weight: 123 lbs 02/15/2015 Blood Pressure 1: 155/80 Code : 8480-6 BMI: 23.8 Code : 61476-2 Heart Rate 1 : 59 bpm Height: 5' SpO2: 94% Weight: 122 lbs 11/06/2014 Blood Pressure 1: 136/80 Code : 8480-6 BMI: 23.8 Code : 42090-3 Heart Rate 1 : 86 bpm Height: 5' SpO2: 95% Weight: 122 lbs 10/24/2014 Blood Pressure 1: 136/60 Code : 8480-6 BMI: 24.0 Code : 69788-9 Heart Rate 1 : 66 bpm Height: 5' SpO2: 96% Weight: 123 lbs 10/19/2014 Blood Pressure 1: 136/70 Code : 8480-6 BMI: 24.0 Code : 29679-0 Heart Rate 1 : 55 bpm Height: 5' SpO2: 95% Weight: 123 lbs 09/15/2014 Blood Pressure 1: 122/70 Code : 8480-6 BMI: 23.6 Code : 72677-4 Heart Rate 1 : 63 bpm Height: [...] data Encounters Encounter Performer Location Codes Date ([id number]) 80623 EST. PATIENT, LEVEL IV Diagnosis: Essential (primary) hypertension[ICD10: I10] Diagnosis: Age-related osteoporosis without current pathological fracture[ICD10 : M81.0] Diagnosis: Dysuria[ICD10: R30.0] Sole Mcdermott MD, [facility] CPT-4: 11991 05/13/2017 ([id number]) 50092 EST. PATIENT, LEVEL IV Diagnosis: Essential (primary) hypertension[ICD10: I10] Diagnosis: Other osteoporosis with current pathological fracture, vertebra(e), subsequent encounter for fracture with routine healing[ICD10: M80.88XD] Diagnosis: Encounter for immunization[ICD10: Z23] Diagnosis: Other seasonal allergic rhinitis[ICD10: J30.2] Sole Mcdermott MD, [facility] CPT-4: 40696 01/06/2017 ([id number]) 42049 EST. PATIENT, LEVEL III Diagnosis: Muscle spasm of back[ICD10: M62.830] Sole Mcdermott MD, [facility] CPT-4: 10933 12/02/2016 ([id number]) 23759 EST. PATIENT, LEVEL III Diagnosis: Muscle spasm of back[ICD10: M62.830] Sole Mcdermott MD, [facility] CPT-4: 24106 11/18/2016 ([id number]) 37900 EST. PATIENT, LEVEL IV Diagnosis: Essential (primary) hypertension[ICD10: I10] Diagnosis: Other osteoporosis with current pathological fracture, vertebra(e), subsequent encounter for fracture with routine healing[ICD10: M80.88XD] Sole Mcdermott MD [facility] CPT-4: 99167 10/29/2016 ([id number]) 80992 EST. PATIENT, LEVEL IV Diagnosis: Essential (primary) hypertension[ICD10: I10] Diagnosis: Mixed hyperlipidemia[ICD10: E78.2] Diagnosis: Low back pain[ICD10: M54.5] Diagnosis: Encounter for screening for osteoporosis[ICD10: Z13.820] Sole Mcdermott MD [facility] CPT-4: 55236 09/18/2016 12008 EST. PATIENT, LEVEL III Diagnosis: Low back pain[ICD10: M54.5] Renetta Mcdermott MD [facility] CPT-4 : 14699 08/11/2016 36833 EST. PATIENT, LEVEL III Diagnosis: Low back pain[ICD10: M54.5] Renetta Mcdermott MD [facility] CPT-4 : 95125 08/07/2016 ([id number]) Miscellaneous no charge Diagnosis: Pneumonia due to other specified infectious organisms[ICD10: J16.8] Renetta Mcdermott MD [facility] CPT-4: 65560 04/18/2016 32593 EST. PATIENT, LEVEL IV Diagnosis: Pneumonia due to other specified infectious organisms[ICD10: J16.8] Renetta Mcdermott MD [facility] CPT-4: 80237 04/17/2016 ([id number]) 36402 EST. PATIENT, LEVEL III Diagnosis: Essential (primary) hypertension[ICD10: I10] Sole Mcdermott MD [facility] CPT-4: 20849 03/26/2016 ([id number]) 92062 EST. 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 CPT-4: 66122 11/27/2015 ([id number]) 11171 EST. 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 CPT- 4: 45793 08/07/2015 ([id number]) 17688 EST. PATIENT, LEVEL IV Diagnosis: Essential (primary) hypertension[ICD10: I10] Diagnosis: Abdominal aortic aneurysm, without rupture[ICD10: I71.4] [facility] CPT-4: 74733 05/07/2015 ([id number]) 93716 EST. PATIENT, LEVEL IV Diagnosis: Essential (primary) hypertension[ICD10: I10] Diagnosis: Mixed hyperlipidemia[ICD10: E78.2] Diagnosis: Constipation, unspecified[ICD10: K59.00] Diagnosis: Mixed incontinence[ICD10: N39.46] [facility] CPT-4: 10666 04/02/2015 ([id number]) 03709 EST. PATIENT, LEVEL IV Diagnosis: Essential (primary) hypertension[ICD10: I10] Diagnosis: Myalgia[ICD10: M79.1] Diagnosis: Hypo-osmolality and hyponatremia[ICD10: E87.1] Diagnosis: Pain in leg, unspecified[ICD10: M79.606] [facility] CPT-4: 30323 02/26/2015 03007 EST. PATIENT, LEVEL III Diagnosis: Myalgia[ICD10: M79.1] [facility] CPT-4: 01821 02/15/2015 ([id number]) 06093 EST. PATIENT, LEVEL III Diagnosis: ESSENTIAL HYPERTENSION[ICD9: 401.9] [facility] CPT-4: 21590 11/06/2014 ([id number]) Miscellaneous no charge Diagnosis: Community acquired pneumonia[ICD9: 486] [facility] CPT-4: 27173 10/24/2014 ([id number]) 83300 EST. PATIENT, LEVEL III Diagnosis: Community acquired pneumonia[ICD9: 486] [facility] CPT-4: 34611 10/19/2014 ([id number]) OFFICE/OUTPATIENT VISIT NEW Diagnosis: ESSENTIAL HYPERTENSION[ICD9: 401.9] Diagnosis: Tick bite[ICD9: 919.4] Diagnosis: Actinic keratosis[ICD9: 702.0] Diagnosis: Hyperlipidemia[ICD9: 272.4] Sole Mcdermott MD, [facility] CPT- 4: 33271 09/15/2014 Plan of Care Planned Activity Notes Codes Status Date Patient Education: Patient Medication Summary Completed 05/14/2017 Appointment[facility] [phone] [facility] [place] (15 min) Moderate 05/13/2017 Patient Education: Patient Medication Summary Completed 05/13/2017 Appointment: Sole Mcdermott WPtel: [phone] [facility] [place] (15 min) Moderate 01/06/2017 Patient Education: Patient Medication Summary Completed 01/06/2017 Patient Education: Hypertension Completed 01/06/2017 Appointment: [facility] [phone] [facility] [place] ([place] min) Moderate 12/30/2016 Appointment[facility] [phone] [facility] [place] ([place] min) Moderate 12/02/2016 Patient Education: Patient Medication Summary Completed 12/02/2016 App[facility]ment: [facility] [phone] [facility] [place] (15 min) Moderate 11/18/2016 Referral: [facility] WPtel: Referral Completed 11/18/2016 Patient Education: Patient Medication Summary Completed 11/18/2016 Appointment: [facility] [phone] [facility] [place] (15 min) Moderate 10/29/2016 Patient Education: Patient Medication Summary Completed 10/29/2016 Patient Education: Hypertension Completed 10/29/2016 Care Plan: Referral Order SNOMED-CT : [id number] Pending 10/29/2016 Appointment: Sole Mcdermott WPtel: [facility] [place] (15 min) Moderate 09/24/2016 Appointment: Sole Mcdermott WPtel: [facility] (15 min) Moderate 09/18/2016 Patient Education: Patient Medication Summary Completed 09/18/2016 Patient Education: Hypertension Completed 09/18/2016 Care Plan: DXA BONE DENSITY AXIAL LOINC : 04608-2 Pending 09/18/2016 Referral: [facility] WPtel: [address] [id number] [place] Referral Completed 08/25/2016 Care Plan: Referral Order SNOMED-CT : [id number] Pending 08/15/2016 Appointment: Renetta Mc WPtel: [facility] (30 min) Complex 08/11/2016 Patient Education: Patient Medication Summary Completed 08/11/2016 Appointment: Renetta Mc WPtel: [facility] [place] (30 min) Complex 08/07/2016 Patient Education: Patient Medication Summary Completed 08/07/2016 Appointment: Renetta Mc WPtel: [facility] (30 min) Complex 05/01/2016 Appointment: Nurse Visit 04/18/2016 Patient Education: Patient Medication Summary Completed 04/18/2016 Appointment: Renetta Mc WPtel: [facility] [place] (15 min) Moderate 04/17/2016 Patient Education: Patient Medication Summary Completed 04/17/2016 Appointment: Sole Mcdermott WPtel: [facility] [place] (15 min) Moderate 03/26/2016 Patient Education: Patient Medication Summary Completed 03/26/2016 Patient Education: Hypertension Completed 03/26/2016 Appointment: Sole Mcdermott WPtel: [facility] [place] (15 min) Moderate 11/27/2015 Patient Education: Patient Medication Summary Completed 11/27/2015 Patient Education: Hypertension Completed 11/27/2015 Appointment: Sole Mcdermott WPtel: [address] [place], [place] [phone] (15 min) Moderate 11/06/2015 Referral: Carson Mae Referral Completed 08/13/2015 Appointment: Sole Mcdermott WPtel: [address] [place], [place] [phone] (15 min) Moderate 08/07/2015 Patient Education: Patient Medication Summary Completed 08/07/2015 Care Plan: Referral Order SNOMED-CT : [id number] Pending 08/07/2015 Appointment: Sole Mcdermott WPtel: [address] [place], [place] [phone] (15 min) Moderate 05/07/2015 Patient Education: Patient Medication Summary Completed 05/07/2015 Patient Education: Hypertension Completed 05/07/2015 Appointment: Sole Mcdermott WPtel: [address] [place], [place] [phone] (15 min) Moderate 04/02/2015 Patient Education: Patient Medication Summary Completed 04/02/2015 Patient Education: Hypertension Completed 04/02/2015 Appointment: (15 min) Moderate 02/26/2015 Patient Education: Patient Medication Summary Completed 02/26/2015 Patient Education: Hypertension Completed 02/26/2015 Appointment: (15 min) Moderate 02/15/2015 Patient Education: Patient Medication Summary Completed 02/15/2015 Appointment: Oriana Anderson WPtel: [address] [place], [place] [phone] (15 min) Moderate 11/06/2014 Patient Education: Patient Medication Summary Completed 11/06/2014 Patient Education: Hypertension Completed 11/06/2014 Appointment: (15 min) Moderate 10/24/2014 Patient Education: Patient Medication Summary Completed 10/24/2014 Appointment: (30 min) Complex 10/19/2014 Patient Education: Patient Medication Summary Completed 10/19/2014 Appointment: Oriana Anderson WPtel: [address] [place], [place] [phone] [place] (S) New Patient 09/15/2014 Patient Education: Patient Medication Summary Completed 09/15/2014 Patient Education: Hypertension Completed 09/15/2014 Referral: Callie, [place] WPtel: [address] [facility] [address] [id number] Referral Completed Referral: Carson Mae Referral Appointment Requested Referral: [facility] WPtel: Referral Appointment Requested Instructions No Instructions
--- OUTSIDE RECORDS SUMMARY | 2017-07-05 15:14 | XMS REPORT | Continuity of Care Document ---
Author Author [facility] Organization [facility] Address Unknown Phone Unavailable Allergies Active Description Code Type Severity Reaction Onset Reported/Identified Relationship to Patient Clinical Status Yes niacin [id number] Drug Allergy Unknown HIVES 09/17/2016 Yes simvastatin [id number] Drug Allergy Unknown HIVES 09/17/2016 Medications There is no data. Problems Date Dx Coded Attending Type Code [...] 03/22/2015 BLANQUITA LUCIOP Ot R09.89 03/30/2015 BLANQUITA LUCIOP Ot R09.89 04/24/2015 BLANQUITA LUCIO SCHEDULE HANGER Ot M54.9 04/25/2015 BLANQUITA LUCIO SCHEDULE HANGER Ot M54.9 06/01/2015 BLANQUITA LUCIOP Ot I71.4 06/15/2015 BLANQUITA LUCIOP Ot I71.4 [...] FOR SCREENING FOR OTHER BACTER 08/24/2015 BLANQUITA LUCIO Ot R09.89 OTH SYMPTOMS AND SIGNS INVOLVING THE CIR 08/24/2015 BLANQUITA LUCIO Ot M54.9 DORSALGIA, UNSPECIFIED 08/24/2015 BLANQUITA LUCIO Ot I71.4 ABDOMINAL AORTIC ANEURYSM, WITHOUT RUPTU [...] OTH DISRD OF BONE DENSITY AND STRUCTURE, 08/18/2016 RICHY CRENSHAW APRN Ot 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, NEC, LUMBAR REGION, 08/18/2016 RICHY CRENSHAW APRN Ot R29.890 LOSS OF HEIGHT 08/19/2016 RICHY CRENSHAW APRN Ot 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, NEC, LUMBAR REGION, 08/19/2016 RICHY CRENSHAW APRN Ot R29.890 LOSS OF HEIGHT 08/19/2016 RICHY CRENSHAW APRN Ot 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, NEC, LUMBAR REGION, 08/19/2016 RICHY CRENSHAW DOVETAILER Ot R29.890 LOSS OF HEIGHT 09/01/2016 DEN RICHY Moseley APRN Ot M48.54XD COLLAPSED VERT, NEC, THOR REGION, SUBS F 09/01/2016 DEN RICHY Moseley DOVETAILER Ot M85.89 OTH DISRD OF BONE DENSITY AND STRUCTURE, 09/04/2016 DEN RICHY Moseley APRN Ot M48.54XD COLLAPSED VERT, NEC, THOR REGION, SUBS F 09/04/2016 DEN RICHY Moseley DOVETAILER Ot M85.89 OTH DISRD OF BONE DENSITY AND STRUCTURE, 09/09/2016 RICHY CRENSHAW APRN Ot 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, NEC, LUMBAR REGION, 09/09/2016 RICHY CRENSHAW DOVETAILER Ot R29.890 LOSS OF HEIGHT 09/16/2016 RICHY CRENSHAW DOVETAILER Ot 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, NEC, LUMBAR REGION, 09/16/2016 RICHY CRENSHAW DOVETAILER Ot R29.890 LOSS OF HEIGHT 09/19/2016 DAKOTA REGAN MD Ot E78.00 PURE HYPERCHOLESTEROLEMIA, UNSPECIFIED 09/19/2016 DAKOTA REGAN MD Ot I10 ESSENTIAL (PRIMARY) HYPERTENSION 09/19/2016 DAKOTA REGAN MD, Ot I25.10 ATHSCL HEART DISEASE OF [place] CORONARY 09/19/2016 DAKOTA REGAN MD, Ot 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 09/19/2016 DAKOTA REGAN MD, Ot 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 09/19/2016 DAKOTA REGAN MD Ot Z95.1 PRESENCE OF AORTOCORONARY BYPASS GRAFT 09/23/2016 DAKOTA REGAN MD, Ot E78.00 PURE HYPERCHOLESTEROLEMIA, UNSPECIFIED 09/23/2016 DAKOTA REGAN MD, Ot I10 ESSENTIAL (PRIMARY) HYPERTENSION 09/23/2016 DAKOTA REGAN MD Ot I25.10 ATHSCL HEART DISEASE OF [place] CORONARY 09/23/2016 DAKOTA REGAN MD, Ot 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 09/23/2016 DAKOTA REGAN MD Ot 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 09/23/2016 DAKOTA REGAN MD, Ot Z95.1 PRESENCE OF AORTOCORONARY BYPASS GRAFT 09/25/2016 DAKOTA REGAN MD, Ot E78.00 PURE HYPERCHOLESTEROLEMIA, UNSPECIFIED 09/25/2016 DAKOTA REGAN MD Ot I10 ESSENTIAL (PRIMARY) HYPERTENSION 09/25/2016 DAKOTA REGAN MD Ot I25.10 ATHSCL HEART DISEASE OF [place] CORONARY 09/25/2016 DAKOTA REGAN MD Ot 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 09/25/2016 DAKOTA REGAN MD, Ot 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 09/25/2016 DAKOTA REGAN MD, Ot Z95.1 PRESENCE OF AORTOCORONARY BYPASS GRAFT 10/06/2016 BLANQUITA LUCIOP Ot I71.4 ABDOMINAL AORTIC ANEURYSM, WITHOUT RUPTU 10/06/2016 BLANQUITA LUCIO Ot M81.0 AGE-RELATED OSTEOPOROSIS W/O CURRENT PAT 10/08/2016 DAKOTA REGAN MD, Ot E78.00 PURE HYPERCHOLESTEROLEMIA, UNSPECIFIED 10/08/2016 DAKOTA REGAN MD, Ot I10 ESSENTIAL (PRIMARY) HYPERTENSION 10/08/2016 DAKOTA REGAN MD, Ot I25.10 ATHSCL HEART DISEASE OF [place] CORONARY 10/08/2016 DAKOTA REGAN MD Ot K21.9 GASTRO-ESOPHAGEAL REFLUX DISEASE WITHOUT 10/08/2016 DAKOTA REGAN MD, Ot 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 10/08/2016 DAKOTA REGAN MD, Ot M85.89 OTH DISRD OF BONE DENSITY AND STRUCTURE, 10/08/2016 DAKOTA REGAN MD, Ot S32.050A WEDGE COMPRESSION FRACTURE OF FIFTH LUMB 10/08/2016 DAKOTA REGAN MD Ot X58.XXXA EXPOSURE TO OTHER SPECIFIED FACTORS, INI 10/08/2016 DAKOTA REGAN MD Ot Y92.[address] [facility] [address] IN [facility] NON-INSTIT[facility] (PRIVATE 10/08/2016 DAKOTA REGAN MD, Ot Y99.8 OTHER EXTERNAL CAUSE STATUS 10/08/2016 DAKOTA REGAN MD Ot Z79.02 [facility] (CURRENT) USE OF 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 10/08/2016 DAKOTA REGAN MD, Ot 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 10/08/2016 DAKOTA REGAN MD, Ot Z95.1 PRESENCE OF AORTOCORONARY BYPASS GRAFT 10/09/2016 DAKOTA REGAN MD, Ot E78.00 PURE HYPERCHOLESTEROLEMIA, UNSPECIFIED 10/09/2016 DAKOTA REGAN MD, Ot I10 ESSENTIAL (PRIMARY) HYPERTENSION 10/09/2016 DAKOTA REGAN MD, Ot I25.10 ATHSCL HEART DISEASE OF [place] CORONARY 10/09/2016 DAKOTA REGAN MD, Ot K21.9 GASTRO-ESOPHAGEAL REFLUX DISEASE WITHOUT 10/09/2016 DAKOTA REGAN MD, Ot M85.89 OTH DISRD OF BONE DENSITY AND STRUCTURE, 10/09/2016 DAKOTA REGAN MD, Ot S32.050A WEDGE COMPRESSION FRACTURE OF FIFTH LUMB 10/09/2016 DAKOTA REGAN MD, Ot X58.XXXA EXPOSURE TO OTHER SPECIFIED FACTORS, INI 10/09/2016 DAKOTA REGAN MD, Ot Y92.[address] [facility] [address] IN [facility] NON-INST[facility] (PRIVATE 10/09/2016 DAKOTA REGAN MD, Ot Y99.8 OTHER EXTERNAL CAUSE STATUS 10/09/2016 DAKOTA REGAN MD, Ot 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.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 10/09/2016 DAKOTA REGAN MD, Ot 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 10/09/2016 DAKOTA REGAN MD, Ot Z95.1 PRESENCE OF AORTOCORONARY BYPASS GRAFT 10/13/2016 RIZWANA KISER MD, Ot I10 ESSENTIAL (PRIMARY) HYPERTENSION 10/13/2016 RIZWANA KISER MD, Ot K21.9 GASTRO-ESOPHAGEAL REFLUX DISEASE WITHOUT 10/13/2016 RIZWANA KISER MD, Ot M80.08XD AGE-REL OSTEOPOR W CRNT PATH FX, VERTEB, 10/13/2016 RIZWANA KISER MD, Ot R41.3 OTHER AMNESIA 10/15/2016 DAKOTA REGAN MD, Ot E78.00 PURE HYPERCHOLESTEROLEMIA, UNSPECIFIED 10/15/2016 DAKOTA REGAN MD, Ot I10 ESSENTIAL (PRIMARY) HYPERTENSION 10/15/2016 DAKOTA REGAN MD, Ot I25.10 ATHSCL HEART DISEASE OF [place] CORONARY 10/15/2016 DAKOTA REGAN MD, Ot K21.9 GASTRO-ESOPHAGEAL REFLUX DISEASE WITHOUT 10/15/2016 DAKOTA REGAN MD, Ot 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 10/15/2016 DAKOTA REGAN MD, Ot M85.89 OTH DISRD OF BONE DENSITY AND STRUCTURE, 10/15/2016 DAKOTA REGAN MD, Ot X58.XXXA EXPOSURE TO OTHER SPECIFIED FACTORS, INI 10/15/2016 DAKOTA REGAN MD, Ot Y92.[address] [facility] [address] IN [facility] NON-[facility] (PRIVATE 10/15/2016 DAKOTA REGAN MD, Ot Y99.8 OTHER EXTERNAL CAUSE STATUS 10/15/2016 DAKOTA REGAN MD, Ot Z79.02 [facility] (CURRENT) USE OF 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 10/15/2016 DAKOTA REGAN MD, Ot 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 10/15/2016 DAKTOA REGAN MD, Ot Z95.1 PRESENCE OF AORTOCORONARY BYPASS GRAFT 10/17/2016 RIZWANA KISER MD Ot E78.5 HYPERLIPIDEMIA, UNSPECIFIED 10/17/2016 RIZWANA KISER MD Ot 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 10/17/2016 RIZWANA KISER MD Ot I10 ESSENTIAL (PRIMARY) HYPERTENSION 10/17/2016 RIZWANA KISER MD Ot I25.10 ATHSCL HEART DISEASE OF [place] CORONARY 10/17/2016 RIZWANA KISER MD Ot K21.9 GASTRO-ESOPHAGEAL REFLUX DISEASE WITHOUT 10/17/2016 RIZWANA KISER MD Ot M80.08XD AGE-REL OSTEOPOR W CRNT PATH FX, VERTEB, 10/17/2016 RIZWANA KISER MD Ot R41.3 OTHER AMNESIA 10/17/2016 RIZWANA KISER MD Ot Z95.1 PRESENCE OF AORTOCORONARY BYPASS GRAFT 10/20/2016 BLANQUITA LUCIO Ot I71.4 ABDOMINAL AORTIC ANEURYSM, WITHOUT RUPTU 10/24/2016 BLANQUITA LUCIO Ot I71.4 ABDOMINAL AORTIC ANEURYSM, WITHOUT RUPTU 10/24/2016 BLANQUITA LUCIO Ot M81.0 AGE-RELATED OSTEOPOROSIS W/O CURRENT PAT 10/27/2016 LUCIO, BLANQUITA M SCHEDULE HANGER Ot I77.811 ABDOMINAL AORTIC ECTASIA 10/27/2016 KHADIJAHBLANQUITA SCHEDULE HANGER Ot M81.0 AGE-RELATED OSTEOPOROSIS W/O CURRENT PAT 10/27/2016 KHADIJAH BLANQUITA M SCHEDULE HANGER Ot I77.811 ABDOMINAL AORTIC ECTASIA 10/27/2016 KHADIJAHBLANQUITA SCHEDULE HANGER Ot M81.0 AGE-RELATED OSTEOPOROSIS W/O CURRENT PAT 10/27/2016 KHADIJAH BLANQUITA M SCHEDULE HANGER Ot I77.811 ABDOMINAL AORTIC ECTASIA 10/27/2016 KHADIJAH BLANQUITA M SCHEDULE HANGER Ot M81.0 AGE-RELATED OSTEOPOROSIS W/O CURRENT PAT 10/27/2016 KHADIJAH BLANQUITA M SCHEDULE HANGER Ot I77.811 ABDOMINAL AORTIC ECTASIA 10/27/2016 KHADIJAH BLANQUITA M SCHEDULE HANGER Ot M81.0 AGE-RELATED OSTEOPOROSIS W/O CURRENT PAT 10/27/2016 KHADIJAH BLANQUITA M SCHEDULE HANGER Ot I77.811 ABDOMINAL AORTIC ECTASIA 10/27/2016 BLANQUITA LUCIO SCHEDULE HANGER Ot M81.0 AGE-RELATED OSTEOPOROSIS W/O CURRENT PAT 10/27/2016 KHADIJAH BLANQUITA M SCHEDULE HANGER Ot I77.811 ABDOMINAL AORTIC ECTASIA 10/27/2016 KHADIJAH BLANQUITA Pradip SCHEDULE HANGER Ot M81.0 AGE-RELATED OSTEOPOROSIS W/O CURRENT PAT 10/27/2016 KHADIJAH BLANQUITA M SCHEDULE HANGER Ot I77.811 ABDOMINAL AORTIC ECTASIA 10/27/2016 KHADIJAH BLANQIUTA M SCHEDULE HANGER Ot M81.0 AGE-RELATED OSTEOPOROSIS W/O CURRENT PAT 10/29/2016 DAKOTA REGAN MD Ot E78.00 PURE HYPERCHOLESTEROLEMIA, UNSPECIFIED 10/29/2016 DAKOTA REGAN MD Ot I10 ESSENTIAL (PRIMARY) HYPERTENSION 10/29/2016 DAKOTA REGAN MD, Ot I25.10 ATHSCL HEART DISEASE OF [place] CORONARY 10/29/2016 DAKOTA REGAN MD Ot K21.9 GASTRO-ESOPHAGEAL REFLUX DISEASE WITHOUT 10/29/2016 DAKOTA REGAN MD Ot 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 10/29/2016 DAKOTA REGAN MD Ot M85.89 OTH DISRD OF BONE DENSITY AND STRUCTURE, 10/29/2016 DAKOTA REGAN MD, Ot X58.XXXA EXPOSURE TO OTHER SPECIFIED FACTORS, INI 10/29/2016 DAKOTA REGAN MD Ot Y92.[address] [facility] [address] IN [facility] NON[facility] (PRIVATE 10/29/2016 DAKOTA REGAN MD Ot Y99.8 OTHER EXTERNAL CAUSE STATUS 10/29/2016 DAKOTA REGAN MD Ot Z79.02 [facility] (CURRENT) USE OF 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 10/29/2016 DAKOTA REGAN MD Ot 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 10/29/2016 DAKOTA REGAN MD Ot Z95.1 PRESENCE OF AORTOCORONARY BYPASS GRAFT 11/06/2016 RICHY CRENSHAW DOVETAILER Ot M54.9 DORSALGIA, UNSPECIFIED 11/06/2016 RICHY CRENSHAW DOVETAILER Ot R53.1 WEAKNESS 11/13/2016 RICHY CRENSHAW DOVETAILER Ot M54.9 DORSALGIA, UNSPECIFIED 11/13/2016 RICHY CRENSHAW DOVETAILER Ot R53.1 WEAKNESS 11/14/2016 BLANQUITA LUCIO SCHEDULE HANGER Ot I71.4 ABDOMINAL AORTIC ANEURYSM, WITHOUT RUPTU 11/14/2016 BLANQUITA LUCIO SCHEDULE HANGER Ot M81.0 AGE-RELATED OSTEOPOROSIS W/O CURRENT PAT 11/14/2016 BLANQUITA LUCIO SCHEDULE HANGER Ot I77.811 ABDOMINAL AORTIC ECTASIA 11/14/2016 BLANQUITA LUCIO SCHEDULE HANGER Ot M81.0 AGE-RELATED OSTEOPOROSIS W/O CURRENT PAT 11/18/2016 BLANQUITA LUCIO SCHEDULE HANGER Ot M81.0 AGE-RELATED OSTEOPOROSIS W/O CURRENT PAT 11/20/2016 BLANQUITA LUCIO SCHEDULE HANGER Ot M81.0 AGE-RELATED OSTEOPOROSIS W/O CURRENT PAT 11/21/2016 BLANQUITA LUCIO SCHEDULE HANGER Ot I77.811 ABDOMINAL AORTIC ECTASIA 11/21/2016 BLANQUITA LUCIO SCHEDULE HANGER Ot M81.0 AGE-RELATED OSTEOPOROSIS W/O CURRENT PAT 12/16/2016 RICHY CRENSHAW DOVETAILER Ot M54.9 DORSALGIA, UNSPECIFIED 12/16/2016 RICHY CRENSHAW DOVETAILER Ot R53.1 WEAKNESS 12/23/2016 RICHY CRENSHAW DOVETAILER Ot M54.9 DORSALGIA, UNSPECIFIED 12/23/2016 RICHY CRENSHAW DOVETAILER Ot R53.1 WEAKNESS 05/15/2017 BLANQUITA LUCIO Ot M81.0 AGE-RELATED OSTEOPOROSIS W/O CURRENT PAT 05/19/2017 ZARI VASQUEZ MD Ot M81.0 AGE-RELATED OSTEOPOROSIS W/O CURRENT PAT 06/05/2017 ZARI VASQUEZ MD Ot M81.0 AGE-RELATED OSTEOPOROSIS W/O CURRENT PAT 06/10/2017 ZARI VASQUEZ MD Ot M81.0 AGE-RELATED OSTEOPOROSIS W/O CURRENT PAT Procedures There is no data. Results Test Result Range Methicillin resistant Staphylococcus aureus (MRSA) screening culture - 06:50 Methicillin resistant Staphylococcus aureus (MRSA) screening culture NEG NRG Complete blood count (CBC) with automated white blood cell (WBC) differential - 10/07/16 06:16 Blood leukocytes automated count (number/volume) 6.5 10*3/uL 4.3-11.0 Blood erythrocytes automated count (number/volume) 3.41 10*6/uL 4.35-5.85 Venous blood hemoglobin measurement (mass/volume) 11.2 [...] Automated blood platelet mean volume measurement 8.5 [foz_us] 7.4-10.4 Automated blood neutrophils/100 leukocytes 45 % [...] Serum or plasma sodium measurement (moles/volume) 137 mmol/L 135-145 Serum or plasma potassium measurement (moles/volume) 4.3 mmol/L 3.6-5.0 Serum or plasma chloride measurement (moles/volume) 102 mmol/L 98-107 Carbon dioxide 25 mmol/L 21-32 Serum or plasma anion gap determination (moles/volume) 10 mmol/L 5-14 Serum or plasma urea nitrogen measurement (mass/volume) 19 mg/dL 7-18 Serum or plasma creatinine measurement (mass/volume) 0.96 mg/dL 0.60-1.30 Serum or plasma urea nitrogen/creatinine mass ratio 20 0 -20 Serum or plasma creatinine measurement with calculation [...] Status Pt. Type Provider Facility Loc./Unit Complaint [id number] 05/15/2017 10:57:00 05/15/2017 23:59:59 CLS Outpatient ZARI VASQUEZ MD [facility] OSTEOPOROSIS M81.0 [id number] 01/15/2017 10:30:00 01/15/2017 13:51:00 DIS Outpatient RICHY CRENSHAW APRN [facility] REHAB RECENT OSTEOPORITIC FX W KYPHOPLASTY [id number] 10/24/2016 09:19:00 10/24/2016 23:59:59 CLS Outpatient BLANQUITA LUCIO [facility] RAD ABDOMINAL AORTIC ANEURYSM, OSTEOPOROSIS M81.0 [id number] 10/23/2016 09:24:00 10/23/2016 23:59:59 CLS Outpatient BLANQUITA LUCIO [facility] ABDOMINAL AORTIC ANEURYSM, OSTEOPOROSIS M81.0 [id number] 10/22/2016 13:10:00 10/22/2016 23:59:59 CLS Outpatient BLANQUITA LUCIO [facility] OSTEOPOROSIS [id number] 10/08/2016 12:35:00 10/17/2016 10:45:00 DIS Inpatient RIZWANA KISER MD [facility] IRF L5 COMPRESSION FRACTURE [id number] 10/06/2016 23:15:00 10/08/2016 12:00:00 DIS Outpatient DAKOTA REGAN MD [facility] ACUTE L5 COMPRESSION FRACTURE [id number] 09/19/2016 06:05:00 09/19/2016 12:45:00 DIS Outpatient DAKOTA REGAN MD [facility] FRACTURE [id number] 09/17/2016 11:51:00 09/17/2016 15:02:00 DIS Outpatient DAKOTA REGAN MD [facility] PREOP KYPHOPLASTY L-1,L-2 [id number] 08/16/2016 10:53:00 08/16/2016 23:59:59 CLS Outpatient RICHY CRENSHAW APRN [facility] RAD ONGOING BACK PAIN [id number] 08/07/2016 12:46:00 08/07/2016 23:59:59 CLS Outpatient RICHY CRENSHAW APRN [facility] RAD BACK PAIN, OSTEOPOROSIS [id number] 08/24/2015 11:41:00 08/24/2015 18:46:00 DIS Outpatient YOUSIF SCOTT MD [facility] [id number] 08/22/2015 08:50:00 08/22/2015 09:26:00 DIS Outpatient YOUSIF SCOTT MD [facility] PREOP [id number] 05/22/2015 09:59:00 05/22/2015 23:59:59 CLS Outpatient BLANQUITA LUCIO [facility] RAD [id number] 03/30/2015 10:13:00 03/30/2015 23:59:59 CLS Outpatient BLANQUITA LUCIO [facility] RAD [id number] 02/26/2015 12:43:00 02/26/2015 23:59:59 CLS Outpatient BLANQUITA LUCIO [facility] RAD [id number] 10/01/2013 14:35:00 10/03/2013 15:55:00 DIS Inpatient ADONAY WARD MD [facility] 4TH [id number] 07/18/2013 08:21:00 07/18/2013 23:59:59 CLS Outpatient [id number] 08/13/2012 10:45:00 08/13/2012 23:59:59 CLS Outpatient
[2017-07-05 15:39] LABS: BASOPHILS % (AUTO) 0 % (0-10); EOSINOPHILS % (AUTO) 0 % (0-10); HEMATOCRIT 34 % (35-52); LYMPHOCYTES # (AUTO) 2.2 X 10^3 (1.0-4.0); LYMPHOCYTES % (AUTO) 32 % (12-44); MEAN CORPUSCULAR HEMOGLOBIN 34 PG (25-34); MEAN CORPUSCULAR HGB CONC 36 G/DL (32-36); MEAN CORPUSCULAR VOLUME 96 FL (80-99); MONOCYTES # (AUTO) 0.6 X 10^3 (0.0-1.0); MONOCYTES % (AUTO) 8 % (0-12); NEUTROPHILS # (AUTO) 4.1 X 10^3 (1.8-7.8); NEUTROPHILS % (AUTO) 60 % (42-75); PLATELET COUNT 221 10^3/uL (130-400); RED BLOOD COUNT 3.52 10^6/uL (4.35-5.85); RED CELL DISTRIBUTION WIDTH 11.9 % (10.0-14.5); WHITE BLOOD COUNT 6.9 10^3/uL (4.3-11.0)
--- NOTE | 2017-07-05 15:53 | ED General ---
General Chief Complaint: Altered Mental Status Stated Complaint: CONFUSION Nursing Triage Note: Son states mother was confused this am. Was having a hard time concentrating and confused. Was worse this afternoon. Last known well was 2 days ago. Patient states that she has been feeling "wobbly" Is oriented to person time place person but unsure of president. Difficulty finger to nose bilat Nursing Sepsis Screen: No Definite Risk Source of Information: Patient Exam Limitations: No Limitations History of Present Illness Date Seen by Provider: Jul 05, 2017 Time Seen by Provider: 15:48 Initial Comments The patient is an 87-year-old white female who is the mother of my long-term friend Ashvin Yoon. They check in on her frequently. Her last known well time was 2 days ago. Ashvin's and his brother have also checked in and found her to be a little confused yesterday but much more so today. She does not seem to have lost any motor activity and she is quite pleasant and well put together. Timing/Duration: 1-2 Days Modifying Factors: improves with Cold Therapy Associated Systoms: Denies Symptoms Allergies and Home Medications Allergies Coded Allergies: niacin (Verified Allergy, Unknown, HIVES, 07/05/17) simvastatin (Verified Allergy, Unknown, HIVES, 09/17/16) Home Medications Ascorbate Calcium 500 Mg Tablet, 500 MG PO DAILY, (Reported) Clopidogrel Bisulfate 75 Mg Tablet, 75 MG PO DAILY, (Reported) Docusate Sodium 100 Mg Tablet, 100 MG PO DAILY PRN for CONSTIPATION-1ST LINE, ( Reported) Ergocalciferol (Vitamin D2) 2,000 Unit Tablet, 1,000 UNIT PO DAILY, (Reported) Lisinopril 20 Mg Tablet, 20 MG PO DAILY, (Reported) Nebivolol HCl 5 Mg Tablet, 5 MG PO HS, (Reported) Pantoprazole Sodium 40 Mg Tablet.dr, 40 MG PO HS, (Reported) Ranolazine 500 Mg Tab.er.12h, 500 MG PO Q12H, (Reported) Rosuvastatin Calcium 10 Mg Tablet, 10 MG PO HS, (Reported) Tramadol HCl 50 Mg Tablet, 50 MG PO QID PRN for PAIN-MODERATE, (Reported) Tramadol HCl 50 Mg Tablet, 50 MG PO QID PRN for PAIN-MODERATE Prescribed by: RIZWANA KISER on 10/16/16 0834 Patient Home Medication List Home Medication List Reviewed: Yes Constitutional: see HPI EENTM: no symptoms reported Respiratory: no symptoms reported Cardiovascular: no symptoms reported Gastrointestinal: no symptoms reported Genitourinary: no symptoms reported Musculoskeletal: no symptoms reported Skin: no symptoms reported Psychiatric/Neurological: See HPI Past Rkewejo-Rnupvz-Ulcaaq Hx Patient Social History Alcohol Use: Occasionally Uses Number of Drinks Today: BB Alcohol Beverage of Choice: [place] Recreational Drug Use: No Smoking Status: Former Smoker Former Smoker, Quit: August 21, 1984 2nd Hand Smoke Exposure: No Recent Foreign Travel: No Contact w/Someone Who Travel: No Recent Infectious Disease Expo: No Recent Hopitalizations: Yes Physical Abuse: No Sexual Abuse: No Mistreated: No Fear: No Immunizations Up To Date Tetanus Booster (TDap): Unknown Date of Pneumonia Vaccine: Jan 18, 2010 Date of Influenza Vaccine: Jan 28, 2016 Seasonal Allergies Seasonal Allergies: No Surgeries History of Surgeries: Yes (CORONARY BYPASS GRAFT, LAP LIZETH, BACK SX, 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) Surgeries: Abdominal, Cardiac, CABG, Eye Surgery, Orthopedic Respiratory History of Respiratory Disorde: No Respiratory Disorders: Sleep Apnea Currently Using CPAP: No Currently Using BIPAP: No Cardiovascular History of Cardiac Disorders: Yes (CABG X5) Cardiac Disorders: Coronary Artery Disease, High Cholesterol, Hypertension Neurological History of Neurological Disord: Yes Neurological Disorders: TIA 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 System Hx 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 Disorders: No Sexually Transmitted Disease: No HIV/AIDS: No Female 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 Disorders: Denies Genitourinary History of Genitourinary Disor: Yes (URINARY STRESS, URGE) Gastrointestinal History of Gastrointestinal Di: Yes (CONSTIPATION OCCASIONALLY, Diverticulitis) Gastrointestinal Disorders: Gastroesophageal Reflux, Chronic Constipation Musculoskeletal History of Musculoskeletal Dis: Yes (FRACTURE LEFT ARM; COMPRESSION FRACTURES) Musculoskeletal Disorders: Degenerate Disk Disease, Osteoporosis, Arthritis, Fractures Endocrine History of Endocrine Disorders: No HEENT History of HEENT Disorders: Yes HEENT Disorders: Cataract Loss of Vision: Bilateral Hearing Impairment: Denies Cancer 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 Did You Recieve Any Treatments: Yes Type of Tx Receive: Surgical Intervention Psychosocial History of Psychiatric Problem: No Suicide Risk Score: 0 Integumentary History of Skin or Integumenta: Yes (skin cancer on face/body) Blood Transfusions History of Blood Disorders: No Adverse Reaction to a Blood Tr: No Family Medical History Significant Family History: Heart Disease, Hypertension Family Medial History: Abdominal aortic aneurysm G8 SISTER Congestive heart failure 19 FATHER Family history: Arthritis 19 MOTHER G8 SISTER Family history: Cardiovascular disease G8 SISTER Family history: Hypertension G8 SISTER Family history: Osteoporosis 19 MOTHER Heart disease 19 FATHER 19 MOTHER G8 SISTER Hypercholesterolemia G8 SISTER Kidney disease G8 SISTER Myocardial infarction 19 FATHER 19 MOTHER G8 SISTER Physical Exam Vital Signs Vital Signs - First Documented 07/05/17 15:05 Temp 98.3 Pulse 58 Resp 18 B/P (MAP) 129/37 (67) Pulse Ox 97 Capillary Refill : Less Than 3 Seconds General Appearance: No Apparent Distress, WD/WN, Other (quite pleasant. She admits to knowing that she is confused but does not seem to be disturbed by this.) Eyes: Bilateral Eye Normal Inspection HEENT: Normal ENT Inspection Neck: Full Range of Motion, Normal Inspection, Non Tender, Supple, Carotid Bruit Respiratory: Chest Non Tender, Lungs Clear, Normal Breath Sounds, No Accessory Muscle Use, No Respiratory Distress Cardiovascular: Regular Rate, Rhythm, No Edema, No Gallop, No JVD, No Murmur, Normal Peripheral Pulses Gastrointestinal: Normal Bowel Sounds, No Organomegaly, No Pulsatile Mass, Non Tender, Soft Back: Normal Inspection Extremity: Normal Capillary Refill, Normal Inspection, Normal Range of Motion, Non Tender, No Calf Tenderness, No Pedal Edema Neurologic/Psychiatric: Alert, Oriented x3, No Motor/Sensory Deficits, Normal Mood/Affect Skin: Normal Color, Warm/Dry Lymphatic: No Adenopathy Progress/Results/Core Measures Suspected Sepsis Recent Fever Within 48 Hours: No Infection Criteria Present: None New/Unexplained Altered Menta: No Sepsis Screen: No Definite Risk Sepsis Diagnosis: SIRS Temperature:98.3 Pulse: 58 Respiratory Rate: 18 Laboratory Tests 07/05/17 15:29: White Blood Count 6.9 Blood Pressure 129 /37 Mean: 67 Laboratory Tests 07/05/17 15:29: Creatinine 1.34H, Platelet Count 221, Total Bilirubin 0.5 Results/Orders Lab Results Laboratory Tests Test 07/05/17 15:29 07/05/17 16:30 Range/Units White Blood Count 6.9 4.3-11.0 10^3/uL Red Blood Count 3.52 L 4.35-5.85 10^6/uL Hemoglobin 12.0 11.5-16.0 G/DL Hematocrit 34 L 35-52 % Mean Corpuscular Volume 96 80-99 FL Mean Corpuscular Hemoglobin 34 25-34 PG Mean Corpuscular Hemoglobin Concent 36 32-36 G/DL Red Cell Distribution Width 11.9 10.0-14.5 % Platelet Count 221 130-400 10^3/uL Mean Platelet Volume 8.0 7.4-10.4 FL Neutrophils (%) (Auto) 60 42-75 % Lymphocytes (%) (Auto) 32 12-44 % Monocytes (%) (Auto) 8 0-12 % Eosinophils (%) (Auto) 0 0-10 % Basophils (%) (Auto) 0 0-10 % Neutrophils # (Auto) 4.1 1.8-7.8 X 10^3 Lymphocytes # (Auto) 2.2 1.0-4.0 X 10^3 Monocytes # (Auto) 0.6 0.0-1.0 X 10^3 Eosinophils # (Auto) 0.0 0.0-0.3 10^3/uL Basophils # (Auto) 0.0 0.0-0.1 10^3/uL Sodium Level 128 L 135-145 MMOL/L Potassium Level 5.8 H 3.6-5.0 MMOL/L Chloride Level 95 L 98-107 MMOL/L Carbon Dioxide Level 22 21-32 MMOL/L Anion Gap 11 5-14 MMOL/L Blood Urea Nitrogen 25 H 7-18 MG/DL Creatinine 1.34 H 0.60-1.30 MG/DL Estimat Glomerular Filtration Rate 37 BUN/Creatinine Ratio 19 Glucose Level 110 H 70-105 MG/DL Calcium Level 9.1 8.5-10.1 MG/DL Total Bilirubin 0.5 0.1-1.0 MG/DL Aspartate Amino Transf (AST/SGOT) 19 5-34 U/L Alanine Aminotransferase (ALT/SGPT) 11 0-55 U/L Alkaline Phosphatase 38 L 40-136 U/L Total Protein 7.7 6.4-8.2 GM/DL Albumin 4.4 3.2-4.5 GM/DL Urine Color YELLOW Urine Clarity CLEAR Urine pH 5 5-9 Urine Specific [place] 1.020 1.016-1.022 Urine Protein 1+ H NEGATIVE Urine Glucose (UA) NEGATIVE NEGATIVE Urine Ketones NEGATIVE NEGATIVE Urine Nitrite NEGATIVE NEGATIVE Urine Bilirubin NEGATIVE NEGATIVE Urine Urobilinogen NORMAL NORMAL MG/DL Urine Leukocyte Esterase 1+ H NEGATIVE Urine RBC (Auto) NEGATIVE NEGATIVE Urine RBC 0-2 /HPF Urine WBC 2-5 /HPF Urine Squamous Epithelial Cells 25-50 H /HPF Urine Renal Epithelial Cells NONE /HPF Urine Crystals NONE /LPF Urine Bacteria TRACE /HPF Urine Casts PRESENT /LPF Urine Hyaline Casts 25-50 H /LPF Urine Granular Casts RARE /LPF Urine Mucus SMALL H /LPF Urine Culture Indicated NO Urine Opiates Screen NEGATIVE NEGATIVE Urine Oxycodone Screen NEGATIVE NEGATIVE Urine Methadone Screen NEGATIVE NEGATIVE Urine Propoxyphene Screen NEGATIVE NEGATIVE Urine Barbiturates Screen NEGATIVE NEGATIVE Ur Tricyclic Antidepressants Screen NEGATIVE NEGATIVE Urine Phencyclidine Screen NEGATIVE NEGATIVE Urine Amphetamines Screen NEGATIVE NEGATIVE Urine Methamphetamines Screen NEGATIVE NEGATIVE Urine Benzodiazepines Screen NEGATIVE NEGATIVE Urine Cocaine Screen NEGATIVE NEGATIVE Urine Cannabinoids Screen NEGATIVE NEGATIVE My Orders Orders - SHANNAN OLIVER MD Cbc With Automated Diff (07/05/17 15:32) Comprehensive Metabolic Panel (07/05/17 15:32) Ua Culture If Indicated (07/05/17 15:32) Drug Screen Stat (Urine) (07/05/17 15:58) Vital Signs/I&O Vital Sign - Last 12Hours 07/05/17 15:05 Temp 98.3 Pulse 58 Resp 18 B/P (MAP) 129/37 (67) Pulse Ox 97 Capillary Refill : Less Than 3 Seconds Blood Pressure Mean: 67 Departure Communication (Admissions) Progress Notes Workup has not defined any clear cause for her confusion. She had been taking tramadol which would not show up on the urine drug screen. It is not known when she last took one and how many she might have taken this week. Impression Impression: Primary Impression: confusion Disposition: 09 ADMITTED INPATIENT Condition: Stable/Unchanged Admissions Decision to Admit Reason: Admit from ER (General) Decision to Admit/Date: Jul 05, 2017 Time/Decision to Admit Time: 17:30 Departure-Patient Inst. Referrals: ZARI VASQUEZ MD (PCP/Family) Primary Care Physician SHANNAN OLIVER MD Jul 05, 2017 15:53
[2017-07-05 15:58] LABS: ALBUMIN 4.4 GM/DL (3.2-4.5); BILIRUBIN,TOTAL 0.5 MG/DL (0.1-1.0); CALCIUM 9.1 MG/DL (8.5-10.1); CREATININE SERUM 1.34 MG/DL (0.60-1.30); POTASSIUM 5.8 MMOL/L (3.6-5.0); TOTAL PROTEIN 7.7 GM/DL (6.4-8.2)
[2017-07-05 16:35] LABS: BILIRUBIN,URINE NEGATIVE (NEGATIVE); CLARITY,URINE CLEAR; COLOR,URINE YELLOW; GLUCOSE, URINE (UA) NEGATIVE (NEGATIVE); KETONES,URINE NEGATIVE (NEGATIVE); LEUKOCYTE ESTERASE ,URINE 1+ (NEGATIVE); NITRITE,URINE NEGATIVE (NEGATIVE); PH,URINE 5 (5-9); PROTEIN,URINE 1+ (NEGATIVE); UROBILINOGEN,URINE NORMAL (NORMAL)
[2017-07-05 16:49] LABS: AMPHETAMINE SCREEN, URINE NEGATIVE (NEGATIVE); BARBITURATE SCREEN URINE NEGATIVE (NEGATIVE); BENZODIAZEPINES SCREEN URINE NEGATIVE (NEGATIVE); CANNABINOID SCREEN, URINE NEGATIVE (NEGATIVE); COCAINE SCREEN URINE NEGATIVE (NEGATIVE); METHADONE STAT NEGATIVE (NEGATIVE); METHAMPHETAMINE SCREEN URINE S NEGATIVE (NEGATIVE); OPIATE SCREEN URINE NEGATIVE (NEGATIVE); OXYCODONE STAT NEGATIVE (NEGATIVE); PROPOXYPHENE STAT NEGATIVE (NEGATIVE); TRICYCLIC ANTIDEPRESSANTS SCRE NEGATIVE (NEGATIVE)
[2017-07-05 16:55] LABS: BACTERIA,URINE TRACE /HPF; GRANULAR CASTS,URINE RARE /LPF; HYALINE CASTS, URINE 25-50 /LPF; RBC,URINE 0-2 /HPF; SQUAMOUS EPITHELIAL CELL,UR 25-50 /HPF
--- OUTSIDE RECORDS SUMMARY | 2017-07-05 17:55 | XMS REPORT | Continuity of Care Document ---
Author Author [facility] Organization [facility] Address Unknown Phone Unavailable Allergies Active Description Code Type Severity Reaction Onset Reported/Identified Relationship to Patient Clinical Status Yes niacin [id number] Drug Allergy Unknown HIVES 09/17/2016 Yes simvastatin [id number] Drug Allergy Unknown HIVES 09/17/2016 Medications There [...] BLANQUITA LUCIOP Ot R09.89 04/24/2015 BLANQUITA LUCIO LAST MODEL MAKER Ot M54.9 04/25/2015 BLANQUITA LUCIO LAST MODEL MAKER Ot M54.9 06/01/2015 BLANQUITA LUCIOP Ot I71.4 [...] VERTEBRA, NEC, LUMBAR REGION, 08/19/2016 RICHY CRENSHAW LEAN SENSEI Ot R29.890 LOSS OF HEIGHT 09/01/2016 DEN RICHY Moseley APRN Ot M48.54XD COLLAPSED VERT, NEC, THOR REGION, SUBS F 09/01/2016 DEN RICHY Moseley LEAN SENSEI Ot M85.89 OTH DISRD OF BONE DENSITY AND STRUCTURE, 09/04/2016 DEN RICHY Moseley APRN Ot M48.54XD COLLAPSED VERT, NEC, THOR REGION, SUBS F 09/04/2016 DEN RICHY Moseley LEAN SENSEI Ot M85.89 OTH DISRD OF BONE DENSITY AND STRUCTURE, 09/09/2016 RICHY CRENSHAW APRN Ot 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, NEC, LUMBAR REGION, 09/09/2016 RICHY CRENSHAW LEAN SENSEI Ot R29.890 LOSS OF HEIGHT 09/16/2016 RICHY CRENSHAW LEAN SENSEI Ot 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, NEC, LUMBAR REGION, 09/16/2016 RICHY CRENSHAW LEAN SENSEI Ot R29.890 LOSS OF HEIGHT 09/19/2016 DAKOTA REGAN MD Ot E78.00 PURE HYPERCHOLESTEROLEMIA, UNSPECIFIED 09/19/2016 DAKOTA REGAN MD Ot I10 ESSENTIAL (PRIMARY) HYPERTENSION 09/19/2016 DAKOTA REGAN MD, Ot I25.10 ATHSCL HEART DISEASE OF [place] CORONARY 09/19/2016 DAKOTA REGAN MD, Ot 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 09/19/2016 DAKOTA REGAN MD, Ot Z79.899 OTHER SITE MANAGER (CURRENT) DRUG THERAPY 09/19/2016 DAKOTA REGAN MD Ot Z95.1 PRESENCE OF AORTOCORONARY BYPASS GRAFT 09/23/2016 DAKOTA REGAN MD, Ot E78.00 PURE HYPERCHOLESTEROLEMIA, UNSPECIFIED 09/23/2016 DAKOTA REGAN MD, Ot I10 ESSENTIAL (PRIMARY) HYPERTENSION 09/23/2016 DAKOTA REGAN MD Ot I25.10 ATHSCL HEART DISEASE OF [place] CORONARY 09/23/2016 DAKOTA REGAN MD, Ot 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 09/23/2016 DAKOTA REGAN MD Ot Z79.899 OTHER SITE MANAGER (CURRENT) DRUG THERAPY 09/23/2016 DAKOTA REGAN MD, Ot Z95.1 PRESENCE OF AORTOCORONARY BYPASS GRAFT 09/25/2016 DAKOTA REGAN MD, Ot E78.00 PURE HYPERCHOLESTEROLEMIA, UNSPECIFIED 09/25/2016 DAKOTA REGAN MD Ot I10 ESSENTIAL (PRIMARY) HYPERTENSION 09/25/2016 DAKOTA REGAN MD Ot I25.10 ATHSCL HEART DISEASE OF [place] CORONARY 09/25/2016 DAKOTA REGAN MD Ot 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 09/25/2016 DAKOTA REGAN MD, Ot Z79.899 OTHER SITE MANAGER (CURRENT) DRUG THERAPY 09/25/2016 DAKOTA REGAN MD, Ot Z95.1 PRESENCE OF AORTOCORONARY BYPASS GRAFT 10/06/2016 BLANQUITA LUCIOP Ot I71.4 ABDOMINAL AORTIC ANEURYSM, WITHOUT RUPTU 10/06/2016 BLANQUITA LUCIO Ot M81.0 AGE-RELATED OSTEOPOROSIS W/O CURRENT PAT 10/08/2016 DAKOTA REGAN MD, Ot E78.00 PURE HYPERCHOLESTEROLEMIA, UNSPECIFIED 10/08/2016 DAKOTA REGAN MD, Ot I10 ESSENTIAL (PRIMARY) HYPERTENSION 10/08/2016 DAKOTA REGAN MD, Ot I25.10 ATHSCL HEART DISEASE OF [place] CORONARY 10/08/2016 DAKOTA REGAN MD Ot K21.9 GASTRO-ESOPHAGEAL REFLUX DISEASE WITHOUT 10/08/2016 DAKOTA REGAN MD, Ot 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 10/08/2016 DAKOTA REGAN MD, Ot M85.89 OTH DISRD OF BONE DENSITY AND STRUCTURE, 10/08/2016 DAKOTA REGAN MD, Ot S32.050A WEDGE COMPRESSION FRACTURE OF FIFTH LUMB 10/08/2016 DAKOTA REGAN MD Ot X58.XXXA EXPOSURE TO OTHER SPECIFIED FACTORS, INI 10/08/2016 DAKOTA REAGN MD Ot Y92.[address] [facility] [address] IN [facility] NON-INSTITUT (PRIVATE 10/08/2016 DAKOTA REGAN MD, Ot Y99.8 OTHER EXTERNAL CAUSE STATUS 10/08/2016 DAKOTA REGAN MD Ot Z79.02 CUSTODIAL (CURRENT) USE OF 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 10/08/2016 DAKOTA REGAN MD, Ot Z79.899 OTHER SITE MANAGER (CURRENT) DRUG THERAPY 10/08/2016 DAKOTA REGAN MD, Ot Z95.1 PRESENCE OF AORTOCORONARY BYPASS GRAFT 10/09/2016 DAKOTA REGAN MD, Ot E78.00 PURE HYPERCHOLESTEROLEMIA, UNSPECIFIED 10/09/2016 DAKOTA REGAN MD, Ot I10 ESSENTIAL (PRIMARY) HYPERTENSION 10/09/2016 DAKOTA REGAN MD, Ot I25.10 ATHSCL HEART DISEASE OF [place] CORONARY 10/09/2016 DAKOTA REGAN MD, Ot K21.9 GASTRO-ESOPHAGEAL REFLUX DISEASE WITHOUT 10/09/2016 DAKOTA REGAN MD, Ot M85.89 OTH DISRD OF BONE DENSITY AND STRUCTURE, 10/09/2016 DAKOTA REGAN MD, Ot S32.050A [place] COMPRESSION FRACTURE OF [place]TH [place] 10/09/2016 DAKOTA REGAN MD, Ot X58.XXXA EXPOSURE TO OTHER SPECIFIED FACTORS, INI 10/09/2016 DAKOTA REGAN MD, Ot Y92.[address] [facility] [address] IN [facility] NON[facility] (PRIVATE 10/09/2016 DAKOTA REGAN MD, Ot Y99.8 OTHER EXTERNAL CAUSE STATUS 10/09/2016 DAKOTA REGAN MD, Ot Z79.02 SITE MANAGER (CURRENT) USE OF 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 10/09/2016 DAKOTA REGAN MD, Ot Z79.899 OTHER SITE MANAGER (CURRENT) DRUG THERAPY 10/09/2016 DAKOTA REGAN MD, [...] MD, Ot I25.10 ATHSCL HEART DISEASE OF [place] CORONARY 10/15/2016 DAKOTA REGAN MD, Ot K21.9 GASTRO-ESOPHAGEAL REFLUX DISEASE WITHOUT 10/15/2016 DAKOTA REGAN MD, Ot 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 10/15/2016 DAKOTA REGAN MD, Ot M85.89 OTH DISRD OF BONE DENSITY AND STRUCTURE, 10/15/2016 DAKOTA REGAN MD, Ot X58.XXXA EXPOSURE TO OTHER SPECIFIED FACTORS, INI 10/15/2016 DAKOTA REGAN MD, Ot Y92.[address] [facility] [address] IN [facility] NON[facility] (PRIVATE 10/15/2016 DAKOTA REGAN MD, Ot Y99.8 OTHER EXTERNAL CAUSE STATUS 10/15/2016 DAKOTA REGAN MD, Ot Z79.02 CUSTODIAL (CURRENT) USE OF 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 10/15/2016 DAKOTA REGAN MD, Ot Z79.899 OTHER SITE MANAGER (CURRENT) DRUG THERAPY 10/15/2016 DAKOTA REGAN MD, Ot Z95.1 PRESENCE OF AORTOCORONARY BYPASS GRAFT 10/17/2016 RIZWANA KISER MD Ot E78.5 HYPERLIPIDEMIA, UNSPECIFIED 10/17/2016 RIZWANA KISER MD Ot 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 10/17/2016 RIZWANA KISER MD Ot I10 ESSENTIAL (PRIMARY) HYPERTENSION 10/17/2016 RIZWANA KISER MD Ot I25.10 ATHSCL HEART DISEASE OF [place] CORONARY 10/17/2016 RIZWANA KISER MD Ot K21.9 [...] W/O CURRENT PAT 10/27/2016 LUCIO, BLANQUITA M LAST MODEL MAKER Ot I77.811 ABDOMINAL AORTIC ECTASIA 10/27/2016 KHADIJAHBLANQUITA LAST MODEL MAKER Ot M81.0 AGE-RELATED OSTEOPOROSIS W/O CURRENT PAT 10/27/2016 KHADIJAH BLANQUITA M LAST MODEL MAKER Ot I77.811 ABDOMINAL AORTIC ECTASIA 10/27/2016 KHADIJAHBLANQUITA LAST MODEL MAKER Ot M81.0 AGE-RELATED OSTEOPOROSIS W/O CURRENT PAT 10/27/2016 KHADIJAH BLANQUITA M LAST MODEL MAKER Ot I77.811 ABDOMINAL AORTIC ECTASIA 10/27/2016 KHADIJAH BLANQUITA M LAST MODEL MAKER Ot M81.0 AGE-RELATED OSTEOPOROSIS W/O CURRENT PAT 10/27/2016 KHADIJAH BLANQUITA M LAST MODEL MAKER Ot I77.811 ABDOMINAL AORTIC ECTASIA 10/27/2016 KHADIJAH BLANQUITA M LAST MODEL MAKER Ot M81.0 AGE-RELATED OSTEOPOROSIS W/O CURRENT PAT 10/27/2016 KHADIJAH BLANQUITA M LAST MODEL MAKER Ot I77.811 ABDOMINAL AORTIC ECTASIA 10/27/2016 BLANQUITA LUCIO LAST MODEL MAKER Ot M81.0 AGE-RELATED OSTEOPOROSIS W/O CURRENT PAT 10/27/2016 KHADIJAH BLANQUITA M LAST MODEL MAKER Ot I77.811 ABDOMINAL AORTIC ECTASIA 10/27/2016 KHADIJAH BLANQUITA Pradip LAST MODEL MAKER Ot M81.0 AGE-RELATED OSTEOPOROSIS W/O CURRENT PAT 10/27/2016 KHADIJAH BLANQUTIA M LAST MODEL MAKER Ot I77.811 ABDOMINAL AORTIC ECTASIA 10/27/2016 KHADIJAH BLANQUITA M LAST MODEL MAKER Ot M81.0 AGE-RELATED OSTEOPOROSIS W/O CURRENT PAT 10/29/2016 DAKOTA REGAN MD Ot E78.00 PURE HYPERCHOLESTEROLEMIA, UNSPECIFIED 10/29/2016 DAKOTA REGAN MD Ot I10 ESSENTIAL (PRIMARY) HYPERTENSION 10/29/2016 DAKOTA REGAN MD, Ot I25.10 ATHSCL HEART DISEASE OF [place] CORONARY 10/29/2016 DAKOTA REGAN MD Ot K21.9 GASTRO-ESOPHAGEAL REFLUX DISEASE WITHOUT 10/29/2016 DAKOTA REGAN MD Ot 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 10/29/2016 DAKOTA REGAN MD Ot M85.89 OTH DISRD OF BONE DENSITY AND STRUCTURE, 10/29/2016 DAKOTA REGAN MD, Ot X58.XXXA EXPOSURE TO OTHER SPECIFIED FACTORS, INI 10/29/2016 DAKOTA REGAN MD Ot Y92.[address] [facility] [address] IN [facility] NON-[facility] (PRIVATE 10/29/2016 DAKOTA REGAN MD Ot Y99.8 OTHER EXTERNAL CAUSE STATUS 10/29/2016 DAKOTA REGAN MD Ot Z79.02 CUSTODIAL (CURRENT) USE OF 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 10/29/2016 DAKOTA REGAN MD Ot Z79.899 OTHER SITE MANAGER (CURRENT) DRUG THERAPY 10/29/2016 DAKOTA REGAN MD Ot Z95.1 PRESENCE OF AORTOCORONARY BYPASS GRAFT 11/06/2016 RICHY CRENSHAW LEAN SENSEI Ot M54.9 DORSALGIA, UNSPECIFIED 11/06/2016 RICHY CRENSHAW LEAN SENSEI Ot R53.1 WEAKNESS 11/13/2016 RICHY CRENSHAW LEAN SENSEI Ot M54.9 DORSALGIA, UNSPECIFIED 11/13/2016 RICHY CRENSHAW LEAN SENSEI Ot R53.1 WEAKNESS 11/14/2016 BLANQUITA LUCIO LAST MODEL MAKER Ot I71.4 ABDOMINAL AORTIC ANEURYSM, WITHOUT RUPTU 11/14/2016 BLANQUITA LUCIO LAST MODEL MAKER Ot M81.0 AGE-RELATED OSTEOPOROSIS W/O CURRENT PAT 11/14/2016 BLANQUITA LUCIO LAST MODEL MAKER Ot I77.811 ABDOMINAL AORTIC ECTASIA 11/14/2016 BLANQUITA LUCIO LAST MODEL MAKER Ot M81.0 AGE-RELATED OSTEOPOROSIS W/O CURRENT PAT 11/18/2016 BLANQUITA LUCIO LAST MODEL MAKER Ot M81.0 AGE-RELATED OSTEOPOROSIS W/O CURRENT PAT 11/20/2016 BLANQUITA LUCIO LAST MODEL MAKER Ot M81.0 AGE-RELATED OSTEOPOROSIS W/O CURRENT PAT 11/21/2016 BLANQUITA LUCIO LAST MODEL MAKER Ot I77.811 ABDOMINAL AORTIC ECTASIA 11/21/2016 BLANQUITA LUCIO LAST MODEL MAKER Ot M81.0 AGE-RELATED OSTEOPOROSIS W/O CURRENT PAT 12/16/2016 RICHY CRENSHAW LEAN SENSEI Ot M54.9 DORSALGIA, UNSPECIFIED 12/16/2016 RICHY CRENSHAW LEAN SENSEI Ot R53.1 WEAKNESS 12/23/2016 RICHY CRENSHAW LEAN SENSEI Ot M54.9 DORSALGIA, UNSPECIFIED 12/23/2016 RICHY CRENSHAW LEAN SENSEI Ot R53.1 WEAKNESS 05/15/2017 BLANQUITA LUCIO Ot [...] Status Pt. Type Provider Facility Loc./Unit Complaint [id number] 05/15/2017 10:57:00 05/15/2017 23:59:59 CLS Outpatient ZARI VASQUEZ MD [facility] OSTEOPOROSIS M81.0 [id number] 01/15/2017 10:30:00 01/15/2017 13:51:00 DIS Outpatient RICHY CRENSHAW APRN [facility] REHAB RECENT OSTEOPORITIC FX W KYPHOPLASTY [id number] 10/24/2016 09:19:00 10/24/2016 23:59:59 CLS Outpatient BLANQUITA LUCIO [facility] RAD ABDOMINAL AORTIC ANEURYSM, OSTEOPOROSIS M81.0 [id number] 10/23/2016 09:24:00 10/23/2016 23:59:59 CLS Outpatient BLANQUITA LUCIO [facility] ABDOMINAL AORTIC ANEURYSM, OSTEOPOROSIS M81.0 [id number] 10/22/2016 13:10:00 10/22/2016 23:59:59 CLS Outpatient BLANQUITA LUCIO [facility] OSTEOPOROSIS [id number] 10/08/2016 12:35:00 10/17/2016 10:45:00 DIS Inpatient RIZWANA KISER MD [facility] IRF L5 COMPRESSION FRACTURE [id number] 10/06/2016 23:15:00 10/08/2016 12:00:00 DIS Outpatient DAKOTA REGAN MD [facility] ACUTE L5 COMPRESSION FRACTURE [id number] 09/19/2016 06:05:00 09/19/2016 12:45:00 DIS Outpatient DAKOTA REGAN MD [facility] FRACTURE [id number] 09/17/2016 11:51:00 09/17/2016 15:02:00 DIS Outpatient DAKOTA REGAN MD [facility] PREOP KYPHOPLASTY L-1,L-2 [id number] 08/16/2016 10:53:00 08/16/2016 23:59:59 CLS Outpatient RICHY CRENSHAW APRN [facility] RAD ONGOING BACK PAIN [id number] 08/07/2016 12:46:00 08/07/2016 23:59:59 CLS Outpatient RICHY CRENSHAW APRN [facility] RAD BACK PAIN, OSTEOPOROSIS [id number] 08/24/2015 11:41:00 08/24/2015 18:46:00 DIS Outpatient YOUSIF SCOTT MD [facility] [id number] 08/22/2015 08:50:00 08/22/2015 09:26:00 DIS Outpatient YOUSIF SCOTT MD [facility] PREOP [id number] 05/22/2015 09:59:00 05/22/2015 23:59:59 CLS Outpatient BLANQUITA LUCIO [facility] RAD [id number] 03/30/2015 10:13:00 03/30/2015 23:59:59 CLS Outpatient BLANQUITA LUCIO [facility] RAD [id number] 02/26/2015 12:43:00 02/26/2015 23:59:59 CLS Outpatient BLANQUITA LUCIO [facility] RAD [id number] 10/01/2013 14:35:00 10/03/2013 15:55:00 DIS Inpatient ADONAY WARD MD [facility] 4TH [id number] 07/18/2013 08:21:00 07/18/2013 23:59:59 CLS Outpatient [id number] 08/13/2012 10:45:00 08/13/2012 23:59:59 CLS Outpatient
[2017-07-05 18:50] VITALS: BP 148/66
[2017-07-05 19:14] VITALS: BP 130/60
[2017-07-05 23:45] VITALS: BP 154/68
[2017-07-06] MEDS: ACETAMINOPHEN 325 MG TABLET/CAPLET (TYLENOL) PO PRN ×2 (00:10→17:29)
[2017-07-06 03:59] VITALS: BP 160/70
[2017-07-06 08:00] VITALS: BP 129/60
[2017-07-06] MEDS ORDERED: ACET-2267 PO (09:10)
[2017-07-06] MEDS ORDERED: CHOL10007 PO (09:10)
[2017-07-06] MEDS ORDERED: ASPI-983 PO (09:10)
--- NOTE | 2017-07-06 09:11 | History & Physicial ---
History of Present Illness History of Present Illness Reason for visit/HPI PT IS AN 87 Y/O FEMALE WHO IS KNOWN TO ME FROM CLINIC. SHE IS INDEPENDENT IN HER OWN HOME, AND HAS CHILDREN WHO ARE QUITE ATTENTIVE. SHE RECENTLY HAD DENTAL SURGERY AND WAS TOLD BY THE DENTIST TO USE HER TRAMADOL THAT SHE HAD AT HOME. PER BEE'S REPORT SHE TOOK 3-4 PILLS ON THURSDAY/ THURSDAY AND HAD SOME CONFUSION. HER KIDS NOTED THE CONFUSION, STAYED WITH HER TO MAKE SURE THAT THE MEDICATION WOULD WEAR OFF, HOWEVER THEY NOTED THAT HER SYMPTOMS OF CONFUSION AND ALTERED SPEECH DID NOT CHANGE AND THUS BROUGHT HER TO THE EMERGENCY DEPARTMENT FOR WORK-UP. SHE REPORTS THAT SHE IS FEELING BETTER TODAY - HOWEVER HER KIDS NOTE THAT SHE IS STILL HAVING SOME ALTERED SPEECH WELL OCCASIONAL CONFUSION. SHE DID NOT HAVE A CT SCAN IN THE ER, THEY ORDERED AN MRI FOR TODAY. Date of Admission Jul 05, 2017 at 17:40 Date Seen by Provider: Jul 06, 2017 Time Seen by Provider: 08:50 I consulted on this patient on 07/06/17 09:06 Attending Physician Sole Mcdermott MD Admitting Physician Sole Mdcermott MD Consult Allergies and Home Medications Allergies Coded Allergies: niacin (Verified Allergy, Unknown, HIVES, 07/05/17) simvastatin (Verified Allergy, Unknown, HIVES, 09/17/16) Home Medications Ascorbate Calcium 500 Mg Tablet, 500 MG PO DAILY, (Reported) Clopidogrel Bisulfate 75 Mg Tablet, 75 MG PO DAILY, (Reported) Docusate Sodium 100 Mg Tablet, 100 MG PO DAILY PRN for CONSTIPATION-1ST LINE, ( Reported) Ergocalciferol (Vitamin D2) 2,000 Unit Tablet, 1,000 UNIT PO DAILY, (Reported) Lisinopril 20 Mg Tablet, 20 MG PO DAILY, (Reported) Nebivolol HCl 5 Mg Tablet, 5 MG PO HS, (Reported) Pantoprazole Sodium 40 Mg Tablet.dr, 40 MG PO HS, (Reported) Ranolazine 500 Mg Tab.er.12h, 500 MG PO Q12H, (Reported) Rosuvastatin Calcium 10 Mg Tablet, 10 MG PO HS, (Reported) Tramadol HCl 50 Mg Tablet, 50 MG PO QID PRN for PAIN-MODERATE, (Reported) Patient Home Medication List Home Medication List Reviewed: Yes Past [id number]-[id number]-[id number] Hx Patient Social History Marrital Status: Living Status: LIVES AT HOME ALONE IN [facility] Employed/Student: retired Alcohol Use: Occasionally Uses Number of Drinks Today: 1 Alcohol Beverage of Choice: Whiskey Recreational Drug Use: No Smoking Status: Former Smoker Former Smoker, Quit: Apr 20, 1980 Type Used: Cigarettes 2nd Hand Smoke Exposure: No Physical Abuse Screen: No Sexual Abuse: No Recent Foreign Travel: No (jan 2017 [place]) Contact w/other who traveled: No Recent Hopitalizations: Yes Recent Infectious Disease Expo: No Immunizations Up To Date Tetanus Booster (TDap): Unknown Date of Pneumonia Vaccine: Feb 04, 2017 Date of Influenza Vaccine: Feb 04, 2017 Seasonal Allergies Seasonal Allergies: No Surgeries Yes (CORONARY BYPASS GRAFT, LAP LIZETH, BACK SX, 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) Abdominal, Cardiac, CABG, Eye Surgery, Orthopedic Respiratory No Currently Using CPAP: No Currently Using BIPAP: No Cardiovascular Yes (CABG X5) Coronary Artery Disease, High Cholesterol, Hypertension Neurological Yes TIA 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 System Hx 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 Disorders: No Sexually Transmitted Disease: No HIV/AIDS: No Female 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 Disorders: Denies Genitourinary Yes (URINARY STRESS, URGE) Gastrointestinal Yes (CONSTIPATION OCCASIONALLY, Diverticulitis) Gastroesophageal Reflux, Chronic Constipation Musculoskeletal Yes (FRACTURE LEFT ARM; COMPRESSION FRACTURES) Degenerate Disk Disease, Osteoporosis, Arthritis, Fractures Endocrine History of Endocrine Disorders: No HEENT History of HEENT Disorders: Yes HEENT Disorders: Cataract Loss of Vision: Bilateral Hearing Impairment: Denies 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 Did You Recieve Any Treatments: Yes Type of Treatment: Surgical Intervention Psychosocial History of Psychiatric Problem: No Integumentary History of Skin or Integumenta: Yes (skin cancer on face/body) Blood Transfusions History of Blood Disorders: No Adverse Reaction to a Blood Tr: No Reviewed Nursing Assessment Reviewed/Agree w Nursing PMH: Yes Family Medical History Significant Family History: Heart Disease, Hypertension Family Hx: Abdominal aortic aneurysm G8 SISTER Congestive heart failure 19 FATHER Family history: Arthritis 19 MOTHER G8 SISTER Family history: Cardiovascular disease G8 SISTER Family history: Hypertension G8 SISTER Family history: Osteoporosis 19 MOTHER Heart disease 19 FATHER 19 MOTHER G8 SISTER Hypercholesterolemia G8 SISTER Kidney disease G8 SISTER Myocardial infarction 19 FATHER 19 MOTHER G8 SISTER Constitutional: No chills, No fever, No malaise, weakness Respiratory: No cough, No dyspnea on exertion, No short of breath Cardiovascular: No chest pain, No palpitations Gastrointestinal: No abdominal pain Genitourinary: no symptoms reported Musculoskeletal: back pain (CHRONIC INTERMITTENT), muscle weakness (FAMILY NOTES WEAKNESS) Psychiatric/Neurological: Denies Anxiety, Weakness, Other (CONFUSION, SPEECH ABNORMALITIES) All Other Systems Reviewed Negative Unless Noted: Yes Physical Exam Vital Signs Vital Signs - First Documented 07/05/17 07/05/17 15:05 18:50 Temp 98.3 Pulse 58 Resp 18 B/P (MAP) 129/37 (67) Pulse Ox 97 O2 Delivery Room Air Capillary Refill : Less Than 3 Seconds General Appearance: No Apparent Distress, WD/WN HEENT: PERRL/EOMI, Pharynx Normal Neck: Full Range of Motion, Supple Respiratory: Chest Non Tender, Lungs Clear, Normal Breath Sounds, No Accessory Muscle Use Cardiovascular: Regular Rate, Rhythm Gastrointestinal: Normal Bowel Sounds, Soft Rectal: Deferred Back: No CVA Tenderness Extremity: Normal Capillary Refill, Normal Range of Motion, Non Tender, No Calf Tenderness, No Pedal Edema Neurologic/Psychiatric: Alert, Oriented x3, No Motor/Sensory Deficits, Normal Mood/Affect, Other (SOME SPEECH ) Skin: Warm/Dry Assessment/Plan Assessment and Plan TIA HYPERTENSION WEAKNESS CONFUSION HYPONATREMIA HYPERKALEMIA ACUTE RENAL INSUFFICIENCY TIA - PT TO HAVE MRI TODAY - PLAVIX STARTED, HOME BLOOD PRESSURE MEDICATION STARTED. - CAROTID ULTRASOUND AND ECHO TO BE DONE TODAY. ASPIRIN 81MG DAILY. HYPERTENSION - ELEVATED - RESUME HOME MEDICATION. - LISINOPRIL AND BYSTOLIC. WEAKNESS AND CONFUSION - START PHYSICAL THERAPY. HYPONATREMIA - IV FLUIDS - NORMAL SALINE - REPEAT ELECTROLYTES. HYPERKALEMIA - MAY BE DUE TO LAB DRAW - HOWEVER, WILL CHECK LABS - ELECTROLYTES TODAY. ACUTE RENAL INSUFFICIENCY - MILD DEHYDRATION - PT HAS BEEN HYDRATED WITH IV FLUIDS - WILL REPEAT RENAL FUNCTION MONITORING. Problems: Admission Diagnosis TIA HYPERTENSION WEAKNESS CONFUSION HYPONATREMIA HYPERKALEMIA ACUTE RENAL INSUFFICIENCY Admission Status: Inpatient Order (span 2 midnights) Reason for Inpatient Admission: PT HAS HYPONATREMIA, HYERKALEMIA AND TIA - WITH WEAKNESS - WILL ORDER PHYSICAL THERAPY, OCC THERAPY - INPATIENT REHAB EVAL AND IMAGING. Clinical Quality Measures DVT/VTE Risk/Contraindication: Risk Factor Score Per Nursin RFS Level Per Nursing on Admit: 2=Moderate SOLE MCDERMOTT MD Jul 06, 2017 09:11
[2017-07-06] MEDS ORDERED: AZIT250T12 PO (09:15)
[2017-07-06] MEDS ORDERED: ASPIRIN E.C. 81 MG (ECOTRIN) TAB PO NR (09:45)
[2017-07-06 09:51] LABS: HEMOGLOBIN 11.2 G/DL (11.5-16.0); RED BLOOD COUNT 3.23 10^6/uL (4.35-5.85); RED CELL DISTRIBUTION WIDTH 11.9 % (10.0-14.5); WHITE BLOOD COUNT 6.5 10^3/uL (4.3-11.0)
[2017-07-06 10:15] LABS: BILIRUBIN,TOTAL 0.5 MG/DL (0.1-1.0); CREATININE SERUM 1.03 MG/DL (0.60-1.30); POTASSIUM 5.6 MMOL/L (3.6-5.0); TOTAL PROTEIN 7.1 GM/DL (6.4-8.2)
--- NOTE | 2017-07-06 10:24 | Diagnostic Imaging Report ---
CLINICAL INDICATION: Patient with possible stroke. Patient having confusion. EXAM: MRI of the brain was performed without IV contrast. Sequences include axial DWI, ADC map, axial T2, axial FLAIR, axial T1, axial gradient echo, and sagittal T1. COMPARISON: Head CT without contrast dated 10/01/2013. FINDINGS: There is no evidence of acute cerebral infarct, intracranial hemorrhage, or gross mass effect. The brain parenchymal volume appears appropriate for the patient's age. There are focal, patchy, and confluent areas of high T2 signal white matter changes seen involving both cerebral hemispheres, periventricular regions, and leona, likely representing chronic small vessel ischemic disease and leukoaraiosis. There is normal norman/white matter distinction. There is no significant midline shift or herniation. The [place] vascular structures show no gross abnormality as visualized. The pituitary gland, sella, and suprasellar regions are unremarkable as visualized. There is no evidence of hydrocephalus. The basal cisterns are unremarkable. The skull, extracranial soft tissue, and orbits are unremarkable. There are frothy secretions within the right maxillary sinus. The temporal bones show no significant abnormality. IMPRESSION: 1. There is no evidence of an acute intracranial process. 2. Age-related brain parenchymal changes with chronic small vessel ischemic disease and leukoaraiosis. 3. Right maxillary sinusitis. Dictated by: Dictated on workstation # [id number]
[2017-07-06] MEDS: lisINopril 20 MG (PRINIVIL) TABLET PO SCH (10:59)
[2017-07-06] MEDS: RANOLAZINE ER 500 MG TAB (RANEXA) PO SCH ×2 (10:59→20:45)
[2017-07-06] MEDS: CLOPIDOGREL 75 MG (PLAVIX) TABLET PO SCH (11:00)
[2017-07-06 12:00] VITALS: BP 125/64
--- NOTE | 2017-07-06 12:54 | Diagnostic Imaging Report ---
PROCEDURE: US carotid duplex, bilateral. TECHNIQUE: Multiple real-time grayscale images were obtained over the carotid arteries in various projections, bilaterally. Additional duplex Doppler and color Doppler images were also obtained. INDICATION: TIA. FINDINGS: There are no focally elevated velocities in either internal carotid artery. The ICA/CCA ratios are within normal limits, bilaterally. There is antegrade flow in the vertebral arteries, bilaterally. Grayscale images demonstrate minimal carotid plaque, bilaterally. IMPRESSION: Minimal bilateral carotid plaque however spectral analysis shows no evidence of a hemodynamically significant stenosis in either internal carotid artery. Parameters based on the consensus panel Grissom-Scale and Doppler ultrasound criteria published February 2003, Radiology, Volume 229. DOPPLER (peak systolic velocity M/S Right Left CCA .67 .64 ICA Proximal .59 .78 ICA Mid .47 .76 ICA Distal .51 .37 RATIO .88 1.23 ECA .83 .60 VERT .44 .62 Dictated by: Dictated on workstation # [id number]
--- NOTE | 2017-07-06 13:52 | Physical Therapy Evaluation ---
PT Evaluation-General Medical Diagnosis Admission Date Jul 05, 2017 at 17:40 Medical Diagnosis: confusion Onset Date: Jul 05, 2017 Therapy Diagnosis Therapy Diagnosis: generalized weakness/debility Height/Weight Height (Feet): 5 Height (Inches): 0.00 Weight (Pounds): 110 Weight (Ounces): 2.0 Precautions Precautions/Isolations: Fall Prevention, Standard Precautions Weight Bear Status Right Lower Extremity: Right Full Weight Bearing Left Lower Extremity: Left Full Weight Bearing Referral Physician: Sharron Reason for Referral: Evaluation/Treatment Medical History Pertinent Medical History: CABG, CAD, GERD, HTN Current History family found her at home confused with decreased motor ability and brought her to ED Reviewed History: Yes Social History Home: Single Level Current Living Status: Alone Prior/Core FIM Prior Level of Function Functional [place] Measure 0=Not Assessed/NA 4=Minimal Assistance 1=Total Assistance 5=Supervision or Setup 2=Maximal Assistance 6=Modified [place] 3=Moderate Assistance 7=Complete [place] Bed Mobility: 7 Transfers (B,C,W/C) (FIM): 7 Gait: 7 PT Evaluation-Current Subjective Patient agrees to PT. No c/o. Pain Numeric Pain Scale: 0-No Pain Location: No Pain Reported Objective Patient Orientation: Normal For Age Problem Solving: Fair ROM/Strength ROM Lower Extremities bilateral LE WNL Strength Lower Extremities right knee flexion/extension 4/5; hip flexion 4/5; DF/PF 4/5 left knee flexion/extension 4/5; hip flexion 4/5; DF/PF 4/5 Integumentary/Posture Integumentary refer to nursing notes Bowel Incontinence: No Bladder Incontinence: No Posture WNL Neuromuscular (Tone, Coordination, Reflexes) grossly intact Sensory Vision: Functional Hearing: Functional Sensation Right Lower Extremit: Intact Sensation Left Lower Extremity: Intact Transfers Functional [place] Measure 0=Not Assessed/NA 4=Minimal Assistance 1=Total Assistance 5=Supervision or Setup 2=Maximal Assistance 6=Modified [place] 3=Moderate Assistance 7=Complete [place] Transfers (B, C, W/C) (FIM): 5 Scootin Rollin Supine to/from Sit: 5 Sit to/from Stand: 5 Gait Mode of Locomotion: Walk Anticipated Mode of Locomotion: Walk Gait (FIM): 5 Distance (FIM): 3=150 ft Distance: 250' Gait Level of Assist: 5 Gait Assistive Device: FWW Comments/Gait Description 1 episode of LOB with self correction/safe and functional with FWW Balance Sitting Static: Normal Sitting Dynamic: Normal Standing Static: Normal Standing Dynamic: Fair Assessment/Needs 87 y.o. female, will benefit from short term skilled PT to address functional strength and mobility to improve current LOF and to safely return to home at maximum LOF. Rehab Potential: Good PT Cable Rigger Goals Penitentiary Goals PT Penitentiary Goals Time Frame: Jul 10, 2017 Transfers (B,C,W/C) (FIM): 6 Gait (FIM): 6 Gait distance (FIM): 3=150 ft Gait Level of Assist: 6 Gait Assistive Device: FWW PT Plan Treatment/Plan Treatment Plan: Continue Plan of Care Treatment Plan: Education, Functional Activity Windy, Functional Strength, Gait , Safety, Therapeutic Exercise, Transfers Treatment Duration: Jul 10, 2017 Frequency: 5 times per week Estimated Hrs Per Day: .25 hour per day Patient and/or Family Agrees t: Yes Time/GCodes Time In: 1240 Time Out: 1300 Total Billed Treatment Time: 20 Total Billed Treatment [address] [facility] 20 min PAOLO GUERRA PT Jul 06, 2017 13:52
[2017-07-06 15:37] VITALS: BP 112/53
[2017-07-06] MEDS ORDERED: cefTRIAXone INJECTION 1,000 MG in NS (IVPB) 100 ML IV NR (16:56)
[2017-07-06] MEDS: NS IV 1000 ML 1,000 ML IV SCH (17:26)
[2017-07-06 19:35] VITALS: BP 124/58
[2017-07-06] MEDS: NEBIVOLOL 5 MG TAB (BYSTOLIC) PO SCH (20:45)
[2017-07-06] MEDS: PANTOPRAZOLE 40 MG (PROTONIX) TAB PO SCH (20:45)
[2017-07-07] VITALS: BP 156/71
[2017-07-07 04:00] VITALS: BP 134/62
[2017-07-07] MEDS: NS IV 1000 ML 1,000 ML IV SCH ×2 (06:42→20:30)
[2017-07-07 08:00] VITALS: BP 148/84
[2017-07-07] MEDS: ASPIRIN E.C. 81 MG (ECOTRIN) TAB PO SCH (08:28)
[2017-07-07] MEDS: RANOLAZINE ER 500 MG TAB (RANEXA) PO SCH ×2 (08:28→20:26)
[2017-07-07] MEDS: CLOPIDOGREL 75 MG (PLAVIX) TABLET PO SCH (08:28)
[2017-07-07] MEDS: lisINopril 20 MG (PRINIVIL) TABLET PO SCH (08:28)
--- NOTE | 2017-07-07 09:26 | Progress Note (SOAP) ---
Subjective Date Seen by Provider: Jul 07, 2017 Time Seen by Provider: 09:20 Subjective/Events-last exam PT REPORTS THAT SHE IS FEELING BETTER TODAY- SHE IS STILL SOMEWHAT CONFUSED, BUT FEELS A LITTLE STRONGER. PHYSICAL THERAPY REPORTS PT DOES NOT QUALIFY FOR INPT REHAB Review of Systems General: Fatigue, Malaise HEENT: No Head Aches Pulmonary: No Dyspnea, No Cough Cardiovascular: No: Chest Pain, Palpitations Gastrointestinal: No: Nausea Genitourinary: No Dysuria Neurological: Weakness Objective Exam Vital Signs Date Time Temp Pulse Resp B/P (MAP) Pulse Ox O2 Delivery O2 Flow Rate FiO2 07/07/17 08:00 97.3 54 18 148/84 (105) 94 Room Air 07/07/17 04:00 97.3 52 18 134/62 (86) 96 Room Air 07/07/17 00:00 97.4 60 18 156/71 (99) 96 Room Air 07/06/17 19:35 98.2 64 18 124/58 (80) 95 Room Air 07/06/17 15:37 97.7 59 18 112/53 (72) 96 Room Air 07/06/17 12:00 98.2 72 18 125/64 (84) 93 Room Air I & O 07/07/17 06:59 Intake Total 1465 ml Balance 1465 ml Capillary Refill : Less Than 3 Seconds General Appearance: No Apparent Distress, WD/WN HEENT: PERRL/EOMI, Pharynx Normal Neck: Full Range of Motion, Supple Respiratory: Chest Non Tender, Lungs Clear, Normal Breath Sounds, No Accessory Muscle Use Cardiovascular: Regular Rate, Rhythm Gastrointestinal: normal bowel sounds, non tender, soft Extremity: Normal Capillary Refill, No Pedal Edema Neurologic/Psychiatric: Alert, Oriented x3, No Motor/Sensory Deficits, Normal Mood/Affect Skin: Warm/Dry Lymphatic: No Adenopathy Results Lab Laboratory Tests 07/06/17 09:40: White Blood Count 6.5, Red Blood Count 3.23L, Hemoglobin 11.2L, Hematocrit 32L, Mean Corpuscular Volume 98, Mean Corpuscular Hemoglobin 35H, Mean Corpuscular Hemoglobin Concent 36, Red Cell Distribution Width 11.9, Platelet Count 205, Mean Platelet Volume 8.0, Sodium Level 128L, Potassium Level 5.6H, Chloride Level 98, Carbon Dioxide Level 23, Anion Gap 7, Blood Urea Nitrogen 23H, Creatinine 1.03, Estimat Glomerular Filtration Rate 51, BUN/Creatinine Ratio 22 , Glucose Level 100, Calcium Level 9.0, Total Bilirubin 0.5, Aspartate Amino Transf (AST/SGOT) 19, Alanine Aminotransferase (ALT/SGPT) 12, Alkaline Phosphatase 33L, Total Protein 7.1, Albumin 4.0 Assessment/Plan Assessment/Plan Assess & Plan/Chief Complaint TIA HYPERTENSION WEAKNESS CONFUSION HYPONATREMIA HYPERKALEMIA ACUTE RENAL INSUFFICIENCY ACUTE SINUSITIS TIA - PLAVIX STARTED, HOME BLOOD PRESSURE MEDICATION STARTED. -MRI, CAROTID AND ECHO NEGATIVE FOR ANY ACUTE CONCERNS - PT TO CONTINUE WITH ASPIRIN 81MG DAILY. HYPERTENSION - ELEVATED - RESUMED HOME MEDICATION. - LISINOPRIL AND BYSTOLIC. WEAKNESS AND CONFUSION - STARTED PHYSICAL THERAPY. HYPONATREMIA - IV FLUIDS - NORMAL SALINE - REPEAT ELECTROLYTES. HYPERKALEMIA - IMPROVED ACUTE RENAL INSUFFICIENCY - MILD DEHYDRATION - PT HAS BEEN HYDRATED WITH IV FLUIDS - WILL REPEAT RENAL FUNCTION MONITORING. SINUSITIS - ON ROCEPHIN, WILL TRANSITION TO ORAL MEDICATIONS. PT TO BE DISCHARGED TO A RESIDENTIAL ON DISCHARGE - SHE HAS AGREED AND FAMILY WOULD LIKE [facility] Clinical Quality Measures Admission Status Admission Dx TIA HYPERTENSION WEAKNESS CONFUSION HYPONATREMIA HYPERKALEMIA ACUTE RENAL INSUFFICIENCY DVT/VTE Risk/Contraindication: Risk Factor Score Per Nursin RFS Level Per Nursing on Admit: 2=Moderate ZARI VASQUEZ MD Jul 07, 2017 09:26
--- NOTE | 2017-07-07 11:49 | Physical Therapy Daily Note ---
PT Daily Note-Current Subjective Patient is very agreeable to participate with PT. She reports she is feeling much better. Pain Numeric Pain Scale: 0-No Pain Location: No Pain Reported Mental Status Patient Orientation: Normal For Age Attachments: IV Transfers Functional [place] Measure 0=Not Assessed/NA 4=Minimal Assistance 1=Total Assistance 5=Supervision or Setup 2=Maximal Assistance 6=Modified [place] 3=Moderate Assistance 7=Complete IndependenceIRFPAI Quality Coding Scale 6 Independent with activity with or without an assistive device 5 Patient requires set up or clean up by helper. Patient completes activity by themselves 4 Supervision or touching assist (CGA). [place] provide cues , steadying assist 3 The helper provides less than half the effort to complete the activity 2 The helper provides more than half the effort to complete the activity 1 Dependent. The helper does all the effort to complete an activity 7 Patient refused to complete or attempt activity 9 The patient did not perform the activity before the current illness or injury 88 Not attempted due to Medical conditions or safety concerns Transfers (B, C, W/C) (FIM): 6 Scootin Sit to/from Stand: 6 Weight Bearing Right Lower Extremity: Right Full Weight Bearing Left Lower Extremity: Left Full Weight Bearing Gait Training Gait (FIM): 6 Distance (FIM): 3=150 ft Distance: 600' Gait Level of Assist: 6 Gait Assistive Device: FWW steady, functional gait sequence Assessment Patient tolerated treatment well and will ambulate with SPECIAL EFFECTS TECHNICIAN PRN in hallway. PT Mediation Commissioner Goals Mediation Commissioner Goals PT Mediation Commissioner Goals Time Frame: Jul 10, 2017 Transfers (B,C,W/C) (FIM): 6 Gait (FIM): 6 Gait distance (FIM): 3=150 ft Gait Level of Assist: 6 Gait Assistive Device: FWW PT Plan Treatment/Plan Treatment Plan: Continue Plan of Care Treatment Plan: Education, Functional Activity Windy, Functional Strength, Gait , Safety, Therapeutic Exercise, Transfers Treatment Duration: Jul 10, 2017 Frequency: 5 times per week Estimated Hrs Per Day: .25 hour per day Patient and/or Family Agrees t: Yes Time/GCodes Time In: 1115 Time Out: 1125 Total Billed Treatment Time: 10 Total Billed Treatment 1 visit [facility] 10 min PAOLO GUERRA PT Jul 07, 2017 11:49
[2017-07-07 12:00] VITALS: BP 140/58
[2017-07-07 16:00] VITALS: BP 145/64
[2017-07-07] MEDS: cefTRIAXone INJECTION 1,000 MG in NS (IVPB) 100 ML IV SCH (17:29)
[2017-07-07] MEDS: NEBIVOLOL 5 MG TAB (BYSTOLIC) PO SCH (20:26)
[2017-07-07] MEDS: PANTOPRAZOLE 40 MG (PROTONIX) TAB PO SCH (20:26)
[2017-07-07] MEDS: ACETAMINOPHEN 325 MG TABLET/CAPLET (TYLENOL) PO PRN (20:26)
[2017-07-08] VITALS: BP 144/61
[2017-07-08 08:00] VITALS: BP 142/58
[2017-07-08] MEDS ORDERED: CEFD300C3 PO (09:04)
[2017-07-08] MEDS ORDERED: LACT1CAP8 PO (09:04)
--- NOTE | 2017-07-08 09:06 | Discharge Inst-Skilled Nursing ---
Discharge Inst-Skilled NF Patient Instructions Patient Problems: TIA HYPERTENSION WEAKNESS CONFUSION HYPONATREMIA HYPERKALEMIA ACUTE RENAL INSUFFICIENCY Consult/Follow Up/Orders Follow Up Appt.: 1 WK WITH [facility] - CALL TO MAKE APPT Skilled NF Admit to: [facility] Certification (SNF) I certify that SNF services are required to be given on an inpatient basis because of the above named patient's need for long-term care on a continuing basis for the conditions(s) for which he/she was receiving inpatient hospital services prior to his/her transfer to the SNF. Assisted Facility Order: Nursing Services, Dyehouse Worker-Evaluate & Treat, Physical Therapy-Evaluate & Treat Discharge Diet: Regular Diet Daily Activity as Tolerated: Yes New & Resume Previous Orders Zari Mcdermott Jul 08, 2017 09:04 Medication List: Active Scripts Active Acidophilus (Lactobacillus Acidophilus) 1 Each Capsule 1 Each PO TID Cefdinir 300 Mg Capsule 300 Mg PO BID 7 Days Reported Azithromycin 250 Mg Tablet PO UD 5 Days 5 DAY SUPPLY FILLED 07-02-17 Tylenol Extra Strength (Acetaminophen) 500 Mg Tablet 500 Mg PO BID PRN Aspirin EC (Aspirin) 81 Mg Tablet.dr 81 Mg PO DAILY Vitamin D3 (Cholecalciferol (Vitamin D3)) 1,000 Unit Capsule 1,000 Unit PO DAILY Vitamin C (Ascorbate Calcium) 500 Mg Tablet 500 Mg PO DAILY Rosuvastatin Calcium 10 Mg Tablet 10 Mg PO HS LAST FILLED #90 01-09-17 Clopidogrel (Clopidogrel Bisulfate) 75 Mg Tablet 75 Mg PO DAILY Pantoprazole Sodium 40 Mg Tablet.dr 40 Mg PO HS Lisinopril 20 Mg Tablet 20 Mg PO DAILY Bystolic (Nebivolol HCl) 5 Mg Tablet 5 Mg PO HS LAST FILLED #30 04-08-17 Ranexa (Ranolazine) 500 Mg Tab.er.12h 500 Mg PO Q12H Stool Softener (Docusate Sodium) 100 Mg Tablet 100 Mg PO DAILY PRN My orders: Orders - ZARI MCDERMOTT MD Social Service (07/07/17 09:26) Patient Visit (07/07/17 ) Functional Activities, Ea 15 (07/07/17 ) Attending Discharge (07/08/17 09:01) ZARI MCDERMOTT MD Jul 08, 2017 09:06
[2017-07-08] MEDS: CLOPIDOGREL 75 MG (PLAVIX) TABLET PO SCH (09:57)
[2017-07-08] MEDS: lisINopril 20 MG (PRINIVIL) TABLET PO SCH (09:57)
[2017-07-08] MEDS: ASPIRIN E.C. 81 MG (ECOTRIN) TAB PO SCH (09:58)
[2017-07-08] MEDS: RANOLAZINE ER 500 MG TAB (RANEXA) PO SCH (09:59)
[2017-07-08] MEDS: NS IV 1000 ML 1,000 ML IV SCH (11:11)
[2017-07-08] MEDS ORDERED: NS (IVPB) 100 ML ONE (12:06)
[2017-07-08] MEDS: cefTRIAXone INJECTION 1,000 MG in NS (IVPB) 100 ML IV SCH (12:16)
--- NOTE | 2017-07-08 13:18 | Physical Therapy Daily Note ---
PT Daily Note-Current Subjective Patient up in chair and dressed. She reports that that she is going home today. Mental Status Patient Orientation: Normal For Age Transfers Functional [place] Measure 0=Not Assessed/NA 4=Minimal Assistance 1=Total Assistance 5=Supervision or Setup 2=Maximal Assistance 6=Modified [place] 3=Moderate Assistance 7=Complete IndependenceIRFPAI Quality Coding Scale 6 Independent with activity with or without an assistive device 5 Patient requires set up or clean up by helper. Patient completes activity by themselves 4 Supervision or touching assist (CGA). [place] provide cues , steadying assist 3 The helper provides less than half the effort to complete the activity 2 The helper provides more than half the effort to complete the activity 1 Dependent. The helper does all the effort to complete an activity 7 Patient refused to complete or attempt activity 9 The patient did not perform the activity before the current illness or injury 88 Not attempted due to Medical conditions or safety concerns Transfers (B, C, W/C) (FIM): 6 Supine to/from Sit: 6 Sit to/from Stand: 6 Bed to/from Chair: 6 Shows good balance and mastery of FWW. Weight Bearing Right Lower Extremity: Right Full Weight Bearing Left Lower Extremity: Left Full Weight Bearing Gait Training Distance (FIM): 3=150 ft Distance: 500 Gait Level of Assist: 6 Gait Persons Needed: 1 Gait Assistive Device: FWW Assessment Current Status: Excellent Progress Pt shows good balance during transfers and ambulation. She is safe with use of FWW. Recommend discharge from skilled therapy services. PT Detention Goals Environmental Studies Professor Goals PT Detention Goals Time Frame: Jul 10, 2017 Transfers (B,C,W/C) (FIM): 6 Gait (FIM): 6 Gait distance (FIM): 3=150 ft Gait Level of Assist: 6 Gait Assistive Device: FWW PT Plan Treatment/Plan Treatment Plan: Discontinue PT, goals met Treatment Plan: Education, Functional Activity Windy, Functional Strength, Gait , Safety, Therapeutic Exercise, Transfers Treatment Duration: Jul 10, 2017 Frequency: 5 times per week Estimated Hrs Per Day: .25 hour per day Patient and/or Family Agrees t: Yes Safety Risks/Education Teaching Recipient: Patient Teaching Methods: Demonstration, Discussion Response to Teaching: Verbalize Understanding Discharge Recommendations Therapy D/C Recommendations: Assisted Living Time/GCodes Time In: 1030 Time Out: 1040 Total Billed Treatment Time: 10 Total Billed Treatment visit, gait 10 min YI GREGORY PT Jul 08, 2017 13:18
== END 2017-07-08 13:30 | disposition home or self-care (01) | DRG 69 ==
LOC: EDUNIT# 14:59 → ER 15:01 → 4TH 17:40 → OBSVTOIN 17:40 → INTOOBSV 17:40 → UNDOADMOB 17:40 → 4TH 18:50 → OBSVTOIN 07-06 09:22
PROVIDERS: ADMIT Internal Medicine; ATTEND Family Medicine
DX: G45.9 Transient cerebral ischemic attack, unspecified (principal); E87.1 Hypo-osmolality and hyponatremia; R53.1 Weakness; R47.89 Other speech disturbances; R41.0 Disorientation, unspecified; E87.5 Hyperkalemia; E86.0 Dehydration; J01.90 Acute sinusitis, unspecified; N28.9 Disorder of kidney and ureter, unspecified; I25.10 Atherosclerotic heart disease of native coronary artery without angina pectoris; I10 Essential (primary) hypertension; E78.00 Pure hypercholesterolemia, unspecified; G47.30 Sleep apnea, unspecified; K21.9 Gastro-esophageal reflux disease without esophagitis; K59.09 Other constipation; M81.0 Age-related osteoporosis without current pathological fracture; M19.91 Primary osteoarthritis, unspecified site; R39.15 Urgency of urination; I27.20 Pulmonary hypertension, unspecified; I34.0 Nonrheumatic mitral (valve) insufficiency; Z87.891 Personal history of nicotine dependence; Z95.1 Presence of aortocoronary bypass graft; Z86.73 Personal history of transient ischemic attack (TIA), and cerebral infarction without residual deficits; Z87.19 Personal history of other diseases of the digestive system; Z85.828 Personal history of other malignant neoplasm of skin
CPT/HCPCS: 36415; 70551; 80053; 80306; 81000; 85025; 85027; 93306; 93880; G0378

== ENCOUNTER → 2017-11-03 | Outpatient (CLI) | payer MEDICARE ==
[~2017-11-03] MED LIST changes: +ASPI-983 PO; +AZIT250T12 PO; +CEFD300C3 PO; +CHOL10007 PO; +LACT1CAP8 PO; -ROSU10TA26 PO; +ROSU10TA27 PO
== END ==
LOC: CARD 10:58
PROVIDERS: ATTEND Internal Medicine Cardiovascular Disease
DX: G45.9 Transient cerebral ischemic attack, unspecified (principal)
CPT/HCPCS: 93225; 93226

== ENCOUNTER → 2017-11-13 | Outpatient (CLI) | payer MEDICARE ==
[~2017-11-13] VITALS: Ht 152.4 cm; Wt 50.0 kg
[~2017-11-13] MED LIST changes: +DENOSUMAB 60 MG/1 ML (PROLIA) SQ ONE
[2017-11-13 11:31] VITALS: BP 155/61
== END ==
LOC: SDC 11:05
PROVIDERS: ATTEND Family Medicine
DX: M81.0 Age-related osteoporosis without current pathological fracture (principal)
CPT/HCPCS: 96372

== ENCOUNTER 2018-02-01 10:04 | Observation (INO) | payer MEDICARE ==
[2018-02-01] VITALS (10 sets, daily range): BP systolic 132–155; BP diastolic 52–71
[~2018-02-01] VITALS: Ht 152.4 cm; Wt 54.6 kg
[~2018-02-01 10:04] MED LIST changes: -DENOSUMAB 60 MG/1 ML (PROLIA) SQ ONE
[2018-02-01] MEDS ORDERED: hydrALAZINE (APESOLINE) 20 MG/ML VIAL ONE ×2 (10:17→11:40)
[2018-02-01 10:20] LABS: BASOPHILS % (AUTO) 0 % (0-10); EOSINOPHILS # (AUTO) 0.1 10^3/uL (0.0-0.3); EOSINOPHILS % (AUTO) 2 % (0-10); HEMATOCRIT 33 % (35-52); HEMOGLOBIN 11.3 G/DL (11.5-16.0); LYMPHOCYTES # (AUTO) 2.5 X 10^3 (1.0-4.0); LYMPHOCYTES % (AUTO) 37 % (12-44); MEAN CORPUSCULAR HEMOGLOBIN 35 PG (25-34); MEAN CORPUSCULAR HGB CONC 35 G/DL (32-36); MEAN CORPUSCULAR VOLUME 100 FL (80-99); MEAN PLATELET VOLUME 8.5 FL (7.4-10.4); MONOCYTES # (AUTO) 0.8 X 10^3 (0.0-1.0); MONOCYTES % (AUTO) 12 % (0-12); NEUTROPHILS # (AUTO) 3.3 X 10^3 (1.8-7.8); NEUTROPHILS % (AUTO) 49 % (42-75); PLATELET COUNT 218 10^3/uL (130-400); RED BLOOD COUNT 3.27 10^6/uL (4.35-5.85); WHITE BLOOD COUNT 6.7 10^3/uL (4.3-11.0)
[2018-02-01 10:40] LABS: FIBRIN DEGRADATION PRODUCTS 1.26 UG/ML (0.00-0.49); PROTHROMBIN TIME PATIENT 12.9 SEC (12.2-14.7)
[2018-02-01 10:46] LABS: ALANINE AMINOTRANSFERASE 12 U/L (0-55); ALBUMIN 4.1 GM/DL (3.2-4.5); ALKALINE PHOSPHATASE 35 U/L (40-136); BILIRUBIN,TOTAL 0.4 MG/DL (0.1-1.0); BUN/CREATININE RATIO 12; CALCIUM 9.5 MG/DL (8.5-10.1); CARBON DIOXIDE 24 MMOL/L (21-32); CHLORIDE 101 MMOL/L (98-107); CREATININE SERUM 1.05 MG/DL (0.60-1.30); GFR ESTIMATED 50; GLUCOSE 77 MG/DL (70-105); POTASSIUM 4.6 MMOL/L (3.6-5.0); SODIUM 137 MMOL/L (135-145); TOTAL PROTEIN 7.5 GM/DL (6.4-8.2)
--- NOTE | 2018-02-01 10:51 | Diagnostic Imaging Report ---
CLINICAL INDICATION: Trouble with speech. EXAM: Axial CT scan of the brain performed without IV contrast. COMPARISON: MRI of the brain without contrast dated 07/06/2017. Head CT without IV contrast dated 10/01/2013. FINDINGS: There is no evidence of acute cerebral infarct, intracranial hemorrhage, or gross mass effect. The brain parenchymal volume appears appropriate for the patient's age. Again seen are patchy and confluent areas of high T2 signal white matter changes throughout both cerebral hemispheres, likely representing chronic small vessel ischemic disease and leukoaraiosis. There is normal norman/white matter distinction. There is no significant midline shift or herniation. There is no evidence of hydrocephalus. The basal cisterns are unremarkable. The skull, extracranial soft tissue, and orbits are unremarkable. There is moderate peripheral mucosal thickening and secretions involving the right maxillary sinus. There is mild mucosal thickening involving the ethmoid sinus and sphenoid sinus. The temporal bones show no significant abnormality. IMPRESSION: 1. There is no CT evidence of acute cerebral infarct, intracranial hemorrhage, brain herniation, or midline shift. If there is continued concern for an acute cerebral infarct, then an MRI of the brain would better evaluate. 2. Age-related brain parenchymal changes with chronic small vessel ischemic disease and leukoaraiosis. 3. Mild to moderate paranasal sinus disease. Dictated by: Dictated on workstation # [id number]
--- NOTE | 2018-02-01 11:07 | Diagnostic Imaging Report ---
INDICATION: Stroke like symptoms. TIME OF EXAM: 10:53 AM Comparison is made with prior chest radiograph from 02/26/2015. FINDINGS: Changes of median sternotomy and CABG are noted. The lungs appear to be clear. No failure is seen. No effusion or pneumothorax is identified. Lower thoracic kyphoplasty changes are noted. IMPRESSION: No acute cardiopulmonary process is detected. Dictated by: Dictated on workstation # [id number]
[2018-02-01] MEDS ORDERED: fentaNYL INJECTION 100 MCG/2 ML AMP ONE (11:40)
[2018-02-01] MEDS ORDERED: fentaNYL INJECTION 100 MCG/2 ML AMP IVP STA ×3 (11:43→13:21)
[2018-02-01] MEDS ORDERED: IOHEXOL 350 MG/ML 100 ML (OMNIPAQUE 350) VIAL IV ONE (11:45)
[2018-02-01] MEDS ORDERED: hydrALAZINE (APESOLINE) 20 MG/ML VIAL IV ONE (11:45)
[2018-02-01] MEDS ORDERED: NS 250 ML (IVPB) BAG IV ONE (11:45)
[2018-02-01 11:52] LABS: BILIRUBIN,URINE NEGATIVE (NEGATIVE); CLARITY,URINE CLEAR; COLOR,URINE YELLOW; GLUCOSE, URINE (UA) NEGATIVE (NEGATIVE); KETONES,URINE NEGATIVE (NEGATIVE); LEUKOCYTE ESTERASE ,URINE 1+ (NEGATIVE); NITRITE,URINE NEGATIVE (NEGATIVE); PH,URINE 8 (5-9); PROTEIN,URINE NEGATIVE (NEGATIVE); UROBILINOGEN,URINE NORMAL (NORMAL)
[2018-02-01 12:04] LABS: BACTERIA,URINE NEGATIVE /HPF; WBC,URINE RARE /HPF
[2018-02-01] MEDS ORDERED: ONDANSETRON 4 MG/2 ML (SDV) Z0FRAN ONE (12:44)
--- NOTE | 2018-02-01 12:45 | Diagnostic Imaging Report ---
PROCEDURE: CT angiography of the head and CT angiography of the neck with and without contrast. TECHNIQUE: Contiguous noncontrast images were obtained from the skull base through the vertex. After intravenous contrast administration, helical CT angiography of the neck was performed. Source data was reformatted into multiple 2D MIP projections. Delayed post contrast acquisition was also obtained. INDICATION: Headache, confusion, and memory loss. FINDINGS: Both common carotid arteries are tortuous. There is a large amount of calcified plaque at the carotid bifurcations bilaterally. The internal carotid arteries are widely patent. There is a large amount of calcified plaque in the carotid siphons bilaterally. There is perfusion within bilateral middle cerebral and anterior cerebral arteries. No filling defects or large branch occlusion is seen. The posterior cerebrals appear patent. The basilar is patent. Both vertebral arteries appear to be codominant and patent. IMPRESSION: There is calcified plaque in both carotid systems. No high-grade stenosis is seen. No definite thromboemboli or large branch occlusion is seen. Dictated by: Dictated on workstation # [id number]
[2018-02-01] MEDS ORDERED: fentaNYL INJECTION 100 MCG/2 ML AMP IVP PRN (13:00)
--- NOTE | 2018-02-01 13:35 | ED Neurological Problem ---
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 NO PROBLEMS SWALLOWING NO PROBLEMS WITH VISION NO PARESTHESIAS OR MOTOR DEFICITS NO PROBLEMS WALKING C/O HEADACHE--STATES SHE HAS BEEN HAVING PROBLEMS WITH HEADACHES--PT UNABLE TO RATE PAIN OR STATE HOW LONG HEADACHE HAS BEEN GOING ON STATES SHE TOOK ALL OF HER MORNING MEDICATIONS INCLUDING ASPIRIN AND PLAVIX-- HAS HISTORY OF CAD WITH 3 VESSEL CABG, WELL MULTIPLE TIA'S STATES THIS HAS HAPPENED 4-5 TIMES IN THE LAST COUPLE OF YEARS, BUT USUALLY DO NOT LAST THIS LONG, USUALLY ONLY LAST 5-10 MINUTES. NO OTHER SYMPTOMS PCP: DR. VASQUEZ--SAW HER TRAVEL RN OR ON Thursday01/29/18 FOR URI SYMPTOMS--STATES SHE WAS GIVEN AN ANTIBIOTIC ( AMOXIL) AND MEDICATION FOR DRAINAGE ( ZYRTEC) AND ALSO A PROBIOTIC . NO FEVER. NO COUGH OR SHORTNESS OF BREATH. NO CHEST PAIN DATA INTEGRITY ANALYST: DR. Mando WHITNEY, [facility] Allergies and Home Medications Allergies Coded Allergies: niacin (Verified Allergy, Unknown, HIVES, 07/05/17) simvastatin (Verified Allergy, Unknown, HIVES, 09/17/16) Home Medications Acetaminophen 500 Mg Tablet, 500 MG PO Q6H PRN for PAIN-MILD OR TEMPATURE, ( Reported) Acetaminophen 500 Mg Tablet, 500 MG PO HS, (Reported) Amoxicillin 500 Mg Capsule, 500 MG PO TID, (Reported) 7 DAY SUPPLY FILLED 01-29-18 Ascorbate Calcium 500 Mg Tablet, 500 MG PO DAILY, (Reported) Aspirin 81 Mg Tablet.dr, 81 MG PO DAILY, (Reported) Cetirizine HCl 10 Mg Tablet, 10 MG PO DAILY, (Reported) 7 DAY THERAPY START DATE 01-29-18 Cetirizine HCl 10 Mg Tablet, 10 MG PO DAILY PRN for ALLERGIES, (Reported) Cholecalciferol (Vitamin D3) 1,000 Unit Capsule, 1,000 UNIT PO DAILY, (Reported) Clopidogrel Bisulfate 75 Mg Tablet, 75 MG PO DAILY, (Reported) Docusate Sodium 100 Mg Tablet, 100 MG PO DAILY PRN for CONSTIPATION-1ST LINE, ( Reported) L.acidoph & ParacloyB.lactis 1 Each Capsule, 1 CAP PO DAILY, (Reported) 7 DAY THEARPY START DATE 01-30-18 Lactase 3,000 Unit Tablet, 1 TAB PO QID PRN for WHEN EATING DAIRY, (Reported) Lisinopril 10 Mg Tablet, 10 MG PO HS, (Reported) Lisinopril 20 Mg Tablet, 20 MG PO DAILY, (Reported) Nebivolol HCl 5 Mg Tablet, 5 MG PO HS, (Reported) Pantoprazole Sodium 40 Mg Tablet.dr, 40 MG PO HS, (Reported) Ranolazine 500 Mg Tab.er.12h, 500 MG PO Q12H, (Reported) Rosuvastatin Calcium 10 Mg Tablet, 10 MG PO HS, (Reported) Patient Home Medication List Home Medication List Reviewed: Yes Review of Systems Review of Systems Constitutional: No chills, No diaphoresis, No dizziness, No fever, No malaise, No weakness Eyes: No Symptoms Reported Ears, Nose, Mouth, Throat: see HPI, nose discharge (CLEAR NASAL DRAINAGE, MILD CONGESTION) Respiratory: no symptoms reported; No cough, No short of breath Cardiovascular: no symptoms reported; No edema, No syncope, No vascular heart diseas Gastrointestinal: no symptoms reported; No abdominal pain, No diarrhea, No nausea, No vomiting Genitourinary: no symptoms reported Musculoskeletal: no symptoms reported; No back pain, No neck pain Skin: no symptoms reported Psychiatric/Neurological: See HPI, Cognitive Dysfunction (EXPRESSIVE APHASIA, BUT NOT ACTUALLY CONFUSED), Headache; Denies Numbness, Denies Tingling, Denies Tonic Clonic Seizures, Denies Weakness Endocrine: No Symptoms Reported Hematologic/Lymphatic: No Symptoms Reported Past Xusqzio-Djhqbq-Bmnpil Hx Patient Social History Alcohol Use: Occasionally Uses Alcohol Beverage of Choice: Whiskey Recreational Drug Use: No Smoking Status: Former Smoker Type Used: Cigarettes Former Smoker, Quit: Apr 20, 1980 2nd Hand Smoke Exposure: No Recent Hopitalizations: Yes Immunizations Up To Date Tetanus Booster (TDap): Unknown Date of Pneumonia Vaccine: Feb 04, 2017 Date of Influenza Vaccine: Feb 04, 2017 Seasonal Allergies Seasonal Allergies: No Past Medical History Surgeries: Yes (CORONARY BYPASS GRAFT, LAP LIZETH, BACK SX, 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 REGAN ; CATARACTS) Abdominal, Cardiac, CABG, Eye Surgery, Orthopedic Respiratory: Yes Sleep Apnea Currently Using CPAP: No Currently Using BIPAP: No Cardiac: Yes (CABG X5 VESSEL) Coronary Artery Disease, High Cholesterol, Hypertension Neurological: Yes (MULTIPLE TIA'S ) TIA 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 Disorders: No Female 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 Disorders: Denies Sexually Transmitted Disease: No HIV/AIDS: No Genitourinary: Yes (URINARY STRESS AND URGE INCONTINENCE) Gastrointestinal: Yes (CONSTIPATION OCCASIONALLY) Gastroesophageal Reflux, Chronic Constipation, Diverticulosis Musculoskeletal: Yes (FRACTURE LEFT ARM; COMPRESSION FRACTURES L1-L5--S/P KYPHOPLASTIES/VERTEBROPLASTIES) Degenerate Disk Disease, Osteoporosis, Arthritis, Chronic Back Pain, Fractures Endocrine: No HEENT: Yes (BILATERAL CATARACTS REMOVED) Cataract Loss of Vision: Bilateral Hearing Impairment: Denies 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) Skin Did You Recieve Any Treatments: Yes What Type of Treatment Did You: Surgical Intervention Psychosocial: No Integumentary: Yes (skin cancer on face/body) Blood Disorders: No Adverse Reaction/Blood Tranf: No Family Medical History Abdominal aortic aneurysm G8 SISTER Congestive heart failure 19 FATHER Family history: Arthritis 19 MOTHER G8 SISTER Family history: Cardiovascular disease G8 SISTER Family history: Hypertension G8 SISTER Family history: Osteoporosis 19 MOTHER Heart disease 19 FATHER 19 MOTHER G8 SISTER Hypercholesterolemia G8 SISTER Kidney disease G8 SISTER Myocardial infarction 19 FATHER 19 MOTHER G8 SISTER Heart Disease, Hypertension Physical Exam Vital Signs Capillary Refill : Height, Weight, BMI Height: 5'0.00" Weight: 110lbs. 2.0oz. 49.435734sh; 21.5 BMI Method:Stated General Appearance: WD/WN, no apparent distress HEENT: PERRL/EOMI, normal ENT inspection, TMs normal, pharynx normal Neck: non-tender, full range of motion, supple, normal inspection; No carotid bruit Respiratory: no respiratory distress, no accessory muscle use, rales (VERY FAINT RALES IN BASES. ) Cardiovascular: normal peripheral pulses, regular rate, rhythm, no edema, no JVD, no murmur Peripheral Pulses: 2+ Dorsalis Pedis (R), 2+ Left Dors-Pedis (L), 2+ Radial Pulses (R), 2+ Radial Pulses (L) Gastrointestinal: normal bowel sounds, non tender, soft, no organomegaly Back: normal inspection, no CVA tenderness, no vertebral tenderness Extremities: normal range of motion, non-tender, normal inspection, no pedal edema, no calf tenderness, normal capillary refill Neurologic/Psychiatric: neon tube pumper II-XII nml as tested, no motor/sensory deficits, alert, normal mood/affect, oriented x 3, aphasia (MILD EXPRESSIVE APHASIA) Crainal Nerves: normal hearing, PERRL Coordination/Gait: normal finger to nose, normal gait Motor/Sensory: no motor deficit, no sensory deficit, no pronator drift, other Skin: normal color, warm/dry Stroke NIH Stroke Scale Assessment Select: Initial Level of Consciousness: 0=Alert (0), Level of Consciousness- Questions: 0=Answers both month/age (0), LOC Commands: 0=Performs both tasks (0) , Gaze: Normal (0), Visual Bernstein: 0=No visual loss (0), Facial Movement ( Facial Paresis): 0=Normal symmetrical mnt (0), Motor Function-Arms Right: 0=No drift (0), Motor Function-Arms Left: 0=No drift (0), Motor Function-Legs Right: 0=No drift (0), Motor Function-Legs Left: 0=No drift (0), Limb Ataxia: 0=Absent (0), Sensory: 0=Normal:no loss (0), Best Language: 1=Mild to moderat aphasia (1) , Dysarthria: 0=Normal (0), Extinction & Inattention: 0=No abnormality (0), Total: 1 Stroke Thrombolytic Exclusion Age 18 or Over: Yes Acute intenal hemorrhage: No History of CVA: No Uncontrolled Coagulation Defec: No Intracranial Hemorrhage: No Severe Hypertension: Yes GI or Bleed: No Subarachnoid Hemorrhage: No Intracranial Neoplasm/Aneurysm: No Oral Anticoagulants: Yes Surgery or Trauma: No Puncture of Non-Compressible V: No Recent CPR: No Diabetic Hemorrhagic Retinopat: No Organ Biopsy: No Recent Obstetric Delivery: No Glucose: No Significant Hepatic Dysfunctio: No NIH Stoke Scale >22: No Bacterial Endocarditis: No Pericarditis: No Improving Symptoms: Yes Platelets: No TPA Contraindication: No IV - TPa Received IV - TPa Procedure Performed?: No (DUE TO MILD AND IMPROVING SYMPTOMS, AND TIME OF EXACT ONSET IS NOT KNOWN) Progress/Results/Core Measures Results/Orders Lab Results Laboratory Tests Test 02/01/18 10:15 02/01/18 11:45 02/01/18 13:11 Range/Units White Blood Count 6.7 4.3-11.0 10^3/uL Red Blood Count 3.27 L 4.35-5.85 10^6/uL Hemoglobin 11.3 L 11.5-16.0 G/DL Hematocrit 33 L 35-52 % Mean Corpuscular Volume 100 H 80-99 FL Mean Corpuscular Hemoglobin 35 H 25-34 PG Mean Corpuscular Hemoglobin Concent 35 32-36 G/DL Red Cell Distribution Width 13.0 10.0-14.5 % Platelet Count 218 130-400 10^3/uL Mean Platelet Volume 8.5 7.4-10.4 FL Neutrophils (%) (Auto) 49 42-75 % Lymphocytes (%) (Auto) 37 12-44 % Monocytes (%) (Auto) 12 0-12 % Eosinophils (%) (Auto) 2 0-10 % Basophils (%) (Auto) 0 0-10 % Neutrophils # (Auto) 3.3 1.8-7.8 X 10^3 Lymphocytes # (Auto) 2.5 1.0-4.0 X 10^3 Monocytes # (Auto) 0.8 0.0-1.0 X 10^3 Eosinophils # (Auto) 0.1 0.0-0.3 10^3/uL Basophils # (Auto) 0.0 0.0-0.1 10^3/uL Prothrombin Time 12.9 12.2-14.7 SEC INR Comment 1.0 0.8-1.4 Activated Partial Thromboplast Time 28 24-35 SEC D-Dimer 1.26 H 0.00-0.49 UG/ML Sodium Level 137 135-145 MMOL/L Potassium Level 4.6 3.6-5.0 MMOL/L Chloride Level 101 98-107 MMOL/L Carbon Dioxide Level 24 21-32 MMOL/L Anion Gap 12 5-14 MMOL/L Blood Urea Nitrogen 13 7-18 MG/DL Creatinine 1.05 0.60-1.30 MG/DL Estimat Glomerular Filtration Rate 50 BUN/Creatinine Ratio 12 Glucose Level 77 70-105 MG/DL Calcium Level 9.5 8.5-10.1 MG/DL Corrected Calcium 9.4 8.5-10.1 MG/DL Total Bilirubin 0.4 0.1-1.0 MG/DL Aspartate Amino Transf (AST/SGOT) 16 5-34 U/L Alanine Aminotransferase (ALT/SGPT) 12 0-55 U/L Alkaline Phosphatase 35 L 40-136 U/L Troponin I < 0.30 < 0.30 <0.30 NG/ML B-Type Natriuretic Peptide 96.9 <100.0 PG/ML Total Protein 7.5 6.4-8.2 GM/DL Albumin 4.1 3.2-4.5 GM/DL Urine Color YELLOW Urine Clarity CLEAR Urine pH 8 5-9 Urine Specific [place] 1.010 L 1.016-1.022 Urine Protein NEGATIVE NEGATIVE Urine Glucose (UA) NEGATIVE NEGATIVE Urine Ketones NEGATIVE NEGATIVE Urine Nitrite NEGATIVE NEGATIVE Urine Bilirubin NEGATIVE NEGATIVE Urine Urobilinogen NORMAL NORMAL MG/DL Urine Leukocyte Esterase 1+ H NEGATIVE Urine RBC (Auto) NEGATIVE NEGATIVE Urine RBC NONE /HPF Urine WBC RARE /HPF Urine Squamous Epithelial Cells 5-10 /HPF Urine Crystals NONE /LPF Urine Bacteria NEGATIVE /HPF Urine Casts NONE /LPF Urine Mucus NEGATIVE /LPF Urine Culture Indicated NO My Orders Orders - JUAN JOSÉ FUNG DO Cbc With Automated Diff (02/01/18 10:12) Protime With Inr (02/01/18 10:12) Partial Thromboplastin Time (02/01/18 10:12) Comprehensive Metabolic Panel (02/01/18 10:12) Fibrin Degradation Products (02/01/18 10:12) Troponin I (02/01/18 10:12) Ua Culture If Indicated (02/01/18 10:12) Chest 1 View, Ap/Pa Only (02/01/18 10:12) Catheter(Urinary) Insert & Ass 03,15 (02/01/18 10:12) Ekg Tracing (02/01/18 10:12) Nothing By Mouth (02/01/18 Lunch) Accucheck Stat ONCE (02/01/18 10:12) Saline Lock/Iv-Start (02/01/18 10:12) Saline Lock/Iv-Start (02/01/18 10:12) Vital Signs Stroke Patient Q15M (02/01/18 10:12) Ct Head Wo-R/O Stroke (02/01/18 10:12) O2 (02/01/18 10:12) Intake & Output 06,14,22 (02/01/18 10:12) Monitor-Rhythm Ecg Trace Only (02/01/18 10:12) Dysphagia Screening Tool (02/01/18 10:12) Lipid Panel (02/02/18 06:00) Hydralazine Injection (Apresoline Inject (02/01/18 10:17) Ct Angio Head/Neck (02/01/18 11:34) Iohexol Injection (Omnipaque 350 Mg/Ml 1 (02/01/18 11:45) Ns (Ivpb) (Sodium Chloride 0.9%) (02/01/18 11:45) Pharmacy Communication (Pharmacy Communi (02/01/18 11:36) Fentanyl Injection (Sublimaze Injection (02/01/18 11:40) Hydralazine Injection (Apresoline Inject (02/01/18 11:40) Hydralazine Injection (Apresoline Inject (02/01/18 11:45) Fentanyl Injection (Sublimaze Injection (02/01/18 11:43) Troponin I (02/01/18 12:18) Fentanyl Injection (Sublimaze Injection (02/01/18 12:18) BNP (02/01/18 12:19) Ondansetron Injection (Zofran Injectio (02/01/18 12:44) Fentanyl Injection (Sublimaze Injection (02/01/18 13:00) Fentanyl Injection (Sublimaze Injection (02/01/18 13:21) Medications Given in ED Current Medications Medications Dose Ordered Sig/Alyse Route Start Time Stop Time Status Last Admin Dose Admin Fentanyl Citrate 25 mcg Q1H PRN IVP 02/01/18 13:00 02/01/18 15:05 DC 02/01/18 12:53 25 MCG Hydralazine HCl 20 mg STK-MED ONCE .ROUTE 02/01/18 10:17 02/01/18 10:22 DC 02/01/18 10:22 10 MG Hydralazine HCl 20 mg STK-MED ONCE .ROUTE 02/01/18 11:40 02/01/18 11:46 DC 02/01/18 11:50 10 MG Iohexol 80 ml ONCE ONCE IV 02/01/18 11:45 02/01/18 11:46 DC 02/01/18 11:53 80 ML Ondansetron HCl 4 mg STK-MED ONCE .ROUTE 02/01/18 12:44 02/01/18 12:49 DC 02/01/18 12:45 4 MG Sodium Chloride 250 ml ONCE ONCE IV 02/01/18 11:45 02/01/18 11:46 DC 02/01/18 11:54 80 ML Progress Progress Note : Progress Note 1043--SYMPTOMS IMPROVING ON RETURN FROM CT. VERY MINIMAL EXPRESSIVE APHASIA. STILL C/O HEADACHE BUT IS GETTING BETTER. INITIAL CT SCAN RESULTS PENDING. BP COMING DOWN WITH MEDICATIONS 1134--PT NOW WITH INCREASE IN EXPRESSIVE APHASIA, AND APPEARS TO HAVE SOME CONFUSION--UNABLE TO SAY SON'S NAME. CT ANGIOGRAM OF HEAD AND NECK ORDERED. 1215--ON RETURN FROM CT, PT'S EXPRESSIVE APHASIA IS IMPROVING AGAIN AND NO LONGER APPEARS TO HAVE ANY CONFUSION. PT NOW COMPLAINING OF MID CHEST PAIN -- UNABLE TO RATE PAIN. PT STILL C/O HEADACHE. NO NEW NEUROLOGICAL SYMPTOMS. PT DENIES SHORTNESS OF BREATH. PT BECOMING ANXIOUS AND BP UP. ADDITIONAL MEDICATIONS ORDERED, WELL EKG AND REPEAT TROPONIN 1229--MENTATION CONTINUES TO IMPROVE, AND HAS VERY MINIMAL RESIDUAL EXPRESSIVE APHASIA. STILL C/O HEADACHE AND CHEST PAIN --ADDITIONAL MEDICATIONS ORDERED. PT STILL C/O CHEST PAIN AND HEADACHE AT TIME OF ADMIT. STILL UNABLE TO RATE PAIN , BUT STATES THAT BOTH ARE A LITTLE BETTER. BP DOWN TO 140'S / 70'S AND HR IN 70'S AT TIME OF ADMIT. Initial ECG Impression Date: Feb 01, 2018 Initial ECG Impression Time: 10:18 Initial ECG Rate: 63 Initial ECG Rhythm: Normal Sinus Initial ECG Impression: Nonspecific Changes (T WAVE INVERSION V1-V3), 1st Degree AV Block (RBBB) EKG : EKG Time: 12:14 Rate: 72 Rhythm: Normal Sinus ECG Comparisson: Changed ECG Impression: 1st Degree AV Block (RBBB) Comment ST DEPRESSION INFERIORLY AND LATERALLY Diagnostic Imaging Comments CT HEAD--NO ACUTE PROCESS, CHRONIC SMALL VESSEL ISCHEMIC CHANGES--PER RADIOLOGIST REPORT @ 1105 CXR--NO ACUTE PROCESS, PER RADIOLOGIST REPORT AT 1118 CT ANGIOGRAM HEAD/NECK--NO ACUTE PROCESS, DIFFUSE PLAQUE, NO HIGH GRADE STENOSIS , NO LARGE VESSEL OCCLUSION OR THROMBUS--PER RADIOLOGIST REPORT @ 1247 Reviewed: Reviewed by Me Departure Communication (Admissions) 1313--SPOKE WITH DR. VASQUEZ, ACCEPTS PT FOR ADMIT. WOULD LIKE CARDIOLOGY CONSULT 6645--PAGING DR. FLOWER 1533--SPOKE WITH DR. FLOWER. ADVISES TOPROL XL 50 MG NOW. NO ADDITIONAL ORDERS NOTED. 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 Referrals: ZARI VASQUEZ MD (PCP/Family) Primary Care Physician JUAN JOSÉ FUNG DO Feb 01, 2018 13:35
[2018-02-01] MEDS ORDERED: meTOproloL SUCCINATE 50 MG (TOPROL XL) TAB PO SCH (14:15)
[2018-02-01] MEDS ORDERED: NITROGLYCERIN 0.4 MG SL TABS BTL 25'S SL PRN (15:15)
[2018-02-01] MEDS ORDERED: CATHETER FLUSH 10 ML SYR IV PRN (15:15)
[2018-02-01] MEDS ORDERED: fentaNYL INJECTION 100 MCG/2 ML AMP IV PRN (15:15)
[2018-02-01] MEDS ORDERED: LISI10TA2 PO (15:18)
[2018-02-01] MEDS ORDERED: AMOX500C2 PO (15:18)
[2018-02-01] MEDS ORDERED: [UNRECOGNIZED DRUG - CODE] PO (15:40)
[2018-02-01] MEDS ORDERED: CETI10TA20 PO (15:40)
[2018-02-01] MEDS ORDERED: LISI-552 PO (15:40)
[2018-02-01] MEDS ORDERED: L.AC1CAP6 PO (15:40)
[2018-02-01] MEDS ORDERED: ACET-2267 PO (15:42)
--- NOTE | 2018-02-01 15:47 | Diagnostic Imaging Report ---
INDICATION: Chest pain. Comparison is made with prior examination from 02/01/2018. FINDINGS: There is cardiomegaly. There has been previous median sternotomy. There is mild venous congestion. There is no pleural effusion or pneumothorax. Mediastinum is unremarkable. IMPRESSION: Cardiomegaly and mild central pulmonary venous congestion. Dictated by: Dictated on workstation # [id number]
[2018-02-01 15:53] LABS: BASOPHILS % (AUTO) 0 % (0-10); EOSINOPHILS % (AUTO) 0 % (0-10); HEMATOCRIT 32 % (35-52); HEMOGLOBIN 11.1 G/DL (11.5-16.0); LYMPHOCYTES # (AUTO) 0.9 X 10^3 (1.0-4.0); LYMPHOCYTES % (AUTO) 11 % (12-44); MEAN CORPUSCULAR HEMOGLOBIN 34 PG (25-34); MEAN CORPUSCULAR HGB CONC 34 G/DL (32-36); MEAN CORPUSCULAR VOLUME 99 FL (80-99); MEAN PLATELET VOLUME 8.3 FL (7.4-10.4); MONOCYTES # (AUTO) 0.5 X 10^3 (0.0-1.0); MONOCYTES % (AUTO) 6 % (0-12); NEUTROPHILS # (AUTO) 6.7 X 10^3 (1.8-7.8); NEUTROPHILS % (AUTO) 83 % (42-75); PLATELET COUNT 206 10^3/uL (130-400); RED BLOOD COUNT 3.26 10^6/uL (4.35-5.85); WHITE BLOOD COUNT 8.1 10^3/uL (4.3-11.0)
--- NOTE | 2018-02-01 15:58 | Consultation-Cardiology ---
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 Rapp ([facility], [place], [place]) Ms Leonardo is an 87 year old female admitted to ICU 2 from the ED. She is a poor historian. She has two sons at the bedside. Per notes, limited history per pt and report she resides at an assisted living facility. She had eaten lunch. Her daughter called her and reported she was having difficulty forming words. The daughter called another family member to go evaluate her and found she was having difficulty forming words as well. Therefore, she was brought to the ED. She reports she has had at least 5 "mini strokes" in the last few years. The most recent was in June for which she was hospitalized at this facility. She reports Dr. Rapp of [facility] is her primary stone sawyer and she is d/t see him on this coming . She currently is having some word search at the time of this conversation. Family at the bedside states she is better than earlier today. She denies any palpitations, syncope, or near syncope. No c/o fever or chills. She denies any weakness of the extremities Had chest discomfort in the ER today while being evaluated for CVA. It was mod, sharp to dull, midsternal and L & R parasternal, non-radiating, similar to episodes she has been having for a long time, not associated with other symptoms , self-resolving over a course of 15-20 min Review of Systems-Cardiology Review of Systems Constitutional: No chills, No fever, No weight loss Eyes: No vision change Ears/Nose/Throat: No recent hearing loss Respiratory: As described under HPI Cardiovascular: As described under HPI Gastrointestinal: constipation; No diarrhea, No nausea, No vomiting Genitourinary: No burning, No dysuria, No hematuria; incontinence (chronic) Musculoskeletal: no symptoms reported Skin: No rash, No ulcerations Psychiatric/Neurological: As described under HPI Hematologic: No bleeding abnormalities HNV-[id number]-[id number] Hx Patient Social History Alcohol Use: Occasionally Uses Recreational Drug Use: No Type Used: Cigarettes 2nd Hand Smoke Exposure: No Recent Foreign Travel: No Recent Infectious Disease Expo: No Physical Abuse Screen: No Sexual Abuse: No Immunizations Up To Date Tetanus Booster (TDap): Unknown Date of Pneumonia Vaccine: Feb 04, 2017 Date of Influenza Vaccine: Jan 25, 2018 Past Medical History PMH As described under Assessment. Family Medical History Family Medical History: Father had CAD and CHF. Mother had CAD. Sister had AAA, CAD and HTN. Family History: Abdominal aortic aneurysm G8 SISTER Congestive heart failure 19 FATHER Family history: Arthritis 19 MOTHER G8 SISTER Family history: Cardiovascular disease G8 SISTER Family history: Hypertension G8 SISTER Family history: Osteoporosis 19 MOTHER Heart disease 19 FATHER 19 MOTHER G8 SISTER Hypercholesterolemia G8 SISTER Kidney disease G8 SISTER Myocardial infarction 19 FATHER 19 MOTHER G8 SISTER Allergies and Home Medications Allergies Coded Allergies: niacin (Verified Allergy, Unknown, HIVES, 07/05/17) simvastatin (Verified Allergy, Unknown, HIVES, 09/17/16) Home Medications Acetaminophen 500 Mg Tablet, 500 MG PO Q6H PRN for PAIN-MILD OR TEMPATURE, ( Reported) Acetaminophen 500 Mg Tablet, 500 MG PO HS, (Reported) Amoxicillin 500 Mg Capsule, 500 MG PO TID, (Reported) 7 DAY SUPPLY FILLED 01-29-18 Ascorbate Calcium 500 Mg Tablet, 500 MG PO DAILY, (Reported) Aspirin 81 Mg Tablet.dr, 81 MG PO DAILY, (Reported) Cetirizine HCl 10 Mg Tablet, 10 MG PO DAILY, (Reported) 7 DAY THERAPY START DATE 01-29-18 Cetirizine HCl 10 Mg Tablet, 10 MG PO DAILY PRN for ALLERGIES, (Reported) Cholecalciferol (Vitamin D3) 1,000 Unit Capsule, 1,000 UNIT PO DAILY, (Reported) Clopidogrel Bisulfate 75 Mg Tablet, 75 MG PO DAILY, (Reported) Docusate Sodium 100 Mg Tablet, 100 MG PO DAILY PRN for CONSTIPATION-1ST LINE, ( Reported) L.acidoph & Paracasei,B.lactis 1 Each Capsule, 1 CAP PO DAILY, (Reported) 7 DAY THEARPY START DATE 01-30-18 Lactase 3,000 Unit Tablet, 1 TAB PO QID PRN for WHEN EATING DAIRY, (Reported) Lisinopril 10 Mg Tablet, 10 MG PO HS, (Reported) Lisinopril 20 Mg Tablet, 20 MG PO DAILY, (Reported) Nebivolol HCl 5 Mg Tablet, 5 MG PO HS, (Reported) Pantoprazole Sodium 40 Mg Tablet.dr, 40 MG PO HS, (Reported) Ranolazine 500 Mg Tab.er.12h, 500 MG PO Q12H, (Reported) Rosuvastatin Calcium 10 Mg Tablet, 10 MG PO HS, (Reported) Patient Home Medication List Home Medication List Reviewed: Yes Physical Exam-Cardiology Physical Exam Vital Signs/I&O 02/01/18 02/01/18 02/01/18 02/01/18 14:30 15:00 15:00 15:14 Temp 97.7 Pulse 71 73 Resp 18 B/P (MAP) 149/60 (89) 155/71 (99) Pulse Ox 97 100 96 O2 Delivery Room Air 02/01/18 02/01/18 02/01/18 02/01/18 15:15 15:30 15:45 16:00 Pulse 63 62 64 Resp 16 37 8 B/P (MAP) 144/53 (83) 147/54 (85) 132/57 (82) Pulse Ox 98 99 95 94 O2 Delivery Room Air Room Air Room Air Room Air 02/01/18 02/01/18 02/01/18 02/01/18 16:00 16:15 16:30 17:00 Pulse 64 63 61 61 Resp 29 53 14 20 B/P (MAP) 139/52 (81) 142/56 (84) 140/57 (84) 147/59 (88) Pulse Ox 94 96 95 91 O2 Delivery Room Air Room Air Room Air Room Air Capillary Refill : Constitutional: appears stated age, AAO x 3; No apparent distress; well- developed, well-nourished HEENT: PERRL, hard of hearing, oral hygience is good Neck: carotid bruit Respiratory: No accessory muscle use, No respiratory distress; chest expansion is symmetric, chest is bilaterally symmetric, lungs clear to auscultation Cardiovascular: regular rate-rhythm; No JVD; S1 and S2 Gastrointestinal: No tender; soft, round, audible bowel sounds Rectal: deferred Extremities: no lower extremity edema bilateral Neurologic/Psychiatric: aphasia (expressive, improving); No facial droop, No motor weakness; power is 5/5 both on sides Skin: No rash, No ulcerations Data Review Labs Laboratory Tests 02/01/18 10:15: White Blood Count 6.7, Red Blood Count 3.27L, Hemoglobin 11.3L, Hematocrit 33L, Mean Corpuscular Volume 100H, Mean Corpuscular Hemoglobin 35H, Mean Corpuscular Hemoglobin Concent 35, Red Cell Distribution Width 13.0, Platelet Count 218, Mean Platelet Volume 8.5, Neutrophils (%) (Auto) 49, Lymphocytes (%) (Auto) 37, Monocytes (%) (Auto) 12, Eosinophils (%) (Auto) 2, Basophils (%) (Auto) 0, Neutrophils # (Auto) 3.3, Lymphocytes # (Auto) 2.5, Monocytes # (Auto) 0.8, Eosinophils # (Auto) 0.1, Basophils # (Auto) 0.0, Prothrombin Time 12.9, INR Comment 1.0, Activated Partial Thromboplast Time 28, D-Dimer 1.26H, Sodium Level 137, Potassium Level 4.6, Chloride Level 101, Carbon Dioxide Level 24, Anion Gap 12, Blood Urea Nitrogen 13, Creatinine 1.05, Estimat Glomerular Filtration Rate 50, BUN/Creatinine Ratio 12, Glucose Level 77, Calcium Level 9.5 , Corrected Calcium 9.4, Total Bilirubin 0.4, Aspartate Amino Transf (AST/SGOT) 16, Alanine Aminotransferase (ALT/SGPT) 12, Alkaline Phosphatase 35L, Troponin I < 0.30, B-Type Natriuretic Peptide 96.9, Total Protein 7.5, Albumin 4.1 02/01/18 11:45: Urine Color YELLOW, Urine Clarity CLEAR, Urine pH 8, Urine Specific [place] 1.010L, Urine Protein NEGATIVE, Urine Glucose (UA) NEGATIVE, Urine Ketones NEGATIVE, Urine Nitrite NEGATIVE, Urine Bilirubin NEGATIVE, Urine Urobilinogen NORMAL, Urine Leukocyte Esterase 1+H, Urine RBC (Auto) NEGATIVE, Urine RBC NONE , Urine WBC RARE, Urine Squamous Epithelial Cells 5-10, Urine Crystals NONE, Urine Bacteria NEGATIVE, Urine Casts NONE, Urine Mucus NEGATIVE, Urine Culture Indicated NO 02/01/18 13:11: Troponin I < 0.30 02/01/18 15:40: White Blood Count 8.1, Red Blood Count 3.26L, Hemoglobin 11.1L, Hematocrit 32L, Mean Corpuscular Volume 99, Mean Corpuscular Hemoglobin 34, Mean Corpuscular Hemoglobin Concent 34, Red Cell Distribution Width 13.0, Platelet Count 206, Mean Platelet Volume 8.3, Neutrophils (%) (Auto) 83H, Lymphocytes (%) (Auto) 11L , Monocytes (%) (Auto) 6, Eosinophils (%) (Auto) 0, Basophils (%) (Auto) 0, Neutrophils # (Auto) 6.7, Lymphocytes # (Auto) 0.9L, Monocytes # (Auto) 0.5, Eosinophils # (Auto) 0.0, Basophils # (Auto) 0.0, Prothrombin Time 12.5, INR Comment 0.9, Activated Partial Thromboplast Time 26, Sodium Level 136, Potassium Level 5.0, Chloride Level 100, Carbon Dioxide Level 23, Anion Gap 13, Blood Urea Nitrogen 15, Creatinine 0.99, Estimat Glomerular Filtration Rate 53, BUN/Creatinine Ratio 15, Glucose Level 126H, Calcium Level 9.3, Corrected Calcium 9.3, Total Bilirubin 0.3, Aspartate Amino Transf (AST/SGOT) 16, Alanine Aminotransferase (ALT/SGPT) 13, Alkaline Phosphatase 34L, Troponin I < 0.30, Total Protein 7.1, Albumin 4.0, Myoglobin 53.4 02/01/18 15:58: Glucometer 114H Laboratory Tests 02/01/18 10:15 02/01/18 15:40 Radiology NAME: [facility] REC#: [id number] PT STATUS: REG ER : 1930 PHYSICIAN: JUAN JOSÉ FUNG DO ADMIT DATE: 02/01/18/ER Draft Date of Exam:02/01/18 CT ANGIO HEAD/NECK PROCEDURE: CT angiography of the head and CT angiography of the neck with and without contrast. TECHNIQUE: Contiguous noncontrast images were obtained from the skull base through the vertex. After intravenous contrast administration, helical CT angiography of the neck was performed. Source data was reformatted into multiple 2D MIP projections. Delayed post contrast acquisition was also obtained. INDICATION: Headache, confusion, and memory loss. FINDINGS: Both common carotid arteries are tortuous. There is a large amount of calcified plaque at the carotid bifurcations bilaterally. The internal carotid arteries are widely patent. There is a large amount of calcified plaque in the carotid siphons bilaterally. There is perfusion within bilateral middle cerebral and anterior cerebral arteries. No filling defects or large branch occlusion is seen. The posterior cerebrals appear patent. The basilar is patent. Both vertebral arteries appear to be codominant and patent. IMPRESSION: There is calcified plaque in both carotid systems. No high-grade stenosis is seen. No definite thromboemboli or large branch occlusion is seen. Dictated on workstation # [id number] Dict: 02/01/18 1233 Trans: 02/01/18 1245 MYRON [id number] Interpreted by: SHRADDHA DUARTE MD Electronically signed by: NAME: [facility] REC#: [id number] PT STATUS: REG ER : 1930 PHYSICIAN: JUAN JOSÉ FUNG DO ADMIT DATE: 02/01/18/ER Draft Date of Exam:02/01/18 CT HEAD WO-R/O STROKE CLINICAL INDICATION: Trouble with speech. EXAM: Axial CT scan of the brain performed without IV contrast. COMPARISON: MRI of the brain without contrast dated 07/06/2017. Head CT without IV contrast dated 10/01/2013. FINDINGS: There is no evidence of acute cerebral infarct, intracranial hemorrhage, or gross mass effect. The brain parenchymal volume appears appropriate for the patient's age. Again seen are patchy and confluent areas of high T2 signal white matter changes throughout both cerebral hemispheres, likely representing chronic small vessel ischemic disease and leukoaraiosis. There is normal norman/white matter distinction. There is no significant midline shift or herniation. There is no evidence of hydrocephalus. The basal cisterns are unremarkable. The skull, extracranial soft tissue, and orbits are unremarkable. There is moderate peripheral mucosal thickening and secretions involving the right maxillary sinus. There is mild mucosal thickening involving the ethmoid sinus and sphenoid sinus. The temporal bones show no significant abnormality. IMPRESSION: 1. There is no CT evidence of acute cerebral infarct, intracranial hemorrhage, brain herniation, or midline shift. If there is continued concern for an acute cerebral infarct, then an MRI of the brain would better evaluate. 2. Age-related brain parenchymal changes with chronic small vessel ischemic disease and leukoaraiosis. 3. Mild to moderate paranasal sinus disease. Dictated on workstation # [id number] Dict: 02/01/18 1033 Trans: 02/01/18 1050 MYRON [id number] Interpreted by: PALOMA CHEEMA MD Electronically signed by: NAME: [facility] REC#: [id number] PT STATUS: ADM Dorcas : 1930 PHYSICIAN: ZARI MCDERMOTT MD ADMIT DATE: 02/01/18/ICU Signed Date of Exam: 02/01/18 CHEST 1 VIEW, AP/PA ONLY INDICATION: Chest pain. Comparison is made with prior examination from 02/01/2018. FINDINGS: There is cardiomegaly. There has been previous median sternotomy. There is mild venous congestion. There is no pleural effusion or pneumothorax. Mediastinum is unremarkable. IMPRESSION: Cardiomegaly and mild central pulmonary venous congestion. 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 Ram at [facility] in [place], [place] Recent stress test in the last year per pt and family report at [place], [place] was "OK" 24 Hour Holter of October 2017 showed SR with first degree AV block; occ PVC; sinus bradycardia (HR 44-51) CVA vs TIA with expressive aphasia - improving H/O most recent TIA in June 2017 for which she was seen at this facility - she and family report TIA x 5 Carotid arterial disease - Large amount of calcified plaque at the carotid bifurcations bilaterally. The internal carotid arteries are widely patent. There is a large amount of calcified plaque in the carotid siphons bilaterally per CTA of the neck on 02-01-18 Echocardiogram of July 06, [address] Pedro showed concentric LVH. LVEF 65-70 %. Aortic valve thickening consistent with sclerosis. Mild to mod TR. PASP 35 -40mmHg HLD HTN H/O osteo-arthritis Discussion and Recomendations Primary stone sawyer is Dr. Govind Rapp with [facility] in [place], [place] - we have requested most recent cardiac testing 3 vessel CABG in 1990 at [facility] in [place], [place] - records requested (pre-tornado, may not be able to get the results) Monitor lab TIA vs CVA - management per medical services Continue home medications - including BB, ASA, Plavix and JASON We would like to thank medical services for this consult Further recs will be based on her hospital course Clinical Quality Measures DVT/VTE Risk/Contraindication: Risk Factor Score Per Nursin RFS Level Per Nursing on Admit: 2=Moderate Physician Assessment Physician Assessment No cp currently. Chest pain experienced in the ER is described above. Denies palp or syncope. Has chronic exertional shortness of breath Lungs: good bilat air entry Cor: reg Ext: no c/c/e A&R * As documented in our note above that I updated (italics) and as noted below * Continue therapy with bb and antiplatelet agents * Serial enzymes * Tele * Cath if evidence of ACS * Continue conservative therapy if no evidence of ACS * I spoke with her and her fam in detail and answered questions * We are trying to obtain cardiac records from [facility] HEATHER L ARNP Feb 01, 2018 15:57 LUIS LIZARRAGA MD FACP [facility] Feb 01, 2018 17:41
--- NOTE | 2018-02-01 16:09 | ST Dysphagia Evaluation ---
Speech Evaluation-General Medical Diagnosis Stroke like symptoms Onset Date: Feb 01, 2018 Therapy Diagnosis Therapy Diagnosis: Dysphagia Precautions Precautions/Isolations: Fall Prevention, Standard Precautions Referral Referring Physician: Dr. Mcdermott Reason for Referral: Evaluation/Treatment Medical History Pertinent Medical History: CABG, CAD, GERD, HTN Speech PLF/Current-Dysphagia Prior Level of Function Pt independent Subjective Pt in bed. Pleasant and cooperative. Cognitive Status Patient Orientation: Person Oral Motor Skills Dentition: Natural (and partials) Ability to Follow Directions: Good Oral Expression Ability: Mild Impairment (some word finding noted) Voice Voice Phonatory-Based Quality: Normal Voice Pitch: Normal Voice Loudness: Normal Face Facial Symmetry: Symmetrical Oral-Facial Assessment Oral-Facial Dentition: Normal Labial Seal Description: Normal Smile: Normal Lingual Protrusion: Normal Lingual ROM: Normal Lingual Strength: Normal Dysphagia Evaluation Consistencies Presented: Regular, Thin Liquid, Mechanical Soft, Pureed Oral phase WFL Pharyngeal phase WFL Dietary Recommendations: Regular Liquid Recommendations: Thin Regular diet with thin liquids. No signs/symptoms of aspiration observed. Speech Short Term Goals Short Term Goals Short Term Goals no STGs established as skilled ST for dysphagia not indicated. Speech Prison Goals Prison Goals LTGs not established as pt does not require skilled Dysphagia tx. Speech-Plan Patient/Family Goals Patient/Family Goals: to return home Treatment Plan Speech Therapy Treatment Plan: Discontinue ST No signs of aspiration. Dc skilled speech therapy for dysphagia. Frequency: Modified Program (IRF) (0) Estimated Hrs Per Day: Other (0) Rehab Potential: Good Barriers to Learning: None identified Pt/Family Agrees to Plan: Yes Safety Risks/Education Teaching Methods: Discussion Response to Teaching: Verbalize Understanding Time Speech Therapy Time In: 15:15 Speech Therapy Time Out: 15:30 Total Billed Time: 15 Billed Treatment Time 1, JONATHAN SHE Trevizo Feb 01, 2018 16:09
[2018-02-01 16:10] LABS: ALANINE AMINOTRANSFERASE 13 U/L (0-55); ALKALINE PHOSPHATASE 34 U/L (40-136); BILIRUBIN,TOTAL 0.3 MG/DL (0.1-1.0); BUN/CREATININE RATIO 15; CALCIUM 9.3 MG/DL (8.5-10.1); CARBON DIOXIDE 23 MMOL/L (21-32); CHLORIDE 100 MMOL/L (98-107); CREATININE SERUM 0.99 MG/DL (0.60-1.30); GFR ESTIMATED 53; GLUCOSE 126 MG/DL (70-105); SODIUM 136 MMOL/L (135-145); TOTAL PROTEIN 7.1 GM/DL (6.4-8.2)
[2018-02-01 16:13] LABS: INR 0.9 (0.8-1.4); PROTHROMBIN TIME PATIENT 12.5 SEC (12.2-14.7)
[2018-02-01 16:18] LABS: MYOGLOBIN SERUM 53.4 NG/ML (10.0-92.0)
--- NOTE | 2018-02-01 19:46 | History & Physicial ---
History of Present Illness History of Present Illness Reason for visit/HPI PT IS AN 87 Y/O FEMALE WHO WELL KNOWN TO ME FROM CLINIC. SHE RESIDES AT [facility]. SHE REPORTS THAT SHE WAS FEELING OKAY YESTERDAY, BUT TODAY WHILE ON THE PHONE WITH HER [id number] JOHN, SHE STARTED TO HAVE SLURRING OF HER SPEECH, AND JOHN CALLED BEE'S SON TO GO CHECK ON HER, SHE WAS INDEED SLIGHTLY CONFUSED AND HAVING GARBLED SPEECH AND SHE WAS THEN BROUGHT TO THE EMERGENCY DEPARTMENT FOR FURTHER WORK-UP/EVALUATION. THIS EVENING SHE REPORTS THAT SHE IS FEELING BETTER, HER CHEST PAIN AND SLURRED SPEECH HAS RESOLVED. SHE REPORTS THAT SHE HAS NOTED THAT HER BLOOD PRESSURE HAS BEEN "ALL OVER THE PLACE". Date of Admission Feb 01, 2018 at 14:05 Date Seen by a Provider: Feb 01, 2018 Time Seen by a Provider: 19:40 I consulted on this patient on 02/01/18 19:46 Attending Physician Zari Mcdermott MD Admitting Physician Zari Mcdermott MD Consult DR. FLOWER Allergies and Home Medications Allergies Coded Allergies: niacin (Verified Allergy, Unknown, HIVES, 07/05/17) simvastatin (Verified Allergy, Unknown, HIVES, 09/17/16) Home Medications Acetaminophen 500 Mg Tablet, 500 MG PO Q6H PRN for PAIN-MILD OR TEMPATURE, ( Reported) Acetaminophen 500 Mg Tablet, 500 MG PO HS, (Reported) Amoxicillin 500 Mg Capsule, 500 MG PO TID, (Reported) 7 DAY SUPPLY FILLED 01-29-18 Ascorbate Calcium 500 Mg Tablet, 500 MG PO DAILY, (Reported) Aspirin 81 Mg Tablet.dr, 81 MG PO DAILY, (Reported) Cetirizine HCl 10 Mg Tablet, 10 MG PO DAILY, (Reported) 7 DAY THERAPY START DATE 01-29-18 Cetirizine HCl 10 Mg Tablet, 10 MG PO DAILY PRN for ALLERGIES, (Reported) Cholecalciferol (Vitamin D3) 1,000 Unit Capsule, 1,000 UNIT PO DAILY, (Reported) Clopidogrel Bisulfate 75 Mg Tablet, 75 MG PO DAILY, (Reported) Docusate Sodium 100 Mg Tablet, 100 MG PO DAILY PRN for CONSTIPATION-1ST LINE, ( Reported) L.acidoph & Paracasei,B.lactis 1 Each Capsule, 1 CAP PO DAILY, (Reported) 7 DAY THEARPY START DATE 01-30-18 Lactase 3,000 Unit Tablet, 1 TAB PO QID PRN for WHEN EATING DAIRY, (Reported) Lisinopril 10 Mg Tablet, 10 MG PO HS, (Reported) Lisinopril 20 Mg Tablet, 20 MG PO DAILY, (Reported) Nebivolol HCl 5 Mg Tablet, 5 MG PO HS, (Reported) Pantoprazole Sodium 40 Mg Tablet.dr, 40 MG PO HS, (Reported) Ranolazine 500 Mg Tab.er.12h, 500 MG PO Q12H, (Reported) Rosuvastatin Calcium 10 Mg Tablet, 10 MG PO HS, (Reported) Patient Home Medication List Home Medication List Reviewed: Yes Past Turbctw-Jblseu-Uyfzad Hx Patient Social History Marrital Status: Number of Children: 3 Number of living children: 3 Living Status: LIVES AT [facility] Employed/Student: retired Alcohol Use: Occasionally Uses Number of Drinks Today: GG Alcohol Beverage of Choice: Whiskey Recreational Drug Use: No Smoking Status: Former Smoker Former Smoker, Quit: Apr 20, 1980 Type Used: Cigarettes 2nd Hand Smoke Exposure: No Physical Abuse Screen: No Sexual Abuse: No Recent Foreign Travel: No Contact w/other who traveled: No Recent Hopitalizations: Yes Recent Infectious Disease Expo: No Immunizations Up To Date Tetanus Booster (TDap): Unknown Date of Pneumonia Vaccine: Feb 04, 2017 Date of Influenza Vaccine: Jan 25, 2018 Seasonal Allergies Seasonal Allergies: No Surgeries Yes (CORONARY BYPASS GRAFT, LAP LIZETH, BACK SX, 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 Genitourinary Yes (URINARY STRESS AND URGE INCONTINENCE) Gastrointestinal Yes (CONSTIPATION OCCASIONALLY) Gastroesophageal Reflux, Chronic Constipation, Diverticulosis Musculoskeletal Yes (FRACTURE LEFT ARM; COMPRESSION FRACTURES L1-L5--S/P KYPHOPLASTIES/ VERTEBROPLASTIES) Degenerate Disk Disease, Osteoporosis, Arthritis, Chronic Back Pain, Fractures Endocrine History of Endocrine Disorders: No HEENT History of HEENT Disorders: Yes (BILATERAL CATARACTS REMOVED) HEENT Disorders: Cataract Loss of Vision: Bilateral Hearing Impairment: Denies 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 Did You Recieve Any Treatments: Yes Type of Treatment: Surgical Intervention Psychosocial History of Psychiatric Problem: No Integumentary History of Skin or Integumenta: Yes (skin cancer on face/body) Blood Transfusions History of Blood Disorders: No Adverse Reaction to a Blood Tr: No Reviewed Nursing Assessment Reviewed/Agree w Nursing PMH: Yes Family Medical History Significant Family History: Heart Disease, Hypertension Family Hx: Abdominal aortic aneurysm G8 SISTER Congestive heart failure 19 FATHER Family history: Arthritis 19 MOTHER G8 SISTER Family history: Cardiovascular disease G8 SISTER Family history: Hypertension G8 SISTER Family history: Osteoporosis 19 MOTHER Heart disease 19 FATHER 19 MOTHER G8 SISTER Hypercholesterolemia G8 SISTER Kidney disease G8 SISTER Myocardial infarction 19 FATHER 19 MOTHER G8 SISTER Review of Systems Constitutional: No chills, No fever, No malaise, No weakness EENTM: hearing loss, other (SINUS CONGESTION); No hoarseness, No mouth pain, No throat pain Respiratory: No cough, No dyspnea on exertion, No short of breath Cardiovascular: chest pain (ON ADMISSION IN THE EMERGENCY DEPARTMENT); No palpitations Gastrointestinal: No abdominal pain, No constipation, No diarrhea, No nausea Genitourinary: no symptoms reported Musculoskeletal: No back pain; muscle weakness Skin: No lesions, No rash Psychiatric/Neurological: Denies Anxiety, Denies Depressed; Weakness, Other ( MEMORY LOSS) All Other Systems Reviewed Negative Unless Noted: Yes Physical Exam Vital Signs Vital Signs - First Documented 02/01/18 02/01/18 02/01/18 10:08 15:14 19:37 Temp 98.8 Pulse 66 Resp 18 B/P (MAP) 222/94 (136) Pulse Ox 99 O2 Delivery Room Air O2 Flow Rate 2.00 Capillary Refill : Less Than 3 Seconds Height, Weight, BMI Height: 5'0.00" Weight: 115lbs. 0.0oz. [id number]; 22.5 BMI Method:Stated General Appearance: No Apparent Distress, WD/WN Eyes: Bilateral Eye Normal Inspection, Bilateral Eye PERRL, Bilateral Eye EOMI HEENT: PERRL/EOMI, Pharynx Normal Neck: Full Range of Motion, Non Tender, Supple Respiratory: Chest Non Tender, Lungs Clear, Normal Breath Sounds, No Accessory Muscle Use, No Respiratory Distress Cardiovascular: Regular Rate, Rhythm, No Edema, Normal Peripheral Pulses Gastrointestinal: Normal Bowel Sounds, No Organomegaly, No Pulsatile Mass, Non Tender, Soft Rectal: Deferred Back: Normal Inspection Extremity: Normal Capillary Refill, Non Tender, No Calf Tenderness, No Pedal Edema Neurologic/Psychiatric: Alert, Oriented x3, No Motor/Sensory Deficits, Normal 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 SHE WILL BE ON LISINOPRIL 20MG AM AND 10MG HS, BYSTOLIC DOSE INCREASED, PLAVIX RESTARTED. CHEST PAIN - RESOLVED - CARDIAC MARKERS NEGATIVE CONFUSION - RESOLVED WITH BLOOD PRESSURE CONTROLLED. CAROTID STENOSIS AND CONFUSION WITH TIA SYMPTOMS - NO EVIDENCE OF ACUTE INTRACRANIAL INFARCT - SEE REPORT BELOW: CT HEAD WO-R/O STROKE Axial CT scan of the brain performed without IV contrast. COMPARISON: MRI of the brain without contrast dated 07/06/2017. AND Head CT without IV contrast dated 10/01/2013. FINDINGS: There is no evidence of acute cerebral infarct, intracranial hemorrhage, or gross mass effect. IMPRESSION: 1. There is no CT evidence of acute cerebral infarct, intracranial hemorrhage, brain herniation, or midline shift. If there is continued concern for an acute cerebral infarct, then an MRI of the brain would better evaluate. 2. Age-related brain parenchymal changes with chronic small vessel ischemic disease and leukoaraiosis. 3. Mild to moderate paranasal sinus disease. CT angiography of the head and CT angiography of the neck with and without contrast. INDICATION: Headache, confusion, and memory loss. IMPRESSION: There is calcified plaque in both carotid systems. No high-grade stenosis is seen. No definite thromboemboli or large branch occlusion is seen. HYPERLIPIDEMIA -RESTART STATIN THERAPY. CORONARY ARTERY DISEASE - SUPPORTIVE CARE. SEASONAL ALLERGIES - RESTART ZYRTEC OR HOSPITAL FORMULARY ALLERGY MEDICATION. CHRONIC SINUSITIS - MONITOR SYMPTOMS, START FLONASE Admission Diagnosis HYPERTENSIVE ENCEPHALOPATHY HYPERTENSIVE URGENCY CHEST PAIN CONFUSION CAROTID STENOSIS HYPERLIPIDEMIA CORONARY ARTERY DISEASE SEASONAL ALLERGIES CHRONIC SINUSITIS Admission Status: Observation Clinical Quality Measures DVT/VTE Risk/Contraindication: Risk Factor Score Per Nursin RFS Level Per Nursing on Admit: 2=Moderate Meds/Labs/Orders Lab results: Laboratory Tests Test 02/01/18 10:15 02/01/18 11:45 02/01/18 13:11 02/01/18 15:40 Range/Units White Blood Count 6.7 8.1 4.3-11.0 10^3/uL Red Blood Count 3.27 L 3.26 L 4.35-5.85 10^6/uL Hemoglobin 11.3 L 11.1 L 11.5-16.0 G/DL Hematocrit 33 L 32 L 35-52 % Mean Corpuscular Volume 100 H 99 80-99 FL Mean Corpuscular Hemoglobin 35 H 34 25-34 PG Mean Corpuscular Hemoglobin Concent 35 34 32-36 G/DL Red Cell Distribution Width 13.0 13.0 10.0-14.5 % Platelet Count 218 206 130-400 10^3/uL Mean Platelet Volume 8.5 8.3 7.4-10.4 FL Neutrophils (%) (Auto) 49 83 H 42-75 % Lymphocytes (%) (Auto) 37 11 L 12-44 % Monocytes (%) (Auto) 12 6 0-12 % Eosinophils (%) (Auto) 2 0 0-10 % Basophils (%) (Auto) 0 0 0-10 % Neutrophils # (Auto) 3.3 6.7 1.8-7.8 X 10^3 Lymphocytes # (Auto) 2.5 0.9 L 1.0-4.0 X 10^3 Monocytes # (Auto) 0.8 0.5 0.0-1.0 X 10^3 Eosinophils # (Auto) 0.1 0.0 0.0-0.3 10^3/uL Basophils # (Auto) 0.0 0.0 0.0-0.1 10^3/uL Prothrombin Time 12.9 12.5 12.2-14.7 SEC INR Comment 1.0 0.9 0.8-1.4 Activated Partial Thromboplast Time 28 26 24-35 SEC D-Dimer 1.26 H 0.00-0.49 UG/ML Sodium Level 137 136 135-145 MMOL/L Potassium Level 4.6 5.0 3.6-5.0 MMOL/L Chloride Level 101 100 98-107 MMOL/L Carbon Dioxide Level 24 23 21-32 MMOL/L Anion Gap 12 13 5-14 MMOL/L Blood Urea Nitrogen 13 15 7-18 MG/DL Creatinine 1.05 0.99 0.60-1.30 MG/DL Estimat Glomerular Filtration Rate 50 53 BUN/Creatinine Ratio 12 15 Glucose Level 77 126 H 70-105 MG/DL Calcium Level 9.5 9.3 8.5-10.1 MG/DL Corrected Calcium 9.4 9.3 8.5-10.1 MG/DL Total Bilirubin 0.4 0.3 0.1-1.0 MG/DL Aspartate Amino Transf (AST/SGOT) 16 16 5-34 U/L Alanine Aminotransferase (ALT/SGPT) 12 13 0-55 U/L Alkaline Phosphatase 35 L 34 L 40-136 U/L Troponin I < 0.30 < 0.30 < 0.30 <0.30 NG/ML B-Type Natriuretic Peptide 96.9 <100.0 PG/ML Total Protein 7.5 7.1 6.4-8.2 GM/DL Albumin 4.1 4.0 3.2-4.5 GM/DL Urine Color YELLOW Urine Clarity CLEAR Urine pH 8 5-9 Urine Specific [place] 1.010 L 1.016-1.022 Urine Protein NEGATIVE NEGATIVE Urine Glucose (UA) NEGATIVE NEGATIVE Urine Ketones NEGATIVE NEGATIVE Urine Nitrite NEGATIVE NEGATIVE Urine Bilirubin NEGATIVE NEGATIVE Urine Urobilinogen NORMAL NORMAL MG/DL Urine Leukocyte Esterase 1+ H NEGATIVE Urine RBC (Auto) NEGATIVE NEGATIVE Urine RBC NONE /HPF Urine WBC RARE /HPF Urine Squamous Epithelial Cells 5-10 /HPF Urine Crystals NONE /LPF Urine Bacteria NEGATIVE /HPF Urine Casts NONE /LPF Urine Mucus NEGATIVE /LPF Urine Culture Indicated NO Myoglobin 53.4 10.0-92.0 NG/ML Test 02/01/18 15:58 Range/Units Glucometer 114 H 70-110 MG/DL My orders: Orders - ZARI MCDERMOTT MD Transfer - Bed/Room/Location (02/01/18 14:21) Sodium Chloride Flush (Catheter Flush Sy (02/01/18 22:00) Sodium Chloride Flush (Catheter Flush Sy (02/01/18 15:15) Admission Order(Inpt,Obs,Sdc) (02/01/18 14:50) Code/Resuscitation (02/01/18 14:50) Initiate Admission Nursing Pro .admission (02/01/18 14:50) Isolation Central Supply Req (02/01/18 14:50) Intake & Output BID (02/01/18 14:50) Ekg Tracing (02/01/18 15:50) Ekg Tracing (02/02/18 05:00) Cardiac Profile 1 (02/01/18 14:50) Cardiac Profile 2 (02/01/18 20:50) Myoglobin Serum (02/01/18 14:50) Protime With Inr (02/01/18 14:50) Partial Thromboplastin Time (02/01/18 14:50) Cbc With Automated Diff (02/01/18 14:50) Ua Culture If Indicated (02/01/18 14:50) Comprehensive Metabolic Panel (02/01/18 14:50) Lipid Panel (02/02/18 05:00) Oxygen-Administer 07,19 (02/01/18 14:50) Vital Signs: Chest Pain (Orde (02/01/18 ) Bedrest For 3 Hours (02/01/18 14:50) Progressive Mobilization (02/01/18 14:50) Npo After Midnight (Nursing Or (02/01/18 14:50) Notify Physician: Vital Signs (02/01/18 14:50) Telemetry (02/01/18 14:50) Nothing By Mouth (02/01/18 Dinner) Consult Physician (02/01/18 14:50) Initiate Admission Nursing Pro .admission (02/01/18 14:50) Ekg-Prn For Chest Pain Or Rhyt (02/01/18 14:50) Oxygen Delivery Set Up (02/01/18 14:50) Nothing By Mouth (02/02/18 Breakfast) Telemetry Nursing Assessment ( (02/01/18 14:50) Accucheck Q1hr Q1HR (02/01/18 14:50) Neurological Checks Q1HR (02/01/18 14:50) Bedrest With Brp With [place] (02/01/18 14:50) Request For Dysphagia Services (02/01/18 14:50) Notify Physician: Vital Signs (02/01/18 14:50) Accucheck Achs ACHS (02/01/18 14:50) Chest 1 View, Ap/Pa Only (02/01/18 14:50) Lipid Panel (02/02/18 03:00) Aspirin Enteric Coated Tablet (Ecotrin T (02/02/18 09:00) Nitroglycerin 0.4 Mg Btl 25's (Nitrostat (02/01/18 15:15) Fentanyl Injection (Sublimaze Injection (02/01/18 15:15) Cbc With Automated Diff (02/02/18 03:00) Comprehensive Metabolic Panel (02/02/18 03:00) Ambulate 08,12,20 (02/01/18 15:47) Sequential Compression Device 08,20 (02/01/18 15:47) Dvt/Vte Risk - Notifiy Physici 08 (02/01/18 15:47) General/Regular (02/01/18 Lunch) General/Regular (02/01/18 Dinner) Aspirin Enteric Coated Tablet (Ecotrin T (02/02/18 09:00) Pantoprazole Tablet (Protonix Tablet) (02/01/18 21:00) Loratadine Tablet (Claritin Tablet) (02/02/18 09:00) Docusate Sodium Capsule (Colace Capsule) (02/01/18 20:15) (Nf) Lactase (Lactaid) (02/01/18 20:15) Acetaminophen Tablet (Tylenol Tablet) (02/01/18 21:00) Acetaminophen Tablet (Tylenol Tablet) (02/01/18 20:15) ZARI MCDERMOTT MD Feb 01, 2018 19:46
[2018-02-01] MEDS: CATHETER FLUSH 10 ML SYR IV SCH (20:09)
[2018-02-01] MEDS ORDERED: DOCUSATE SODIUM 100 MG (COLACE) CAP PO PRN (20:15)
[2018-02-01] MEDS ORDERED: LACTASE PO PRN (20:15)
[2018-02-01] MEDS ORDERED: ACETAMINOPHEN 500 MG TAB (TYLENOL) PO PRN (20:15)
[2018-02-01] MEDS ORDERED: lisINopril 10 MG (PRINIVIL) TABLET PO SCH (21:00)
[2018-02-01] MEDS ORDERED: ACETAMINOPHEN 500 MG TAB (TYLENOL) PO SCH (21:00)
[2018-02-01] MEDS ORDERED: NEBIVOLOL 5 MG TAB (BYSTOLIC) PO SCH (21:00)
[2018-02-01] MEDS ORDERED: PANTOPRAZOLE 40 MG (PROTONIX) TAB PO SCH (21:00)
[2018-02-01] MEDS ORDERED: ROSUVASTATIN 10 MG (CRESTOR) TABLET PO SCH (21:00)
[2018-02-01] MEDS: FLUTICASONE NASAL SPRAY (FLONASE) 16 GM BTL NS SCH (21:17)
[2018-02-01 22:30] LABS: BILIRUBIN,URINE NEGATIVE (NEGATIVE); CLARITY,URINE CLEAR; COLOR,URINE YELLOW; GLUCOSE, URINE (UA) NEGATIVE (NEGATIVE); KETONES,URINE NEGATIVE (NEGATIVE); LEUKOCYTE ESTERASE ,URINE 2+ (NEGATIVE); NITRITE,URINE NEGATIVE (NEGATIVE); PH,URINE 7 (5-9); PROTEIN,URINE 1+ (NEGATIVE); UROBILINOGEN,URINE 4 MG/DL (NORMAL)
[2018-02-01 22:37] LABS: BACTERIA,URINE TRACE /HPF
[2018-02-02] VITALS (9 sets, daily range): BP systolic 111–163; BP diastolic 44–65
[2018-02-02 03:33] LABS: BASOPHILS % (AUTO) 0 % (0-10); EOSINOPHILS % (AUTO) 1 % (0-10); HEMATOCRIT 31 % (35-52); HEMOGLOBIN 10.3 G/DL (11.5-16.0); LYMPHOCYTES # (AUTO) 3.1 X 10^3 (1.0-4.0); LYMPHOCYTES % (AUTO) 42 % (12-44); MEAN CORPUSCULAR HEMOGLOBIN 33 PG (25-34); MEAN CORPUSCULAR HGB CONC 33 G/DL (32-36); MEAN CORPUSCULAR VOLUME 101 FL (80-99); MEAN PLATELET VOLUME 8.5 FL (7.4-10.4); MONOCYTES # (AUTO) 0.8 X 10^3 (0.0-1.0); MONOCYTES % (AUTO) 11 % (0-12); NEUTROPHILS # (AUTO) 3.4 X 10^3 (1.8-7.8); NEUTROPHILS % (AUTO) 46 % (42-75); PLATELET COUNT 231 10^3/uL (130-400); RED BLOOD COUNT 3.08 10^6/uL (4.35-5.85); RED CELL DISTRIBUTION WIDTH 13.1 % (10.0-14.5); WHITE BLOOD COUNT 7.4 10^3/uL (4.3-11.0)
[2018-02-02 04:03] LABS: ALBUMIN 3.7 GM/DL (3.2-4.5); BILIRUBIN,TOTAL 0.4 MG/DL (0.1-1.0); CALCIUM 9.1 MG/DL (8.5-10.1); CREATININE SERUM 0.98 MG/DL (0.60-1.30); POTASSIUM 4.1 MMOL/L (3.6-5.0); TOTAL PROTEIN 6.8 GM/DL (6.4-8.2)
[2018-02-02] MEDS: CATHETER FLUSH 10 ML SYR IV SCH (06:40)
[2018-02-02] MEDS: FLUTICASONE NASAL SPRAY (FLONASE) 16 GM BTL NS SCH (08:24)
[2018-02-02] MEDS ORDERED: ASPIRIN E.C. 81 MG (ECOTRIN) TAB PO SCH ×2 (09:00)
[2018-02-02] MEDS ORDERED: LORATADINE (CLARITIN) 10 MG TAB PO SCH (09:00)
[2018-02-02] MEDS ORDERED: CLOPIDOGREL 75 MG (PLAVIX) TABLET PO SCH (09:00)
[2018-02-02] MEDS ORDERED: NEBIVOLOL 5 MG TAB (BYSTOLIC) PO SCH (09:00)
[2018-02-02] MEDS ORDERED: lisINopril 20 MG (PRINIVIL) TABLET PO SCH (09:00)
--- NOTE | 2018-02-02 09:19 | Discharge Summary ---
Diagnosis/Chief Complaint Date of Admission Feb 01, 2018 at 14:05 Date of Discharge Discharge Date: Feb 02, 2018 Discharge Time: 08:20 Admission Diagnosis Admission Diagnosis HYPERTENSIVE ENCEPHALOPATHY HYPERTENSIVE URGENCY CHEST PAIN CONFUSION CAROTID STENOSIS HYPERLIPIDEMIA CORONARY ARTERY DISEASE SEASONAL ALLERGIES CHRONIC SINUSITIS Discharge Diagnosis HYPERTENSIVE ENCEPHALOPATHY HYPERTENSIVE URGENCY CHEST PAIN CONFUSION CAROTID STENOSIS HYPERLIPIDEMIA CORONARY ARTERY DISEASE SEASONAL ALLERGIES CHRONIC SINUSITIS Reason Hospital Visit PT IS AN 87 Y/O FEMALE WHO WELL KNOWN TO ME FROM CLINIC. SHE RESIDES AT [facility]. SHE REPORTS THAT SHE WAS FEELING OKAY YESTERDAY, BUT TODAY WHILE ON THE PHONE WITH HER [id number] JOHN, SHE STARTED TO HAVE SLURRING OF HER SPEECH, AND JOHN CALLED BEE'S SON TO GO CHECK ON HER, SHE WAS INDEED SLIGHTLY CONFUSED AND HAVING GARBLED SPEECH AND SHE WAS THEN BROUGHT TO THE EMERGENCY DEPARTMENT FOR FURTHER WORK-UP/EVALUATION. THIS EVENING SHE REPORTS THAT SHE IS FEELING BETTER, HER CHEST PAIN AND SLURRED SPEECH HAS RESOLVED. SHE REPORTS THAT SHE HAS NOTED THAT HER BLOOD PRESSURE HAS BEEN "ALL OVER THE PLACE". Discharge Summary Consultations CARDIOLOGY Discharge Physical Examination Allergies: Coded Allergies: niacin (Verified Allergy, Unknown, HIVES, 07/05/17) simvastatin (Verified Allergy, Unknown, HIVES, 09/17/16) Vitals & I&Os Vital Signs Date Time Temp Pulse Resp B/P (MAP) Pulse Ox O2 Delivery O2 Flow Rate FiO2 02/02/18 08:00 59 163/65 (97) 95 Room Air 02/02/18 07:35 97.7 02/02/18 07:00 2.00 02/01/18 20:00 23 General Appearance: Alert, Oriented X3, Cooperative, No Acute Distress HEENT: Atraumatic, PERRLA, Mucous Memb Moist/[place] Respiratory: Clear to Auscultation, Normal Air Movement Cardiovascular: Regular Rate Abdominal: Normal Bowel Sounds, Soft, No Tenderness Extremities: No Clubbing, No Cyanosis, No Edema Skin: No Rashes, No Breakdown Neuro: Normal Speech, Normal Tone, Cranial Nerves 3-12 NL Psych/Mental Status: Mental Status NL, Mood NL Hospital Course HYPERTENSIVE ENCEPHALOPATHY HYPERTENSIVE URGENCY CHEST PAIN CONFUSION CAROTID STENOSIS HYPERLIPIDEMIA CORONARY ARTERY DISEASE SEASONAL ALLERGIES CHRONIC SINUSITIS HYPERTENSIVE ENCEPHALOPATHY WITH HYPERTENSIVE URGENCY - CONSULT PLACED TO CARDIOLOGY - PT IMPROVING AFTER RESTARTING HOME REGIMEN AND ACUTE TREATMENT IN THE EMERGENCY DEPARTMENT. SHE WILL BE ON LISINOPRIL 20MG AM AND 10MG HS, BYSTOLIC DOSE INCREASED, PLAVIX RESTARTED. CHECK BLOOD PRESSURE BID X 1 WEEK THEN RESUME DAILY BP CHECKS - WILL CHECK IN MORNINGS. KEEP APPT WITH DR. WHITNEY ON THURSDAY. CHEST PAIN - RESOLVED - CARDIAC MARKERS NEGATIVE CONFUSION - RESOLVED WITH BLOOD PRESSURE CONTROLLED. CAROTID STENOSIS AND CONFUSION WITH TIA SYMPTOMS - NO EVIDENCE OF ACUTE INTRACRANIAL INFARCT - SEE REPORT BELOW: CT HEAD WO-R/O STROKE Axial CT scan of the brain performed without IV contrast. COMPARISON: MRI of the brain without contrast dated 07/06/2017. AND Head CT without IV contrast dated 10/01/2013. FINDINGS: There is no evidence of acute cerebral infarct, intracranial hemorrhage, or gross mass effect. IMPRESSION: 1. There is no CT evidence of acute cerebral infarct, intracranial hemorrhage, brain herniation, or midline shift. If there is continued concern for an acute cerebral infarct, then an MRI of the brain would better evaluate. 2. Age-related brain parenchymal changes with chronic small vessel ischemic disease and leukoaraiosis. 3. Mild to moderate paranasal sinus disease. CT angiography of the head and CT angiography of the neck with and without contrast. INDICATION: Headache, confusion, and memory loss. IMPRESSION: There is calcified plaque in both carotid systems. No high-grade stenosis is seen. No definite thromboemboli or large branch occlusion is seen. HYPERLIPIDEMIA -RESTARTED STATIN THERAPY. CORONARY ARTERY DISEASE - SUPPORTIVE CARE. SEASONAL ALLERGIES - [facility]OSP[facility] FORMULARY ALLERGY MEDICATION. CHRONIC SINUSITIS - MONITOR SYMPTOMS, START FLONASE Pending Labs Laboratory Tests 02/02/18 02:55: White Blood Count 7.4, Red Blood Count 3.08, Hemoglobin 10.3, Hematocrit 31, Mean Corpuscular Volume 101, Mean Corpuscular Hemoglobin 33, Mean Corpuscular Hemoglobin Concent 33, Red Cell Distribution Width 13.1, Platelet Count 231, Mean Platelet Volume 8.5, Neutrophils (%) (Auto) 46, Lymphocytes (%) (Auto) 42, Monocytes (%) (Auto) 11, Eosinophils (%) (Auto) 1, Basophils (%) (Auto) 0, Neutrophils # (Auto) 3.4, Lymphocytes # (Auto) 3.1, Monocytes # (Auto) 0.8, Eosinophils # (Auto) 0.0, Basophils # (Auto) 0.0, Sodium Level 134, Potassium Level 4.1, Chloride Level 100, Carbon Dioxide Level 23, Anion Gap 11, Blood Urea Nitrogen 15, Creatinine 0.98, Estimat Glomerular Filtration Rate 54, BUN/ Creatinine Ratio 15, Glucose Level 89, Calcium Level 9.1, Corrected Calcium 9.3 , Total Bilirubin 0.4, Aspartate Amino Transf (AST/SGOT) 16, Alanine Aminotransferase (ALT/SGPT) 11, Alkaline Phosphatase 30, Total Protein 6.8, Albumin 3.7, Triglycerides Level 125, Cholesterol Level 154, LDL Cholesterol Direct 72, VLDL Cholesterol 25, HDL Cholesterol 52 Discharge Condition at discharge IMPROVED Instructions to patient/family Please see electronic discharge instructions given to patient. Discharge Medications Reviewed and agree with Discharge Medication list on patient's Discharge Instruction sheet Clinical Quality Measures DVT/VTE Risk/Contraindication: Risk Factor Score Per Nursin RFS Level Per Nursing on Admit: 2=Moderate ZARI VASQUEZ MD Feb 02, 2018 09:19
[2018-02-02] MEDS ORDERED: NEBI5TAB8 PO (09:23)
[2018-02-02] MEDS ORDERED: FLUT16SP22 NS (09:23)
--- NOTE | 2018-02-02 09:25 | Discharge Inst-Complex ---
PDI Med Rec & Follow Up Appt. New Medications: Fluticasone Propionate (Fluticasone Propionate) 16 Gm [place].susp 0 SPRAY NS BID, #1 EACH ONE SPRAY TWICE DAILY X 2 WEEKS Changed Medications: Nebivolol HCl (Bystolic) 5 Mg Tablet 5 MG PO BID, #60 TAB 6 Refills (Changed from: HS; Refills: ) Continued Medications: Acetaminophen (Tylenol Extra Strength) 500 Mg Tablet 500 MG PO Q6H PRN for PAIN-MILD OR TEMPATURE, TAB Acetaminophen (Tylenol Extra Strength) 500 Mg Tablet 500 MG PO HS, TAB Amoxicillin (Amoxicillin) 500 Mg Capsule 500 MG PO TID for 7 Days, CAP 7 DAY SUPPLY FILLED 01-29-18 Ascorbate Calcium (Vitamin C) 500 Mg Tablet 500 MG PO DAILY, TAB Aspirin (Aspirin EC) 81 Mg Tablet.dr 81 MG PO DAILY, TAB Cetirizine HCl (Zyrtec) 10 Mg Tablet 10 MG PO DAILY for 7 Days, TAB 7 DAY THERAPY START DATE 01-29-18 Cetirizine HCl (Zyrtec) 10 Mg Tablet 10 MG PO DAILY PRN for ALLERGIES, TAB Cholecalciferol (Vitamin D3) (Vitamin D3) 1,000 Unit Capsule 1000 UNIT PO DAILY, CAP Clopidogrel Bisulfate (Clopidogrel) 75 Mg Tablet 75 MG PO DAILY, TAB Docusate Sodium (Stool Softener) 100 Mg Tablet 100 MG PO DAILY PRN for CONSTIPATION-1ST LINE, TAB L.acidoph & Paracasei,B.lactis (Probiotic) 1 Each Capsule 1 CAP PO DAILY for 7 Days, CAP 7 DAY THEARPY START DATE 01-30-18 Lactase (Lactaid) 3,000 Unit Tablet 1 TAB PO QID PRN for WHEN EATING DAIRY, TAB Lisinopril (Lisinopril) 10 Mg Tablet 10 MG PO HS, TAB Lisinopril (Lisinopril) 20 Mg Tablet 20 MG PO DAILY, TAB Pantoprazole Sodium (Pantoprazole Sodium) 40 Mg Tablet.dr 40 MG PO HS, TAB Ranolazine (Ranexa) 500 Mg Tab.er.12h 500 MG PO Q12H, TAB Rosuvastatin Calcium (Rosuvastatin Calcium) 10 Mg Tablet 10 MG PO HS, TAB Prescription: Transmitted to Pharmacy Patient Instructions: PT NEEDS TO HAVE HER BLOOD PRESSURE CHECKED TWICE DAILY X 1 WEEK THEN CHECK BLOOD PRESSURE IN THE MORNINGS DAILY THEREAFTER FAX BLOOD PRESSURE REPORT TO THE CLINIC IN 1 WK Activity, Diet and PDI Resume Normal Activity: Yes Discharge Diet: Low Sodium Diet Drink 6-8 Glasses of Fluid/Day: Yes Driving Instructions: No Driving/Refer to Return to The Hospital For: ANY CONCERN FOR WORSENING CONFUSION, LIFE THREATENING ILLNESS OR INJURY Symptoms to Reoprt to : Fever Over 101 Degrees F, Pain/Pressure in Chest, Shortness of Breath For Problems or Questions: Contact Your Physician ZARI VASQUEZ MD Feb 02, 2018 09:25
--- NOTE | 2018-02-02 13:26 | Progress Note-Cardiology ---
Cardiology SOAP Progress Note Subjective: No cp or palp or syncope or shortness of breath at rest No focal weakness Objective: I&O/Vital Signs 02/02/18 02/02/18 02/02/18 02/02/18 04:00 04:00 04:00 07:00 Temp 98.5 Pulse 53 54 B/P (MAP) 139/47 (77) Pulse Ox 97 95 O2 Delivery Nasal Cannula Nasal Cannula O2 Flow Rate 2.00 2.00 02/02/18 02/02/18 02/02/18 02/02/18 07:00 07:35 07:35 07:35 Temp 97.7 Pulse 54 B/P (MAP) 141/59 (86) Pulse Ox 94 O2 Delivery Nasal Cannula Room Air Room Air Room Air O2 Flow Rate 2.00 02/02/18 02/02/18 02/02/18 02/02/18 08:00 09:00 10:00 11:00 Pulse 59 55 58 52 B/P (MAP) 163/65 (97) 159/58 (91) 111/44 (66) 131/47 (75) Pulse Ox 95 98 93 95 O2 Delivery Room Air Room Air Room Air Room Air 02/02/18 02/02/18 02/02/18 02/02/18 11:10 11:17 12:00 12:37 Temp 97.9 Pulse 56 56 Resp 20 20 B/P (MAP) 150/51 (84) 150/51 Pulse Ox 95 95 O2 Delivery Room Air Room Air Room Air Room Air 02/02/18 00:00 Intake Total 200 ml Output Total 400 ml Balance -200 ml Weight (Pounds): 120 Weight (Ounces): 7.0 Weight (Calculated Kilograms): [id number] Constitutional: appears stated age, AAO x 3; No apparent distress; well- developed, well-nourished Respiratory: No accessory muscle use, No respiratory distress; chest expansion is symmetric, chest is bilaterally symmetric, lungs clear to auscultation Cardiovascular: regular rate-rhythm; No JVD; S1 and S2 Gastrointestional: No tender; soft, round, audible bowel sounds Extremities: no lower extremity edema bilateral Neurologic/Psychiatric: oriented x 3; No facial droop, No motor weakness; grossly intact, power is 5/5 both on sides Skin: No rash, No ulcerations Results/Procedures: Labs Laboratory Tests 02/01/18 15:40: White Blood Count 8.1, Red Blood Count 3.26L, Hemoglobin 11.1L, Hematocrit 32L, Mean Corpuscular Volume 99, Mean Corpuscular Hemoglobin 34, Mean Corpuscular Hemoglobin Concent 34, Red Cell Distribution Width 13.0, Platelet Count 206, Mean Platelet Volume 8.3, Neutrophils (%) (Auto) 83H, Lymphocytes (%) (Auto) 11L , Monocytes (%) (Auto) 6, Eosinophils (%) (Auto) 0, Basophils (%) (Auto) 0, Neutrophils # (Auto) 6.7, Lymphocytes # (Auto) 0.9L, Monocytes # (Auto) 0.5, Eosinophils # (Auto) 0.0, Basophils # (Auto) 0.0, Prothrombin Time 12.5, INR Comment 0.9, Activated Partial Thromboplast Time 26, Sodium Level 136, Potassium Level 5.0, Chloride Level 100, Carbon Dioxide Level 23, Anion Gap 13, Blood Urea Nitrogen 15, Creatinine 0.99, Estimat Glomerular Filtration Rate 53, BUN/Creatinine Ratio 15, Glucose Level 126H, Calcium Level 9.3, Corrected Calcium 9.3, Total Bilirubin 0.3, Aspartate Amino Transf (AST/SGOT) 16, Alanine Aminotransferase (ALT/SGPT) 13, Alkaline Phosphatase 34L, Myoglobin 53.4, Troponin I < 0.30, Total Protein 7.1, Albumin 4.0 02/01/18 15:58: Glucometer 114H 02/01/18 21:00: Troponin I < 0.30 02/01/18 22:15: Urine Color YELLOW, Urine Clarity CLEAR, Urine pH 7, Urine Specific [place] 1.005L, Urine Protein 1+H, Urine Glucose (UA) NEGATIVE, Urine Ketones NEGATIVE, Urine Nitrite NEGATIVE, Urine Bilirubin NEGATIVE, Urine Urobilinogen 4H, Urine Leukocyte Esterase 2+H, Urine RBC (Auto) NEGATIVE, Urine RBC NONE, Urine WBC 2-5 , Urine Squamous Epithelial Cells 2-5, Urine Crystals NONE, Urine Bacteria TRACE , Urine Casts NONE, Urine Mucus NEGATIVE, Urine Culture Indicated NO 02/01/18 22:17: Glucometer 109 02/02/18 02:55: White Blood Count 7.4, Red Blood Count 3.08L, Hemoglobin 10.3L, Hematocrit 31L, Mean Corpuscular Volume 101H, Mean Corpuscular Hemoglobin 33, Mean Corpuscular Hemoglobin Concent 33, Red Cell Distribution Width 13.1, Platelet Count 231, Mean Platelet Volume 8.5, Neutrophils (%) (Auto) 46, Lymphocytes (%) (Auto) 42, Monocytes (%) (Auto) 11, Eosinophils (%) (Auto) 1, Basophils (%) (Auto) 0, Neutrophils # (Auto) 3.4, Lymphocytes # (Auto) 3.1, Monocytes # (Auto) 0.8, Eosinophils # (Auto) 0.0, Basophils # (Auto) 0.0, Sodium Level 134L, Potassium Level 4.1, Chloride Level 100, Carbon Dioxide Level 23, Anion Gap 11, Blood Urea Nitrogen 15, Creatinine 0.98, Estimat Glomerular Filtration Rate 54, BUN/ Creatinine Ratio 15, Glucose Level 89, Calcium Level 9.1, Corrected Calcium 9.3 , Total Bilirubin 0.4, Aspartate Amino Transf (AST/SGOT) 16, Alanine Aminotransferase (ALT/SGPT) 11, Alkaline Phosphatase 30L, Total Protein 6.8, Albumin 3.7, Triglycerides Level 125, Cholesterol Level 154, LDL Cholesterol Direct 72, VLDL Cholesterol 25, HDL Cholesterol 52 02/02/18 11:45: Glucometer 229H A/P: Assessment: Chest discomfort w/o any evidence of ACS 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 Ram at [facility] in [place], [place]. Follows with Dr Rapp in cardiac f/u. MPI of 09/12/16 at [facility]: no evidence of RI, normal LV cavity size and wall motion, very samall reversible lateral apical defect (likely artifact), cannot exclude small amount of ischemia Echo of 04/23/16 (Dr Rapp): Normal EF, normal pulm artery pressures, mild MR, mod LA enlargement 24 Hour Holter of October 2017 showed SR with first degree AV block; occ PVC; sinus bradycardia (HR 44-51) Expressive dysphasia at presentation on 02/01/18, complete resolution, probably hypertensive encephalopathy, followed and treated by Dr Mcdermott H/O most recent TIA in June 2017 for which she was seen at this facility - she and family report TIA x 5 Carotid arterial disease - CTA of the neck on 10-15-18: Large amount of calcified plaque at the carotid bifurcations bilaterally. The internal carotid arteries are widely patent. There is a large amount of calcified plaque in the carotid siphons bilaterally Echocardiogram of July 06, [address] Pedro showed concentric LVH. LVEF 65-70 %. Aortic valve thickening consistent with sclerosis. Mild to mod TR. PASP 35 -40mmHg HLD HTN, managed by Dr Mcdermott H/O osteo-arthritis Plan: * Her symptoms have resolved * We obtained and reviewed records from Dr Rapp's. They are summarized above * Outpt card f/u is advised. She states she already has an apptt to see Dr Rapp , her length control tester, [id number] * We advised her to report back to the ER in case of recurrent symptoms or new symptoms PREMA FLOWER MD FACP [facility] Feb 02, 2018 13:25
== END 2018-02-02 09:20 | disposition home or self-care (01) ==
LOC: EDUNIT# 10:04 → ER 10:05 → UNDOADMOB 14:05 → ICU 14:05 → UNDODISOB 02-02 12:40
PROVIDERS: ADMIT Family Medicine; ATTEND Family Medicine
DX: I67.4 Hypertensive encephalopathy (principal); I16.1 Hypertensive emergency; R41.0 Disorientation, unspecified; R51 Headache; R07.9 Chest pain, unspecified; N39.46 Mixed incontinence; I25.10 Atherosclerotic heart disease of native coronary artery without angina pectoris; E78.5 Hyperlipidemia, unspecified; I45.10 Unspecified right bundle-branch block; K21.9 Gastro-esophageal reflux disease without esophagitis; K59.09 Other constipation; M81.0 Age-related osteoporosis without current pathological fracture; J30.9 Allergic rhinitis, unspecified; Z95.1 Presence of aortocoronary bypass graft; Z79.82 Long term (current) use of aspirin; Z79.02 Long term (current) use of antithrombotics/antiplatelets; Z87.891 Personal history of nicotine dependence
CPT/HCPCS: 36415; 70450; 70496; 70498; 71045; 80053; 80061; 81000; 82962; 83874; 83880; 84484; 85025; 85379; 85610; 85730; 93005; 93041; 96374; 96375; 96376

== ENCOUNTER → 2018-05-18 | Outpatient (CLI) | payer MEDICARE ==
[~2018-05-18] VITALS: Ht 152.4 cm; Wt 54.6 kg
[~2018-05-18] MED LIST changes: +AMOX500C2 PO; +CETI10TA20 PO; +DENOSUMAB 60 MG/1 ML (PROLIA) SQ SCH; +FLUT16SP22 NS; +L.AC1CAP6 PO; +LISI10TA2 PO; +[UNRECOGNIZED DRUG - CODE] PO
[2018-05-18 10:46] VITALS: BP 174/67
== END ==
LOC: SDC 10:26
PROVIDERS: ATTEND Nurse Practitioner Family
DX: M81.0 Age-related osteoporosis without current pathological fracture (principal)
CPT/HCPCS: 96372

== ENCOUNTER → 2018-12-14 | Outpatient (CLI) | payer MEDICARE ==
[~2018-12-14] MED LIST changes: -DENOSUMAB 60 MG/1 ML (PROLIA) SQ SCH; -ROSU10TA27 PO; +ROSU10TA28 PO
--- NOTE | 2018-12-14 13:20 | Diagnostic Imaging Report ---
INDICATION: Postmenopausal screening for osteoporosis. COMPARISON: 10/23/2016 FINDINGS: AP Spine L1-L4: [BMD (g/cm2): N/A] [T-Score: N/A] [Z-Score: N/A] [BMD Previous: N/A] [BMD % Change: N/A] LT Hip Neck: [BMD (g/cm2): 0.642] [T-Score: -2.8] [Z-Score: 0.0] LT Hip Total: [BMD (g/cm2):0.678] [T-Score:-2.6] [Z-Score: 0.2] [BMD Previous: 0.650] [BMD % Change: 4.3] RT Hip Neck: [BMD (g/cm2):0.602] [T-Score:-3.1] [Z-Score:-0.3] RT Hip Total: [BMD (g/cm2):0.631] [T-score:-3.0] [Z-Score:-0.2] [BMD Previous:0.588] [BMD % Change:7.3] *Indicates significant change from prior examination based on 95% confidence level. World Health Organization criteria for BMD interpretation classify patients as Normal (T-score at or above -1.0), Osteopenic (T-score between -1.0 and -2.5) or Osteoporotic (T-score at or below -2.5). LIMITATIONS AND MODIFICATION: None. FRACTURE RISK (FRAX SCORE): The ten year probability of (%): Major Osteoporotic Fracture: [N/A] Hip Fracture: [N/A] IMPRESSION: 1. Osteoporosis. 2. No significant change in bone mineral density since prior examination. 3. See below National Osteoporosis Foundation guidelines on when to potentially initiate pharmacologic therapy. Based on the National Osteoporosis Foundation Guidelines, pharmacologic treatment should be initiated in any of the following, unless clinical conditions suggest otherwise: * Any patient with prior fragility fracture of the hip or vertebrae. A spine fracture indicates 5X risk for subsequent spine fracture and 2X risk for subsequent hip fracture. * Osteoporosis (T-score <-2.5). * Postmenopausal women and men age 50 and older with low bone mass/osteopenia (T-score between -1.0 and -2.5) by DXA and 10-year major osteoporotic fracture greater than 20% or a 10-year probability of hip fracture greater than 3%. These fracture risks are supplied above in the FRAX score, if applicable. * Clinician judgement and/or patient preferences may indicate treatment for people with 10-year fracture probabilities above or below these levels. Dictated by: Dictated on workstation # [id number]
== END ==
LOC: RAD 10:58
PROVIDERS: ATTEND Family Medicine
DX: Z13.820 Encounter for screening for osteoporosis (principal); M81.0 Age-related osteoporosis without current pathological fracture; Z78.0 Asymptomatic menopausal state
CPT/HCPCS: 77080

== ENCOUNTER → 2019-04-18 | Outpatient (CLI) | payer MEDICARE ==
--- NOTE | 2019-04-18 16:34 | Diagnostic Imaging Report ---
Indication: Bilateral rib pain after a fall. PA chest and 2 views of right and left ribs were obtained. There are postoperative changes from CABG surgery. There are no displaced rib fractures seen on either side of the thoracic cage. There are no effusions or pneumothoraces. IMPRESSION: Negative bilateral ribs. Dictated by: Dictated on workstation # [id number]
== END ==
LOC: RAD 15:56
PROVIDERS: ATTEND Nurse Practitioner Family
DX: R07.81 Pleurodynia (principal); W19.XXXA Unspecified fall, initial encounter; Z95.1 Presence of aortocoronary bypass graft
CPT/HCPCS: 71110

== ENCOUNTER 2019-05-23 23:59 | Emergency (ER) | payer MEDICARE ==
[~2019-05-23] VITALS: Ht 149.9 cm; Wt 50.4 kg
[~2019-05-23 23:59] MED LIST changes: +ASCO-413 PO; -ASCO500T5 PO; -TRAM50TA2 PO; +TRM50T PO
[2019-05-24] MEDS ORDERED: TETANUS,DIPTH,PERTUSS P/F (BOOSTRIX) 0.5 ML VIAL IM ONE (00:15)
[2019-05-24 00:21] LABS: BASOPHILS % (AUTO) 1 % (0-10); EOSINOPHILS # (AUTO) 0.1 10^3/uL (0.0-0.3); EOSINOPHILS % (AUTO) 1 % (0-10); HEMATOCRIT 33 % (35-52); HEMOGLOBIN 10.8 G/DL (11.5-16.0); LYMPHOCYTES # (AUTO) 2.5 X 10^3 (1.0-4.0); LYMPHOCYTES % (AUTO) 38 % (12-44); MEAN CORPUSCULAR HEMOGLOBIN 33 PG (25-34); MEAN CORPUSCULAR HGB CONC 33 G/DL (32-36); MEAN CORPUSCULAR VOLUME 101 FL (80-99); MEAN PLATELET VOLUME 8.9 FL (7.4-10.4); MONOCYTES # (AUTO) 0.6 X 10^3 (0.0-1.0); MONOCYTES % (AUTO) 10 % (0-12); NEUTROPHILS # (AUTO) 3.2 X 10^3 (1.8-7.8); NEUTROPHILS % (AUTO) 50 % (42-75); PLATELET COUNT 179 10^3/uL (130-400); RED CELL DISTRIBUTION WIDTH 13.5 % (10.0-14.5); WHITE BLOOD COUNT 6.4 10^3/uL (4.3-11.0)
[2019-05-24 00:36] LABS: ALBUMIN 4.1 GM/DL (3.2-4.5); BILIRUBIN,TOTAL 0.4 MG/DL (0.1-1.0); CALCIUM 9.2 MG/DL (8.5-10.1); CREATININE SERUM 1.09 MG/DL (0.60-1.30); POTASSIUM 4.3 MMOL/L (3.6-5.0); TOTAL PROTEIN 6.9 GM/DL (6.4-8.2)
[2019-05-24] MEDS ORDERED: lisINopril 10 MG (PRINIVIL) TABLET PO ONE (01:15)
[2019-05-24] MEDS ORDERED: lisINopril 10 MG (PRINIVIL) TABLET ONE (01:45)
[2019-05-24 02:05] LABS: BILIRUBIN,URINE NEGATIVE (NEGATIVE); CLARITY,URINE CLEAR; COLOR,URINE YELLOW; GLUCOSE, URINE (UA) NEGATIVE (NEGATIVE); KETONES,URINE NEGATIVE (NEGATIVE); LEUKOCYTE ESTERASE ,URINE NEGATIVE (NEGATIVE); NITRITE,URINE NEGATIVE (NEGATIVE); PROTEIN,URINE NEGATIVE (NEGATIVE)
[2019-05-24 02:12] LABS: BACTERIA,URINE TRACE /HPF; SQUAMOUS EPITHELIAL CELL,UR RARE /HPF
--- NOTE | 2019-05-24 02:18 | ED Fall/Injury ---
General Chief Complaint: Trauma-Non Activation Stated Complaint: FALL-HITTING HEAD Nursing Triage Note: PT FELL AT HOME HITTING THE BACK OF HER HEAD. PT STATES SHE DID NOT LOSE CONSCIOUSNESS. BLOOD NOTED AT THE BACK OF THE HEAD. Source: patient, family, EMS Exam Limitations: no limitations History of Present Illness Date Seen by Provider: May 24, 2019 Time Seen by Provider: 00:01 Initial Comments This 89-year-old woman presents to the emergency room via EMS after having a fall at [facility]. She is not quite certain what caused her to fall but states she has felt a little bit dizzy recently. She fell backwards and struck her right posterior scalp on a door jam. She has blood matted in her hair on the right. She denies loss of consciousness. She has no other significant injuries. She denies chest pain. She is alert and answering questions appropriately on arrival. Allergies and Home Medications Allergies Coded Allergies: niacin (Verified Allergy, Unknown, HIVES, 07/05/17) simvastatin (Verified Allergy, Unknown, HIVES, 09/17/16) Home Medications Acetaminophen 500 Mg Tablet, 500 MG PO Q6H PRN for PAIN-MILD OR TEMPATURE, (Reported) Acetaminophen 500 Mg Tablet, 500 MG PO HS, (Reported) Amoxicillin 500 Mg Capsule, 500 MG PO TID, (Reported) 7 DAY SUPPLY FILLED 01-29-18 Ascorbate Calcium 500 Mg Tablet, 500 MG PO DAILY, (Reported) Aspirin 81 Mg Tablet.dr, 81 MG PO DAILY, (Reported) Cetirizine HCl 10 Mg Tablet, 10 MG PO DAILY, (Reported) 7 DAY THERAPY START DATE 01-29-18 Cetirizine HCl 10 Mg Tablet, 10 MG PO DAILY PRN for ALLERGIES, (Reported) Cholecalciferol (Vitamin D3) 1,000 Unit Capsule, 1,000 UNIT PO DAILY, (Reported) Clopidogrel Bisulfate 75 Mg Tablet, 75 MG PO DAILY, (Reported) Docusate Sodium 100 Mg Tablet, 100 MG PO DAILY PRN for CONSTIPATION-1ST LINE, (Reported) Fluticasone Propionate 16 Gm [place].susp, 0 SPRAY NS BID ONE SPRAY TWICE DAILY X 2 WEEKS Prescribed by: ZARI MCDERMOTT on 02/02/18 0923 L.acidoph & Paracasei,B.lactis 1 Each Capsule, 1 CAP PO DAILY, (Reported) 7 DAY THEARPY START DATE 01-30-18 Lactase 3,000 Unit Tablet, 1 TAB PO QID PRN for WHEN EATING DAIRY, (Reported) Lisinopril 10 Mg Tablet, 10 MG PO HS, (Reported) Lisinopril 20 Mg Tablet, 20 MG PO DAILY, (Reported) Nebivolol HCl 5 Mg Tablet, 5 MG PO BID Prescribed by: ZARI MCDERMOTT on 02/02/18 0923 Pantoprazole Sodium 40 Mg Tablet.dr, 40 MG PO HS, (Reported) Ranolazine 500 Mg Tab.er.12h, 500 MG PO Q12H, (Reported) Rosuvastatin Calcium 10 Mg Tablet, 10 MG PO HS, (Reported) Patient Home Medication List Home Medication List Reviewed: Yes Review of Systems Review of Systems Constitutional: no symptoms reported Eyes: No Symptoms Reported Ears, Nose, Mouth, Throat: no symptoms reported Respiratory: no symptoms reported Cardiovascular: no symptoms reported Gastrointestinal: no symptoms reported Genitourinary: incontinence : No Musculoskeletal: no symptoms reported Skin: see HPI Psychiatric/Neurological: See HPI Past Zhffdoy-Lmsyae-Vhwlpc Hx Past Med/Social Hx: Reviewed Nursing Past Med/Soc Hx Patient Social History Alcohol Use: Denies Use Number of Drinks Today: GG Alcohol Beverage of Choice: Whiskey Recreational Drug Use: No Smoking Status: Former Smoker Type Used: Cigarettes Former Smoker, Quit: Apr 20, 1980 2nd Hand Smoke Exposure: No Recent Foreign Travel: No Contact w/Someone Who Travel: No Recent Infectious Disease Expo: No Recent Hopitalizations: Yes Physical Abuse: No Sexual Abuse: No Mistreated: No Fear: No Immunizations Up To Date Tetanus Booster (TDap): Unknown Date of Pneumonia Vaccine: Feb 04, 2017 Date of Influenza Vaccine: Jan 25, 2018 Seasonal Allergies Seasonal Allergies: No Past Medical History Surgeries: Yes Abdominal, Cardiac, CABG, Eye Surgery, Orthopedic Respiratory: Yes Sleep Apnea Currently Using CPAP: No Currently Using BIPAP: No Cardiac: Yes (CABG X5 VESSEL) Coronary Artery Disease, High Cholesterol, Hypertension Neurological: Yes (MULTIPLE TIA'S ) TIA 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 Disorders: No Female 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 Disorders: 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 Sexually Transmitted Disease: No HIV/AIDS: No Genitourinary: Yes (URINARY STRESS AND URGE INCONTINENCE) Gastrointestinal: Yes (CONSTIPATION OCCASIONALLY) Gastroesophageal Reflux, Chronic Constipation, Diverticulosis Musculoskeletal: Yes Degenerate Disk Disease, Osteoporosis, Arthritis, Chronic Back Pain, Fractures Endocrine: No HEENT: Yes (BILATERAL CATARACTS REMOVED) Cataract Loss of Vision: Bilateral Hearing Impairment: Denies 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) Skin Did You Recieve Any Treatments: Yes What Type of Treatment Did You: Surgical Intervention Psychosocial: No Integumentary: Yes (skin cancer on face/body) Blood Disorders: No Adverse Reaction/Blood Tranf: No Family Medical History Abdominal aortic aneurysm G8 SISTER Congestive heart failure 19 FATHER Family history: Arthritis 19 MOTHER G8 SISTER Family history: Cardiovascular disease G8 SISTER Family history: Hypertension G8 SISTER Family history: Osteoporosis 19 MOTHER Heart disease 19 FATHER 19 MOTHER G8 SISTER Hypercholesterolemia G8 SISTER Kidney disease G8 SISTER Myocardial infarction 19 FATHER 19 MOTHER G8 SISTER Heart Disease, Hypertension Physical Exam Vital Signs Vital Signs - First Documented 05/24/19 05/24/19 00:09 02:53 Temp 36.1 Pulse 57 Resp 17 B/P (MAP) 204/96 (132) Pulse Ox 96 O2 Delivery Room Air Capillary Refill : Less Than 3 Seconds Height, Weight, BMI Height: 5'0.00" Weight: 120lbs. 7.0oz. 54.035691mt; 22.00 BMI Method:Stated General Appearance: WD/WN, no apparent distress HEENT: PERRL/EOMI, TMs normal, pharynx normal, other (5 mm laceration on the right parietal scalp that is no longer bleeding) Neck: non-tender, normal inspection Cardiovascular: regular rate, rhythm, no edema, no murmur, other (Normal sinus rhythm on the monitoring coordinator) Respiratory: lungs clear, normal breath sounds, no respiratory distress, no accessory muscle use Gastrointestinal: normal bowel sounds, non tender, soft Extremities: non-tender, normal inspection, no pedal edema Neurologic/Psychiatric: wound nurse II-XII nml as tested, no motor/sensory deficits, alert, normal mood/affect, oriented x 3 Skin: normal color, warm/dry Gricel Coma Score Best Eye Response: (4) Open Spontaneously Best Verbal Response: (5) Oriented Best Motor Response: (6) Obeys Commands [place] Total: 15 Progress/Results/Core Measures Results/Orders Lab Results Laboratory Tests Test 05/24/19 00:10 05/24/19 01:55 Range/Units White Blood Count 6.4 4.3-11.0 10^3/uL Red Blood Count 3.23 L 4.35-5.85 10^6/uL Hemoglobin 10.8 L 11.5-16.0 G/DL Hematocrit 33 L 35-52 % Mean Corpuscular Volume 101 H 80-99 FL Mean Corpuscular Hemoglobin 33 25-34 PG Mean Corpuscular Hemoglobin Concent 33 32-36 G/DL Red Cell Distribution Width 13.5 10.0-14.5 % Platelet Count 179 130-400 10^3/uL Mean Platelet Volume 8.9 7.4-10.4 FL Neutrophils (%) (Auto) 50 42-75 % Lymphocytes (%) (Auto) 38 12-44 % Monocytes (%) (Auto) 10 0-12 % Eosinophils (%) (Auto) 1 0-10 % Basophils (%) (Auto) 1 0-10 % Neutrophils # (Auto) 3.2 1.8-7.8 X 10^3 Lymphocytes # (Auto) 2.5 1.0-4.0 X 10^3 Monocytes # (Auto) 0.6 0.0-1.0 X 10^3 Eosinophils # (Auto) 0.1 0.0-0.3 10^3/uL Basophils # (Auto) 0.0 0.0-0.1 10^3/uL Sodium Level 138 135-145 MMOL/L Potassium Level 4.3 3.6-5.0 MMOL/L Chloride Level 103 98-107 MMOL/L Carbon Dioxide Level 24 21-32 MMOL/L Anion Gap 11 5-14 MMOL/L Blood Urea Nitrogen 19 H 7-18 MG/DL Creatinine 1.09 0.60-1.30 MG/DL Estimat Glomerular Filtration Rate 47 BUN/Creatinine Ratio 17 Glucose Level 110 H 70-105 MG/DL Calcium Level 9.2 8.5-10.1 MG/DL Corrected Calcium 9.1 8.5-10.1 MG/DL Total Bilirubin 0.4 0.1-1.0 MG/DL Aspartate Amino Transf (AST/SGOT) 14 5-34 U/L Alanine Aminotransferase (ALT/SGPT) 11 0-55 U/L Alkaline Phosphatase 34 L 40-136 U/L Total Protein 6.9 6.4-8.2 GM/DL Albumin 4.1 3.2-4.5 GM/DL Urine Color YELLOW Urine Clarity CLEAR Urine pH 6.0 5-9 Urine Specific [place] 1.010 L 1.016-1.022 Urine Protein NEGATIVE NEGATIVE Urine Glucose (UA) NEGATIVE NEGATIVE Urine Ketones NEGATIVE NEGATIVE Urine Nitrite NEGATIVE NEGATIVE Urine Bilirubin NEGATIVE NEGATIVE Urine Urobilinogen 0.2 < = 1.0 MG/DL Urine Leukocyte Esterase NEGATIVE NEGATIVE Urine RBC (Auto) NEGATIVE NEGATIVE Urine RBC NONE /HPF Urine WBC NONE /HPF Urine Squamous Epithelial Cells RARE /HPF Urine Crystals NONE /LPF Urine Bacteria TRACE /HPF Urine Casts NONE /LPF Urine Mucus NEGATIVE /LPF Urine Culture Indicated NO My Orders Orders - SERGEY FARMER MD Cbc With Automated Diff (05/24/19 00:15) Comprehensive Metabolic Panel (05/24/19 00:15) Ua Culture If Indicated (05/24/19 00:15) Ct Head/Cervical Spine Wo (05/24/19 00:15) Ed Iv/Invasive Line Start (05/24/19 00:15) Dipht,Pertuss(Acell),Tet Adult (Boostrix (05/24/19 00:15) Lisinopril Tablet (Zestril Tablet) (05/24/19 01:15) Lisinopril Tablet (Zestril Tablet) (05/24/19 01:45) Medications Given in ED Current Medications Medications Dose Ordered Sig/Alyse Route Start Time Stop Time Status Last Admin Dose Admin Diphtheria/ Tetanus/Acell Pertussis 0.5 ml ONCE ONCE IM 05/24/19 00:15 05/24/19 00:17 DC 05/24/19 00:54 0.5 ML Lisinopril 10 mg ONCE ONCE PO 05/24/19 01:15 05/24/19 02:31 DC 05/24/19 01:51 10 MG Vital Signs/I&O 05/24/19 05/24/19 00:09 02:53 Temp 36.1 36.1 Pulse 57 58 Resp 17 16 B/P (MAP) 204/96 (132) 181/89 (132) Pulse Ox 96 O2 Delivery Room Air Blood Pressure Mean: 132 Progress Progress Note : Progress Note CT of the head and C-spine was unremarkable. Labs were unremarkable. Blood pressure was significantly elevated. An additional dose of lisinopril 10 mg was given. Systolic pressure did improve by about 20 mmHg. Diastolic blood pressure was normal. Review of chart notes a normal carotid ultrasound in 2018. Patient demonstrated ability to independently and safely ambulate. She was dismissed home into the care of her daughter. Diagnostic Imaging Diagonstic Imaging: CT Plain Films/CT/US/NM/MRI: c-spine, head Comments CT head and C-spine viewed by me and stat rad report reviewed. No acute injuries identified. Departure Impression Primary Impression: Fall on same level Qualified Codes: W18.30XA - Fall on same level, unspecified, initial encounter Additional Impressions: Laceration of scalp Qualified Codes: S01.01XA - Laceration without foreign body of scalp, initial encounter Hypertension Qualified Codes: I10 - Essential (primary) hypertension Dizziness Disposition: HOME, SELF-CARE Condition: Improved Departure-Patient Inst. Referrals: ZARI MCDERMOTT MD (PCP/Family) Primary Care Physician Patient Instructions: Preventing Falls in the Older Adult Add. Discharge Instructions: Follow-up with Dr. Mcdermott as soon as possible. Have assisted living staff check blood pressures a couple of times today and call them into Dr. Mcdermott's office. You may take Tylenol (acetaminophen) up to 650 mg every 6 hours as needed for pain. Return to the emergency room if you have worsening symptoms. Please take your time getting up and rise very carefully. Use your walker to walk and to assist with standing up. All discharge instructions reviewed with patient and/or family. Voiced understanding. Copy Copies To 1: ZARI MCDERMOTT MD, JOSHUA T MD May 24, 2019 02:18
[2019-05-24 02:53] VITALS: BP 181/89
--- NOTE | 2019-05-24 08:20 | Diagnostic Imaging Report ---
PROCEDURE: CT head and CT cervical spine without contrast. TECHNIQUE: Multiple contiguous axial images were obtained through the brain and cervical spine without the use of intravenous contrast. Sagittal and coronal reformations through the cervical spine were then performed. Auto Exposure Controls were utilized during the CT exam to meet ALARA standards for radiation dose reduction. DATE: May 24, 2019. COMPARISON: CT angiography head and neck February 01, 2018. INDICATION: 89-year-old female, fall. Laceration to the back of the head. FINDINGS: There is soft tissue swelling in the region of the right posterior scalp on axial image 13 which likely relates to a small contusion. There is no identified acute fracture of the skull. There is nonspecific opacification in the right maxillary sinus. Recommend correlation for possible acute sinusitis. There is mild proportional prominence of the ventricles and CSF spaces consistent with mild cerebral volume loss. There is no abnormal extra-axial fluid collection. There is no evidence of acute intracranial hemorrhage. There is no mass effect or midline shift. There is no identified facet joint subluxation or dislocation. There are multilevel facet degenerative changes of the cervical spine. There is no asymmetric widening of the cervical disc spaces. There is arthritis at the C1-C2 articulation. There is chondrocalcinosis. There is moderate to severe disc height loss at C5-C6 and C6-C7. There are posterior disc osteophyte complexes at both levels. CT is limited for assessment of disc pathology as well as evaluation of additional nonbony causes of pathology in the spinal canal. There is no identified acute fracture of the cervical spine. The visualized portions of the lung apices are clear. There are atherosclerotic calcifications. There are bilateral carotid vascular calcifications. IMPRESSION: 1. No identified acute intracranial abnormality. Soft tissue contusion of the right posterior scalp. 2. Nonspecific opacification of the right maxillary sinus. Recommend correlation for possible acute sinusitis. 3. Multilevel facet and disc degenerative changes of the cervical spine. 4. No identified acute fracture of the cervical spine or abnormal alignment of the cervical spine. Dictated by: Dictated on workstation # [id number]
== END 2019-05-24 02:56 | disposition home or self-care (01) ==
LOC: EDUNIT# 23:59 → ER 05-24 00:01
DX: S01.01XA Laceration without foreign body of scalp, initial encounter (principal); I10 Essential (primary) hypertension; R42 Dizziness and giddiness; I25.10 Atherosclerotic heart disease of native coronary artery without angina pectoris; E78.00 Pure hypercholesterolemia, unspecified; K21.9 Gastro-esophageal reflux disease without esophagitis; R40.2142 Coma scale, eyes open, spontaneous, at arrival to emergency department; R40.2252 Coma scale, best verbal response, oriented, at arrival to emergency department; R40.2362 Coma scale, best motor response, obeys commands, at arrival to emergency department; Z85.828 Personal history of other malignant neoplasm of skin; Z23 Encounter for immunization; Z88.8 Allergy status to other drugs, medicaments and biological substances; Z79.82 Long term (current) use of aspirin; Z79.02 Long term (current) use of antithrombotics/antiplatelets; Z79.51 Long term (current) use of inhaled steroids; Z87.891 Personal history of nicotine dependence; Z95.1 Presence of aortocoronary bypass graft; Z82.49 Family history of ischemic heart disease and other diseases of the circulatory system; W18.39XA Other fall on same level, initial encounter; Y92.009 Unspecified place in unspecified non-institutional (private) residence as the place of occurrence of the external cause
CPT/HCPCS: 36415; 70450; 72125; 80053; 81000; 85025; 90715

== ENCOUNTER 2019-06-15 15:23 | Emergency (ER) | payer MEDICARE ==
[~2019-06-15] VITALS: Ht 152 cm; Wt 48.9 kg
[~2019-06-15 15:23] MED LIST changes: -CETI10TA20 PO; +CETI10TA21 PO
[2019-06-15 15:42] LABS: BASOPHILS % (AUTO) 1 % (0-10); EOSINOPHILS # (AUTO) 0.1 10^3/uL (0.0-0.3); EOSINOPHILS % (AUTO) 1 % (0-10); HEMATOCRIT 32 % (35-52); HEMOGLOBIN 10.2 G/DL (11.5-16.0); LYMPHOCYTES # (AUTO) 2.7 X 10^3 (1.0-4.0); LYMPHOCYTES % (AUTO) 45 % (12-44); MEAN CORPUSCULAR HEMOGLOBIN 33 PG (25-34); MEAN CORPUSCULAR HGB CONC 32 G/DL (32-36); MEAN CORPUSCULAR VOLUME 102 FL (80-99); MEAN PLATELET VOLUME 8.4 FL (7.4-10.4); MONOCYTES # (AUTO) 0.6 X 10^3 (0.0-1.0); MONOCYTES % (AUTO) 10 % (0-12); NEUTROPHILS # (AUTO) 2.6 X 10^3 (1.8-7.8); NEUTROPHILS % (AUTO) 43 % (42-75); PLATELET COUNT 188 10^3/uL (130-400); RED CELL DISTRIBUTION WIDTH 13.6 % (10.0-14.5); WHITE BLOOD COUNT 5.9 10^3/uL (4.3-11.0)
[2019-06-15] MEDS ORDERED: LORazepam INJ 2 MG/ML (ATIVAN) VIAL IVP ONE (15:45)
--- NOTE | 2019-06-15 15:48 | Diagnostic Imaging Report ---
INDICATION: Involuntary movements and headache. TIME OF EXAM: 3:36 p.m. COMPARISON: Correlation is made with prior chest from 04/18/2019. FINDINGS: Changes of median sternotomy and CABG are noted. Lungs are clear of acute infiltrate. The pulmonary vascularity is normal. No effusion or pneumothorax is identified. There is some minimal linear scarring in the left base. Multilevel lower thoracic kyphoplasty changes are noted. IMPRESSION: Stable chest. No acute feature is detected. Dictated by: Dictated on workstation # [id number]
[2019-06-15 15:49] VITALS: BP 180/90
--- NOTE | 2019-06-15 15:49 | NUR ---
LINO TO GET A AUTOMATIC BP AFTER THE FIRST. MANUAL BP 180/90'S ACCORDING TO THE TECH. NOTIFIED. PT'S NURSE STATES THEY USUALLY HAVE TO GET IT MANUAL.
[2019-06-15 16:06] LABS: ALANINE AMINOTRANSFERASE 11 U/L (0-55); ALBUMIN 4.2 GM/DL (3.2-4.5); ALKALINE PHOSPHATASE 39 U/L (40-136); BILIRUBIN,TOTAL 0.4 MG/DL (0.1-1.0); BUN/CREATININE RATIO 13; CALCIUM 9.5 MG/DL (8.5-10.1); CARBON DIOXIDE 25 MMOL/L (21-32); CHLORIDE 100 MMOL/L (98-107); CREATINE KINASE 203 U/L (29-168); CREATININE SERUM 1.47 MG/DL (0.60-1.30); GFR ESTIMATED 33; GLUCOSE 91 MG/DL (70-105); LIPASE 39 U/L (8-78); MAGNESIUM 1.5 MG/DL (1.6-2.4); POTASSIUM 4.6 MMOL/L (3.6-5.0); SODIUM 134 MMOL/L (135-145); TOTAL PROTEIN 7.3 GM/DL (6.4-8.2)
[2019-06-15 16:13] LABS: PROTHROMBIN TIME PATIENT 13.1 SEC (12.2-14.7)
[2019-06-15] MEDS ORDERED: LORazepam INJ 2 MG/ML (ATIVAN) VIAL IVP PRN (16:15)
[2019-06-15] MEDS ORDERED: MAGNESIUM 1 GM/100 ML IVPB 100 ML IV ONE (16:15)
[2019-06-15] MEDS ORDERED: DEXTROSE 50% 50 ML (IMS) SYR IV ONE (16:15)
[2019-06-15 16:27] VITALS: BP 184/68
[2019-06-15 16:28] LABS: CREATINE KINASE MB 2.6 NG/ML (<6.6); TSH (THYROID ANALYZER) 1.59 UIU/ML (0.35-4.94)
[2019-06-15 16:29] LABS: BILIRUBIN,URINE NEGATIVE (NEGATIVE); CLARITY,URINE CLEAR; COLOR,URINE YELLOW; GLUCOSE, URINE (UA) NEGATIVE (NEGATIVE); KETONES,URINE NEGATIVE (NEGATIVE); LEUKOCYTE ESTERASE ,URINE NEGATIVE (NEGATIVE); NITRITE,URINE NEGATIVE (NEGATIVE); PH,URINE 5.5 (5-9); PROTEIN,URINE NEGATIVE (NEGATIVE)
[2019-06-15 16:35] LABS: BACTERIA,URINE NEGATIVE /HPF; WBC,URINE RARE /HPF
--- NOTE | 2019-06-15 16:45 | Diagnostic Imaging Report ---
INDICATION: Involuntary movements. Confusion. Headache. TECHNIQUE: Routine miy-irdsmouk-czcsmfxk axial images were obtained from the skull base to the vertex. Auto Exposure Controls were utilized during the CT exam to meet ALARA standards for radiation dose reduction COMPARISON: 05/24/2019. FINDINGS: The ventricles and cortical sulci are diffusely prominent, compatible with age-related volume loss. There are confluent areas of abnormal, low attenuation in the periventricular white matter. This is consistent with chronic small vessel ischemic changes. There is no midline shift or mass-effect. No acute intra-axial hemorrhage is seen. There are no abnormal areas of increased or decreased density to suggest acute hemorrhage or edema. No extra-axial masses or collections are present. The bony calvarium is intact. The visualized paranasal sinuses are unremarkable. The mastoid air cells are partially opacified bilaterally. IMPRESSION: 1. No acute intracranial abnormality. No CT evidence of mass, acute infarct or intracranial hemorrhage. 2. Chronic small vessel ischemic changes in the deep white matter. Dictated by: Dictated on workstation # [id number]
[2019-06-15 17:05] LABS: AMPHETAMINE SCREEN, URINE NEGATIVE (NEGATIVE); BARBITURATE SCREEN URINE NEGATIVE (NEGATIVE); BENZODIAZEPINES SCREEN URINE NEGATIVE (NEGATIVE); CANNABINOID SCREEN, URINE NEGATIVE (NEGATIVE); COCAINE SCREEN URINE NEGATIVE (NEGATIVE); METHADONE STAT NEGATIVE (NEGATIVE); METHAMPHETAMINE SCREEN URINE S NEGATIVE (NEGATIVE); OPIATE SCREEN URINE NEGATIVE (NEGATIVE); OXYCODONE STAT NEGATIVE (NEGATIVE); PROPOXYPHENE STAT NEGATIVE (NEGATIVE); TRICYCLIC ANTIDEPRESSANTS SCRE NEGATIVE (NEGATIVE)
[2019-06-15 17:07] VITALS: BP 178/68
[2019-06-15] MEDS ORDERED: BENZTROPINE MESYLATE 1 MG (COGENTIN) TAB PO ONE (17:15)
[2019-06-15] MEDS ORDERED: D5 1/2 NS 1000 ML IV SOLUTION 1,000 ML IV ONE (17:15)
[2019-06-15] MEDS ORDERED: COGENTIN PO (17:16)
--- NOTE | 2019-06-15 17:16 | ED Neurological Problem ---
General Chief Complaint: Neurological Problems Stated Complaint: POSSIBLE STROKE Nursing Triage Note: ARRIVED VIA AMB TO ROOM 05. INVOLENTARY MOVEMENTS STARTING ON THURSDAY. WAS SEEN BY DR VASQUEZ YESTERDAY. MOVEMENTS HAVE INCREASED AND PT HAS A HEADACHE. Nursing Sepsis Screen: No Definite Risk Source: patient (SOMEWHAT LIMITED HISTORIAN), family (SON), caregiver (NURSE FROM [facility]. ) Allergies and Home Medications Allergies Coded Allergies: niacin (Verified Allergy, Unknown, HIVES, 07/05/17) simvastatin (Verified Allergy, Unknown, HIVES, 09/17/16) Home Medications Acetaminophen 500 Mg Tablet, 500 MG PO Q6H PRN for PAIN-MILD OR TEMPATURE, (Reported) Acetaminophen 500 Mg Tablet, 500 MG PO HS, (Reported) Amoxicillin 500 Mg Capsule, 500 MG PO TID, (Reported) 7 DAY SUPPLY FILLED 01-29-18 Ascorbate Calcium 500 Mg Tablet, 500 MG PO DAILY, (Reported) Aspirin 81 Mg Tablet.dr, 81 MG PO DAILY, (Reported) Cetirizine HCl 10 Mg Tablet, 10 MG PO DAILY, (Reported) 7 DAY THERAPY START DATE 01-29-18 Cetirizine HCl 10 Mg Tablet, 10 MG PO DAILY PRN for ALLERGIES, (Reported) Cholecalciferol (Vitamin D3) 1,000 Unit Capsule, 1,000 UNIT PO DAILY, (Reported) Clopidogrel Bisulfate 75 Mg Tablet, 75 MG PO DAILY, (Reported) Docusate Sodium 100 Mg Tablet, 100 MG PO DAILY PRN for CONSTIPATION-1ST LINE, (Reported) Fluticasone Propionate 16 Gm [place].susp, 0 SPRAY NS BID ONE SPRAY TWICE DAILY X 2 WEEKS Prescribed by: ZARI VASQUEZ on 02/02/18922 L.acidoph & Paracasei,B.lactis 1 Each Capsule, 1 CAP PO DAILY, (Reported) 7 DAY THEARPY START DATE 01-30-18 Lactase 3,000 Unit Tablet, 1 TAB PO QID PRN for WHEN EATING DAIRY, (Reported) Lisinopril 10 Mg Tablet, 10 MG PO HS, (Reported) Lisinopril 20 Mg Tablet, 20 MG PO DAILY, (Reported) Nebivolol HCl 5 Mg Tablet, 5 MG PO BID Prescribed by: ZARI VASQUEZ on 02/02/18922 Pantoprazole Sodium 40 Mg Tablet.dr, 40 MG PO HS, (Reported) Ranolazine 500 Mg Tab.er.12h, 500 MG PO Q12H, (Reported) Rosuvastatin Calcium 10 Mg Tablet, 10 MG PO HS, (Reported) Past Hdbygoy-Vzvufs-Mzgftd Hx Patient Social History Alcohol Beverage of Choice: Whiskey Type Used: Cigarettes Former Smoker, Quit: Apr 20, 1980 2nd Hand Smoke Exposure: No Recent Foreign Travel: No Contact w/Someone Who Travel: No Recent Infectious Disease Expo: No Recent Hopitalizations: Yes Immunizations Up To Date Tetanus Booster (TDap): Unknown Date of Pneumonia Vaccine: Feb 04, 2017 Date of Influenza Vaccine: Jan 25, 2018 Seasonal Allergies Seasonal Allergies: No Past Medical History Surgeries: Yes Abdominal, Cardiac, CABG, Eye Surgery, Orthopedic Respiratory: Yes Sleep Apnea Currently Using CPAP: No Currently Using BIPAP: No Cardiac: Yes (CABG X5 VESSEL) Coronary Artery Disease, High Cholesterol, Hypertension Neurological: Yes (MULTIPLE TIA'S ) TIA 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 Disorders: No Female 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 Disorders: Denies OUT PATIENT THERAPIST History: Menopausal Sexually Transmitted Disease: No HIV/AIDS: No Genitourinary: Yes (URINARY STRESS AND URGE INCONTINENCE) Gastrointestinal: Yes (CONSTIPATION OCCASIONALLY) Gastroesophageal Reflux, Chronic Constipation, Diverticulosis Musculoskeletal: Yes Degenerate Disk Disease, Osteoporosis, Arthritis, Chronic Back Pain, Fractures Endocrine: No HEENT: Yes (BILATERAL CATARACTS REMOVED) Cataract Loss of Vision: Bilateral Hearing Impairment: Denies 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) Skin Did You Recieve Any Treatments: Yes What Type of Treatment Did You: Surgical Intervention Psychosocial: No Integumentary: Yes (skin cancer on face/body) Blood Disorders: No Adverse Reaction/Blood Tranf: No Family Medical History Abdominal aortic aneurysm G8 SISTER Congestive heart failure 19 FATHER Family history: Arthritis 19 MOTHER G8 SISTER Family history: Cardiovascular disease G8 SISTER Family history: Hypertension G8 SISTER Family history: Osteoporosis 19 MOTHER Heart disease 19 FATHER 19 MOTHER G8 SISTER Hypercholesterolemia G8 SISTER Kidney disease G8 SISTER Myocardial infarction 19 FATHER 19 MOTHER G8 SISTER Heart Disease, Hypertension Physical Exam Vital Signs Vital Signs - First Documented 06/15/19 15:23 Temp 37.4 Pulse 60 Resp 16 B/P (MAP) 77/54 (62) Pulse Ox 96 O2 Delivery Room Air Capillary Refill : Less Than 3 Seconds Height, Weight, BMI Height: 5'0.00" Weight: 120lbs. 7.0oz. [id number]; 21.00 BMI Method:Stated Stroke NIH Stroke Scale Assessment Gaze: Normal (0), Total: Stroke Thrombolytic Exclusion Age 18 or Over: Yes Acute intenal hemorrhage: No History of CVA: No Uncontrolled Coagulation Defec: No Intracranial Hemorrhage: No Severe Hypertension: Yes GI or Bleed: No Subarachnoid Hemorrhage: No Intracranial Neoplasm/Aneurysm: No Oral Anticoagulants: Yes Surgery or Trauma: No Puncture of Non-Compressible V: No Recent CPR: No Diabetic Hemorrhagic Retinopat: No Organ Biopsy: No Recent Obstetric Delivery: No Glucose: No Significant Hepatic Dysfunctio: No NIH Stoke Scale >22: No Bacterial Endocarditis: No Pericarditis: No Improving Symptoms: Yes Platelets: No Progress/Results/Core Measures Results/Orders Lab Results Laboratory Tests Test 06/15/19 15:30 06/15/19 15:41 06/15/19 16:20 Range/Units White Blood Count 5.9 4.3-11.0 10^3/uL Red Blood Count 3.08 L 4.35-5.85 10^6/uL Hemoglobin 10.2 L 11.5-16.0 G/DL Hematocrit 32 L 35-52 % Mean Corpuscular Volume 102 H 80-99 FL Mean Corpuscular Hemoglobin 33 25-34 PG Mean Corpuscular Hemoglobin Concent 32 32-36 G/DL Red Cell Distribution Width 13.6 10.0-14.5 % Platelet Count 188 130-400 10^3/uL Mean Platelet Volume 8.4 7.4-10.4 FL Neutrophils (%) (Auto) 43 42-75 % Lymphocytes (%) (Auto) 45 H 12-44 % Monocytes (%) (Auto) 10 0-12 % Eosinophils (%) (Auto) 1 0-10 % Basophils (%) (Auto) 1 0-10 % Neutrophils # (Auto) 2.6 1.8-7.8 X 10^3 Lymphocytes # (Auto) 2.7 1.0-4.0 X 10^3 Monocytes # (Auto) 0.6 0.0-1.0 X 10^3 Eosinophils # (Auto) 0.1 0.0-0.3 10^3/uL Basophils # (Auto) 0.0 0.0-0.1 10^3/uL Prothrombin Time 13.1 12.2-14.7 SEC INR Comment 1.0 0.8-1.4 Activated Partial Thromboplast Time 28 24-35 SEC Sodium Level 134 L 135-145 MMOL/L Potassium Level 4.6 3.6-5.0 MMOL/L Chloride Level 100 98-107 MMOL/L Carbon Dioxide Level 25 21-32 MMOL/L Anion Gap 9 5-14 MMOL/L Blood Urea Nitrogen 19 H 7-18 MG/DL Creatinine 1.47 H 0.60-1.30 MG/DL Estimat Glomerular Filtration Rate 33 BUN/Creatinine Ratio 13 Glucose Level 91 70-105 MG/DL Calcium Level 9.5 8.5-10.1 MG/DL Corrected Calcium 9.3 8.5-10.1 MG/DL Magnesium Level 1.5 L 1.6-2.4 MG/DL Total Bilirubin 0.4 0.1-1.0 MG/DL Aspartate Amino Transf (AST/SGOT) 21 5-34 U/L Alanine Aminotransferase (ALT/SGPT) 11 0-55 U/L Alkaline Phosphatase 39 L 40-136 U/L Total Creatine Kinase 203 H 29-168 U/L Creatine Kinase MB 2.6 <6.6 NG/ML Myoglobin 273.8 H 10.0-92.0 NG/ML Troponin I < 0.028 <0.028 NG/ML Total Protein 7.3 6.4-8.2 GM/DL Albumin 4.2 3.2-4.5 GM/DL Lipase 39 8-78 U/L TSH [place] Testing 1.59 0.35-4.94 UIU/ML Glucometer 64 L 70-110 MG/DL Urine Color YELLOW Urine Clarity CLEAR Urine pH 5.5 5-9 Urine Specific [place] 1.025 H 1.016-1.022 Urine Protein NEGATIVE NEGATIVE Urine Glucose (UA) NEGATIVE NEGATIVE Urine Ketones NEGATIVE NEGATIVE Urine Nitrite NEGATIVE NEGATIVE Urine Bilirubin NEGATIVE NEGATIVE Urine Urobilinogen 1.0 < = 1.0 MG/DL Urine Leukocyte Esterase NEGATIVE NEGATIVE Urine RBC (Auto) NEGATIVE NEGATIVE Urine RBC NONE /HPF Urine WBC RARE /HPF Urine Crystals NONE /LPF Urine Bacteria NEGATIVE /HPF Urine Casts NONE /LPF Urine Mucus NEGATIVE /LPF Urine Culture Indicated NO Urine Opiates Screen NEGATIVE NEGATIVE Urine Oxycodone Screen NEGATIVE NEGATIVE Urine Methadone Screen NEGATIVE NEGATIVE Urine Propoxyphene Screen NEGATIVE NEGATIVE Urine Barbiturates Screen NEGATIVE NEGATIVE Ur Tricyclic Antidepressants Screen NEGATIVE NEGATIVE Urine Phencyclidine Screen NEGATIVE NEGATIVE Urine Amphetamines Screen NEGATIVE NEGATIVE Urine Methamphetamines Screen NEGATIVE NEGATIVE Urine Benzodiazepines Screen NEGATIVE NEGATIVE Urine Cocaine Screen NEGATIVE NEGATIVE Urine Cannabinoids Screen NEGATIVE NEGATIVE My Orders Orders - JUAN JOSÉ FUNG DO Accucheck Stat ONCE (06/15/19 15:26) Ed Iv/Invasive Line Start (06/15/19 15:26) Ekg Tracing (06/15/19 15:26) Monitor-Rhythm Ecg Trace Only (06/15/19 15:26) Straight Cath For Spec.-Adult (06/15/19 15:26) Ct Head Wo-R/O Stroke (06/15/19 15:26) Cbc With Automated Diff (06/15/19 15:26) Comprehensive Metabolic Panel (06/15/19 15:26) Creatine Kinase (06/15/19 15:26) Creatine Kinase Mb (06/15/19 15:26) Drug Screen Stat (Urine) (06/15/19 15:26) Lipase (06/15/19 15:26) Magnesium (06/15/19 15:26) Protime With Inr (06/15/19 15:26) Partial Thromboplastin Time (06/15/19 15:26) Thyroid Analyzer (06/15/19 15:26) Ua Culture If Indicated (06/15/19 15:26) Myoglobin Serum (06/15/19 15:26) Troponin I (06/15/19 15:26) Chest 1 View, Ap/Pa Only (06/15/19 15:26) Lorazepam Injection (Ativan Injection) (06/15/19 15:45) D50w (Emergency) Syringe (Dextrose 50% 5 (06/15/19 16:15) Lorazepam Injection (Ativan Injection) (06/15/19 16:15) Magnesium 1 Gm/100 Ml Ivpb (Magnesium Paredes (06/15/19 16:15) Benztropine Tablet (Cogentin Tablet) (06/15/19 17:15) Ed Iv/Invasive Line Start (06/15/19 17:03) D5 1/2 Ns 1000 Ml Iv Solution (Dextrose (06/15/19 17:15) Medications Given in ED Current Medications Medications Dose Ordered Sig/Alyse Route Start Time Stop Time Status Last Admin Dose Admin Dextrose 25 ml ONCE ONCE IV 06/15/19 16:15 06/15/19 16:16 DC 06/15/19 16:11 25 ML Lorazepam 0.5 mg ONCE PRN IVP 06/15/19 16:15 06/15/19 16:14 0.5 MG Lorazepam 1 mg ONCE ONCE IVP 06/15/19 15:45 06/15/19 15:46 DC 06/15/19 15:48 1 MG Magnesium Sulfate/ Dextrose 100 ml @ 100 mls/hr ONCE ONCE IV 06/15/19 16:15 06/15/19 17:14 06/15/19 17:04 100 MLS/HR Vital Signs/I&O 06/15/19 06/15/19 06/15/19 06/15/19 15:23 15:49 16:27 17:07 Temp 37.4 Pulse 60 77 60 57 Resp 16 16 16 16 B/P (MAP) 77/54 (62) 180/90 (120) 184/68 (106) 178/68 (104) Pulse Ox 96 98 98 96 O2 Delivery Room Air Room Air Room Air Room Air Blood Pressure Mean: 104 FSBG Bedside Testing Finger Stick Blood Glucose: 142 Departure Impression Primary Impression: Tardive dyskinesia Additional Impressions: Hypomagnesemia HTN (hypertension) Disposition: 01 HOME, SELF-CARE Condition: Stable Departure-Patient Inst. Referrals: ZARI VASQUEZ MD (PCP/Family) Primary Care Physician Patient Instructions: Low Magnesium Level (DC), Tardive Dyskinesia, High Blood Pressure (DC) Add. Discharge Instructions: LOTS OF FLUIDS EAT REGULAR MEALS USUAL CONTINUE YOUR REGULAR MEDICATIONS PRESCRIBED FOLLOW UP WITH DR. VASQUEZ THIS WEEK FOR FURTHER CARE All discharge instructions reviewed with patient and/or family. Voiced understanding. Scripts [Cogentin] (Cogentin) No Conflict Check 1 MG PO Q12H, #14 Prov: JUAN JOSÉ FUNG DO 06/15/19 JUAN JOSÉ FUNG DO Jun 15, 2019 17:16
--- NOTE | 2019-06-15 17:35 | NUR ---
PT SEEMS TO BE MORE CONFUSED THEN WHEN SHE FIRST ARRIVED ET FAMILY STATES SHE IS. NOTIFIED WHO WENT INTO ROOM TO TALK TO FAMILY
--- NOTE | 2019-06-15 18:00 | NUR ---
SON STATES THEY ARE WAITING FOR FAMILY TO COME PICK THEM UP. PT RESTING. WILL WAIT FOR FAMILY TO ARRIVE BEFORE WE GET HER READY FOR DISCHARGE SO SHE CAN REST.
[2019-06-15 18:19] VITALS: BP 178/72
== END 2019-06-15 18:19 | disposition home or self-care (01) ==
LOC: EDUNIT# 15:23 → ER 15:28
DX: G24.01 Drug induced subacute dyskinesia (principal); E83.42 Hypomagnesemia; I10 Essential (primary) hypertension; E78.00 Pure hypercholesterolemia, unspecified; I25.10 Atherosclerotic heart disease of native coronary artery without angina pectoris; K21.9 Gastro-esophageal reflux disease without esophagitis; G47.30 Sleep apnea, unspecified; Z85.828 Personal history of other malignant neoplasm of skin; Z86.73 Personal history of transient ischemic attack (TIA), and cerebral infarction without residual deficits; Z88.8 Allergy status to other drugs, medicaments and biological substances; Z99.89 Dependence on other enabling machines and devices; Z79.82 Long term (current) use of aspirin; Z79.02 Long term (current) use of antithrombotics/antiplatelets; Z79.51 Long term (current) use of inhaled steroids; Z87.891 Personal history of nicotine dependence; Z95.1 Presence of aortocoronary bypass graft; Z82.49 Family history of ischemic heart disease and other diseases of the circulatory system
CPT/HCPCS: 36415; 51701; 70450; 71045; 80053; 80306; 81000; 82550; 82553; 82962; 83690; 83735; 83874; 84443; 84484; 85025; 85610; 85730; 93005; 93041; 96361; 96365; 96375

== ENCOUNTER 2019-10-25 10:06 | Outpatient (RCR) | payer MEDICARE ==
[2019-10-18 10:50] VITALS: BP 185/76
[~2019-10-25] VITALS: Ht 152.4 cm; Wt 47.2 kg
[~2019-10-25 10:06] MED LIST changes: +ACET650S15 RC; +ALPH1TAB8 PO; -ASCO-413 PO; +ASCO500T71 PO; +BISA10SU8 RC; +CNC1KV IM; +COGENTIN PO; +DENOSUMAB 60 MG/1 ML (PROLIA) SQ NR; +FLUT9.9S NSEACH; +GUAI600T43 PO; +HYDR-83 PO; +HYOS0.1283 SL; +LORA-404 SL; +MECL-172 PO; +MORP100S3 PO; +ONDA4TAB11 SL; +POLY15DR14 OU; +PRED5TAB PO; +RANO500T5 PO; +SIME125T PO; +SUCR1TAB PO; +UBID100C44 PO
[2019-10-25 10:10] VITALS: BP 151/67
[2019-10-25] MEDS ORDERED: FERRIC CARBOXYMALTOSE INJ 750 MG in NS (IVPB) 250 ML IV SCH (10:15)
== END 2019-10-25 11:50 | disposition home or self-care (01) ==
LOC: SDC 10:06
PROVIDERS: ATTEND Family Medicine
DX: D50.8 Other iron deficiency anemias (principal); M81.0 Age-related osteoporosis without current pathological fracture
CPT/HCPCS: 96365; 96372

== ENCOUNTER → 2019-12-09 | Outpatient (CLI) | payer MEDICARE ==
[~2019-12-09] MED LIST changes: -DENOSUMAB 60 MG/1 ML (PROLIA) SQ NR; +HYDR-3812 PO; -HYDR-83 PO
--- NOTE | 2019-12-09 10:52 | Diagnostic Imaging Report ---
INDICATION: Back pain. Time of exam 10:26 AM 2 views of the thoracic spine were obtained. Curvature and alignment is normal. There is a compression fracture involving T11 vertebral body, similar to prior exam from 2017. Treated compression fracture of T12 as well as in the lumbar spine is noted. No new compression fractures identified. Paraspinous line is intact. 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 No new compression fractures detected. Dictated by: Dictated on workstation # [id number]
--- NOTE | 2019-12-09 10:59 | Diagnostic Imaging Report ---
INDICATION: Back pain. Time of exam: 10:27 AM Comparison is made to prior radiographs from 08/07/2016. Two views of the lumbar spine demonstrate kyphoplasty changes from T12 through L5. There is an untreated compression fracture deformity involving T11 vertebral body which appears similar to prior exam. There is substantial loss of the L3 and L2 vertebral bodies since prior exam. Disc spaces are well-maintained. Aorta is heavily calcified. IMPRESSION: Treated compression fractures from T12 to L5, as described. Dictated by: Dictated on workstation # [id number]
== END ==
LOC: RAD 09:56
PROVIDERS: ATTEND Nurse Practitioner Family
DX: M48.55XA Collapsed vertebra, not elsewhere classified, thoracolumbar region, initial encounter for fracture (principal); Z20.828 Contact with and (suspected) exposure to other viral communicable diseases
CPT/HCPCS: 72072; 72100